=== PATIENT | female | born 1980 | race Caucasian/White ===

== ENCOUNTER → 2020-06-16 14:01 | Outpatient (BNVA) | payer MEDICARE, MEDICAID, SELFPAY | PROVIDERS: Visit Provider Obstetrics & Gynecology | DX: N92.0 Excessive and frequent menstruation with regular cycle (principal); R11.0 Nausea; Z12.31 Encounter for screening mammogram for malignant neoplasm of breast; Z12.4 Encounter for screening for malignant neoplasm of cervix | CPT/HCPCS: 84443; 85025; 88175 ==

== ENCOUNTER → 2020-06-23 15:32 | Outpatient (BNVA) | payer MEDICARE, MEDICAID, SELFPAY | PROVIDERS: Visit Provider Obstetrics & Gynecology | DX: D25.9 Leiomyoma of uterus, unspecified (principal) | CPT/HCPCS: 76830 ==

== ENCOUNTER 2020-07-29 13:14 | Outpatient (CLI) | payer MEDICARE, MEDICAID, SELFPAY ==
--- NOTE | 2020-07-29 13:30 | MM_ITS ---
WS: [id number] SCREENING DIGITAL MAMMOGRAM WITH CAD HISTORY: screening COMPARISON: None available. Bilateral CC and MLO views submitted. Computer aided detection analyzed. Breast composition: There are scattered areas of fibroglandular density. High-density asymmetry in th e central LEFT breast on the CC projection measures 8 mm. May be in the superior breast on the latera l projection. Benign lymph node upper-outer quadrant of the RIGHT breast. MM/[place] [id number] IMPRESSION: BI-RADS: 0-Incomplete: Need additional imaging evaluation FOLLOW UP: Need Additional Imaging LEFT breast: Spot compression views (CC and MLO). True ML. Ultrasound to follow if abnormality persists.
== END 2020-07-29 13:15 | disposition home or self-care (01) ==
LOC: RADSHAW 13:20
PROVIDERS: PCP Family Medicine Adult Medicine; Visit Provider Obstetrics & Gynecology
DX: Z12.31 Encounter for screening mammogram for malignant neoplasm of breast (principal); N64.89 Other specified disorders of breast
CPT/HCPCS: 77067

== ENCOUNTER 2020-08-17 08:10 | Outpatient (CLI) | payer MEDICARE, MEDICAID, SELFPAY ==
--- NOTE | 2020-08-17 08:30 | MM_ITS ---
WS: [id number] ADDITIONAL VIEWS LEFT MAMMOGRAM LEFT BREAST ULTRASOUND HISTORY: Incomplete mammogram COMPARISON: 07/29/2020 LEFT MAMMOGRAM: Spot compression views and true ML. Asymmetry persists in the anterior LEFT breast measuring 6 mm seen only on the CC projection. Nodule is just lateral to the nipple line and probably above the nipple. Does not completely resolve with ad ditional imaging. LEFT BREAST ULTRASOUND 2-D and color Doppler imaging submitted. Ultrasound is directed to the anterior breast near 12-1 o'clock. There are no suspicious masses ident ified. There is thick fibroglandular tissue. No shadowing. MM/[place] [id number] IMPRESSION: BI-RADS: 3-Probably Benign FOLLOW UP: 6 Month Follow-up Recommend 6 month diagnostic imaging of the LEFT breast to reevaluate the asymm etry seen only on the LEFT CC mammogram. No abnormality was noted by ultrasound .
--- NOTE | 2020-08-17 09:00 | US_ITS ---
WS: [id number] ADDITIONAL VIEWS LEFT MAMMOGRAM LEFT BREAST ULTRASOUND HISTORY: Incomplete mammogram COMPARISON: 07/29/2020 LEFT MAMMOGRAM: Spot compression views and true ML. Asymmetry persists in the anterior LEFT breast measuring 6 mm seen only on the CC projection. Nodule is just lateral to the nipple line and probably above the nipple. Does not completely resolve with ad ditional imaging. LEFT BREAST ULTRASOUND 2-D and color Doppler imaging submitted. Ultrasound is directed to the anterior breast near 12-1 o'clock. There are no suspicious masses ident ified. There is thick fibroglandular tissue. No shadowing. US/US breast LT limited* [id number] IMPRESSION: BI-RADS: 3-Probably Benign FOLLOW UP: 6 Month Follow-up Recommend 6 month diagnostic imaging of the LEFT breast to reevaluate the asymm etry seen only on the LEFT CC mammogram. No abnormality was noted by ultrasound .
== END 2020-08-17 08:11 | disposition home or self-care (01) ==
LOC: RADSHAW 08:14
PROVIDERS: PCP Family Medicine Adult Medicine; Visit Provider Obstetrics & Gynecology
DX: R92.2 Inconclusive mammogram (principal); N64.89 Other specified disorders of breast
CPT/HCPCS: 76642; 77065

== ENCOUNTER 2020-10-25 16:35 | Emergency (ER) | payer MEDICARE, MEDICAID, SELFPAY ==
[2020-10-25 17:00] VITALS: BP 127/91; PULSE 82; RESP 14; TEMP 36.8; O2SAT 96; BMI 30.1
--- NOTE | 2020-10-25 19:08 | PC.NURSE ---
PT STATES THAT HER BLEEDING IS EVERYTIME SHE HAS A BOWEL MOVEMENT NOW. RECHECK VITALS 135/86, 87HR, 97%
--- NOTE | 2020-10-25 19:43 | ED_ITS ---
HPI - General Adult General: Chief complaint: General Medical Stated complaint: passing blood, spider bite on bum Time Seen by Provider: 10/25/20 19:41 History of Present Illness: HPI narrative: Patient is a 40-year-old female comes to the ED with abdominal pain, red blood in stool and spider bite on left buttock. Past medical history of COPD, anxiety and Crohn's disease. Patient says spider bite occurred approximately 4 days ago. Patient has been using charcoal and mupirocin ointment on it. She says it has been improving over the past 4 days. She says that her abdominal pain and red blood in the stool is a Crohn's flare up. Abdominal pain is rated a 5 out of 10. She states that whenever she gets stressed she has these flares. Patient is having some relationship issues with her best friend that is causing her a lot of stress. She started having this abdominal pain and blood in the stool approximately 2 days ago. Denies any fever, chills, emesis, chest pain, shortness of breath, dysuria or hematuria. She does endorse having a cough that has progressed a little due to her increased tobacco smoking due to stress. Patient has an appointment with behavioral health in November to evaluate her anxiety. Associated symptoms: Reports nausea; Deny chest pain, dyspnea, headache(s), rash, palpitations or vomiting Review of Systems Const: Denies: fever(s), chills or fatigue Eyes: Denies: change in vision or eye discomfort ENMT: Denies: throat pain, odynophagia, nasal discharge or nasal congestion Card: Denies: chest pain, palpitations, edema, swelling of feet/ankles, dyspnea on exertion or orthopnea Resp: Reports: non-productive cough; Denies: dyspnea or productive cough GI: Reports: abdominal pain, nausea, heartburn, diarrhea and hematochezia (Red blood when she wipes.); Denies: vomiting or constipation : Denies: flank pain, dysuria or hematuria Musc: Denies: neck pain, back pain or extremity swelling Skin/Breast: Denies: rash or new lesions Neuro: Denies: headache(s), numbness in extremities or weakness in extremities Psych: Reports: anxiety [facility] ED PFSH: Medical History 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 IBS (irritable colon syndrome) No pertinent past medical history Denies diabetes, hypertension, asthma, seizures, DVT/PE PCP: Dr. Medel Seizures Surgical History S/P laparoscopic cholecystectomy 2006 Status post delivery X 2 ---> 2005, 2006 Status post tubal ligation 2006--laparoscopic tubal 2 months after her Family History Father Hyperlipidemia Hypertension Mother Hypertension Stroke Breast cancer diagnosed at age 70 Cancer breast Family/Other Ovarian cancer paternal aunt Denies family history of Colon cancer Diabetes Heart disease Anesthesia complication Bleeding disorder Uterine cancer Thyroid condition Social History Smoking and tobacco status: former smoker Alcohol intake: never Household members: significant other Marital status: Single Current occupational status: disabled History of recent travel: No Physical Exam Const: COMMON NORMALS: no acute distress, patient oriented x3 and alert GENERAL APPEARANCE: cooperative, comfortable and anxious HENMT: COMMON NORMALS: normocephalic HEAD & SCALP: normocephalic MOUTH: Normal oral and palatal mucosa present THROAT: posterior oropharynx normal and uvula midline Eye: COMMON NORMALS: Equal, round and reactive pupils present PUPIL: Yes Equal, round and reactive pupils present Neck/C-Spine: COMMON NORMALS: supple GENERAL: Yes normal visual inspection Resp: COMMON NORMALS: normal respiratory effort, No retractions, No use of accessory muscles and clear to auscultation bilaterally EFFORT & INSPECTION: Yes able to speak in complete sentences, No tachypneic, No respiratory distress and No labored AUSCULTATION: clear to auscultation bilaterally Cardio: COMMON NORMALS: regular rate, regular rhythm, S1 normal heart sound present, S2 normal heart sound present, No gallops present (Cardio), No clicks present (Cardio), No murmurs present (Cardio) and Peripheral pulses 2+ throughout RATE: regular rate RHYTHM: regular rhythm HEART SOUNDS: S1 normal heart sound present and S2 normal heart sound present PERIPHERAL PULSES: Peripheral pulses 2+ throughout GI: COMMON NORMALS: Normal to inspection, nondistended, normoactive bowel sounds present, Soft to palpation and no masses PALPATION: Yes Soft to palpation and Yes Tenderness to palpation present (GI) (Mild generalized tenderness throughout the abdomen.) : COMMON NORMALS: Yes no CVA tenderness BLADDER/KIDNEY EXAM: Yes no CVA tenderness Back/Pelvis: COMMON NORMALS: no CVA tenderness Extremity: COMMON NORMALS: normal to inspection Neuro: COMMON NORMALS: patient oriented x3 and moves all extremities SENSORIUM/ORIENTATION: Yes alert Skin: NARRATIVE SKIN EXAM: Patient has a small half a centimeter in diameter ulcer on left buttock. It has some surrounding erythema and warmth. Tenderness upon palpation. Appears to be brown recluse spider bite with some signs of cellulitis present. No pus or purulent drainage seen. GENERAL SKIN EXAM: dry skin Course Reevaluation(s): Reevaluation #1: After patient received IV fluids, Zofran, morphine and Solu-Medrol her symptoms greatly improved. Patient was ready to be discharged to go home. Time: 21:41 Vital Signs: Vital signs: Vital Signs Temperature 98.2 F 10/25/20 17:00 Pulse Rate 81 10/25/20 22:20 Respiratory Rate 17 10/25/20 22:20 Blood Pressure 135/101 10/25/20 22:20 Pulse Oximetry 95 10/25/20 22:20 MDM - General Adult MDM Narrative: Medical decision making narrative: Patient is a 40-year-old female comes to the ED with multiple complaints. Patient has some abdominal pain and bloody diarrhea and also has a brown recluse spider bite on left buttock. Patient has past medical history of Crohn's disease and COPD. She says that her symptoms of abdominal pain and blood in stool are like her previous Crohn's flares. She admits to having a lot of stress and anxiety currently in her life and that is the reason for current Crohn's flare. Patient has some generalized abdominal tenderness and left buttock is small ulcer that appears to be from a brown recluse bite that has some surrounding erythema warmth and tenderness. WBC 18.3. Rest of CBC and CMP was unremarkable. Chest x-ray shows no acute findings. CT of abdomen showed enteritis. Patient was given IV fluids, Zofran, morphine and Solu-Medrol and her symptoms greatly improved. Patient was diagnosed with spider bite with some cellulitis developing and enteritis. She was discharged on antibiotics and a steroid. She was told to follow-up with her PCP in 7 to 10 days for reevaluation. Return to ED precautions given. Patient understood and agreed with plan. Lab Data: Attestation: I reviewed the patient's lab results. Labs: Lab Results 10/25/20 10/25/20 10/25/20 Range/Units 20:29 20:29 20:29 WBC 18.3 H (4.0-10.0) 10^3/ uL RBC 5.17 (4.1-5.3) 10^6/u L Hgb 14.6 (11.5-15.3) g/dL Hct 43.6 (37.0-47.0) % MCV 84.3 (81-99) fL MCH 28.2 (28.0-34.0) pg MCHC 33.5 (30.0-36.0) g/dL RDW 11.9 L (12.1-15.1) % Plt Count 394 (130-400) 10^3/c mm MPV 10.3 (7.4-10.4) fL Neut % (Auto) 70.6 % Lymph % (Auto) 19.3 % Anderson % (Auto) 7.1 % Eos % (Auto) 2.0 % Baso % (Auto) 0.7 % Neut # (Auto) 12.90 H (1.8-7.7) 10^3/u L Lymph # (Auto) 3.5 (0.8-4.8) 10^3/u L Anderson # (Auto) 1.3 H (0.2-0.9) 10^3/u L Eos # (Auto) 0.4 (0.0-0.8) 10^3/u L Baso # (Auto) 0.1 (0.0-0.1) 10^3/u L Nucleated RBC % (a uto) 0 % Nucleated RBCs # 0.0 /100WBC PT 12.90 (12.1-14.9) SECO NDS INR 0.94 (0.8-1.2) Sodium 141 (136-145) mmol/L Potassium 3.8 (3.5-5.1) mmol/L Chloride 107 (98-107) mmol/L Carbon Dioxide 19 L (22-29) mmol/L Anion Gap 18.8 (5-19) BUN 13 (6-20) mg/dL Creatinine 0.8 (0.5-0.9) mg/dL GFR Calculation 79.4 L (90-130) mL/min Glucose 119 H (65-115) mg/dL Calculated Osmolal ity 293 (285-295) mOsm/k g Calcium 9.6 (8.5-10.5) mg/dL Total Bilirubin 0.5 (0.15-1.2) mg/dL AST 15 (0-32) U/L ALT 18 (0-33) U/L Alkaline Phosphata se 80 (35-105) IU/L C-Reactive Protein 2.8 (0.0-4.9) mg/L Total Protein 8.1 (6.6-8.7) g/dL Albumin 4.7 (3.5-5.2) g/dL Globulin 3.4 (1.3-4.6) g/dL Lipase (13-60) U/L HCG, Qual (Negative) 10/25/20 10/25/20 Range/Units 20:29 20:40 WBC (4.0-10.0) 10^3/ uL RBC (4.1-5.3) 10^6/u L Hgb (11.5-15.3) g/dL Hct (37.0-47.0) % MCV (81-99) fL MCH (28.0-34.0) pg MCHC (30.0-36.0) g/dL RDW (12.1-15.1) % Plt Count (130-400) 10^3/c mm MPV (7.4-10.4) fL Neut % (Auto) % Lymph % (Auto) % Anderson % (Auto) % Eos % (Auto) % Baso % (Auto) % Neut # (Auto) (1.8-7.7) 10^3/u L Lymph # (Auto) (0.8-4.8) 10^3/u L Anderson # (Auto) (0.2-0.9) 10^3/u L Eos # (Auto) (0.0-0.8) 10^3/u L Baso # (Auto) (0.0-0.1) 10^3/u L Nucleated RBC % (a uto) % Nucleated RBCs # /100WBC PT (12.1-14.9) SECO NDS INR (0.8-1.2) Sodium (136-145) mmol/L Potassium (3.5-5.1) mmol/L Chloride (98-107) mmol/L Carbon Dioxide (22-29) mmol/L Anion Gap (5-19) BUN (6-20) mg/dL Creatinine (0.5-0.9) mg/dL GFR Calculation (90-130) mL/min Glucose (65-115) mg/dL Calculated Osmolal ity (285-295) mOsm/k g Calcium (8.5-10.5) mg/dL Total Bilirubin (0.15-1.2) mg/dL AST (0-32) U/L ALT (0-33) U/L Alkaline Phosphata se (35-105) IU/L C-Reactive Protein (0.0-4.9) mg/L Total Protein (6.6-8.7) g/dL Albumin (3.5-5.2) g/dL Globulin (1.3-4.6) g/dL Lipase 24 (13-60) U/L HCG, Qual Negative (Negative) Imaging Data^: CT Abd/Pel: Attestation: I personally reviewed and interpreted this imaging study as follows: Radiologist's impression: [address] [address] [address] Scan Report Signed Patient: Rekha Gu Unit #: [id number] : 1980 Age/Sex: 40 / F ADM Date: 10/25/20 Loc: ER Room/Bed: Attending Dr: Ordering Provider/Ordering MD: Nikos Drew Date of Service: 10/25/20 Procedure(s): CT abdomen pelvis w con* [id number] Accession Number(s): [id number] Report Number: [id number] PROCEDURE INFORMATION: Exam: CT Abdomen And Pelvis With Contrast Exam date and time: 10/25/2020 8:39 PM Age: 40 years old Clinical indication: Other: Rectal bleeding; Prior surgery; Surgery type: Tubal, , gb; Additional info: Abdominal pain TECHNIQUE: Imaging protocol: Computed tomography of the abdomen and pelvis with intravenous contrast. Radiation optimization: All CT scans at this facility use at least one of these dose optimization techniques: automated exposure control; mA and/or kV adjustment per patient size (includes targeted exams where dose is matched to clinical indication); or iterative reconstruction. Contrast material: OMNI 300; Contrast volume: 95 ml; Contrast route: INTRAVENOUS (IV); COMPARISON: US transvaginal [id number] 06/23/2020 3:36 PM RADIATION DOSE METRICS: Total DLP (mGy-cm): 656.51 FINDINGS: Liver: Normal. No mass. Gallbladder and bile ducts: Cholecystectomy. Pancreas: Normal. No ductal dilation. Spleen: Normal. No splenomegaly. Adrenal glands: Normal. No mass. Kidneys and ureters: Normal. No hydronephrosis. Stomach and bowel: Prominent fluid in the small bowel without dilation may reflect an enteritis or ileus. Appendix: No evidence of appendicitis. Intraperitoneal space: Unremarkable. No free air. No significant fluid collection. Vasculature: Unremarkable. No abdominal aortic aneurysm. Lymph nodes: Unremarkable. No enlarged lymph nodes. Urinary bladder: Unremarkable as visualized. Reproductive: Unremarkable as visualized. Bones/joints: Unremarkable. No acute fracture. Soft tissues: Unremarkable. CT/CT abdomen pelvis w con* [id number] IMPRESSION: 1. Prominent fluid in the small bowel without dilation may reflect an enteritis or ileus. 2. Cholecystectomy. Radiation Dose CTDIVOL = (mGy): DLP = 656.51 (mGy-cm) Dictated By: Errol Lamb MD Signed By: Errol Lamb MD Signed Date/Time: 10/25/202110 DD/ 09 CXR: Attestation: I personally reviewed and interpreted this imaging study as follows: My impression: Chest x-ray shows hyperinflated lungs but no signs of pneumonia or any other acute findings. Pending final radiology report. Discharge Plan Discharge Patient Disposition: Home Clinical Impression: Enteritis Brown recluse spider bite Qualifiers: Encounter type: initial encounter Injury intent: accidental or unintentional Qualified Code(s): T63.331A - Toxic effect of venom of brown recluse spider, accidental (unintentional), initial encounter Condition: Stable Prescriptions: New mupirocin 2 % ointment 1 applic topical BID Qty: 15 RF: 0 clindamycin HCl 150 mg capsule 300 mg PO QID 7 Days Qty: 56 RF: 0 Flagyl 500 mg tablet 500 mg PO Q8H 5 Days Qty: 15 RF: 0 Medrol (Luciano) 4 mg tablets,dose pack See Rx Instructions .ROUTE .COMPLEX Qty: 21 RF: 0 No Action ipratropium-albuterol 0.5 mg-3 mg(2.5 mg base)/3 mL solution for nebulization 3 ml INHALATION QID PRN (Reason: wheezing) Qty: 180 RF: 0 turmeric 400 mg capsule 400 mg PO BID@0700,1900 RF: 0 Garcinia Cambogia 200-500 mcg-mg tablet 1 tab PO TID RF: 0 aloe juice See Rx Instructions .ROUTE .COMPLEX RF: 0 vitamin B complex [B Complex-Vitamin B12] Tablet 1 tab PO DAILY@0700 RF: 0 medroxyprogesterone [Depo-Provera] 150 mg/mL suspension 150 mg IM ONCE Qty: 1 RF: 2 albuterol sulfate [Ventolin HFA] 90 mcg/actuation HFA aerosol inhaler 2 puff INHALATION Q6H PRN (Reason: shortness of breath or wheezing) Qty: 18 RF: 1 bentonite Powder See Rx Instructions .ROUTE .COMPLEX RF: 0 ondansetron 8 mg tablet,disintegrating 8 mg PO Q8H Qty: 30 RF: 3 cannabis See Rx Instructions .ROUTE .COMPLEX RF: 0 Viibryd 10 mg (7)- 20 mg (23) tablets,dose pack See Rx Instructions PO PER PKG DIR Qty: 30 RF: 0 hydroxyzine pamoate 100 mg capsule 100 mg PO Q6H Qty: 120 RF: 5 mupirocin 2 % ointment 1 applic topical TID 7 Days Qty: 22 RF: 0 multivitamin Tablet 1 tab PO DAILY@0700 RF: 0 ashwagandha root extract 300 mg Capsule 300 mg PO DAILY@0700 RF: 0 Gabapalm 1 tab PO DAILY@0700 RF: 0 He Shou Nickerson 1 tab PO DAILY@0700 RF: 0 Vitamin D3 1 tab PO DAILY@0700 RF: 0 melatonin 1 tab PO DAILY@1900 RF: 0 Discharge Orders: Discharge ED (Routine); Ordered 10/25/20 Ordered By: Nikos Meigs Referrals: Alexi Medel MD [Primary Care Provider] - Discharge Diet: Advance as tolerated Discharge Activity: Increase activity as tolerated Patient Instructions: Crohn Disease (ED), Brown Recluse Spider Bite (ED) Activity Restrictions/Additional Instructions: Follow-up with medical provider as directed in 7 to 10 days for reevaluation. Take medications as prescribed. Return to the ER or your medical provider if condition worsens. Please read and understand discharge instructions. If any questions, please ask. Coding Level of Care Code ED Anchor Tack Puller for Chg Fwd Exam Comprehensive
--- NOTE | 2020-10-25 20:01 | XR_ITS ---
WS: [id number] Exam: XR chest 1V portable [id number] Date/Time of Exam: 10/25/2020 8:34 PM Reason For Exam: cough No priors. Findings: The lungs are clear and fully expanded. Costophrenic angles are sharp. No infiltrates. Bronchovascula r relief appears normal. Cardiac silhouette is unremarkable. Bony elements are intact. XR/XR chest 1V portable [id number] IMPRESSION: Unremarkable chest radiograph.
--- NOTE | 2020-10-25 20:01 | CTR_ITS ---
PROCEDURE INFORMATION: Exam: CT Abdomen And Pelvis With Contrast Exam date and time: 10/25/2020 8:39 PM Age: 40 years old Clinical indication: Other: Rectal bleeding; Prior surgery; Surgery type: Tubal, , gb; Additional info: Abdominal pain TECHNIQUE: Imaging protocol: Computed tomography of the abdomen and pelvis with intravenous contrast. Radiation optimization: All CT scans at this facility use at least one of these dose optimization techniques: automated exposure control; mA and/or kV adjustment per patient size (includes targeted exams where dose is matched to clinical indication); or iterative reconstruction. Contrast material: OMNI 300; Contrast volume: 95 ml; Contrast route: INTRAVENOUS (IV); COMPARISON: US transvaginal [id number] 06/23/2020 3:36 PM RADIATION DOSE METRICS: Total DLP (mGy-cm): 656.51 FINDINGS: Liver: Normal. No mass. Gallbladder and bile ducts: Cholecystectomy. Pancreas: Normal. No ductal dilation. Spleen: Normal. No splenomegaly. Adrenal glands: Normal. No mass. Kidneys and ureters: Normal. No hydronephrosis. Stomach and bowel: Prominent fluid in the small bowel without dilation may reflect an enteritis or ileus. Appendix: No evidence of appendicitis. Intraperitoneal space: Unremarkable. No free air. No significant fluid collection. Vasculature: Unremarkable. No abdominal aortic aneurysm. Lymph nodes: Unremarkable. No enlarged lymph nodes. Urinary bladder: Unremarkable as visualized. Reproductive: Unremarkable as visualized. Bones/joints: Unremarkable. No acute fracture. Soft tissues: Unremarkable. CT/CT abdomen pelvis w con* [id number] IMPRESSION: 1. Prominent fluid in the small bowel without dilation may reflect an enteritis or ileus. 2. Cholecystectomy. Radiation Dose CTDIVOL = (mGy): DLP = 656.51 (mGy-cm)
[2020-10-25] MEDS: lidocaine 2% viscous 15 ML, aluminum-mag hydrox-simethicon 30 ML, sucralfate oral liq 1 GM PO (20:29)
[2020-10-25 20:30] VITALS: RESP 16
[2020-10-25] MEDS: ondansetron 2 mg/ML SDV 2 mL 4 MG IVP (20:30)
[2020-10-25] MEDS: morphine 4 mg/mL SDV 1 mL IVP (20:30)
[2020-10-25 20:32] LABS: Basophils # 0.1 10^3/uL (0.0-0.1); Basophils % 0.7 %; Eosinophils # 0.4 10^3/uL (0.0-0.8); Hematocrit 43.6 % (37.0-47.0); Hemoglobin 14.6 g/dL (11.5-15.3); Lymphocytes # 3.5 10^3/uL (0.8-4.8); Lymphocytes % 19.3 %; Mean Corpuscular HGB Conc 33.5 g/dL (30.0-36.0); Mean Corpuscular Hemoglobin 28.2 pg (28.0-34.0); Mean Corpuscular Volume 84.3 fL (81-99); Mean Platelet Volume 10.3 fL (7.4-10.4); Monocytes # 1.3 10^3/uL (0.2-0.9); Monocytes % 7.1 %; Neutrophils % 70.6 %; Nucleated Red Blood Cells % 0 %; Platelet Count 394 10^3/cmm (130-400); Red Blood Count 5.17 10^6/uL (4.1-5.3); Red Cell Distribution Width 11.9 % (12.1-15.1); White Blood Count 18.3 10^3/uL (4.0-10.0)
[2020-10-25] MEDS: sodium chloride 0.9% 1,000 ML 999 ML IV (20:34)
[2020-10-25 20:49] LABS: INR 0.94 (0.8-1.2)
[2020-10-25] MEDS: iohexol 300 mg/mL 100 mL Btl IV (20:50)
--- NOTE | 2020-10-25 20:51 | PC.NURSE ---
patient to CT
[2020-10-25 20:58] LABS: Alanine Aminotransferase 18 U/L (0-33); Albumin Level 4.7 g/dL (3.5-5.2); Alkaline Phosphatase 80 IU/L (35-105); Anion Gap 18.8 (5-19); Aspartate Amino Transferase 15 U/L (0-32); Blood Urea Nitrogen 13 mg/dL (6-20); C Reactive Protein 2.8 mg/L (0.0-4.9); Calcium 9.6 mg/dL (8.5-10.5); Carbon Dioxide 19 mmol/L (22-29); Chloride 107 mmol/L (98-107); Creatinine Clr Calc Pharmacy 91.9127; Globulin 3.4 g/dL (1.3-4.6); Glomerular Filtration Rate 79.4 mL/min (90-130); Glucose 119 mg/dL (65-115); Osmolality Calculated 293 mOsm/kg (285-295); Potassium 3.8 mmol/L (3.5-5.1); Sodium 141 mmol/L (136-145); Total Bilirubin 0.5 mg/dL (0.15-1.2); Total Protein 8.1 g/dL (6.6-8.7)
[2020-10-25 21:00] LABS: Lipase 24 U/L (13-60)
[2020-10-25 21:02] LABS: HCG, Serum Qual Negative (Negative)
[2020-10-25 21:55] VITALS: BP 125/88; PULSE 75; RESP 16; O2SAT 100
[2020-10-25] MEDS: clindamycin 150 mg Capsule 300 MG PO (21:58)
[2020-10-25 22:00] VITALS: PULSE 74; RESP 16
[2020-10-25 22:20] VITALS: BP 135/101; PULSE 81; RESP 17; O2SAT 95
== END 2020-10-25 22:16 | disposition home or self-care (01) ==
PROVIDERS: Emergency Medicine; Emergency Provider Physician Assistant; PCP Family Medicine Adult Medicine
DX: K52.9 Noninfective gastroenteritis and colitis, unspecified (principal); T63.331A Toxic effect of venom of brown recluse spider, accidental (unintentional), initial encounter; J44.9 Chronic obstructive pulmonary disease, unspecified; Z87.891 Personal history of nicotine dependence
CPT/HCPCS: 12345; 71045; 74177; 80053; 83690; 84703; 85025; 85610; 86140; 96361; 96374; 96375; 99283; J2270; J2405; J2930; J7030; Q9967

== ENCOUNTER → 2020-11-23 14:14 | Outpatient (BNVA) | payer MEDICARE, MEDICAID, SELFPAY | PROVIDERS: PCP Family Medicine Adult Medicine; Visit Provider Psychiatry & Neurology Psychiatry | DX: F41.1 Generalized anxiety disorder (principal); F12.20 Cannabis dependence, uncomplicated; F60.9 Personality disorder, unspecified; F43.12 Post-traumatic stress disorder, chronic | CPT/HCPCS: 82784; 83516; 99204 ==

== ENCOUNTER → 2020-12-15 15:42 | Outpatient (BNVA) | payer MEDICARE, MEDICAID, SELFPAY | PROVIDERS: PCP Family Medicine; Visit Provider Family Medicine | DX: K50.911 Crohn's disease, unspecified, with rectal bleeding (principal); Z20.822 Contact with and (suspected) exposure to COVID-19; K92.1 Melena; G47.00 Insomnia, unspecified; Z68.33 Body mass index [BMI] 33.0-33.9, adult; F17.211 Nicotine dependence, cigarettes, in remission | CPT/HCPCS: 87635 ==

== ENCOUNTER 2020-12-20 08:25 | Day surgery (SDC) | payer MEDICARE, MEDICAID, SELFPAY ==
[2020-12-09 12:28] VITALS: BMI 32.1
--- NOTE | 2020-12-20 08:39 | ANES.PREANE2 ---
Pre-Anesthetic Assessment Pre-Anesthetic Assessment: Height/Weight: Height 1.6 m Weight 82.1 kg Preop Diagnosis: IBS Proposed Procedure: Operation Date: 12/20/20 09:50 Proposed Procedures p EGD 08811 K92.1(Not Applicable) - Colt Ortiz MD s Colonoscopy 52175 K92.1(Not Applicable) - Colt Ortiz MD Familial anesthetic complications: None Last intake: NPO > 8 hrs Social: Social History: No alcohol and No tobacco Comment: former smoker Exam: Pre-Anes Outpt Exam: alert, oriented x 3, clear to auscultation bilaterally and regular rate & rhythm Airway: Cervical ROM: WNL MP: 1 Dentition: Full Pulmonary: Pulmonary: COPD (stopped prednisone last week (was perscribed for rash on eye - not COPD)) : Comments: renal infarction in 2005 GI: GI: GERD Neuropsych: Neuropsych: Seizure (? 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 IBS (irritable colon syndrome) No pertinent past medical history Denies diabetes, hypertension, asthma, seizures, DVT/PE PCP: Dr. Medel Seizures Surgical History S/P laparoscopic cholecystectomy 2006 Status post delivery X 2 ---> 2005, 2006 Status post tubal ligation 2006--laparoscopic tubal 2 months after her Family History Father Hyperlipidemia Hypertension Mother Hypertension Stroke Breast cancer diagnosed at age 70 Cancer breast Family/Other Ovarian cancer paternal aunt Denies family history of Colon cancer Diabetes Heart disease Anesthesia complication Bleeding disorder Uterine cancer Thyroid condition Social History Smoking and tobacco status: former smoker Quit status (tobacco): has quit using tobacco Year quit tobacco: 2008 Second hand smoke exposure: No Alcohol intake: never Household members: significant other Marital status: Single Current occupational status: disabled History of recent travel: No Data Anesthesia Cardiac Studies: No Data to Display
[2020-12-20 08:55] VITALS: BP 152/111; PULSE 114; RESP 20; O2SAT 94
--- NOTE | 2020-12-20 09:08 | P.HPUD_ITS ---
Surgery/Procedure H&P Update DATE OF PROCEDURE: December 20, 2020 DATE H&P PERFORMED: 11/23/20 PREOP DIAGNOSIS: IBS PLANNED PROCEDURE: Operation Date: 12/20/20 09:50 Proposed Procedures p EGD 87985 K92.1(Not Applicable) - Colt Ortiz MD s Colonoscopy 14085 K92.1(Not Applicable) - Colt Ortiz MD
--- NOTE | 2020-12-20 09:08 | W.PM.OPSUD ---
Surgery/Procedure H&P Update DATE OF PROCEDURE: December 20, 2020 DATE H&P PERFORMED: 11/23/20 PREOP DIAGNOSIS: IBS PLANNED PROCEDURE: Operation Date: 12/20/20 09:50 Proposed Procedures p EGD 91463 K92.1(Not Applicable) - Colt Ortiz MD s Colonoscopy 36077 K92.1(Not Applicable) - Colt Ortiz MD
[2020-12-20 09:28] LABS: Glucose Point of Care 123 mg/dL (70-110)
[2020-12-20] MEDS: midazolam 1 mg/mL INJ 2 mL 2 MG IVP (09:29)
[2020-12-20] MEDS: sodium chloride 0.9% 1,000 ML 30 ML IV (09:30)
[2020-12-20 10:01] VITALS: TEMP 36.2
[2020-12-20 10:02] VITALS: BP 110/85; PULSE 93; RESP 18; O2SAT 99
[2020-12-20 10:18] VITALS: BP 147/94; PULSE 96; RESP 18; O2SAT 99
--- NOTE | 2020-12-20 18:57 | ANE.PACU2 ---
Inpatient post-anesthesia follow up: Airway intact: Yes Vital signs: Temperature 97.2 F Pulse Rate 96 Respiratory Rate 18 Blood Pressure 147/94 Pulse Oximetry 99 Oxygen Delivery Me thod Room Air Oxygen Flow Rate Fraction of Inspir ed Oxygen Hydration adequate: Yes Nausea and vomiting: No Pain level: 1 Mental status: Baseline
[2020-12-21 06:21] LABS: H. Pylori / CLO Test Negative
== END 2020-12-20 10:41 | disposition home or self-care (01) ==
PROVIDERS: PCP Family Medicine; Visit Provider Internal Medicine
PROC: 0DJ08ZZ Inspection of Upper Intestinal Tract, Via Natural or Artificial Opening Endoscopic (ICD-10-PCS; CPT 43235; principal; 2020-12-20 09:50)
PROC: 0DJD8ZZ Inspection of Lower Intestinal Tract, Via Natural or Artificial Opening Endoscopic (ICD-10-PCS; CPT 45378; 2020-12-20 09:50)
DX: K92.1 Melena (principal); K44.9 Diaphragmatic hernia without obstruction or gangrene; K29.70 Gastritis, unspecified, without bleeding; J44.9 Chronic obstructive pulmonary disease, unspecified; Z87.891 Personal history of nicotine dependence
CPT/HCPCS: 36416; 43239; 45378; 82962; 87077; 88305; 96360; J2250; J2704; J7030

== ENCOUNTER → 2020-12-21 08:10 | Outpatient (BNVA) | payer MEDICARE, MEDICAID, SELFPAY | PROVIDERS: PCP Family Medicine; Visit Provider Psychiatry & Neurology Psychiatry | DX: F41.1 Generalized anxiety disorder (principal); F12.20 Cannabis dependence, uncomplicated; F60.9 Personality disorder, unspecified | CPT/HCPCS: 99214 ==

== ENCOUNTER 2020-12-22 18:43 | Emergency (ER) | payer MEDICARE, MEDICAID, SELFPAY ==
[2020-12-22 18:58] VITALS: BP 115/82; PULSE 99; RESP 18; TEMP 36.7; O2SAT 97; BMI 30.9
--- NOTE | 2020-12-22 21:50 | W.ED.ABDPA2 ---
Documented by User: Celina Mann MD 12/23/20 18:27 HPI - Abdominal Pain General: Chief Complaint: Abdominal Pain Stated Complaint: HERNIA COMPLICATIONS Time Seen by Provider: 12/22/20 19:21 Source: patient Mode of arrival: ambulatory Limitations: no limitations History of Present Illness: HPI narrative: 80-year-old female states she had abdominal pain for over a month especially in the epigastric region. States she had an EGD on Sunday and has had worsening pain since then. States pain is diffuse in nature and rates it a 9 out of 10. She has had nausea with no vomiting. She denies any worsening improving factors. She denies any diarrhea. 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 IBS (irritable colon syndrome) No pertinent past medical history Denies diabetes, hypertension, asthma, seizures, DVT/PE PCP: Dr. Medel Seizures Surgical History S/P laparoscopic cholecystectomy 2006 Status post delivery X 2 ---> 2005, 2006 Status post tubal ligation 2006--laparoscopic tubal 2 months after her Family History Father Hyperlipidemia Hypertension Mother Hypertension Stroke Breast cancer diagnosed at age 70 Cancer breast Family/Other Ovarian cancer paternal aunt Denies family history of Colon cancer Diabetes Heart disease Anesthesia complication Bleeding disorder Uterine cancer Thyroid condition Social History Smoking and tobacco status: former smoker Quit status (tobacco): has quit using tobacco Year quit tobacco: 2008 Second hand smoke exposure: No Alcohol intake: never Household members: significant other Marital status: Single Current occupational status: disabled History of recent travel: No Physical Exam Const: COMMON NORMALS: no acute distress, patient oriented x3 and healthy appearing HENMT: COMMON NORMALS: normocephalic and atraumatic HEAD & SCALP: normocephalic and atraumatic Eye: COMMON NORMALS: Equal, round and reactive pupils present and EOMs intact bilaterally PUPIL: Yes Equal, round and reactive pupils present Neck/C-Spine: COMMON NORMALS: full ROM and supple Chest: COMMONS NORMALS: normal inspection of the chest and normal palpation of entire chest wall Resp: COMMON NORMALS: normal respiratory effort, No retractions, No use of accessory muscles and clear to auscultation bilaterally AUSCULTATION: clear to auscultation bilaterally Cardio: COMMON NORMALS: regular rate, regular rhythm and No murmurs present (Cardio) RATE: regular rate RHYTHM: regular rhythm GI: COMMON NORMALS: Normal to inspection, nondistended, normoactive bowel sounds present, Soft to palpation, non-tender and no masses PALPATION: Yes Soft to palpation Extremity: COMMON NORMALS: normal to inspection and full ROM Neuro: COMMON NORMALS: patient oriented x3, moves all extremities and no focal motor deficits Psych: COMMON NORMALS: mental status grossly normal, Normal thought process present and cooperative THOUGHT PROCESS: Normal thought process present Skin: COMMON NORMALS: no rashes or lesions noted and no wounds GENERAL SKIN EXAM: no rashes or lesions noted Course Vital Signs: Vital signs: Vital Signs Temperature 98.1 F 12/22/20 18:58 Pulse Rate 84 12/23/20 00:39 Respiratory Rate 20 H 12/23/20 00:39 Blood Pressure 138/86 12/23/20 00:39 Pulse Oximetry 97 12/23/20 00:39 MDM - Abdominal Pain MDM Narrative: Medical decision making narrative: Patient presents with abdominal pain. Her CT here shows colitis with no other findings. Blood work is normal as well. She is stable for discharge is to follow-up with her PCP and return if worsening. Lab Data: Labs: Lab Results 12/22/20 12/22/2021 Range/Units 22:06 22:06 22:06 WBC 13.1 H (4.0-10.0) 10^3/ uL RBC 5.52 H (4.1-5.3) 10^6/u L Hgb 15.0 (11.5-15.3) g/dL Hct 44.9 (37.0-47.0) % MCV 81.3 (81-99) fL MCH 27.2 L (28.0-34.0) pg MCHC 33.4 (30.0-36.0) g/dL RDW 12.1 (12.1-15.1) % Plt Count 338 (130-400) 10^3/c mm MPV 10.1 (7.4-10.4) fL Neut % (Auto) 62.4 % Lymph % (Auto) 26.8 % [place] % (Auto) 7.8 % Eos % (Auto) 1.8 % Baso % (Auto) 0.8 % Neut # (Auto) 8.19 H (1.8-7.7) 10^3/u L Lymph # (Auto) 3.5 (0.8-4.8) 10^3/u L [place] # (Auto) 1.0 H (0.2-0.9) 10^3/u L Eos # (Auto) 0.2 (0.0-0.8) 10^3/u L Baso # (Auto) 0.1 (0.0-0.1) 10^3/u L Nucleated RBC % (a uto) 0 % Nucleated RBCs # 0.0 /100WBC Sodium 137 (136-145) mmol/L Potassium 4.2 (3.5-5.1) mmol/L Chloride 104 (98-107) mmol/L Carbon Dioxide 23 (22-29) mmol/L Anion Gap 14.2 (5-19) BUN 12 (6-20) mg/dL Creatinine 0.8 (0.5-0.9) mg/dL GFR Calculation 79.4 L (90-130) mL/min Glucose 110 (65-115) mg/dL Calculated Osmolal ity 284 L (285-295) mOsm/k g Calcium 9.1 (8.5-10.5) mg/dL Total Bilirubin 0.3 (0.15-1.2) mg/dL AST 17 (0-32) U/L ALT 24 (0-33) U/L Alkaline Phosphata se 74 (35-105) IU/L Total Protein 7.9 (6.6-8.7) g/dL Albumin 4.5 (3.5-5.2) g/dL Globulin 3.4 (1.3-4.6) g/dL Lipase 23 (13-60) U/L HCG, Qual Negative (Negative) Discharge Plan Discharge Patient Disposition: Home Clinical Impression: Abdominal pain Qualifiers: Abdominal location: generalized Qualified Code(s): R10.84 - Generalized abdominal pain Condition: Stable Prescriptions: New hydrocodone-acetaminophen 5-325 mg tablet 1 tab PO Q6H PRN (Reason: pain) Qty: 14 RF: 0 promethazine 25 mg tablet 25 mg PO TID PRN (Reason: nausea and vomiting) Qty: 14 RF: 0 No Action ipratropium-albuterol 0.5 mg-3 mg(2.5 mg base)/3 mL solution for nebulization 3 ml INHALATION QID PRN (Reason: wheezing) Qty: 180 RF: 0 turmeric 400 mg capsule 400 mg PO BID@0700,1900 RF: 0 aloe juice See Rx Instructions .ROUTE .COMPLEX RF: 0 vitamin B complex [B Complex-Vitamin B12] Tablet 1 tab PO DAILY@0700 RF: 0 albuterol sulfate [Ventolin HFA] 90 mcg/actuation HFA aerosol inhaler 2 puff INHALATION Q6H PRN (Reason: shortness of breath or wheezing) Qty: 18 RF: 1 bentonite Powder See Rx Instructions .ROUTE .COMPLEX RF: 0 cannabis See Rx Instructions .ROUTE .COMPLEX RF: 0 trazodone 100 mg tablet 300 mg PO .HS Qty: 90 RF: 1 paroxetine HCl 40 mg tablet 40 mg PO DAILY Qty: 30 RF: 1 ondansetron 8 mg tablet,disintegrating 8 mg PO Q8H PRN (Reason: chronic nausea and vomiting) RF: 0 selenium 1 tab PO DAILY RF: 0 medroxyprogesterone 150 mg/mL syringe 150 mg IM .every 90 days Qty: 1 RF: 2 multivitamin Tablet 1 tab PO DAILY@0700 RF: 0 ashwagandha root extract 300 mg Capsule 300 mg PO DAILY@0700 RF: 0 Laron Nickerson 1 tab PO DAILY@0700 RF: 0 Vitamin D3 1 tab PO DAILY@0700 RF: 0 hydroxyzine pamoate 100 mg capsule 100 mg PO Q6H PRN (Reason: Nausea) RF: 0 pantoprazole 40 mg tablet,delayed release (DR/EC) 40 mg PO DAILY Qty: 90 RF: 8 Discharge Orders: Discharge ED (Routine); Ordered 12/22/20 Ordered By: Celina Mann Referrals: Rosario Chaudhry MD [Primary Care Provider] - 1-3 days Discharge Activity: Resume usual activity Patient Instructions: Abdominal Pain (ED), Opioid Safety Coding Level of Care Code ED Rug Hooker Hand for Chg Fwd Exam Comprehensive Documented by User: LOGAN Suggs 12/24/20 01:29 HPI - Abdominal Pain General: Chief Complaint: Abdominal Pain Stated Complaint: HERNIA COMPLICATIONS Time Seen by Provider: 12/22/20 19:21 PFSH ED PFSH: Medical History 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 IBS (irritable colon syndrome) No pertinent past medical history Denies diabetes, hypertension, asthma, seizures, DVT/PE PCP: Dr. Medel Seizures Surgical History S/P laparoscopic cholecystectomy 2006 Status post delivery X 2 ---> 2005, 2006 Status post tubal ligation 2006--laparoscopic tubal 2 months after her Family History Father Hyperlipidemia Hypertension Mother Hypertension Stroke Breast cancer diagnosed at age 70 Cancer breast Family/Other Ovarian cancer paternal aunt Denies family history of Colon cancer Diabetes Heart disease Anesthesia complication Bleeding disorder Uterine cancer Thyroid condition Social History Smoking and tobacco status: former smoker Quit status (tobacco): has quit using tobacco Year quit tobacco: 2008 Second hand smoke exposure: No Alcohol intake: never Household members: significant other Marital status: Single Current occupational status: disabled History of recent travel: No Course Vital Signs: Vital signs: Vital Signs Temperature 98.1 F 12/22/20 18:58 Pulse Rate 84 12/23/20 00:39 Respiratory Rate 20 H 12/23/20 00:39 Blood Pressure 138/86 12/23/20 00:39 Pulse Oximetry 97 12/23/20 00:39 MDM - Abdominal Pain Differential Diagnosis: Differential diagnosis abdominal pain: Likely abdominal pain, acute appendicitis and constipation Lab Data: Labs: Lab Results 12/22/20 12/22/20 12/22/20 Range/Units 22:06 22:06 22:06 WBC 13.1 H (4.0-10.0) 10^3/ uL RBC 5.52 H (4.1-5.3) 10^6/u L Hgb 15.0 (11.5-15.3) g/dL Hct 44.9 (37.0-47.0) % MCV 81.3 (81-99) fL MCH 27.2 L (28.0-34.0) pg MCHC 33.4 (30.0-36.0) g/dL RDW 12.1 (12.1-15.1) % Plt Count 338 (130-400) 10^3/c mm MPV 10.1 (7.4-10.4) fL Neut % (Auto) 62.4 % Lymph % (Auto) 26.8 % [place] % (Auto) 7.8 % Eos % (Auto) 1.8 % Baso % (Auto) 0.8 % Neut # (Auto) 8.19 H (1.8-7.7) 10^3/u L Lymph # (Auto) 3.5 (0.8-4.8) 10^3/u L [place] # (Auto) 1.0 H (0.2-0.9) 10^3/u L Eos # (Auto) 0.2 (0.0-0.8) 10^3/u L Baso # (Auto) 0.1 (0.0-0.1) 10^3/u L Nucleated RBC % (a uto) 0 % Nucleated RBCs # 0.0 /100WBC Sodium 137 (136-145) mmol/L Potassium 4.2 (3.5-5.1) mmol/L Chloride 104 (98-107) mmol/L Carbon Dioxide 23 (22-29) mmol/L Anion Gap 14.2 (5-19) BUN 12 (6-20) mg/dL Creatinine 0.8 (0.5-0.9) mg/dL GFR Calculation 79.4 L (90-130) mL/min Glucose 110 (65-115) mg/dL Calculated Osmolal ity 284 L (285-295) mOsm/k g Calcium 9.1 (8.5-10.5) mg/dL Total Bilirubin 0.3 (0.15-1.2) mg/dL AST 17 (0-32) U/L ALT 24 (0-33) U/L Alkaline Phosphata se 74 (35-105) IU/L Total Protein 7.9 (6.6-8.7) g/dL Albumin 4.5 (3.5-5.2) g/dL Globulin 3.4 (1.3-4.6) g/dL Lipase 23 (13-60) U/L HCG, Qual Negative (Negative) Imaging Data ^: CT Abd/Pel: Radiologist's impression: CT Scan Report Signed Patient: Rekha Gu AUnrafael #: [id number] : 1980Acct#:[id number] Age/Sex: 40 / FADM Date: 12/22/20 Loc: ERRoom/Bed: Attending Dr: Ordering Provider/Ordering MD: Celina Mann MD Date of Service: 12/22/20 Procedure(s): CT abdomen pelvis w con* [id number] Accession Number(s): [id number] Report Number: [id number] PROCEDURE INFORMATION: Exam: CT Abdomen And Pelvis With Contrast Exam date and time: 12/22/2020 10:55 PM Age: 40 years old Clinical indication: Abdominal pain; Generalized; Prior surgery; Surgery type: Gb. Csection. Tubal. ; Patient HX: Diffuse abd pain TECHNIQUE: Imaging protocol: Computed tomography of the abdomen and pelvis with contrast. Radiation optimization: All CT scans at this facility use at least one of these dose optimization techniques: automated exposure control; mA and/or kV adjustment per patient size (includes targeted exams where dose is matched to clinical indication); or iterative reconstruction. Contrast material: OMNI 300; Contrast volume: 95 ml; Contrast route: INTRAVENOUS (IV); COMPARISON: CT abdomen pelvis w con* [id number] 10/25/2020 8:39 PM RADIATION DOSE METRICS: Total DLP (mGy-cm): 1528.03 FINDINGS: Lungs: The lung bases are clear. No effusion Liver: Normal. No mass. Gallbladder and bile ducts: There has been a cholecystectomy. Pancreas: Normal. No ductal dilation. Spleen: Normal. No splenomegaly. Adrenal glands: Normal. No mass. Kidneys and ureters: Normal. No hydronephrosis. Stomach and bowel: There is mild ascending colon wall thickening and pericolonic fat stranding. Appendix: No evidence of appendicitis. Intraperitoneal space: Unremarkable. No free air. No significant fluid collection. Vasculature: Unremarkable. No abdominal aortic aneurysm. Lymph nodes: Unremarkable. No enlarged lymph nodes. Urinary bladder: Unremarkable as visualized. Reproductive: Unremarkable as visualized. Bones/joints: Unremarkable. No acute fracture. Soft tissues: Unremarkable. CT/CT abdomen pelvis w con* [id number] IMPRESSION: Mild colitis of the ascending colon. Radiation Dose CTDIVOL = (mGy): DLP = 1528.03 (mGy-cm) Dictated By:Arjun Ambriz Signed By:Juwan Ambriz Date/Time:12/22/202352 DD/ 51 Discharge Plan Discharge Patient Disposition: Home Clinical Impression: Abdominal pain Qualifiers: Abdominal location: generalized Qualified Code(s): R10.84 - Generalized abdominal pain Condition: Stable Prescriptions: New hydrocodone-acetaminophen 5-325 mg tablet 1 tab PO Q6H PRN (Reason: pain) Qty: 14 RF: 0 promethazine 25 mg tablet 25 mg PO TID PRN (Reason: nausea and vomiting) Qty: 14 RF: 0 No Action ipratropium-albuterol 0.5 mg-3 mg(2.5 mg base)/3 mL solution for nebulization 3 ml INHALATION QID PRN (Reason: wheezing) Qty: 180 RF: 0 turmeric 400 mg capsule 400 mg PO BID@0700,1900 RF: 0 aloe juice See Rx Instructions .ROUTE .COMPLEX RF: 0 vitamin B complex [B Complex-Vitamin B12] Tablet 1 tab PO DAILY@0700 RF: 0 albuterol sulfate [Ventolin HFA] 90 mcg/actuation HFA aerosol inhaler 2 puff INHALATION Q6H PRN (Reason: shortness of breath or wheezing) Qty: 18 RF: 1 bentonite Powder See Rx Instructions .ROUTE .COMPLEX RF: 0 cannabis See Rx Instructions .ROUTE .COMPLEX RF: 0 trazodone 100 mg tablet 300 mg PO .HS Qty: 90 RF: 1 paroxetine HCl 40 mg tablet 40 mg PO DAILY Qty: 30 RF: 1 ondansetron 8 mg tablet,disintegrating 8 mg PO Q8H PRN (Reason: chronic nausea and vomiting) RF: 0 selenium 1 tab PO DAILY RF: 0 medroxyprogesterone 150 mg/mL syringe 150 mg IM .every 90 days Qty: 1 RF: 2 multivitamin Tablet 1 tab PO DAILY@0700 RF: 0 ashwagandha root extract 300 mg Capsule 300 mg PO DAILY@0700 RF: 0 He Shou Nickerson 1 tab PO DAILY@0700 RF: 0 Vitamin D3 1 tab PO DAILY@0700 RF: 0 hydroxyzine pamoate 100 mg capsule 100 mg PO Q6H PRN (Reason: Nausea) RF: 0 pantoprazole 40 mg tablet,delayed release (DR/EC) 40 mg PO DAILY Qty: 90 RF: 8 Discharge Orders: Discharge ED (Routine); Ordered 12/22/20 Ordered By: Celina Mann Referrals: Rosario Chaudhry MD [Primary Care Provider] - 1-3 days Discharge Activity: Resume usual activity Patient Instructions: Abdominal Pain (ED), Opioid Safety Coding Level of Care Code ED Rug Hooker Hand for Chg Fwd Exam Comprehensive
[2020-12-22 22:21] LABS: Basophils # 0.1 10^3/uL (0.0-0.1); Basophils % 0.8 %; Eosinophils # 0.2 10^3/uL (0.0-0.8); Eosinophils % 1.8 %; Hematocrit 44.9 % (37.0-47.0); Lymphocytes # 3.5 10^3/uL (0.8-4.8); Lymphocytes % 26.8 %; Mean Corpuscular HGB Conc 33.4 g/dL (30.0-36.0); Mean Corpuscular Hemoglobin 27.2 pg (28.0-34.0); Mean Corpuscular Volume 81.3 fL (81-99); Mean Platelet Volume 10.1 fL (7.4-10.4); Monocytes % 7.8 %; Neutrophils # 8.19 10^3/uL (1.8-7.7); Neutrophils % 62.4 %; Nucleated Red Blood Cells % 0 %; Platelet Count 338 10^3/cmm (130-400); Red Blood Count 5.52 10^6/uL (4.1-5.3); Red Cell Distribution Width 12.1 % (12.1-15.1); White Blood Count 13.1 10^3/uL (4.0-10.0)
[2020-12-22 22:40] VITALS: RESP 16
[2020-12-22] MEDS: HYDROmorphone 1 mg/mL INJ 1 mL IVP ×2 (22:40→23:06)
[2020-12-22] MEDS: ondansetron 2 mg/ML SDV 2 mL 4 MG IVP (22:41)
[2020-12-22] MEDS: sodium chloride 0.9% 1,000 ML 999 ML IV (22:41)
[2020-12-22 22:44] LABS: Alanine Aminotransferase 24 U/L (0-33); Albumin Level 4.5 g/dL (3.5-5.2); Alkaline Phosphatase 74 IU/L (35-105); Anion Gap 14.2 (5-19); Aspartate Amino Transferase 17 U/L (0-32); Blood Urea Nitrogen 12 mg/dL (6-20); Calcium 9.1 mg/dL (8.5-10.5); Carbon Dioxide 23 mmol/L (22-29); Chloride 104 mmol/L (98-107); Globulin 3.4 g/dL (1.3-4.6); Glomerular Filtration Rate 79.4 mL/min (90-130); Glucose 110 mg/dL (65-115); Lipase 23 U/L (13-60); Osmolality Calculated 284 mOsm/kg (285-295); Potassium 4.2 mmol/L (3.5-5.1); Sodium 137 mmol/L (136-145); Total Bilirubin 0.3 mg/dL (0.15-1.2); Total Protein 7.9 g/dL (6.6-8.7)
--- NOTE | 2020-12-22 22:52 | CTR_ITS ---
PROCEDURE INFORMATION: Exam: CT Abdomen And Pelvis With Contrast Exam date and time: 12/22/2020 10:55 PM Age: 40 years old Clinical indication: Abdominal pain; Generalized; Prior surgery; Surgery type: Gb. Csection. Tubal. ; Patient HX: Diffuse abd pain TECHNIQUE: Imaging protocol: Computed tomography of the abdomen and pelvis with contrast. Radiation optimization: All CT scans at this facility use at least one of these dose optimization techniques: automated exposure control; mA and/or kV adjustment per patient size (includes targeted exams where dose is matched to clinical indication); or iterative reconstruction. Contrast material: OMNI 300; Contrast volume: 95 ml; Contrast route: INTRAVENOUS (IV); COMPARISON: CT abdomen pelvis w con* [id number] 10/25/2020 8:39 PM RADIATION DOSE METRICS: Total DLP (mGy-cm): 1528.03 FINDINGS: Lungs: The lung bases are clear. No effusion Liver: Normal. No mass. Gallbladder and bile ducts: There has been a cholecystectomy. Pancreas: Normal. No ductal dilation. Spleen: Normal. No splenomegaly. Adrenal glands: Normal. No mass. Kidneys and ureters: Normal. No hydronephrosis. Stomach and bowel: There is mild ascending colon wall thickening and pericolonic fat stranding. Appendix: No evidence of appendicitis. Intraperitoneal space: Unremarkable. No free air. No significant fluid collection. Vasculature: Unremarkable. No abdominal aortic aneurysm. Lymph nodes: Unremarkable. No enlarged lymph nodes. Urinary bladder: Unremarkable as visualized. Reproductive: Unremarkable as visualized. Bones/joints: Unremarkable. No acute fracture. Soft tissues: Unremarkable. CT/CT abdomen pelvis w con* [id number] IMPRESSION: Mild colitis of the ascending colon. Radiation Dose CTDIVOL = (mGy): DLP = 1528.03 (mGy-cm)
[2020-12-22 22:58] LABS: HCG, Serum Qual Negative (Negative)
[2020-12-22 23:06] VITALS: RESP 18; O2SAT 98
[2020-12-22] MEDS: iohexol 300 mg/mL 100 mL Btl IV (23:20)
[2020-12-22] MEDS: diphenhydrAMINE 50 mg/mL SDV 1mL 25 MG IVP (23:36)
[2020-12-23] MEDS: lidocaine 2% viscous 15 ML, aluminum-mag hydrox-simethicon 30 ML, sucralfate oral liq 1 GM PO (00:30)
[2020-12-23 00:39] VITALS: BP 138/86; PULSE 84; RESP 20; O2SAT 97
== END 2020-12-23 00:40 | disposition home or self-care (01) ==
PROVIDERS: Emergency Provider Emergency Medicine; PCP Family Medicine
DX: R10.84 Generalized abdominal pain (principal)
CPT/HCPCS: 36415; 74177; 80053; 83690; 84703; 85025; 96374; 96375; 96376; 99284; J1170; J1200; J2405; J7030; Q9967

== ENCOUNTER 2020-12-26 15:08 | Emergency (ER) | payer MEDICARE, MEDICAID, SELFPAY ==
[2020-12-26 15:40] VITALS: BP 119/70; PULSE 96; RESP 18; TEMP 37.1; O2SAT 99; BMI 31.8
--- NOTE | 2020-12-26 15:49 | ED_ITS ---
HPI - Female Genitourinary General: Chief complaint: Urogenital-Female Stated complaint: urinating blood Time Seen by Provider: 12/26/20 15:48 Source: patient Mode of arrival: ambulatory Limitations: no limitations History of Present Illness: HPI Narrative: Patient is a 40-year-old female who presents to ED today with a complaint of hematuria. Patient has been she went to the bathroom today she noticed blood when she wiped. She also states there were small specks of blood in the toilet mixed in with her urine. She tells me she is on the Depo shot and has never had breakthrough bleeding therefore does not believe this could be vaginal. She is not complaining of dysuria, frequency, urgency, hesitancy. She is not having any vaginal discharge or vaginal odor. She also complains of rectal bleeding. Patient underwent endoscopy and colonoscopy by Dr. Ortiz on 12/20. Colonoscopy was reportedly normal. Endoscopy showed gastritis and a hiatal hernia. Small bowel biopsy showed chronic active duodenitis/no dysplasia. Patient has a follow-up with Dr. Ortiz in two days. Patient was seen at our facility 3 days following the endoscopy/colonoscopy. She had a CT scan performed which showed mild colitis. She was discharged home from that visit. Patient complains of intermittent left-sided abdominal pains that been present over the last 6 months. She states they did improve after getting placed on the Depo shot. MD elicited complaint: other (hematuria) Onset (ago): hour(s) Vaginal discharge: none Vaginal bleeding: none Exacerbating factors: none Relieving factors: none Associated symptoms: Reports abdominal pain and nausea; Deny headache(s) Review of Systems Const: Denies: fever(s), chills, body aches, fatigue or malaise Card: Denies: chest pain Resp: Denies: dyspnea GI: Reports: abdominal pain, nausea, vomiting (yesterday; subsided now) and hematochezia; Denies: hematemesis, pain on defecation, rectal swelling or melena : Reports: hematuria; Denies: flank pain, difficulty voiding, dysuria, urinary frequency, urinary urgency or urinary hesitancy Musc: Denies: neck pain or back pain Skin/Breast: Denies: rash Neuro: Denies: headache(s), numbness in extremities, weakness in extremities or sensory changes PFSH ED PFSH: Medical History 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 IBS (irritable colon syndrome) No pertinent past medical history Denies diabetes, hypertension, asthma, seizures, DVT/PE PCP: Dr. Medel Seizures Surgical History S/P laparoscopic cholecystectomy 2006 Status post delivery X 2 ---> 2005, 2006 Status post tubal ligation 2006--laparoscopic tubal 2 months after her Family History Father Hyperlipidemia Hypertension Mother Hypertension Stroke Breast cancer diagnosed at age 70 Cancer breast Family/Other Ovarian cancer paternal aunt Denies family history of Colon cancer Diabetes Heart disease Anesthesia complication Bleeding disorder Uterine cancer Thyroid condition Social History Smoking and tobacco status: former smoker Quit status (tobacco): has quit using tobacco Year quit tobacco: 2008 Second hand smoke exposure: No Alcohol intake: never Household members: significant other Marital status: Single Current occupational status: disabled History of recent travel: No Physical Exam Const: COMMON NORMALS: no acute distress, patient oriented x3, no limitations and alert GENERAL APPEARANCE: cooperative HENMT: COMMON NORMALS: normocephalic and atraumatic HEAD & SCALP: normocephalic and atraumatic Resp: COMMON NORMALS: normal respiratory effort and clear to auscultation bilaterally AUSCULTATION: clear to auscultation bilaterally Cardio: COMMON NORMALS: regular rate and regular rhythm RATE: regular rate RHYTHM: regular rhythm GI: COMMON NORMALS: Normal to inspection, nondistended, normoactive bowel sounds present, Soft to palpation, No hepatosplenomegaly present and no masses PALPATION: Yes Soft to palpation, Yes Tenderness to palpation present (GI) (diffuse but worse on L side; non-surgical abdomen ) and Yes No hepatosplenomegaly present : COMMON NORMALS: Yes no CVA tenderness BLADDER/KIDNEY EXAM: Yes no CVA tenderness Back/Pelvis: COMMON NORMALS: no CVA tenderness, thoracic and lumbar spine normal to inspection, no thoracic nor lumbar tenderness and thoraco-lumbar ROM normal Extremity: GENERAL: Yes normal exam except as noted Neuro: COMMON NORMALS: patient oriented x3 SENSORIUM/ORIENTATION: Yes alert Skin: COMMON NORMALS: no rashes or lesions noted GENERAL SKIN EXAM: no rashes or lesions noted Course Vital Signs: Vital signs: Vital Signs Temperature 98.8 F 12/26/20 15:40 Pulse Rate 89 12/26/20 16:35 Respiratory Rate 16 12/26/20 16:35 Blood Pressure 134/98 12/26/20 16:35 Pulse Oximetry 99 12/26/20 16:35 MDM - Female MDM Narrative: Medical decision making narrative: Patient has had this left- sided abdominal pain intermittently for at least 6 months. She does have hematuria on her UA. She is complaining of rectal bleeding. Of course this could also be vaginal bleeding however pt thinks this is unlikely. 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 She does have a few WBCs as well as bacteria and mucus. Her pain is not suspicious for a kidney or ureter stone. In regards to the rectal bleeding-again she just had a colonoscopy one week ago because of rectal bleeding that was normal. Her H&H is stable. Vitals are stable. She has follow up with Angel in two days. Lab Data: Labs: Lab Results 12/26/20 12/26/20 Range/Units 15:37 16:10 WBC 10.9 H (4.0-10.0) 10^3/ uL RBC 4.78 (4.1-5.3) 10^6/u L Hgb 12.9 (11.5-15.3) g/dL Hct 39.3 (37.0-47.0) % MCV 82.2 (81-99) fL MCH 27.0 L (28.0-34.0) pg MCHC 32.8 (30.0-36.0) g/dL RDW 12.1 (12.1-15.1) % Plt Count 259 (130-400) 10^3/c mm MPV 10.1 (7.4-10.4) fL Neut % (Auto) 62.1 % Lymph % (Auto) 25.0 % Wil[place]ger % (Auto) 9.5 % Eos % (Auto) 2.5 % Baso % (Auto) 0.6 % Neut # (Auto) 6.76 (1.8-7.7) 10^3/u L Lymph # (Auto) 2.7 (0.8-4.8) 10^3/u L [place]ger # (Auto) 1.0 H (0.2-0.9) 10^3/u L Eos # (Auto) 0.3 (0.0-0.8) 10^3/u L Baso # (Auto) 0.1 (0.0-0.1) 10^3/u L Nucleated RBC % (a uto) 0 % Nucleated RBCs # 0.0 /100WBC Urine Color Yellow (Yellow) Urine Appearance Sl hazy (CLEAR) Urine pH 6.5 (5-7) Ur Specific Gravit y 1.015 (1.005-1.030) Urine Protein Neg (Negative) Urine Glucose (UA) Norm (Normal) Urine Ketones Negative (Negative) Urine Blood 3+ H (Negative) Urine Nitrate Negative (Negative) Urine Bilirubin Neg (Negative) Urine Urobilinogen 1 H (Negative) mg/dL Ur Leukocyte Yessica ase Negative (Negative) Urine RBC 40-50 H (0-2) /hpf Urine WBC 0-4 H (0-5) /hpf Ur Squamous Epith Cells Rare (0-5) /hpf Amorphous Sediment Not Reportable Urine Bacteria 1+ H (NONE) /hpf Urine Mucus 2+ /hpf Discharge Plan Discharge Condition: Stable Prescriptions: No Action ipratropium-albuterol 0.5 mg-3 mg(2.5 mg base)/3 mL solution for nebulization 3 ml INHALATION QID PRN (Reason: wheezing) Qty: 180 RF: 0 turmeric 400 mg capsule 400 mg PO BID@0700,1900 RF: 0 aloe juice See Rx Instructions .ROUTE .COMPLEX RF: 0 vitamin B complex [B Complex-Vitamin B12] Tablet 1 tab PO DAILY@0700 RF: 0 albuterol sulfate [Ventolin HFA] 90 mcg/actuation HFA aerosol inhaler 2 puff INHALATION Q6H PRN (Reason: shortness of breath or wheezing) Qty: 18 RF: 1 bentonite Powder See Rx Instructions .ROUTE .COMPLEX RF: 0 cannabis See Rx Instructions .ROUTE .COMPLEX RF: 0 trazodone 100 mg tablet 300 mg PO .HS Qty: 90 RF: 1 paroxetine HCl 40 mg tablet 40 mg PO DAILY Qty: 30 RF: 1 ondansetron 8 mg tablet,disintegrating 8 mg PO Q8H PRN (Reason: chronic nausea and vomiting) RF: 0 selenium 1 tab PO DAILY RF: 0 medroxyprogesterone 150 mg/mL syringe 150 mg IM .every 90 days Qty: 1 RF: 2 multivitamin Tablet 1 tab PO DAILY@0700 RF: 0 ashwagandha root extract 300 mg Capsule 300 mg PO DAILY@0700 RF: 0 He Shou Nickerson 1 tab PO DAILY@0700 RF: 0 Vitamin D3 1 tab PO DAILY@0700 RF: 0 hydroxyzine pamoate 100 mg capsule 100 mg PO Q6H PRN (Reason: Nausea) RF: 0 pantoprazole 40 mg tablet,delayed release (DR/EC) 40 mg PO DAILY Qty: 90 RF: 8 hydrocodone-acetaminophen 5-325 mg tablet 1 tab PO Q6H PRN (Reason: pain) Qty: 14 RF: 0 promethazine 25 mg tablet 25 mg PO TID PRN (Reason: nausea and vomiting) Qty: 14 RF: 0 Referrals: Rosario Chaudhry MD [Primary Care Provider] - Coding Level of Care Code ED [employer] for Chg Fwd Exam Comprehensive
[2020-12-26 16:21] LABS: Bilirubin Urine Neg (Negative); Blood Urine 3+ (Negative); Glucose Urine UA Norm (Normal); Ketones Urine Negative (Negative); Nitrate Urine Negative (Negative); Protein Urine Neg (Negative); Specific Gravity, Urine 1.015 (1.005-1.030); Urine Appearance SL Hazy (CLEAR); Urine Color Yellow (Yellow); Urobilinogen Urine 1 mg/dL (Negative); pH Urine 6.5 (5-7)
[2020-12-26 16:22] LABS: Add Urine Microscopic? YES; Leukocyte Esterase Urine Negative (Negative)
[2020-12-26 16:24] LABS: RBC Urine 40-50 /hpf (0-2); WBC Urine 0-4 /hpf (0-5)
[2020-12-26 16:25] LABS: Squamous Epithelial Cell Urine RARE /hpf (0-5)
[2020-12-26 16:26] LABS: Bacteria Urine 1+ /hpf; Mucus Urine 2+ /hpf
[2020-12-26 16:27] LABS: Add Urine Culture? Yes
[2020-12-26 16:34] LABS: Basophils # 0.1 10^3/uL (0.0-0.1); Basophils % 0.6 %; Eosinophils # 0.3 10^3/uL (0.0-0.8); Eosinophils % 2.5 %; Hematocrit 39.3 % (37.0-47.0); Hemoglobin 12.9 g/dL (11.5-15.3); Lymphocytes # 2.7 10^3/uL (0.8-4.8); Mean Corpuscular HGB Conc 32.8 g/dL (30.0-36.0); Mean Corpuscular Volume 82.2 fL (81-99); Mean Platelet Volume 10.1 fL (7.4-10.4); Monocytes % 9.5 %; Neutrophils # 6.76 10^3/uL (1.8-7.7); Neutrophils % 62.1 %; Nucleated Red Blood Cells % 0 %; Platelet Count 259 10^3/cmm (130-400); Red Blood Count 4.78 10^6/uL (4.1-5.3); Red Cell Distribution Width 12.1 % (12.1-15.1); White Blood Count 10.9 10^3/uL (4.0-10.0)
[2020-12-26 16:35] VITALS: BP 134/98; PULSE 89; RESP 16; O2SAT 99
[2020-12-26 16:49] LABS: HCG, Serum Qual Negative (Negative)
[2020-12-26 16:54] LABS: Alanine Aminotransferase 26 U/L (0-33); Albumin Level 4.4 g/dL (3.5-5.2); Alkaline Phosphatase 61 IU/L (35-105); Anion Gap 14.6 (5-19); Aspartate Amino Transferase 17 U/L (0-32); Blood Urea Nitrogen 12 mg/dL (6-20); Calcium 9.2 mg/dL (8.5-10.5); Carbon Dioxide 23 mmol/L (22-29); Chloride 104 mmol/L (98-107); Globulin 2.9 g/dL (1.3-4.6); Glomerular Filtration Rate 92.7 mL/min (90-130); Glucose 93 mg/dL (65-115); Lipase 33 U/L (13-60); Osmolality Calculated 285 mOsm/kg (285-295); Potassium 3.6 mmol/L (3.5-5.1); Sodium 138 mmol/L (136-145); Total Bilirubin 0.4 mg/dL (0.15-1.2); Total Protein 7.3 g/dL (6.6-8.7)
--- NOTE | 2020-12-26 17:12 | PC.NURSE ---
Read and agree with assessment
[2020-12-26] MEDS: ondansetron 2 mg/ML SDV 2 mL 4 MG IVP (17:17)
[2020-12-26 17:19] VITALS: RESP 15
[2020-12-26] MEDS: morphine 4 mg/mL SDV 1 mL IVP (17:19)
== END 2020-12-26 17:30 | disposition home or self-care (01) ==
PROVIDERS: Emergency Medicine; Emergency Provider Physician Assistant; PCP Family Medicine
DX: R31.9 Hematuria, unspecified (principal); J44.9 Chronic obstructive pulmonary disease, unspecified; Z87.891 Personal history of nicotine dependence
CPT/HCPCS: 80053; 81001; 83690; 84703; 85025; 87086; 96374; 96375; 99283; J2270; J2405

== ENCOUNTER → 2020-12-27 13:44 | Outpatient (BNVA) | payer MEDICARE, MEDICAID, SELFPAY | PROVIDERS: PCP Family Medicine; Visit Provider Family Medicine | DX: N30.00 Acute cystitis without hematuria (principal); R31.0 Gross hematuria; K46.9 Unspecified abdominal hernia without obstruction or gangrene | CPT/HCPCS: 81000 ==

== ENCOUNTER 2020-12-31 12:24 | Emergency (ER) | payer MEDICARE, MEDICAID, SELFPAY ==
[2020-12-31 12:40] VITALS: BP 141/95; PULSE 91; RESP 19; TEMP 36; O2SAT 99; BMI 31.8
--- NOTE | 2020-12-31 12:58 | ED_ITS ---
HPI - Abdominal Pain General: Chief Complaint: Abdominal Pain Stated Complaint: pooping blood, has been seen here previously Time Seen by Provider: 12/31/20 12:40 Source: patient Mode of arrival: ambulatory Limitations: no limitations History of Present Illness: HPI narrative: 40-year-old female patient presents to the emergency department with 1 day onset of blood in her bowel movements. She reports previous history of episodes since July 2020. She states recent endoscopy, EGD and colonoscopy did not reveal acute abnormalities. She states was told she had a hiatal hernia. Was initiated on Protonix and has helped with heartburn symptoms. She reports yesterday, onset of abdominal pain which she has previously experienced, states had a bowel movement with blood in her bowel movement and on the toilet paper when she wiped. She has a picture of this on her phone with moderate amount of blood on the toilet paper. She reports nausea when pain occurs. Her mother and her grandmother have Crohn's disease. She states her grandmother did of Crohn's disease. He denies fever chills, denies vomiting constipation or diarrhea. MD elicited complaint: abdominal pain Pertinent past history: gastritis and gastrointestinal bleeding Onset (ago): day(s) (1) Pain Consistency: intermittent Location: LUQ and LLQ Severity: moderate Quality: cramping and aching Migration to: no migration Exacerbating factors: nothing Relieving factors: nothing Associated Symptoms: Reports change in stool character, GI cramping, heartburn, hematochezia and nausea; Denies chills, constipation, diarrhea, dysuria and fever(s) Review of Systems General: Reports: 10 or more systems reviewed and unremarkable except in HPI and below Const: Denies: fever(s), chills, fatigue, malaise or diaphoresis Eyes: Denies: blurry vision, eye discomfort, eye redness or yellow eyes ENMT: Denies: throat pain, uvular edema, dental pain, disequilibrium, nasal discharge, nasal congestion or epistaxis Card: Denies: chest pain, palpitations or irregular heart rhythm Resp: Denies: dyspnea, productive cough, non-productive cough, wheezing or chest congestion GI: Reports: nausea, heartburn, GI cramping, change in stool character and hematochezia; Denies: diarrhea, constipation or pain on defecation : Denies: difficulty voiding or dysuria Musc: Denies: neck pain, back pain, joint pain or joint warmth Skin/Breast: Denies: rash or pruritus Neuro: Denies: headache(s), weakness in extremities or behavioral changes Psych: Reports: anxiety; Denies: depression or change in appetite Enrique/Lymph: Denies: easy bruising PFSH ED PFSH: Medical History 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 IBS (irritable colon syndrome) No pertinent past medical history Denies diabetes, hypertension, asthma, seizures, DVT/PE PCP: Dr. Medel Seizures Surgical History S/P laparoscopic cholecystectomy 2006 Status post delivery X 2 ---> 2005, 2006 Status post tubal ligation 2006--laparoscopic tubal 2 months after her Family History Father Hyperlipidemia Hypertension Mother Hypertension Stroke Breast cancer diagnosed at age 70 Cancer breast Family/Other Ovarian cancer paternal aunt Denies family history of Colon cancer Diabetes Heart disease Anesthesia complication Bleeding disorder Uterine cancer Thyroid condition Social History Smoking and tobacco status: former smoker Quit status (tobacco): has quit using tobacco Year quit tobacco: 2008 Second hand smoke exposure: No Alcohol intake: never Household members: significant other Marital status: Single Current occupational status: disabled History of recent travel: No Physical Exam Const: COMMON NORMALS: no acute distress, patient oriented x3, healthy appearing, alert and well nourished GENERAL APPEARANCE: cooperative, comfortable, well kempt, well developed, anxious and well hydrated NUTRITIONAL APPEARANCE: overweight ORIENTATION/CONSCIOUSNESS: Yes awake, Yes oriented to person, Yes oriented to place and Yes oriented to time HENMT: COMMON NORMALS: normocephalic, atraumatic, EAC's normal, Normal external nose present and moist oral mucous membranes HEAD & SCALP: normal to inspection, normocephalic and atraumatic FACE & SINUS: normal facial exam and face symmetric NOSE: Normal external nose present EXTERNAL AUDITORY CANAL: EAC's normal MOUTH: Normal oral and palatal mucosa present, lip normal and tongue normal THROAT: no uvular edema Eye: COMMON NORMALS: Equal, round and reactive pupils present and EOMs intact bilaterally GENERAL EYE: appearance normal, both eyes and all related structures PUPIL: Yes Equal, round and reactive pupils present Neck/C-Spine: COMMON NORMALS: full ROM, no lymphadenopathy and supple GENERAL: Yes normal visual inspection and Yes trachea midline CERVICAL SPINE: Yes cervical ROM normal Lymph: LYMPHATIC: no lymphadenopathy noted Chest: COMMONS NORMALS: normal inspection of the chest and normal palpation of entire chest wall Resp: COMMON NORMALS: normal respiratory effort, No retractions, No use of accessory muscles and clear to auscultation bilaterally EFFORT & INSPECTION: Yes able to speak in complete sentences AUSCULTATION: clear to auscultation bilaterally and lung sounds not diminished Cardio: COMMON NORMALS: regular rate, regular rhythm, S1 normal heart sound present, S2 normal heart sound present and Peripheral pulses 2+ throughout RATE: regular rate RHYTHM: regular rhythm HEART SOUNDS: S1 normal heart sound present and S2 normal heart sound present PERIPHERAL PULSES: Peripheral pulses 2+ throughout GI: COMMON NORMALS: Soft to palpation INSPECTION: Yes normal to inspection, No abdominal wall ecchymosis, No abdominal distension and Yes central obesity AUSCULTATION: Yes Hypoactive bowel sounds present PALPATION: Yes Soft to palpation and Yes Tenderness to palpation present (GI) Details: LLQ and LUQ RECTAL EXAM: visual inspection normal, normal sphincter tone, heme positive stool, No External hemorrhoid(s) present, No Internal hemorrhoid(s) present and other (burning pain with rectal exam described by patient) : COMMON NORMALS: Yes no CVA tenderness BLADDER/KIDNEY EXAM: Yes no CVA tenderness Back/Pelvis: COMMON NORMALS: no CVA tenderness, thoracic and lumbar spine normal to inspection, no thoracic nor lumbar tenderness and thoraco-lumbar ROM normal Extremity: COMMON NORMALS: normal to inspection, full ROM, capillary refill normal and no pedal edema GENERAL: Yes normal exam except as noted Neuro: COMMON NORMALS: patient oriented x3 and no focal motor deficits SENSORIUM/ORIENTATION: Yes alert, Yes oriented to person, Yes oriented to place and Yes oriented to time GAIT: Yes Normal gait present MOTOR EXAM: 5/5 motor strength present throughout Psych: COMMON NORMALS: mental status grossly normal, Normal thought process present, cooperative, normal affect, speech normal and activity/motor behavior normal APPEARANCE: Yes well kempt ACTIVITY/MOTOR BEHAVIOR: Yes appropriate eye contact SPEECH: Yes normal speech THOUGHT PROCESS: Normal thought process present Skin: COMMON NORMALS: no rashes or lesions noted, no wounds, turgor normal, no petechiae and no mottling GENERAL SKIN EXAM: no rashes or lesions noted, elasticity normal and turgor normal Course Vital Signs: Vital signs: Vital Signs Temperature 97.6 F 12/31/20 15:25 Pulse Rate 83 12/31/20 15:25 Respiratory Rate 18 12/31/20 15:25 Blood Pressure 129/81 12/31/20 15:25 Pulse Oximetry 98 12/31/20 15:25 MDM - Abdominal Pain MDM Narrative: Medical decision making narrative: 40-year-old female patient presents to the emergency department with bright red rectal bleeding. She reports was present in stool and upon wiping, incident occurred last night and this morning. She had pictures on her phone which showed mild to moderate amount of blood on the toilet paper, bright red. Her guaiac was positive here in the ED, she was not anemic, hemoglobin was stable. She reports episodes of abdominal pain, cramping with GI bleeding continue to occur since July 2020 and no one can seem to find out what is wrong. She reports her frustration and upset, colonoscopy did reveal mild colitis, completed by Dr. Ortiz last month. Her ESR and CRP findings were normal today, chemistry unremarkable, lipase 27, she received Phenergan with morphine for pain which helps, she requested prescription of hydrocodone but was given 1 here in the ED upon discharge. She did explain heartburn symptoms with improvement with use of Protonix, Carafate was added to her medication regimen along with Zofran to help with nausea. I advised she may need follow-up with gastroenterology as her mother and grandmother were diagnosed with ulcerative colitis. She is requested [facility] for gastroenterology, I have sent referral to social welfare research worker who will assist with scheduling an appointment for her. She agrees to return to the emergency department in the event she experiences increased rectal bleeding or weakness,/worsening abdominal pain, advised continued follow-up with her primary care provider. She advised to withhold herbal supplements as some interactions can occur with these that could cause increased bleeding risk along with abdominal pain, I also advised bland diet in the meantime until follow-up with gastroenterology. Differential Diagnosis: Differential diagnosis abdominal pain: Likely abdominal pain, constipation, diverticulitis and gastroenteritis Lab Data: Labs: Lab Results 12/31/20 12/31/20 12/31/20 Range/Units 13:20 13:20 13:20 WBC 10.0 (4.0-10.0) 10^3/ uL RBC 4.68 (4.1-5.3) 10^6/u L Hgb 12.8 (11.5-15.3) g/dL Hct 39.0 (37.0-47.0) % MCV 83.3 (81-99) fL MCH 27.4 L (28.0-34.0) pg MCHC 32.8 (30.0-36.0) g/dL RDW 12.5 (12.1-15.1) % Plt Count 307 (130-400) 10^3/c mm MPV 10.2 (7.4-10.4) fL Neut % (Auto) 51.9 % Lymph % (Auto) 30.6 % Beauregard % (Auto) 10.8 % Eos % (Auto) 4.9 % Baso % (Auto) 1.0 % Neut # (Auto) 5.21 (1.8-7.7) 10^3/u L Lymph # (Auto) 3.1 (0.8-4.8) 10^3/u L Beauregard # (Auto) 1.1 H (0.2-0.9) 10^3/u L Eos # (Auto) 0.5 (0.0-0.8) 10^3/u L Baso # (Auto) 0.1 (0.0-0.1) 10^3/u L Nucleated RBC % (a uto) 0 % Nucleated RBCs # 0.0 /100WBC ESR 13 (0-15) mm/hr Sodium 138 (136-145) mmol/L Potassium 4.0 (3.5-5.1) mmol/L Chloride 102 (98-107) mmol/L Carbon Dioxide 25 (22-29) mmol/L Anion Gap 15.0 (5-19) BUN 10 (6-20) mg/dL Creatinine 0.7 (0.5-0.9) mg/dL GFR Calculation 92.7 (90-130) mL/min Glucose 109 (65-115) mg/dL Calculated Osmolal ity 286 (285-295) mOsm/k g Calcium 8.8 (8.5-10.5) mg/dL Total Bilirubin 0.2 (0.15-1.2) mg/dL AST 11 (0-32) U/L ALT 17 (0-33) U/L Alkaline Phosphata se 65 (35-105) IU/L C-Reactive Protein 1.8 (0.0-4.9) mg/L Total Protein 7.1 (6.6-8.7) g/dL Albumin 4.1 (3.5-5.2) g/dL Globulin 3.0 (1.3-4.6) g/dL Lipase 27 (13-60) U/L Urine Color (Yellow) Urine Appearance (CLEAR) Urine pH (5-7) Ur Specific Gravit y (1.005-1.030) Urine Protein (Negative) Urine Glucose (UA) (Normal) Urine Ketones (Negative) Urine Blood (Negative) Urine Nitrate (Negative) Urine Bilirubin (Negative) Urine Urobilinogen (Negative) mg/dL Ur Leukocyte Yessica ase (Negative) Blood Type Rho(D) Type Antibody Screen 12/31/20 12/31/20 Range/Units 13:20 14:20 WBC (4.0-10.0) 10^3/ uL RBC (4.1-5.3) 10^6/u L Hgb (11.5-15.3) g/dL Hct (37.0-47.0) % MCV (81-99) fL MCH (28.0-34.0) pg MCHC (30.0-36.0) g/dL RDW (12.1-15.1) % Plt Count (130-400) 10^3/c mm MPV (7.4-10.4) fL Neut % (Auto) % Lymph % (Auto) % Beauregard % (Auto) % Eos % (Auto) % Baso % (Auto) % Neut # (Auto) (1.8-7.7) 10^3/u L Lymph # (Auto) (0.8-4.8) 10^3/u L Beauregard # (Auto) (0.2-0.9) 10^3/u L Eos # (Auto) (0.0-0.8) 10^3/u L Baso # (Auto) (0.0-0.1) 10^3/u L Nucleated RBC % (a uto) % Nucleated RBCs # /100WBC ESR (0-15) mm/hr Sodium (136-145) mmol/L Potassium (3.5-5.1) mmol/L Chloride (98-107) mmol/L Carbon Dioxide (22-29) mmol/L Anion Gap (5-19) BUN (6-20) mg/dL Creatinine (0.5-0.9) mg/dL GFR Calculation (90-130) mL/min Glucose (65-115) mg/dL Calculated Osmolal ity (285-295) mOsm/k g Calcium (8.5-10.5) mg/dL Total Bilirubin (0.15-1.2) mg/dL AST (0-32) U/L ALT (0-33) U/L Alkaline Phosphata se (35-105) IU/L C-Reactive Protein (0.0-4.9) mg/L Total Protein (6.6-8.7) g/dL Albumin (3.5-5.2) g/dL Globulin (1.3-4.6) g/dL Lipase (13-60) U/L Urine Color Straw (Yellow) Urine Appearance Clear (CLEAR) Urine pH 7 (5-7) Ur Specific Gravit y 1.005 (1.005-1.030) Urine Protein Neg (Negative) Urine Glucose (UA) Norm (Normal) Urine Ketones Negative (Negative) Urine Blood Neg (Negative) Urine Nitrate Negative (Negative) Urine Bilirubin Neg (Negative) Urine Urobilinogen Norm (Negative) mg/dL Ur Leukocyte Yessica ase Negative (Negative) Blood Type O Positive Rho(D) Type Positive / 4+ Antibody Screen Negative Imaging Data ^: CT Abd/Pel: Radiologist's impression: [facility] [address] [place] [address] CT Scan Report Signed Patient: Rekha Gu Unit #: [id number] : 1980 Age/Sex: 40 / F ADM Date: 12/31/20 Loc: ER Room/Bed: Attending Dr: Ordering Provider/Ordering MD: Pearl Perry Date of Service: 12/31/20 Procedure(s): CT abdomen pelvis w con* [id number] Accession Number(s): [id number] Report Number: [id number] PROCEDURE INFORMATION: Exam: CT Abdomen And Pelvis With Contrast Exam date and time: 12/31/2020 1:19 PM Age: 40 years old Clinical indication: Abdominal pain; Localized; Left lower quadrant (llq); Prior surgery; Surgery type: Gb, c section; Additional info: Gib, llq pain, ? crohn's disease TECHNIQUE: Imaging protocol: Computed tomography of the abdomen and pelvis with contrast. Radiation optimization: All CT scans at this facility use at least one of these dose optimization techniques: automated exposure control; mA and/or kV adjustment per patient size (includes targeted exams where dose is matched to clinical indication); or iterative reconstruction. Contrast material: OMNI 300; Contrast volume: 95 ml; Contrast route: INTRAVENOUS (IV); COMPARISON: CT abdomen pelvis w con* [id number] 12/22/2020 11:32 PM RADIATION DOSE METRICS: Total DLP (mGy-cm): 1562.89 FINDINGS: Pleural spaces: Mild interstitial prominence without acute airspace or pleural disease. Liver: No focal hepatic mass. Gallbladder and bile ducts: Status post cholecystectomy. Pancreas: No pancreatic mass or ductal dilatation. Spleen: No splenomegaly. Adrenal glands: Unremarkable adrenals. Kidneys and ureters: Stable renal morphology. No hydronephrosis. Stomach and bowel: Mild wall thickening in the nondistended stomach , jejunum, and hepatic flexure. Appendix: No acute appendicitis. Intraperitoneal space: No significant free fluid. Vasculature: Normal caliber of the abdominal aorta. Lymph nodes: Subcentimeter lymph nodes. Urinary bladder: Normal bladder morphology. Reproductive: Unremarkable as visualized. Bones/joints: Transitional vertebra at the lumbosacral junction and degenerative change. Soft tissues: Fat containing umbilical hernia. CT/CT abdomen pelvis w con* [id number] IMPRESSION: Mild wall thickening in the nondistended stomach , jejunum, and hepatic flexure. Radiation Dose CTDIVOL = (mGy): DLP = 1562.89 (mGy-cm) Dictated By: Jt Ash MD Signed By: Jt Ash MD Signed Date/Time: 12/31/20 1439 DD/ 1438 Discharge Plan Discharge Patient Disposition: Home Clinical Impression: Bright red rectal bleeding Abdominal pain Qualifiers: Abdominal location: generalized Qualified Code(s): R10.84 - Generalized abdominal pain Condition: Stable Prescriptions: New Carafate 100 mg/mL suspension 10 ml PO Q6H 28 Days Qty: 1120 RF: 0 Zofran 4 mg tablet 4 mg PO Q4H 5 Days Qty: 14 RF: 0 No Action ipratropium-albuterol 0.5 mg-3 mg(2.5 mg base)/3 mL solution for nebulization 3 ml INHALATION QID PRN (Reason: wheezing) Qty: 180 RF: 0 turmeric 400 mg capsule 400 mg PO BID@0700,1900 RF: 0 aloe juice See Rx Instructions .ROUTE .COMPLEX RF: 0 vitamin B complex [B Complex-Vitamin B12] Tablet 1 tab PO DAILY@0700 RF: 0 albuterol sulfate [Ventolin HFA] 90 mcg/actuation HFA aerosol inhaler 2 puff INHALATION Q6H PRN (Reason: shortness of breath or wheezing) Qty: 18 RF: 1 bentonite Powder See Rx Instructions .ROUTE .COMPLEX RF: 0 cannabis See Rx Instructions .ROUTE .COMPLEX RF: 0 selenium 1 tab PO DAILY@0700 RF: 0 medroxyprogesterone 150 mg/mL syringe 150 mg IM .every 90 days Qty: 1 RF: 2 multivitamin Tablet 1 tab PO DAILY@0700 RF: 0 ashwagandha root extract 300 mg Capsule 300 mg PO DAILY@0700 RF: 0 He Shou Nickerson 1 tab PO DAILY@0700 RF: 0 Vitamin D3 1 tab PO DAILY@0700 RF: 0 hydroxyzine pamoate 100 mg capsule 100 mg PO Q6H PRN (Reason: Nausea) RF: 0 promethazine 25 mg tablet 25 mg PO TID PRN (Reason: nausea and vomiting) Qty: 14 RF: 0 trazodone 100 mg tablet 100 - 300 mg PO BEDTIME RF: 0 pantoprazole 40 mg tablet,delayed release (DR/EC) 40 mg PO BID@0700,1900 RF: 0 paroxetine HCl 40 mg tablet 40 mg PO DAILY@0700 RF: 0 Macrobid 100 mg capsule 100 mg PO BID@0700,1900 RF: 0 Discharge Orders: Discharge ED (Routine); Ordered 12/31/20 Ordered By: Pearl Perry Referrals: Rosario Chaudhry MD [Primary Care Provider] - Discharge Diet: Advance as tolerated and Clear Liquid Discharge Activity: Limit activity as instructed Patient Instructions: Gastritis (ED), Diet for Ulcers and Gastritis (ED), Ulcerative Colitis (ED), Abdominal Pain (ED), Opioid Safety Activity Restrictions/Additional Instructions: Avoid spicy fried greasy foods, clear liquid diet and advance as tolerated, suggest bland diet Referral to gastroenterology with [facility] in [place] has been placed with [facility], records will be faxed to them, you will be contacted with an appointment Turn to the emergency department if you develop weakness, worsening abdominal pain, increase of rectal bleeding or other concerning symptoms Follow-up with your primary care provider next week without fail for ER follow- up Continue Protonix 40 mg twice daily Refrain from herbal remedies until follow-up with gastroenterology Coding Level of Care Code ED Canal Superintendent for Chg Fwd Exam Comprehensive
--- NOTE | 2020-12-31 13:09 | CTR_ITS ---
PROCEDURE INFORMATION: Exam: CT Abdomen And Pelvis With Contrast Exam date and time: 12/31/2020 1:19 PM Age: 40 years old Clinical indication: Abdominal pain; Localized; Left lower quadrant (llq); Prior surgery; Surgery type: Gb, c section; Additional info: Gib, llq pain, ? crohn's disease TECHNIQUE: Imaging protocol: Computed tomography of the abdomen and pelvis with contrast. Radiation optimization: All CT scans at this facility use at least one of these dose optimization techniques: automated exposure control; mA and/or kV adjustment per patient size (includes targeted exams where dose is matched to clinical indication); or iterative reconstruction. Contrast material: OMNI 300; Contrast volume: 95 ml; Contrast route: INTRAVENOUS (IV); COMPARISON: CT abdomen pelvis w con* [id number] 12/22/2020 11:32 PM RADIATION DOSE METRICS: Total DLP (mGy-cm): 1562.89 FINDINGS: Pleural spaces: Mild interstitial prominence without acute airspace or pleural disease. Liver: No focal hepatic mass. Gallbladder and bile ducts: Status post cholecystectomy. Pancreas: No pancreatic mass or ductal dilatation. Spleen: No splenomegaly. Adrenal glands: Unremarkable adrenals. Kidneys and ureters: Stable renal morphology. No hydronephrosis. Stomach and bowel: Mild wall thickening in the nondistended stomach , jejunum, and hepatic flexure. Appendix: No acute appendicitis. Intraperitoneal space: No significant free fluid. Vasculature: Normal caliber of the abdominal aorta. Lymph nodes: Subcentimeter lymph nodes. Urinary bladder: Normal bladder morphology. Reproductive: Unremarkable as visualized. Bones/joints: Transitional vertebra at the lumbosacral junction and degenerative change. Soft tissues: Fat containing umbilical hernia. CT/CT abdomen pelvis w con* [id number] IMPRESSION: Mild wall thickening in the nondistended stomach , jejunum, and hepatic flexure. Radiation Dose CTDIVOL = (mGy): DLP = 1562.89 (mGy-cm)
[2020-12-31 13:27] VITALS: O2SAT 100
[2020-12-31 13:36] LABS: Basophils # 0.1 10^3/uL (0.0-0.1); Eosinophils # 0.5 10^3/uL (0.0-0.8); Eosinophils % 4.9 %; Hemoglobin 12.8 g/dL (11.5-15.3); Lymphocytes # 3.1 10^3/uL (0.8-4.8); Lymphocytes % 30.6 %; Mean Corpuscular HGB Conc 32.8 g/dL (30.0-36.0); Mean Corpuscular Hemoglobin 27.4 pg (28.0-34.0); Mean Corpuscular Volume 83.3 fL (81-99); Mean Platelet Volume 10.2 fL (7.4-10.4); Monocytes # 1.1 10^3/uL (0.2-0.9); Monocytes % 10.8 %; Neutrophils # 5.21 10^3/uL (1.8-7.7); Neutrophils % 51.9 %; Nucleated Red Blood Cells % 0 %; Platelet Count 307 10^3/cmm (130-400); Red Blood Count 4.68 10^6/uL (4.1-5.3); Red Cell Distribution Width 12.5 % (12.1-15.1)
[2020-12-31] MEDS: iohexol 300 mg/mL 100 mL Btl IV (13:36)
--- NOTE | 2020-12-31 13:37 | PC.NURSE ---
pt to CT at 1332
[2020-12-31] MEDS: lactated ringers 500 ML 999 ML IV (13:45)
[2020-12-31] MEDS: promethazine 25 mg Tablet PO (13:45)
[2020-12-31] MEDS: morphine 4 mg/mL SDV 1 mL 2 MG IVP (13:45)
[2020-12-31 13:49] VITALS: BP 123/76; PULSE 88; O2SAT 98
[2020-12-31 13:56] LABS: Alanine Aminotransferase 17 U/L (0-33); Albumin Level 4.1 g/dL (3.5-5.2); Alkaline Phosphatase 65 IU/L (35-105); Aspartate Amino Transferase 11 U/L (0-32); Blood Urea Nitrogen 10 mg/dL (6-20); C Reactive Protein 1.8 mg/L (0.0-4.9); Calcium 8.8 mg/dL (8.5-10.5); Carbon Dioxide 25 mmol/L (22-29); Chloride 102 mmol/L (98-107); Glomerular Filtration Rate 92.7 mL/min (90-130); Glucose 109 mg/dL (65-115); Lipase 27 U/L (13-60); Osmolality Calculated 286 mOsm/kg (285-295); Sodium 138 mmol/L (136-145); Total Bilirubin 0.2 mg/dL (0.15-1.2); Total Protein 7.1 g/dL (6.6-8.7)
[2020-12-31 14:25] LABS: Erythrocyte Sedimentation Rate 13 mm/hr (0-15)
[2020-12-31 14:27] VITALS: BP 127/87; PULSE 83; RESP 18; O2SAT 99
[2020-12-31 14:32] LABS: Add Urine Microscopic? NO
[2020-12-31 14:38] LABS: Urine Appearance Clear (CLEAR); Urine Color Straw (Yellow); pH Urine 7 (5-7)
[2020-12-31 14:39] LABS: Bilirubin Urine Neg (Negative); Blood Urine Neg (Negative); Glucose Urine UA Norm (Normal); Ketones Urine Negative (Negative); Leukocyte Esterase Urine Negative (Negative); Nitrate Urine Negative (Negative); Protein Urine Neg (Negative); Specific Gravity, Urine 1.005 (1.005-1.030); Urobilinogen Urine Norm (Negative)
[2020-12-31] MEDS: dicyclomine 20 mg Tablet PO (15:21)
[2020-12-31] MEDS: HYDROcodone-acetaminophen 5-325 mg Tablet 1 TAB PO (15:22)
[2020-12-31 15:25] VITALS: BP 129/81; PULSE 83; RESP 18; TEMP 36.4; O2SAT 98
--- NOTE | 2021-01-03 13:26 | DCPLANNER ---
manager summer had message to refer patient for [facility], in [place]. manager summer called the [facility] clinic, and faxed patients information to the clinic.
== END 2020-12-31 15:30 | disposition home or self-care (01) ==
PROVIDERS: Emergency Provider Nurse Practitioner Family; PCP Family Medicine
DX: R10.84 Generalized abdominal pain (principal); K62.5 Hemorrhage of anus and rectum; J44.9 Chronic obstructive pulmonary disease, unspecified; Z87.891 Personal history of nicotine dependence
CPT/HCPCS: 74177; 80053; 81003; 83690; 85025; 85651; 86140; 86850; 86900; 96374; 99284; J2270; Q0169; Q9967

== ENCOUNTER → 2021-01-19 13:03 | Outpatient (BNVA) | payer MEDICARE, MEDICAID, SELFPAY | PROVIDERS: PCP Family Medicine Adult Medicine; Visit Provider Psychiatry & Neurology Psychiatry | DX: F41.1 Generalized anxiety disorder (principal); F45.1 Undifferentiated somatoform disorder; F12.20 Cannabis dependence, uncomplicated | CPT/HCPCS: 99214 ==

== ENCOUNTER 2021-01-23 13:13 | Emergency (ER) | payer MEDICARE, MEDICAID, SELFPAY ==
[2021-01-23 13:31] VITALS: BP 138/94; PULSE 91; RESP 18; TEMP 36.9; O2SAT 100; BMI 33.6
[2021-01-23 14:39] VITALS: BP 161/102; PULSE 88; RESP 18; O2SAT 98
[2021-01-23] MEDS: sodium chloride 0.9% 1,000 ML 999 ML IV (14:40)
[2021-01-23 14:42] LABS: Add Urine Microscopic? NO; Charge for UA Resulting for Rev
[2021-01-23 14:50] VITALS: RESP 15
[2021-01-23 15:09] LABS: Amphetamines Screen Urine Negative (Negative); Barbiturates Screen Urine Negative (Negative); Benzodiazepines Screen Urine Negative (Negative); Cocaine Screen Urine Negative (Negative); Opiate Screen Urine Negative (Negative); PCP Screen Urine Negative (Negative); THC Screen Urine Positive (Negative)
[2021-01-23 15:16] LABS: Urine Color Yellow (Yellow)
[2021-01-23 15:17] LABS: Bilirubin Urine Neg (Negative); Blood Urine Neg (Negative); Glucose Urine UA Norm (Normal); Ketones Urine Negative (Negative); Leukocyte Esterase Urine Negative (Negative); Nitrate Urine Negative (Negative); Protein Urine Neg (Negative); Specific Gravity, Urine 1.015 (1.005-1.030); Urine Appearance Clear (CLEAR); Urobilinogen Urine Norm (Negative); pH Urine 5 (5-7)
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
[2021-01-23 15:42] LABS: Basophils # 0.1 10^3/uL (0.0-0.1); Eosinophils # 0.1 10^3/uL (0.0-0.8); Eosinophils % 1.2 %; Hematocrit 41.4 % (37.0-47.0); Hemoglobin 13.5 g/dL (11.5-15.3); Lymphocytes # 2.9 10^3/uL (0.8-4.8); Lymphocytes % 25.8 %; Mean Corpuscular HGB Conc 32.6 g/dL (30.0-36.0); Mean Corpuscular Hemoglobin 26.8 pg (28.0-34.0); Mean Corpuscular Volume 82.1 fL (81-99); Mean Platelet Volume 10.8 fL (7.4-10.4); Monocytes % 8.7 %; Neutrophils # 6.99 10^3/uL (1.8-7.7); Neutrophils % 62.9 %; Nucleated Red Blood Cells % 0 %; Platelet Count 306 10^3/cmm (130-400); Red Blood Count 5.04 10^6/uL (4.1-5.3); White Blood Count 11.1 10^3/uL (4.0-10.0)
[2021-01-23 15:51] LABS: Lactate (Lactic Acid level) 0.9 mmol/L (0.5-2.2)
[2021-01-23 15:52] LABS: Alanine Aminotransferase 14 U/L (0-33); Albumin Level 4.7 g/dL (3.5-5.2); Alkaline Phosphatase 75 IU/L (35-105); Aspartate Amino Transferase 14 U/L (0-32); Blood Urea Nitrogen 14 mg/dL (6-20); Calcium 8.9 mg/dL (8.5-10.5); Carbon Dioxide 18 mmol/L (22-29); Chloride 104 mmol/L (98-107); Glomerular Filtration Rate 92.7 mL/min (90-130); Glucose 95 mg/dL (65-115); Lipase 26 U/L (13-60); Magnesium 1.9 mg/dL (1.7-2.3); Osmolality Calculated 282 mOsm/kg (285-295); Sodium 136 mmol/L (136-145); Total Bilirubin 0.4 mg/dL (0.15-1.2); Total Protein 7.7 g/dL (6.6-8.7)
[2021-01-23 16:00] VITALS: RESP 15
[2021-01-23 16:28] VITALS: RESP 15
--- NOTE | 2021-01-25 14:21 | DCPLANNER ---
customer pricing manager called Magali SANDY, to confirm if a follow up appointment had been scheduled for patient. customer pricing manager was told that a follow up appointment had been scheduled for April 20 at 2:30. Clinic will call patient with appointment information.
== END 2021-01-23 16:28 | disposition home or self-care (01) ==
PROVIDERS: Emergency Provider Emergency Medicine; PCP Family Medicine Adult Medicine
DX: K50.919 Crohn's disease, unspecified, with unspecified complications (principal); K62.5 Hemorrhage of anus and rectum; D68.62 Lupus anticoagulant syndrome; J44.9 Chronic obstructive pulmonary disease, unspecified; Z87.891 Personal history of nicotine dependence; Z79.899 Other long term (current) drug therapy
CPT/HCPCS: 80053; 80306; 81003; 83605; 83690; 83735; 85025; 96361; 96374; 96375; 99283; J2405; J2930; J7030

== ENCOUNTER 2021-02-13 16:41 | Emergency (ER) | payer MEDICARE, MEDICAID, SELFPAY ==
[2021-02-13 16:54] VITALS: BP 146/95; PULSE 103; RESP 16; O2SAT 96; BMI 33.1
--- NOTE | 2021-02-13 17:15 | W.ED.SKABFB ---
HPI - Skin/Abscess/Foreign Bdy General: Chief complaint: Skin/Abscess/Foreign Body Stated complaint: POSS BROWN RECLUSE BITE ON FACE Time Seen by Provider: 02/13/21 17:03 History of Present Illness: HPI narrative: This pleasant lady has some redness to the right side of her face with some yellowish drainage for the last couple 3 days. Patient is applied a variety of hmzo-wec-dvtgamy and herbal treatments to this. And it has not improved any. Patient is not sure what happened whether is a brown recluse or what might of caused this. She does complain about tenderness to the area. MD complaint: other (Red area right side of face near the front over the mandible) Onset (ago): day(s) Tetanus up to date: yes Location: face Severity: moderate Severity scale (1-10): 4 Quality: aching Pain Consistency: constant Relieving factors: none Exacerbating factors: none Context: other (Has been using a variety of iupu-ezq-xiypula topical supplements) Associated symptoms: Reports itching; Deny chills, fever(s), nausea or vomiting Treatments prior to arrival: other (OTC supplements) Review of Systems Const: Denies: fever(s), chills or body aches Eyes: Denies: change in vision or blurry vision ENMT: Denies: throat pain or nasal congestion Card: Denies: chest pain or dyspnea on exertion Resp: Denies: dyspnea, productive cough or non-productive cough GI: Denies: abdominal pain, nausea or vomiting Musc: Denies: extremity pain Skin/Breast: Reports: pruritus (Drainage honey colored), erythema (Drainage) and skin tenderness; Denies: rash Neuro: Denies: headache(s) Psych: Denies: anxiety or depression Enrique/Lymph: Denies: easy bruising PFSH ED PFSH: Medical History 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 IBS (irritable colon syndrome) Left-sided chest wall pain No pertinent past medical history Denies diabetes, hypertension, asthma, seizures, DVT/PE PCP: Dr. Medel Seizures Unspecified personality disorder Surgical History S/P laparoscopic cholecystectomy 2006 Status post delivery X 2 ---> 2005, 2006 Status post tubal ligation 2006--laparoscopic tubal 2 months after her Family History Father Hyperlipidemia Hypertension Mother Hypertension Stroke Breast cancer diagnosed at age 70 Cancer breast Family/Other Ovarian cancer paternal aunt Denies family history of Colon cancer Diabetes Heart disease Anesthesia complication Bleeding disorder Uterine cancer Thyroid condition Social History Smoking and tobacco status: former smoker Quit status (tobacco): has quit using tobacco Year quit tobacco: 2008 Second hand smoke exposure: No Alcohol intake: never Household members: significant other Marital status: Single Current occupational status: disabled History of recent travel: No Physical Exam Const: COMMON NORMALS: no acute distress Psych: COMMON NORMALS: mental status grossly normal Skin: OTHER: Patient has an area redness to her right lower cheek front of her face area is approximately the bit larger in the half dollar. Has 1 little black speck in the center of it does have some clear yellowish honey colored drainage coming from it no lymphadenopathy noted infection appears to be consistent with impetigo. Course Vital Signs: Vital signs: Vital Signs Pulse Rate 103 H 02/13/21 16:54 Respiratory Rate 16 02/13/21 16:54 Blood Pressure 146/95 02/13/21 16:54 Pulse Oximetry 96 02/13/21 16:54 Discharge Plan Discharge Patient Disposition: Home Clinical Impression: Impetigo Condition: Stable Prescriptions: New clindamycin HCl 300 mg capsule 300 mg PO Q8H 7 Days Qty: 21 RF: 0 tramadol 50 mg tablet 50 mg PO TID PRN (Reason: pain) Qty: 7 RF: 0 mupirocin 2 % ointment 1 applic topical TID 10 Days Qty: 22 RF: 0 No Action ipratropium-albuterol 0.5 mg-3 mg(2.5 mg base)/3 mL solution for nebulization 3 ml INHALATION QID PRN (Reason: wheezing) Qty: 180 RF: 0 turmeric 400 mg capsule 400 mg PO BID@0700,1900 RF: 0 vitamin B complex [B Complex-Vitamin B12] Tablet 1 tab PO DAILY@0700 RF: 0 albuterol sulfate [Ventolin HFA] 90 mcg/actuation HFA aerosol inhaler 2 puff INHALATION Q6H PRN (Reason: shortness of breath or wheezing) Qty: 18 RF: 1 bentonite Powder See Rx Instructions .ROUTE .COMPLEX RF: 0 cannabis See Rx Instructions .ROUTE .COMPLEX RF: 0 promethazine 25 mg tablet 25 mg PO Q6H PRNRF: 0 selenium 1 tab PO DAILY@0700 RF: 0 sucralfate 1 gram tablet 1 g PO BID Qty: 60 RF: 3 medroxyprogesterone 150 mg/mL syringe 150 mg IM .every 90 days Qty: 1 RF: 2 promethazine 25 mg tablet See Rx Instructions .ROUTE .COMPLEX Qty: 120 RF: 1 multivitamin Tablet 1 tab PO DAILY@0700 RF: 0 ashwagandha root extract 300 mg Capsule 300 mg PO DAILY@0700 RF: 0 He Shou Nickerson 1 tab PO DAILY@0700 RF: 0 Vitamin D3 1 tab PO DAILY@0700 RF: 0 hydroxyzine pamoate 100 mg capsule 100 mg PO Q6H PRN (Reason: Nausea) RF: 0 trazodone 100 mg tablet 100 - 300 mg PO BEDTIME RF: 0 paroxetine HCl 40 mg tablet 20 mg PO DAILY@0700 RF: 0 Discharge Orders: Discharge ED (Routine); Ordered 02/13/21 Ordered By: Pito Nayak Referrals: Alexi Medel MD [Primary Care Provider] - Discharge Diet: Usual diet Discharge Activity: Resume usual activity Patient Instructions: Impetigo (ED), Opioid Safety Activity Restrictions/Additional Instructions: Follow-up with medical provider as directed. Take medications as prescribed. Return to the ER or your medical provider if condition worsens. Please read and understand discharge instructions. If any questions ask please. Do not place anything on the wound or sore area besides medication that was prescribed for you. Coding Level of Care Code ED Performance Test Consultant for Ranjeet Lamb
[2021-02-13 17:19] VITALS: BP 145/90; PULSE 98; O2SAT 97
[2021-02-13] MEDS: TRAMadol 50 mg Tablet PO (17:20)
[2021-02-13] MEDS: clindamycin 150 mg Capsule 300 MG PO (17:20)
[2021-02-13 17:30] VITALS: BP 145/90; PULSE 100; O2SAT 96
== END 2021-02-13 17:31 | disposition home or self-care (01) ==
LOC: ER 17:17
PROVIDERS: Emergency Provider Nurse Practitioner Family; PCP Family Medicine Adult Medicine
DX: L01.00 Impetigo, unspecified (principal); J44.9 Chronic obstructive pulmonary disease, unspecified; Z87.891 Personal history of nicotine dependence
CPT/HCPCS: 99283

== ENCOUNTER → 2021-04-07 09:40 | Outpatient (BNVA) | payer MEDICARE, MEDICAID, SELFPAY | PROVIDERS: PCP Family Medicine Adult Medicine; Visit Provider Internal Medicine Rheumatology | DX: N28.0 Ischemia and infarction of kidney (principal); R76.0 Raised antibody titer; Z79.899 Other long term (current) drug therapy; M25.50 Pain in unspecified joint; K62.5 Hemorrhage of anus and rectum; H92.02 Otalgia, left ear; R07.81 Pleurodynia; R42 Dizziness and giddiness; F17.290 Nicotine dependence, other tobacco product, uncomplicated | CPT/HCPCS: 99205 ==

== ENCOUNTER 2021-04-12 12:59 | Outpatient (CLI) | payer MEDICARE, MEDICAID, SELFPAY ==
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
[2021-04-12 14:12] LABS: 25 Hydroxy Vitamin D 25 ng/mL (30-100)
[2021-04-13 13:03] LABS: CENTROMERE B ANTIBODY <1.0 NEG AI (<1.0 NEG); COMPLEMENT, TOTAL (CH50) >60 U/mL (31-60); JO-1 ANTIBODY <1.0 NEG AI (<1.0 NEG); RNP ANTIBODY <1.0 NEG AI (<1.0 NEG); SCL-70 ANTIBODY <1.0 NEG AI (<1.0 NEG); SJOGREN'S ANTIBODY (SS-A) <1.0 NEG AI (<1.0 NEG); SM ANTIBODY <1.0 NEG AI (<1.0 NEG); SS-B <1.0 NEG AI (<1.0 NEG)
[2021-04-13 13:33] LABS: Cyclic Citrullinated Peptide <16 UNITS
[2021-04-13 15:53] LABS: ANA SCREEN, IFA NEGATIVE (NEGATIVE)
[2021-04-14 17:02] LABS: THYROID PEROXIDASE ANTIBODIES 1 IU/mL (<9)
[2021-04-15 03:38] LABS: LA-Interp Not Indicated; PTT-LA 32 sec (<=40); Prothrombin Time 44 sec (<=45)
[2021-04-15 14:17] LABS: COMPLEMENT COMPONENT C3C 179 mg/dL (83-193); COMPLEMENT COMPONENT C4C 38 mg/dL (15-57)
[2021-04-15 20:32] LABS: Beta 2 Glycoprotein IGA <2.0 U/mL (<20.0); Beta 2 Glycoprotein IGG <2.0 U/mL (<20.0); Beta 2 Glycoprotein IGM 4.3 U/mL (<20.0)
[2021-04-16 16:37] LABS: CARDIOLIPIN AB (IGA) <2.0 APL-U/mL; CARDIOLIPIN AB (IGG) <2.0 GPL-U/mL; CARDIOLIPIN AB (IGM) 4.1 MPL-U/mL
[2021-04-19 16:27] LABS: DNA AB (DS) CRITHIDIA,IFA NEGATIVE (NEGATIVE)
== END 2021-04-12 13:00 | disposition home or self-care (01) ==
PROVIDERS: PCP Family Medicine Adult Medicine; Visit Provider Internal Medicine Rheumatology
DX: R76.0 Raised antibody titer (principal); Z79.899 Other long term (current) drug therapy; R76.8 Other specified abnormal immunological findings in serum; R07.81 Pleurodynia
CPT/HCPCS: 36415; 71110; 82306; 85613; 85730; 86146; 86147; 86160; 86162; 86235; 86255; 86376; 86431

== ENCOUNTER 2021-04-15 11:31 | Emergency (ER) | payer MEDICARE, MEDICAID, SELFPAY ==
--- NOTE | 2021-04-15 11:41 | XR_ITS ---
WS: [id number] Acute abdomen series, 04/15/2021 Clinical Data: Abd Pain Comparison: None. Findings: In the chest there are no nodules, masses or effusions. The heart is normal. The pulmonary vascularity is not increased. No pneumonia or pneumothorax is seen. No free air is seen beneath the diaphragms. No abnormal intra-abdominal masses or calcifications are seen. There is only a minimal amount of bowel gas present. There are clips in the right upper quadran t from a cholecystectomy. XR/XR acute abdomen series [id number] Impression: Negative acute abdomen series.
[2021-04-15 12:42] VITALS: BP 118/81; PULSE 102; RESP 16; TEMP 37; O2SAT 96; BMI 33.6
[2021-04-15 14:09] LABS: Basophils # 0.1 10^3/uL (0.0-0.1); Basophils % 0.4 %; Eosinophils # 0.1 10^3/uL (0.0-0.8); Eosinophils % 0.4 %; Hematocrit 43.6 % (37.0-47.0); Hemoglobin 14.2 g/dL (11.5-15.3); Lymphocytes # 1.1 10^3/uL (0.8-4.8); Lymphocytes % 5.8 %; Mean Corpuscular HGB Conc 32.6 g/dL (30.0-36.0); Mean Corpuscular Hemoglobin 27.9 pg (28.0-34.0); Mean Corpuscular Volume 85.7 fL (81-99); Mean Platelet Volume 10.6 fL (7.4-10.4); Monocytes # 0.8 10^3/uL (0.2-0.9); Monocytes % 4.3 %; Neutrophils # 17.17 10^3/uL (1.8-7.7); Neutrophils % 88.5 %; Nucleated Red Blood Cells % 0 %; Platelet Count 307 10^3/cmm (130-400); Red Blood Count 5.09 10^6/uL (4.1-5.3); Red Cell Distribution Width 15.2 % (12.1-15.1); White Blood Count 19.4 10^3/uL (4.0-10.0)
[2021-04-15 14:32] LABS: Alanine Aminotransferase 12 U/L (0-33); Albumin Level 4.3 g/dL (3.5-5.2); Alkaline Phosphatase 71 IU/L (35-105); Anion Gap 16.5 (5-19); Aspartate Amino Transferase 12 U/L (0-32); Blood Urea Nitrogen 8 mg/dL (6-20); Calcium 8.3 mg/dL (8.5-10.5); Carbon Dioxide 18 mmol/L (22-29); Chloride 110 mmol/L (98-107); Globulin 2.8 g/dL (1.3-4.6); Glomerular Filtration Rate 92.7 mL/min (90-130); Glucose 142 mg/dL (65-115); Lipase 30 U/L (13-60); Osmolality Calculated 291 mOsm/kg (285-295); Potassium 4.5 mmol/L (3.5-5.1); Sodium 140 mmol/L (136-145); Total Bilirubin 0.4 mg/dL (0.15-1.2); Total Protein 7.1 g/dL (6.6-8.7)
[2021-04-15 15:34] VITALS: BP 158/94; PULSE 95; RESP 18; O2SAT 95
[2021-04-15] MEDS: ondansetron 2 mg/ML SDV 2 mL 4 MG IVP (15:48)
[2021-04-15] MEDS: sodium chloride 0.9% 1,000 ML 999 ML IV (15:54)
[2021-04-15 15:55] LABS: Add Urine Microscopic? NO; Charge for UA Resulting for Rev
--- NOTE | 2021-04-15 16:06 | W.ED.NAVMDI ---
HPI - Nausea/Vomiting/Diarrhea General: Chief complaint: Nausea/Vomiting/Diarrhea Stated complaint: FOOD POISIONING/ N/V/D Time Seen by Provider: 04/15/21 15:17 History of Present Illness: HPI Narrative: Female presents with complaints of nausea vomiting and diarrhea. She relates this began after she ate used some salad dressing that had sat out overnight. She denies any hematochezia melena hematemesis coffee-ground emesis had vomiting and diarrhea that is already improved some she has a history of irritable bowel. She denies any fever sweats chills cough shortness of breath MD elicited complaint: nausea and vomiting Onset (ago): hour(s) Description of vomiting: food contents and watery Description of diarrhea: watery and semi-solid Associated nausea: Yes Associated abdominal pain: Yes Location of pain: Diffuse Severity: moderate Quality: cramping Exacerbating factors: eating Relieving factors: none Associated symtoms: Reports bloating, anorexia and nausea; Denies altered mental status, anxiety, change in vision, chest pain, cough, diaphoresis, decreased urine output, dizziness, dysuria, epistaxis, fatigue, fecal incontinence, fevers/chills, headache(s), malaise, myalgias, numbness, palpitations, rash, short of breath, syncope, tenesmus, tinnitus or weakness Review of Systems Const: Denies: fatigue, malaise or diaphoresis Eyes: Denies: change in vision ENMT: Denies: tinnitus or epistaxis Card: Denies: chest pain, palpitations or syncope Resp: Denies: dyspnea, productive cough or non-productive cough GI: Reports: nausea and bloating; Denies: fecal incontinence : Denies: dysuria Skin/Breast: Denies: rash or pruritus Neuro: Denies: headache(s) or dizziness Psych: Denies: anxiety PFSH ED PFSH: Medical History Anxiety and depression 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 Hematochezia IBS (irritable colon syndrome) Infarction of kidney Per history, resolved, need to get records Lupus anticoagulant positive per history, need to review records Nausea and vomiting No pertinent past medical history Denies diabetes, hypertension, asthma, seizures, DVT/PE PCP: Dr. Medel Seizures Somatic symptom disorder, severe, with predominant pain Unspecified personality disorder UTI (urinary tract infection) Surgical History S/P laparoscopic cholecystectomy 2006 Status post delivery X 2 ---> 2005, 2006 Status post tubal ligation 2006--laparoscopic tubal 2 months after her Family History Father Hyperlipidemia Hypertension Mother Hypertension Stroke Breast cancer diagnosed at age 70 Cancer breast Family/Other Ovarian cancer paternal aunt Denies family history of Colon cancer Diabetes Heart disease Anesthesia complication Bleeding disorder Uterine cancer Thyroid condition Social History Smoking and tobacco status: current every day smoker e-cigarettes E-cig/vape details: cannibas Quit status (tobacco): has quit using tobacco Year quit tobacco: 2008 Second hand smoke exposure: No Alcohol intake: never Household members: significant other Marital status: Single Current occupational status: disabled History of recent travel: No Female Reproductive History: Date of last menstrual period: 02/03/21 Physical Exam Const: COMMON NORMALS: no acute distress EXAM LIMITATIONS: no altered mental status GENERAL APPEARANCE: cooperative and comfortable ORIENTATION/CONSCIOUSNESS: Yes awake, Yes oriented to person, Yes oriented to place and Yes oriented to time HENMT: COMMON NORMALS: normocephalic, atraumatic and hearing grossly normal bilaterally HEAD & SCALP: normocephalic and atraumatic Neck/C-Spine: COMMON NORMALS: no JVD Resp: COMMON NORMALS: normal respiratory effort, No retractions, No use of accessory muscles and clear to auscultation bilaterally AUSCULTATION: clear to auscultation bilaterally Cardio: COMMON NORMALS: no JVD, regular rate, regular rhythm and No murmurs present (Cardio) RATE: regular rate RHYTHM: regular rhythm GI: COMMON NORMALS: Soft to palpation and No hepatosplenomegaly present AUSCULTATION: Yes normoactive bowel sounds PALPATION: Yes Soft to palpation, No Tenderness to palpation present (GI), No Guarding due to palpation present (GI) and Yes No hepatosplenomegaly present Extremity: COMMON NORMALS: normal to inspection, capillary refill normal, no clubbing, cyanosis or edema, no calf tenderness and no pedal edema Neuro: SENSORIUM/ORIENTATION: Yes oriented to person, Yes oriented to place and Yes oriented to time Skin: COMMON NORMALS: no rashes or lesions noted GENERAL SKIN EXAM: no rashes or lesions noted Course Vital Signs: Vital signs: Vital Signs Temperature 98.6 F 04/15/21 12:42 Pulse Rate 90 04/15/21 19:00 Respiratory Rate 18 04/15/21 19:00 Blood Pressure 150/92 04/15/21 19:00 Pulse Oximetry 95 04/15/21 19:00 MDM - Nausea/Vomiting/Diarrhea MDM Narrative: Medical decision making narrative: Reviewed CT and labs. Patient given IV fluids she is feeling better will go ahead and discharge home clinical diet next 24 to 48 hours Zofran as needed follow-up as needed return if has further problems Lab Data: Labs: Lab Results 04/15/21 04/15/21 04/15/21 Range/Units 14:03 14:03 15:31 WBC 19.4 H (4.0-10.0) 10^3/ uL RBC 5.09 (4.1-5.3) 10^6/u L Hgb 14.2 (11.5-15.3) g/dL Hct 43.6 (37.0-47.0) % MCV 85.7 (81-99) fL MCH 27.9 L (28.0-34.0) pg MCHC 32.6 (30.0-36.0) g/dL RDW 15.2 H (12.1-15.1) % Plt Count 307 (130-400) 10^3/c mm MPV 10.6 H (7.4-10.4) fL Neut % (Auto) 88.5 % Lymph % (Auto) 5.8 % Davis % (Auto) 4.3 % Eos % (Auto) 0.4 % Baso % (Auto) 0.4 % Neut # (Auto) 17.17 H (1.8-7.7) 10^3/u L Lymph # (Auto) 1.1 (0.8-4.8) 10^3/u L Davis # (Auto) 0.8 (0.2-0.9) 10^3/u L Eos # (Auto) 0.1 (0.0-0.8) 10^3/u L Baso # (Auto) 0.1 (0.0-0.1) 10^3/u L Nucleated RBC % (a uto) 0 % Nucleated RBCs # 0.0 /100WBC Sodium 140 (136-145) mmol/L Potassium 4.5 (3.5-5.1) mmol/L Chloride 110 H (98-107) mmol/L Carbon Dioxide 18 L (22-29) mmol/L Anion Gap 16.5 (5-19) BUN 8 (6-20) mg/dL Creatinine 0.7 (0.5-0.9) mg/dL GFR Calculation 92.7 (90-130) mL/min Glucose 142 H (65-115) mg/dL Calculated Osmolal ity 291 (285-295) mOsm/k g Calcium 8.3 L (8.5-10.5) mg/dL Total Bilirubin 0.4 (0.15-1.2) mg/dL AST 12 (0-32) U/L ALT 12 (0-33) U/L Alkaline Phosphata se 71 (35-105) IU/L Total Protein 7.1 (6.6-8.7) g/dL Albumin 4.3 (3.5-5.2) g/dL Globulin 2.8 (1.3-4.6) g/dL Lipase 30 (13-60) U/L Urine Color Yellow (Yellow) Urine Appearance Clear (CLEAR) Urine pH 5 (5-7) Ur Specific Gravit y 1.015 (1.005-1.030) Urine Protein Neg (Negative) Urine Glucose (UA) Norm (Normal) Urine Ketones Negative (Negative) Urine Blood Neg (Negative) Urine Nitrate Negative (Negative) Urine Bilirubin Neg (Negative) Urine Urobilinogen Norm (Negative) mg/dL Ur Leukocyte Yessica ase Negative (Negative) Discharge Plan Discharge Patient Disposition: Home Clinical Impression: Gastroenteritis Condition: Stable Prescriptions: New Zofran 4 mg tablet 4 mg PO Q6H PRN (Reason: nausea and vomiting) Qty: 15 RF: 0 No Action vitamin B complex [B Complex-Vitamin B12] Tablet 1 tab PO DAILY@0700 RF: 0 cannabis See Rx Instructions .ROUTE .COMPLEX RF: 0 sodium chloride [Saline Mist] 0.65 % aerosol,spray 1 spray intranasal BID PRN (Reason: UNKNOWN) RF: 0 aspirin [Adult Aspirin Regimen] 81 mg tablet,delayed release (DR/EC) 81 mg PO DAILY RF: 0 trazodone 100 mg tablet 100 mg PO TID 90 Days Qty: 270 RF: 1 ipratropium-albuterol 20-100 mcg/actuation mist 1 puff inhalation Q4H PRN (Reason: COPD) Qty: 4 RF: 5 clobetasol 0.05 % ointment 1 applic topical BID 14 Days Qty: 60 RF: 0 promethazine 25 mg tablet 25 mg PO Q6H PRN (Reason: N/V) RF: 0 Discharge Orders: Discharge ED (Routine); Ordered 04/15/21 Ordered By: Jasper Fisher Referrals: Alexi Medel MD [Primary Care Provider] - Discharge Diet: Clear Liquid Discharge Activity: Resume usual activity Patient Instructions: Opioid Safety Coding Level of Care Code ED 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
[2021-04-15 16:37] LABS: Bilirubin Urine Neg (Negative); Blood Urine Neg (Negative); Glucose Urine UA Norm (Normal); Ketones Urine Negative (Negative); Leukocyte Esterase Urine Negative (Negative); Nitrate Urine Negative (Negative); Protein Urine Neg (Negative); Specific Gravity, Urine 1.015 (1.005-1.030); Urine Appearance Clear (CLEAR); Urine Color Yellow (Yellow); Urobilinogen Urine Norm (Negative); pH Urine 5 (5-7)
[2021-04-15 17:00] VITALS: BP 148/88; PULSE 85; RESP 18; O2SAT 96
[2021-04-15 19:00] VITALS: BP 150/92; PULSE 90; RESP 18; O2SAT 95
== END 2021-04-15 19:16 | disposition home or self-care (01) ==
PROVIDERS: Emergency Provider Emergency Medicine; PCP Family Medicine Adult Medicine
DX: K52.9 Noninfective gastroenteritis and colitis, unspecified (principal); Z79.82 Long term (current) use of aspirin; J44.9 Chronic obstructive pulmonary disease, unspecified; F17.290 Nicotine dependence, other tobacco product, uncomplicated
CPT/HCPCS: 36415; 74022; 80053; 81003; 83690; 85025; 96361; 96374; 99284; J2405; J7030

== ENCOUNTER 2021-04-26 12:57 | Emergency (ER) | payer MEDICARE, MEDICAID, SELFPAY ==
--- NOTE | 2021-04-26 13:04 | XR_ITS ---
WS: [id number] XR knee RT 3V* [id number] REASON FOR EXAM: pain FINDINGS: No focal bony abnormality. The medial knee joint space, lateral knee joint space, and the patellofemoral knee joint space are we ll maintained with no significant narrowing and no subchondral bony change. No soft tissue abnormality is identified. XR/XR knee RT 3V* [id number] IMPRESSION: No significant bony or joint abnormality.
[2021-04-26 13:36] VITALS: BP 130/80; PULSE 92; RESP 19; TEMP 37.4; O2SAT 98; BMI 31.8
--- NOTE | 2021-04-26 15:40 | ED_ITS ---
HPI - Extremity Injury (Lower) General: Chief Complaint: Extremity Problem,Nontraumatic Stated Complaint: R knee pain Time Seen by Provider: 04/26/21 15:40 Source: patient Mode of arrival: ambulatory Limitations: no limitations History of Present Illness: HPI Narrative: Patient is a nice 41-year-old female who presents to ED today for evaluation of right knee pain. Patient tel ls me she was squatted down and when she went to stand up she feels like her knee dislocated laterally. She tells me since that time she has had pain located to the lateral aspect of her knee and is having trouble bearing full weight. She states knee has done this previously. She has not noticed any redness or swelling. No previous surgeries to the extremity. 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 Hematochezia IBS (irritable colon syndrome) Infarction of kidney Per history, resolved, need to get records Lupus anticoagulant positive per history, need to review records Nausea and vomiting No pertinent past medical history Denies diabetes, hypertension, asthma, seizures, DVT/PE PCP: Dr. Medel Seizures Somatic symptom disorder, severe, with predominant pain Unspecified personality disorder UTI (urinary tract infection) Surgical History S/P laparoscopic cholecystectomy 2006 Status post delivery X 2 ---> 2005, 2006 Status post tubal ligation 2006--laparoscopic tubal 2 months after her Family History Father Hyperlipidemia Hypertension Mother Hypertension Stroke Breast cancer diagnosed at age 70 Cancer breast Family/Other Ovarian cancer paternal aunt Denies family history of Colon cancer Diabetes Heart disease Anesthesia complication Bleeding disorder Uterine cancer Thyroid condition Social History Smoking and tobacco status: current every day smoker e-cigarettes E-cig/vape details: cannibas Quit status (tobacco): has quit using tobacco Year quit tobacco: 2008 Second hand smoke exposure: No Alcohol intake: never Household members: significant other Marital status: Single Current occupational status: disabled History of recent travel: No Female Reproductive History: Date of last menstrual period: 02/03/21 Physical Exam Const: COMMON NORMALS: no acute distress, average body habitus, patient oriented x3, healthy appearing, alert and well nourished Extremity: GENERAL: Yes normal exam except as noted RIGHT LOWER EXTREMITY: Yes knee joint Right knee: Yes palpation (TTP lateral joint line), Yes ROM (normal), Yes neurovascular exam (normal) and Yes special tests (TTP with varus stress) Neuro: COMMON NORMALS: patient oriented x3, moves all extremities, no focal motor deficits and no sensory deficits noted SENSORIUM/ORIENTATION: Yes alert GAIT: Yes Other gait observations present (limping gait to avoid full weight on R knee) Skin: COMMON NORMALS: no rashes or lesions noted GENERAL SKIN EXAM: no rashes or lesions noted TRAUMA: no lacerations or abrasions Course Vital Signs: Vital signs: Vital Signs Temperature 99.4 F 04/26/21 13:36 Pulse Rate 92 04/26/21 13:36 Respiratory Rate 19 H 04/26/21 13:36 Blood Pressure 130/80 04/26/21 13:36 Pulse Oximetry 98 04/26/21 13:36 MDM - Extremity Injury (Lower) MDM Narrative: Medical decision making narrative: Will GIANFRANCO wrap/crutches and recommend follow up with PCP for further evaluation that could include conservative therapy, PT, or MRI. Imaging Data^: XR R knee: Radiologist's impression: [address] [address] XRay Report Signed Patient: Rekha Gu Unit #: [id number] : 1980 Age/Sex: 41 / F ADM Date: 04/26/21 Loc: ER Room/Bed: Attending Dr: Ordering Provider/Ordering MD: Florinda Monsivais Date of Service: 04/26/21 Procedure(s): XR knee RT 3V* [id number] Accession Number(s): [id number] Report Number: [id number] WS: [id number] XR knee RT 3V* [id number] REASON FOR EXAM: pain FINDINGS: No focal bony abnormality. The medial knee joint space, lateral knee joint space, and the patellofemoral knee joint space are well maintained with no significant narrowing and no subchondral bony change. No soft tissue abnormality is identified. XR/XR knee RT 3V* [id number] IMPRESSION: No significant bony or joint abnormality. Dictated By: Mukund Salas Jr, MD Signed By: Mukund Salas Jr, MD Signed Date/Time: 04/26/21 1330 DD/ 1326 Discharge Plan Discharge Patient Disposition: Home Clinical Impression: Injury of right knee Qualifiers: Encounter type: initial encounter Qualified Code(s): S89.91XA - Unspecified injury of right lower leg, initial encounter Condition: Stable Prescriptions: No Action vitamin B complex [B Complex-Vitamin B12] Tablet 1 tab PO DAILY@0700 RF: 0 cannabis See Rx Instructions .ROUTE .COMPLEX RF: 0 sodium chloride [Saline Mist] 0.65 % aerosol,spray 1 spray intranasal BID PRN (Reason: UNKNOWN) RF: 0 aspirin [Adult Aspirin Regimen] 81 mg tablet,delayed release (DR/EC) 81 mg PO DAILY RF: 0 trazodone 100 mg tablet 100 mg PO TID 90 Days Qty: 270 RF: 1 ipratropium-albuterol 20-100 mcg/actuation mist 1 puff inhalation Q4H PRN (Reason: COPD) Qty: 4 RF: 5 clobetasol 0.05 % ointment 1 applic topical BID 14 Days Qty: 60 RF: 0 promethazine 25 mg tablet 25 mg PO Q6H PRN (Reason: N/V) RF: 0 Zofran 4 mg tablet 4 mg PO Q6H PRN (Reason: nausea and vomiting) Qty: 15 RF: 0 Discharge Orders: Discharge ED (Routine); Ordered 04/26/21 Ordered By: Florinda Monsivais Referrals: Alexi Medel MD [Primary Care Provider] - Patient Instructions: Knee Sprain (ED), RICE Therapy (ED) Coding Level of Care Code ED 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
--- NOTE | 2021-04-26 15:40 | ED_ITS ---
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 Hematochezia IBS (irritable colon syndrome) Infarction of kidney Per history, resolved, need to get records Lupus anticoagulant positive per history, need to review records Nausea and vomiting No pertinent past medical history Denies diabetes, hypertension, asthma, seizures, DVT/PE PCP: Dr. Medel Seizures Somatic symptom disorder, severe, with predominant pain Unspecified personality disorder UTI (urinary tract infection) Surgical History S/P laparoscopic cholecystectomy 2006 Status post delivery X 2 ---> 2005, 2006 Status post tubal ligation 2006--laparoscopic tubal 2 months after her Family History Father Hyperlipidemia Hypertension Mother Hypertension Stroke Breast cancer diagnosed at age 70 Cancer breast Family/Other Ovarian cancer paternal aunt Denies family history of Colon cancer Diabetes Heart disease Anesthesia complication Bleeding disorder Uterine cancer Thyroid condition Social History Smoking and tobacco status: current every day smoker e-cigarettes E-cig/vape details: perla Quit status (tobacco): has quit using tobacco Year quit tobacco: 2008 Second hand smoke exposure: No Alcohol intake: never Household members: significant other Marital status: Single Current occupational status: disabled History of recent travel: No Female Reproductive History: Date of last menstrual period: 02/03/21 Course Vital Signs: Vital signs: Vital Signs Temperature 99.4 F 04/26/21 13:36 Pulse Rate 92 04/26/21 13:36 Respiratory Rate 19 H 04/26/21 13:36 Blood Pressure 130/80 04/26/21 13:36 Pulse Oximetry 98 04/26/21 13:36 Discharge Plan Discharge Prescriptions: No Action vitamin B complex [B Complex-Vitamin B12] Tablet 1 tab PO DAILY@0700 RF: 0 cannabis See Rx Instructions .ROUTE .COMPLEX RF: 0 sodium chloride [Saline Mist] 0.65 % aerosol,spray 1 spray intranasal BID PRN (Reason: UNKNOWN) RF: 0 aspirin [Adult Aspirin Regimen] 81 mg tablet,delayed release (DR/EC) 81 mg PO DAILY RF: 0 trazodone 100 mg tablet 100 mg PO TID 90 Days Qty: 270 RF: 1 ipratropium-albuterol 20-100 mcg/actuation mist 1 puff inhalation Q4H PRN (Reason: COPD) Qty: 4 RF: 5 clobetasol 0.05 % ointment 1 applic topical BID 14 Days Qty: 60 RF: 0 promethazine 25 mg tablet 25 mg PO Q6H PRN (Reason: N/V) RF: 0 Zofran 4 mg tablet 4 mg PO Q6H PRN (Reason: nausea and vomiting) Qty: 15 RF: 0 Coding Level of Care Code ED Cod Clerk for Ranjeet Lamb
[2021-04-26 15:50] VITALS: BP 129/88; PULSE 93; RESP 18; O2SAT 97
== END 2021-04-26 16:02 | disposition home or self-care (01) ==
PROVIDERS: Emergency Provider Physician Assistant; PCP Family Medicine Adult Medicine
DX: S89.91XA Unspecified injury of right lower leg, initial encounter (principal); J44.9 Chronic obstructive pulmonary disease, unspecified; F17.210 Nicotine dependence, cigarettes, uncomplicated; X50.0XXA Overexertion from strenuous movement or load, initial encounter
CPT/HCPCS: 73562; 99283; E0114

== ENCOUNTER → 2021-05-02 11:47 | Outpatient (BNVA) | payer MEDICARE, MEDICAID, SELFPAY | PROVIDERS: PCP Family Medicine Adult Medicine; Visit Provider Social Worker | DX: F06.8 Other specified mental disorders due to known physiological condition (principal); F41.9 Anxiety disorder, unspecified; F32.9 Major depressive disorder, single episode, unspecified | CPT/HCPCS: 90834 ==

== ENCOUNTER 2021-05-27 13:42 | Outpatient (CLI) | payer MEDICARE, MEDICAID, SELFPAY ==
--- NOTE | 2021-05-27 14:00 | MM_ITS ---
WS: [id number] DIAGNOSTIC LEFT DIGITAL MAMMOGRAM WITH CAD HISTORY: Follow-up asymmetry LEFT breast. COMPARISON: 08/17/2020 and 07/29/2020 Technique: CC, MLO and ML views. Spot compression LEFT CC. Breast composition: There are scattered areas of fibroglandular density. The asymmetry in the centra l LEFT breast has resolved. This asymmetry is no longer present. MM/[place] [id number] IMPRESSION: BI-RADS: 2-Benign FOLLOW UP: 6 Month Follow-up Return to annual screening mammography. Screening examination should be in [facility] 2021.
== END 2021-05-27 13:43 | disposition home or self-care (01) ==
LOC: RADSHAW 13:49
PROVIDERS: PCP Family Medicine Adult Medicine; Visit Provider Family Medicine Adult Medicine
DX: N64.89 Other specified disorders of breast (principal)
CPT/HCPCS: 77065

== ENCOUNTER 2021-08-03 17:02 | Emergency (ER) | payer MEDICARE, MEDICAID, SELFPAY ==
[2021-08-03 17:14] VITALS: BP 141/91; PULSE 97; RESP 20; TEMP 37; O2SAT 95; BMI 33.6
[2021-08-03 18:25] LABS: Add Urine Microscopic? NO; Charge for UA Resulting for Rev
[2021-08-03 18:43] LABS: Bilirubin Urine Neg (Negative); Blood Urine Neg (Negative); Glucose Urine UA Norm (Normal); Ketones Urine 2+ (Negative); Leukocyte Esterase Urine Negative (Negative); Nitrate Urine Negative (Negative); Protein Urine Neg (Negative); Specific Gravity, Urine 1.025 (1.005-1.030); Urine Appearance Clear (CLEAR); Urine Color Yellow (Yellow); Urobilinogen Urine Norm (Negative); pH Urine 5 (5-7)
--- NOTE | 2021-08-03 20:37 | ED_ITS ---
HPI - Abdominal Pain General: Chief Complaint: Abdominal Pain Stated Complaint: ABDOMINAL PAIN Time Seen by Provider: 08/03/21 20:34 History of Present Illness: HPI narrative: 41-year-old female comes in today with left upper quadrant abdominal pain. Patient reports pain with nausea vomiting diarrhea for about 2 weeks. Patient does report that she has a history of IBS. Patient is worried that she may have some kidney stones or something complicating her IBS. Patient has been on the Bentyl for her IBS with no relief of her pain. Patient appears well. Patient appears in mild to no pain. Associated Symptoms: Reports diarrhea, nausea and vomiting Related Data: Date of Last Menstrual Period: 02/03/21 Review of Systems General: Reports: 10 or more systems reviewed and unremarkable except in HPI and below GI: Reports: abdominal pain, nausea, vomiting and diarrhea PFS ED PFSH: Medical History (Updated 08/03/21 @ 22:41 by SSUANA Andrews) Anxiety and depression Reports anxiety and depression in the past and is currently just on trazodone to help her sleep. COPD (chronic obstructive pulmonary disease) Crohn's disease Follows with elevator serviceman Dr. Espinoza in [place] and states she was given this diagnosis based on her symptoms of nausea vomiting and diarrhea. She is not on any medication or immunosuppressants GERD (gastroesophageal reflux disease) Lateral collateral ligament sprain of knee No pertinent past medical history Denies diabetes, hypertension, asthma, seizures, DVT/PE PCP: Dr. Medel Seizures Reports having had seizures in the past the last was in 2018. She is not currently on any medication. Surgical History S/P laparoscopic cholecystectomy 2006 Status post delivery X 2 ---> 2005, 2006 Status post tubal ligation 2006--laparoscopic tubal 2 months after her Family History Father Hyperlipidemia Hypertension Mother Hypertension Stroke Breast cancer diagnosed at age 70 Family/Other Ovarian cancer paternal aunt Denies family history of Colon cancer Diabetes Heart disease Anesthesia complication Bleeding disorder Uterine cancer Thyroid condition Female Reproductive History: Date of last menstrual period: 02/03/21 Physical Exam Const: COMMON NORMALS: no acute distress and patient oriented x3 GENERAL APPEARANCE: cooperative HENMT: COMMON NORMALS: normocephalic and Normal external nose present HEAD & SCALP: normal to inspection and normocephalic NOSE: Normal external nose present MOUTH: Normal oral and palatal mucosa present THROAT: posterior oropharynx normal Eye: GENERAL EYE: appearance normal, both eyes and all related structures Neck/C-Spine: COMMON NORMALS: full ROM Chest: COMMONS NORMALS: normal inspection of the chest Resp: COMMON NORMALS: normal respiratory effort EFFORT & INSPECTION: Yes able to speak in complete sentences Cardio: COMMON NORMALS: regular rate and regular rhythm RATE: regular rate RHYTHM: regular rhythm GI: COMMON NORMALS: Soft to palpation and non-tender PALPATION: Yes Soft to palpation and Yes Tenderness to palpation present (GI) (mild) Details: LUQ : COMMON NORMALS: Yes no CVA tenderness BLADDER/KIDNEY EXAM: Yes no CVA tenderness Back/Pelvis: COMMON NORMALS: no CVA tenderness and thoracic and lumbar spine normal to inspection Extremity: COMMON NORMALS: normal to inspection Neuro: COMMON NORMALS: patient oriented x3 and moves all extremities Psych: COMMON NORMALS: mental status grossly normal and cooperative Skin: COMMON NORMALS: no rashes or lesions noted GENERAL SKIN EXAM: no rashes or lesions noted Course Vital Signs: Vital signs: Vital Signs Temperature 97.6 F 08/03/21 23:27 Pulse Rate 89 08/03/21 23:27 Respiratory Rate 18 08/03/21 23:27 Blood Pressure 132/84 08/03/21 23:27 Pulse Oximetry 94 08/03/21 23:27 MDM - Abdominal Pain MDM Narrative: Medical decision making narrative: 41-year-old female comes in today with left abdominal discomfort. On exam patient abdomen soft with some left upper abdominal discomfort. Bowel sounds are present. Skin is warm and dry. Vital signs are normal. Differential diagnosis includes but not limited to diverticulitis, colitis, pancreatitis, malingering. CBC noted some mild elevation in white blood cell count of 13,000, CMP was unremarkable, urinalysis had some ketones, CT of the abdomen and pelvis noted some mild colitis. Patient was treated with IV fluids, Zofran, and started on some Cipro and Flagyl for her mild colitis. Patient will be continued on Cipro and Flagyl for her colitis. Patient was given a dose of morphine IV for her pain which helped resolve it. Due to patient significance of pain I will write for 7 tablets of hydrocodone to be used as needed for recurrent pain that is not controlled with present treatment plan. Review of the record indicated no recent prescription of narcotic. Patient was agreeable to plan and has an appointment to follow-up with elevator serviceman for further evaluation and treatment at [facility]. Lab Data: Labs: Lab Results 08/03/21 08/03/21 08/03/21 18:10 20:30 20:30 WBC 13.4 10^3/uL H 10 ^3/uL (4.0-10.0) RBC 4.95 10^6/uL 10^6 /uL (4.1-5.3) Hgb 14.6 g/dL g/dL (11.5-15.3) Hct 44.4 % % (37.0-47.0) MCV 89.7 fl fl (81-99) MCH 29.5 pg pg (28.0-34.0) MCHC 32.9 g/dL g/dL (30.0-36.0) RDW 12.2 % % (12.1-15.1) Plt Count 341 10^3/cmm 10^3 /cmm (130-400) MPV 10.9 fL H fL (7.4-10.4) Neut % (Auto) 66.0 % % Lymph % (Auto) 23.0 % % Gregory % (Auto) 8.1 % % Eos % (Auto) 1.8 % % Baso % (Auto) 0.7 % % Neut # (Auto) 8.85 10^3/uL H 10 ^3/uL (1.8-7.7) Lymph # (Auto) 3.1 10^3/uL 10^3/ uL (0.8-4.8) Gregory # (Auto) 1.1 10^3/uL H 10^ 3/uL (0.2-0.9) Eos # (Auto) 0.2 10^3/uL 10^3/ uL (0.0-0.8) Baso # (Auto) 0.1 10^3/uL 10^3/ uL (0.0-0.1) Nucleated RBC % (a uto) 0 % % Nucleated RBCs # 0.0 /100WBC /100W BC Sodium Cancelled Potassium Cancelled Chloride Cancelled Carbon Dioxide Cancelled Anion Gap Cancelled BUN Cancelled Creatinine Cancelled GFR Calculation Cancelled Glucose Cancelled Calculated Osmolal ity Cancelled Lactate Calcium Cancelled Total Bilirubin Cancelled AST Cancelled ALT Cancelled Alkaline Phosphata se Cancelled Total Protein Cancelled Albumin Cancelled Globulin Cancelled Lipase Cancelled Urine Color Yellow (Yellow) Urine Appearance Clear (CLEAR) Urine pH 5 (5-7) Ur Specific Gravit y 1.025 (1.005-1.030) Urine Protein Neg (Negative) Urine Glucose (UA) Norm (Normal) Urine Ketones 2+ H (Negative) Urine Blood Neg (Negative) Urine Nitrate Negative (Negative) Urine Bilirubin Neg (Negative) Urine Urobilinogen Norm mg/dL mg/dL (Negative) Ur Leukocyte Yessica ase Negative (Negative) 08/03/21 08/03/21 20:30 22:06 WBC RBC Hgb Hct MCV MCH MCHC RDW Plt Count MPV Neut % (Auto) Lymph % (Auto) Gregory % (Auto) Eos % (Auto) Baso % (Auto) Neut # (Auto) Lymph # (Auto) Gregory # (Auto) Eos # (Auto) Baso # (Auto) Nucleated RBC % (a uto) Nucleated RBCs # Sodium 137 mmol/L mmol/L (136-145) Potassium 3.9 mmol/L mmol/L (3.5-5.1) Chloride 104 mmol/L mmol/L (98-107) Carbon Dioxide 22 mmol/L mmol/L (22-29) Anion Gap 14.9 (5-19) BUN 11 mg/dL mg/dL (6-20) Creatinine 0.6 mg/dL mg/dL (0.5-0.9) GFR Calculation 110.2 mL/min mL/m in (90-130) Glucose 104 mg/dL mg/dL (65-115) Calculated Osmolal ity 284 mOsm/kg L mOs m/kg (285-295) Lactate 0.9 mmol/L mmol/L (0.5-2.2) Calcium 9.1 mg/dL mg/dL (8.5-10.5) Total Bilirubin 0.3 mg/dL mg/dL (0.15-1.2) AST 12 U/L U/L (0-32) ALT 13 U/L U/L (0-33) Alkaline Phosphata se 74 IU/L IU/L (35-105) Total Protein 7.6 g/dL g/dL (6.6-8.7) Albumin 4.2 g/dL g/dL (3.5-5.2) Globulin 3.4 g/dL g/dL (1.3-4.6) Lipase 27 U/L U/L (13-60) Urine Color Urine Appearance Urine pH Ur Specific Gravit y Urine Protein Urine Glucose (UA) Urine Ketones Urine Blood Urine Nitrate Urine Bilirubin Urine Urobilinogen Ur Leukocyte Yessica ase Discharge Plan Discharge Patient Disposition: Home Clinical Impression: Colitis Condition: Stable Prescriptions: New ciprofloxacin HCl 500 mg tablet 500 mg PO BID Qty: 10 RF: 0 metronidazole 500 mg tablet 500 mg PO BID 7 Days Qty: 14 RF: 0 hydrocodone-acetaminophen 5-325 mg tablet 1 tab PO Q8H PRN (Reason: pain (scale score 7-10)) Qty: 7 RF: 0 No Action vitamin B complex [B Complex-Vitamin B12] Tablet 1 tab PO DAILY@0700 RF: 0 cannabis See Rx Instructions .ROUTE .COMPLEX RF: 0 medroxyprogesterone [Depo-Provera] 150 mg/mL suspension 150 mg IM .COMPLEX Qty: 1 RF: 3 sodium chloride [Saline Mist] 0.65 % aerosol,spray 1 spray intranasal BID PRN (Reason: UNKNOWN) RF: 0 aspirin [Adult Aspirin Regimen] 81 mg tablet,delayed release (DR/EC) 81 mg PO DAILY RF: 0 ipratropium-albuterol 20-100 mcg/actuation mist 1 puff inhalation Q4H PRN (Reason: COPD) Qty: 4 RF: 5 clobetasol 0.05 % ointment 1 applic topical BID PRNRF: 0 loperamide 2 mg capsule 2 mg PO Q4H PRN (Reason: chronic loose stools) Qty: 90 RF: 0 pantoprazole 40 mg tablet,delayed release (DR/EC) 40 mg PO DAILY Qty: 90 RF: 1 hydrocortisone 1 % ointment 1 applic topical TID PRN (Reason: skin irritation) Qty: 28.35 RF: 0 promethazine 25 mg tablet See Rx Instructions .ROUTE .COMPLEX PRN (Reason: nausea and vomiting) Qty: 120 RF: 0 Zofran 4 mg tablet 4 mg PO Q6H PRN (Reason: nausea and vomiting) Qty: 15 RF: 0 Discharge Orders: Discharge ED (Routine); Ordered 08/03/21 Ordered By: Kodi Dial Referrals: Alexi Medel MD [Primary Care Provider] - Discharge Diet: Usual diet Discharge Activity: Increase activity as tolerated Patient Instructions: Colitis (ED), Opioid Safety Activity Restrictions/Additional Instructions: Drink plenty of water. Use acetaminophen as needed for pain. Take antibiotics as directed for the next 5 days. Follow-up with primary care for further instructions. Return to the ER for worsening pain, high fever greater than 100.4, or new concerns. 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
[2021-08-03 20:40] LABS: Basophils # 0.1 10^3/uL (0.0-0.1); Basophils % 0.7 %; Eosinophils # 0.2 10^3/uL (0.0-0.8); Eosinophils % 1.8 %; Hematocrit 44.4 % (37.0-47.0); Hemoglobin 14.6 g/dL (11.5-15.3); Lymphocytes # 3.1 10^3/uL (0.8-4.8); Mean Corpuscular HGB Conc 32.9 g/dL (30.0-36.0); Mean Corpuscular Hemoglobin 29.5 pg (28.0-34.0); Mean Corpuscular Volume 89.7 fl (81-99); Mean Platelet Volume 10.9 fL (7.4-10.4); Monocytes # 1.1 10^3/uL (0.2-0.9); Monocytes % 8.1 %; Neutrophils # 8.85 10^3/uL (1.8-7.7); Nucleated Red Blood Cells % 0 %; Platelet Count 341 10^3/cmm (130-400); Red Blood Count 4.95 10^6/uL (4.1-5.3); Red Cell Distribution Width 12.2 % (12.1-15.1); White Blood Count 13.4 10^3/uL (4.0-10.0)
--- NOTE | 2021-08-03 20:43 | CTR_ITS ---
PROCEDURE INFORMATION: Exam: CT Abdomen And Pelvis With Contrast Exam date and time: 08/03/2021 8:43 PM Age: 41 years old Clinical indication: Abdominal pain; Localized; Prior surgery; Surgery type: Gb. Csection; Patient HX: Left sided abd pain with n/v. ; Additional info: Luq abd pain, blood in stool, n/v/d TECHNIQUE: Imaging protocol: Computed tomography of the abdomen and pelvis with contrast. Radiation optimization: All CT scans at this facility use at least one of these dose optimization techniques: automated exposure control; mA and/or kV adjustment per patient size (includes targeted exams where dose is matched to clinical indication); or iterative reconstruction. Contrast material: OMNI 300; Contrast volume: 95 ml; Contrast route: INTRAVENOUS (IV); COMPARISON: CT abdomen pelvis w con* [id number] 12/31/2020 1:49 PM RADIATION DOSE METRICS: Total DLP (mGy-cm): 1535.64 FINDINGS: Lungs: The lung bases are clear. No effusion Liver: Normal. No mass. Gallbladder and bile ducts: There has been a cholecystectomy. Pancreas: Normal. No ductal dilation. Spleen: Normal. No splenomegaly. Adrenal glands: Normal. No mass. Kidneys and ureters: Normal. No hydronephrosis. Stomach and bowel: There is mild colonic wall thickening with pericolonic hyperemia. Appendix: No evidence of appendicitis. Intraperitoneal space: Unremarkable. No free air. No significant fluid collection. Vasculature: Unremarkable. No abdominal aortic aneurysm. Lymph nodes: Unremarkable. No enlarged lymph nodes. Urinary bladder: Unremarkable as visualized. Reproductive: Unremarkable as visualized. Bones/joints: Unremarkable. No acute fracture. Soft tissues: Unremarkable. CT/CT abdomen pelvis w con* [id number] IMPRESSION: Findings concerning for mild colitis. Radiation Dose CTDIVOL = (mGy): DLP = 1535.64 (mGy-cm)
[2021-08-03 21:30] LABS: Lactate (Lactic Acid level) 0.9 mmol/L (0.5-2.2)
[2021-08-03] MEDS: iohexol 300 mg/mL 100 mL Btl IV (21:31)
[2021-08-03] MEDS: sodium chloride 0.9% 1,000 ML 999 ML IV (21:57)
[2021-08-03 22:31] LABS: Alanine Aminotransferase 13 U/L (0-33); Albumin Level 4.2 g/dL (3.5-5.2); Alkaline Phosphatase 74 IU/L (35-105); Anion Gap 14.9 (5-19); Aspartate Amino Transferase 12 U/L (0-32); Blood Urea Nitrogen 11 mg/dL (6-20); Calcium 9.1 mg/dL (8.5-10.5); Carbon Dioxide 22 mmol/L (22-29); Chloride 104 mmol/L (98-107); Globulin 3.4 g/dL (1.3-4.6); Glomerular Filtration Rate 110.2 mL/min (90-130); Glucose 104 mg/dL (65-115); Lipase 27 U/L (13-60); Osmolality Calculated 284 mOsm/kg (285-295); Potassium 3.9 mmol/L (3.5-5.1); Sodium 137 mmol/L (136-145); Total Bilirubin 0.3 mg/dL (0.15-1.2); Total Protein 7.6 g/dL (6.6-8.7)
[2021-08-03 22:39] VITALS: RESP 18; O2SAT 99
[2021-08-03] MEDS: morphine 4 mg/mL SDV 1 mL IVP (22:39)
[2021-08-03] MEDS: metroNIDAZOLE 500 MG Tablet PO (23:05)
[2021-08-03] MEDS: ciprofloxacin 500 mg Tablet PO (23:05)
[2021-08-03] MEDS: lidocaine 2% viscous 15 ML, aluminum-mag hydrox-simethicon 30 ML, sucralfate oral liq 1 GM PO (23:05)
[2021-08-03 23:08] VITALS: BP 132/84; PULSE 96; RESP 18
[2021-08-03 23:27] VITALS: BP 132/84; PULSE 89; RESP 18; TEMP 36.4; O2SAT 94
== END 2021-08-03 23:29 | disposition home or self-care (01) ==
PROVIDERS: Emergency Medicine; Emergency Provider Nurse Practitioner Family; PCP Family Medicine Adult Medicine
DX: K52.9 Noninfective gastroenteritis and colitis, unspecified (principal); K50.90 Crohn's disease, unspecified, without complications; K21.9 Gastro-esophageal reflux disease without esophagitis; Z79.82 Long term (current) use of aspirin
CPT/HCPCS: 74177; 80053; 81003; 83605; 83690; 85025; 96361; 96374; 99284; J2270; J7030; Q9967

== ENCOUNTER 2021-08-14 20:07 | Emergency (ER) | payer MEDICARE, MEDICAID, SELFPAY ==
--- NOTE | 2021-08-14 20:15 | CTR_ITS ---
PROCEDURE INFORMATION: Exam: CT Abdomen And Pelvis With Contrast Exam date and time: 08/14/2021 8:15 PM Age: 41 years old Clinical indication: Nausea and vomiting; Prior surgery; Surgery date: 6+ months; Surgery type: Gb, c-sect, tubal; Patient HX: HX of crohns/ibs C/O n/v/d; Additional info: Abdominal pain TECHNIQUE: Imaging protocol: Computed tomography of the abdomen and pelvis with contrast. Total images: 238 Radiation optimization: All CT scans at this facility use at least one of these dose optimization techniques: automated exposure control; mA and/or kV adjustment per patient size (includes targeted exams where dose is matched to clinical indication); or iterative reconstruction. Contrast material: OMNI 300; Contrast volume: 95 ml; Contrast route: INTRAVENOUS (IV); COMPARISON: CT abdomen pelvis w con* [id number] 08/03/2021 9:28 PM RADIATION DOSE METRICS: Total DLP (mGy-cm): 1669.03 FINDINGS: Lungs: Limited assessment of the lung bases fails to reveal evidence for active cardiopulmonary process. Liver: No visible hepatic mass or cystic structure. Hepatomegaly. Gallbladder and bile ducts: Status post cholecystectomy. Pancreas: Pancreas is unremarkable. No visible pancreatic ductal ectasia. Spleen: Spleen unremarkable. Adrenal glands: Adrenal glands unremarkable. Kidneys and ureters: No hydronephrosis or perinephric fluid. No visible nephrolithiasis or visible ureterolithiasis. No visible renal mass. Stomach and bowel: Diffuse mucosal thickening of the ascending colon from the cecum to the distal transverse colon consistent with either inflammatory or infectious colitis. Associated terminal ileitis. Findings also would be consistent with reactivation of ulcerative colitis/Crohn's disease. Nonobstructive bowel pattern. No visible associated significant adynamic or reactive ileus. Appendix: The appendix is visualized and appears noninflamed. Intraperitoneal space: No visible pneumoperitoneum or intraperitoneal ascites. Vasculature: Portal vein patent. The abdominal aorta is nonaneurysmal. Lymph nodes: No current visible evidence of active mesenteric or retroperitoneal lymphadenopathy. Urinary bladder: Urinary bladder unremarkable. Reproductive: Unremarkable as visualized. Bones/joints: No visible active or acute osseous pathology. Facet arthrosis L4/L5 and L5/S1. Soft tissues: Unremarkable. Other findings: Obesity. CT/CT abdomen pelvis w con* [id number] IMPRESSION: Diffuse mucosal thickening of the ascending colon from the cecum to the distal transverse colon consistent with either inflammatory or infectious colitis. Associated terminal ileitis. Findings also would be consistent with reactivation of ulcerative colitis/Crohn's disease. Radiation Dose CTDIVOL = (mGy): DLP = 1669.03 (mGy-cm)
[2021-08-14 20:16] VITALS: BP 138/95; PULSE 96; RESP 18; TEMP 36.2; O2SAT 96; BMI 32.8
[2021-08-14] MEDS: sodium chloride 0.9% 1,000 ML 999 ML IV (20:44)
[2021-08-14 20:51] LABS: Basophils # 0.1 10^3/uL (0.0-0.1); Basophils % 0.6 %; Eosinophils # 0.4 10^3/uL (0.0-0.8); Hematocrit 44.8 % (37.0-47.0); Hemoglobin 14.8 g/dL (11.5-15.3); Mean Corpuscular Hemoglobin 29.4 pg (28.0-34.0); Mean Corpuscular Volume 89.1 fl (81-99); Mean Platelet Volume 10.9 fL (7.4-10.4); Monocytes # 1.4 10^3/uL (0.2-0.9); Monocytes % 6.9 %; Neutrophils # 14.12 10^3/uL (1.8-7.7); Neutrophils % 70.1 %; Nucleated Red Blood Cells % 0 %; Platelet Count 348 10^3/cmm (130-400); Red Blood Count 5.03 10^6/uL (4.1-5.3); Red Cell Distribution Width 11.9 % (12.1-15.1); White Blood Count 20.2 10^3/uL (4.0-10.0)
[2021-08-14 21:09] LABS: HCG, Serum Qual Negative (Negative)
[2021-08-14] MEDS: lidocaine 2% viscous 15 ML, aluminum-mag hydrox-simethicon 30 ML, sucralfate oral liq 1 GM PO (21:13)
[2021-08-14] MEDS: ondansetron 2 mg/ML SDV 2 mL 4 MG IVP (21:13)
[2021-08-14] MEDS: morphine 4 mg/mL SDV 1 mL IVP (21:13)
[2021-08-14 21:15] LABS: Alanine Aminotransferase 27 U/L (0-33); Albumin Level 4.4 g/dL (3.5-5.2); Alkaline Phosphatase 75 IU/L (35-105); Anion Gap 18.1 (5-19); Aspartate Amino Transferase 16 U/L (0-32); Blood Urea Nitrogen 11 mg/dL (6-20); C Reactive Protein 8.3 mg/L (0.0-4.9); Calcium 8.8 mg/dL (8.5-10.5); Carbon Dioxide 22 mmol/L (22-29); Chloride 102 mmol/L (98-107); Globulin 3.6 g/dL (1.3-4.6); Glomerular Filtration Rate 92.2 mL/min (90-130); Glucose 134 mg/dL (65-115); Lipase 26 U/L (13-60); Osmolality Calculated 287 mOsm/kg (285-295); Potassium 4.1 mmol/L (3.5-5.1); Sodium 138 mmol/L (136-145); Total Bilirubin 0.3 mg/dL (0.15-1.2)
[2021-08-14] MEDS: iohexol 300 mg/mL 100 mL Btl IV (21:17)
[2021-08-14 21:51] VITALS: BP 128/70; PULSE 89; RESP 18; O2SAT 97
--- NOTE | 2021-08-14 22:23 | W.ED.ABDPA2 ---
HPI - Abdominal Pain General: Chief Complaint: Nausea/Vomiting/Diarrhea Stated Complaint: ABD PAIN Time Seen by Provider: 08/14/21 20:13 History of Present Illness: HPI narrative: 41-year-old female who had been seen and treated for colitis a couple of weeks ago. She was treated with antibiotics. She did well until today, when diarrhea came back. She had some pain. She has had ongoing pain in the left lower quadrant, with some epigastric pain as well. No blood in the stool since she was treated initially. She has vomited a couple of times. MD elicited complaint: abdominal pain Pertinent past history: other Onset (ago): hour(s) Pain Consistency: constant Location: Epigastric and LLQ Severity: moderate Quality: cramping, stabbing and aching Radiation: none Migration to: no migration Exacerbating factors: eating Relieving factors: nothing Associated Symptoms: Reports change in bowel habits, change in stool character, diarrhea, loose stools and vomiting; Denies fever(s), hematuria, hematemesis, fecal incontinence and melena Related Data: Date of Last Menstrual Period: 02/03/21 Review of Systems Const: Denies: fever(s) Card: Denies: chest pain Resp: Denies: dyspnea, productive cough or non-productive cough GI: Reports: vomiting, diarrhea, change in bowel habits and change in stool character; Denies: hematemesis, fecal incontinence or melena : Denies: hematuria PFSH ED PFSH: Medical History Anxiety and depression Reports anxiety and depression in the past and is currently just on trazodone to help her sleep. 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 Espinoza in [place] and states she was given this diagnosis based on her symptoms of nausea vomiting and diarrhea. She is not on any medication or immunosuppressants GERD (gastroesophageal reflux disease) Lateral collateral ligament sprain of knee No pertinent past medical history Denies diabetes, hypertension, asthma, seizures, DVT/PE PCP: Dr. Medel Seizures Reports having had seizures in the past the last was in 2018. She is not currently on any medication. Surgical History S/P laparoscopic cholecystectomy 2006 Status post delivery X 2 ---> 2005, 2006 Status post tubal ligation 2006--laparoscopic tubal 2 months after her Family History Father Hyperlipidemia Hypertension Mother Hypertension Stroke Breast cancer diagnosed at age 70 Family/Other Ovarian cancer paternal aunt Denies family history of Colon cancer Diabetes Heart disease Anesthesia complication Bleeding disorder Uterine cancer Thyroid condition Social History (Updated 08/09/21 @ 13:52 by Katie Carrillo LPN) Smoking and tobacco status: never smoked Alcohol intake: former Adopted: No Caregiver/support person: Yes Lives independently: Yes Household members: significant other and family Housing: House Marital status: Life Partner Current occupational status: unemployed Female Reproductive History: Date of last menstrual period: 02/03/21 Physical Exam Const: COMMON NORMALS: patient oriented x3 and alert GENERAL APPEARANCE: anxious HENMT: COMMON NORMALS: normocephalic HEAD & SCALP: normocephalic Chest: COMMONS NORMALS: normal inspection of the chest Resp: COMMON NORMALS: normal respiratory effort, No use of accessory muscles and clear to auscultation bilaterally AUSCULTATION: clear to auscultation bilaterally Cardio: COMMON NORMALS: regular rate and regular rhythm RATE: regular rate RHYTHM: regular rhythm GI: COMMON NORMALS: Soft to palpation PALPATION: Yes Soft to palpation, Yes Tenderness to palpation present (GI) (epigastric) Details: LLQ and Yes Guarding due to palpation present (GI) Neuro: COMMON NORMALS: patient oriented x3 SENSORIUM/ORIENTATION: Yes alert Course Vital Signs: Vital signs: Vital Signs Temperature 97.1 F L 08/14/21 20:16 Pulse Rate 96 08/14/21 20:16 Respiratory Rate 18 08/14/21 20:16 Blood Pressure 138/95 08/14/21 20:16 Pulse Oximetry 96 08/14/21 20:16 MDM - Abdominal Pain MDM Narrative: Medical decision making narrative: White blood cell count of 20 with no left shift. BMP is normal. CRP is only minimally elevated. Patient has findings of colitis from ascending colon to transverse colon on CT. No abscess. Can be infectious versus inflammatory. Given her recurrence, it is likely inflammatory. She has GI follow-up scheduled for August. She improved with antibiotics after the first bout. She will be allowed home with pain medication, antibiotics and steroids for probable ulcerative colitis Lab Data: Labs: Lab Results 08/14/21 08/14/21 08/14/21 20:40 20:40 20:40 WBC 20.2 10^3/uL H 10 ^3/uL (4.0-10.0) RBC 5.03 10^6/uL 10^6 /uL (4.1-5.3) Hgb 14.8 g/dL g/dL (11.5-15.3) Hct 44.8 % % (37.0-47.0) MCV 89.1 fl fl (81-99) MCH 29.4 pg pg (28.0-34.0) MCHC 33.0 g/dL g/dL (30.0-36.0) RDW 11.9 % L % (12.1-15.1) Plt Count 348 10^3/cmm 10^3 /cmm (130-400) MPV 10.9 fL H fL (7.4-10.4) Neut % (Auto) 70.1 % % Lymph % (Auto) 20.0 % % [facility] % (Auto) 6.9 % % Eos % (Auto) 2.0 % % Baso % (Auto) 0.6 % % Neut # (Auto) 14.12 10^3/uL H 1 0^3/uL (1.8-7.7) Lymph # (Auto) 4.0 10^3/uL 10^3/ uL (0.8-4.8) [facility] # (Auto) 1.4 10^3/uL H 10^ 3/uL (0.2-0.9) Eos # (Auto) 0.4 10^3/uL 10^3/ uL (0.0-0.8) Baso # (Auto) 0.1 10^3/uL 10^3/ uL (0.0-0.1) Nucleated RBC % (a uto) 0 % % Nucleated RBCs # 0.0 /100WBC /100W BC Sodium 138 mmol/L mmol/L (136-145) Potassium 4.1 mmol/L mmol/L (3.5-5.1) Chloride 102 mmol/L mmol/L (98-107) Carbon Dioxide 22 mmol/L mmol/L (22-29) Anion Gap 18.1 (5-19) BUN 11 mg/dL mg/dL (6-20) Creatinine 0.7 mg/dL mg/dL (0.5-0.9) GFR Calculation 92.2 mL/min mL/mi n (90-130) Glucose 134 mg/dL H mg/dL (65-115) Calculated Osmolal ity 287 mOsm/kg mOsm/ kg (285-295) Lactate 1.0 mmol/L mmol/L (0.5-2.2) Calcium 8.8 mg/dL mg/dL (8.5-10.5) Total Bilirubin 0.3 mg/dL mg/dL (0.15-1.2) AST 16 U/L U/L (0-32) ALT 27 U/L U/L (0-33) Alkaline Phosphata se 75 IU/L IU/L (35-105) C-Reactive Protein 8.3 mg/L H mg/L (0.0-4.9) Total Protein 8.0 g/dL g/dL (6.6-8.7) Albumin 4.4 g/dL g/dL (3.5-5.2) Globulin 3.6 g/dL g/dL (1.3-4.6) Lipase 26 U/L U/L (13-60) HCG, Qual Urine Color Urine Appearance Urine pH Ur Specific Gravit y Urine Protein Urine Glucose (UA) Urine Ketones Urine Blood Urine Nitrate Urine Bilirubin Urine Urobilinogen Ur Leukocyte Yessica ase Urine RBC Urine WBC Ur Squamous Epith Cells Amorphous Sediment Urine Bacteria 08/14/21 08/14/21 20:40 22:30 WBC RBC Hgb Hct MCV MCH MCHC RDW Plt Count MPV Neut % (Auto) Lymph % (Auto) [facility] % (Auto) Eos % (Auto) Baso % (Auto) Neut # (Auto) Lymph # (Auto) [facility] # (Auto) Eos # (Auto) Baso # (Auto) Nucleated RBC % (a uto) Nucleated RBCs # Sodium Potassium Chloride Carbon Dioxide Anion Gap BUN Creatinine GFR Calculation Glucose Calculated Osmolal ity Lactate Calcium Total Bilirubin AST ALT Alkaline Phosphata se C-Reactive Protein Total Protein Albumin Globulin Lipase HCG, Qual Negative (Negative) Urine Color Yellow (Yellow) Urine Appearance Clear (CLEAR) Urine pH 7 (5-7) Ur Specific Gravit y 1.000 L (1.005-1.030) Urine Protein Trace (Negative) Urine Glucose (UA) Norm (Normal) Urine Ketones Negative (Negative) Urine Blood Neg (Negative) Urine Nitrate Negative (Negative) Urine Bilirubin 1+ H (Negative) Urine Urobilinogen Norm mg/dL mg/dL (Negative) Ur Leukocyte Yessica ase Negative (Negative) Urine RBC 0-4 /hpf H /hpf (0-2) Urine WBC 0-4 /hpf H /hpf (0-5) Ur Squamous Epith Cells 0-4 /hpf H /hpf (0-5) Amorphous Sediment Not Reportable Urine Bacteria Trace /hpf /hpf (NONE) Discharge Plan Discharge Patient Disposition: Home Clinical Impression: Colitis Condition: Stable Prescriptions: New Flagyl 500 mg tablet 500 mg PO Q8H 10 Days Qty: 30 RF: 0 ciprofloxacin HCl 500 mg tablet 500 mg PO BID Qty: 20 RF: 0 Medrol (Luciano) 4 mg tablets,dose pack See Rx Instructions .ROUTE .COMPLEX Qty: 21 RF: 0 Continued hydrocodone-acetaminophen 5-325 mg tablet 1 tab PO Q8H PRN (Reason: pain (scale score 7-10)) Qty: 7 RF: 0 No Action vitamin B complex [B Complex-Vitamin B12] Tablet 1 tab PO DAILY@0700 RF: 0 cannabis See Rx Instructions .ROUTE .COMPLEX RF: 0 medroxyprogesterone [Depo-Provera] 150 mg/mL suspension 150 mg IM .COMPLEX Qty: 1 RF: 3 sodium chloride [Saline Mist] 0.65 % aerosol,spray 1 spray intranasal BID PRN (Reason: UNKNOWN) RF: 0 aspirin [Adult Aspirin Regimen] 81 mg tablet,delayed release (DR/EC) 81 mg PO DAILY RF: 0 ipratropium-albuterol 20-100 mcg/actuation mist 1 puff inhalation Q4H PRN (Reason: COPD) Qty: 4 RF: 5 clobetasol 0.05 % ointment 1 applic topical BID PRNRF: 0 loperamide 2 mg capsule 2 mg PO Q4H PRN (Reason: chronic loose stools) Qty: 90 RF: 0 pantoprazole 40 mg tablet,delayed release (DR/EC) 40 mg PO DAILY Qty: 90 RF: 1 hydrocortisone 1 % ointment 1 applic topical TID PRN (Reason: skin irritation) Qty: 28.35 RF: 0 promethazine 25 mg tablet See Rx Instructions .ROUTE .COMPLEX PRN (Reason: nausea and vomiting) Qty: 120 RF: 0 Zofran 4 mg tablet 4 mg PO Q6H PRN (Reason: nausea and vomiting) Qty: 15 RF: 0 Discharge Orders: Discharge ED (Routine); Ordered 08/14/21 Ordered By: Matthew Marrero Referrals: Alexi Medel MD [Primary Care Provider] - 1-3 days Discharge Diet: Advance as tolerated and Clear Liquid Discharge Activity: Increase activity as tolerated Patient Instructions: Colitis (ED) Activity Restrictions/Additional Instructions: Return for fever greater than 100 despite 2-3 doses of antibiotics, worsening pain despite treatment, vomiting liquids or medications, other concerning symptoms. Follow-up with your doctor. Also follow-up with gastroenterology as scheduled Coding Level of Care Code ED Vocational Rehab Consultant for Chg Fwd Exam Detailed
[2021-08-14 22:55] LABS: Add Urine Microscopic? YES; Bilirubin Urine 1+ (Negative); Blood Urine Neg (Negative); Glucose Urine UA Norm (Normal); Ketones Urine Negative (Negative); Leukocyte Esterase Urine Negative (Negative); Nitrate Urine Negative (Negative); Protein Urine Trace (Negative); Urine Appearance Clear (CLEAR); Urine Color Yellow (Yellow); Urobilinogen Urine Norm (Negative); pH Urine 7 (5-7)
[2021-08-14 22:58] LABS: Add Urine Culture? No; Bacteria Urine TRACE /hpf; RBC Urine 0-4 /hpf (0-2); Squamous Epithelial Cell Urine 0-4 /hpf (0-5); WBC Urine 0-4 /hpf (0-5)
[2021-08-15] MEDS: lidocaine 2% viscous 15 ML, aluminum-mag hydrox-simethicon 30 ML, sucralfate oral liq 1 GM PO (00:27)
[2021-08-15] MEDS: metroNIDAZOLE 500 MG Tablet PO (00:27)
== END 2021-08-15 00:46 | disposition home or self-care (01) ==
PROVIDERS: Emergency Provider Emergency Medicine; PCP Family Medicine Adult Medicine
DX: K52.9 Noninfective gastroenteritis and colitis, unspecified (principal); Z79.82 Long term (current) use of aspirin; J44.9 Chronic obstructive pulmonary disease, unspecified
CPT/HCPCS: 74177; 80053; 81001; 83605; 83690; 84703; 85025; 86140; 96361; 96374; 96375; 99284; J2270; J2405; J2930; J7030; Q9967

== ENCOUNTER → 2021-08-23 14:07 | Outpatient (BNVA) | payer MEDICARE, MEDICAID, SELFPAY | PROVIDERS: PCP Family Medicine Adult Medicine; Visit Provider Internal Medicine Rheumatology | DX: K52.9 Noninfective gastroenteritis and colitis, unspecified (principal); R10.32 Left lower quadrant pain; R76.0 Raised antibody titer; H92.02 Otalgia, left ear | CPT/HCPCS: 99214 ==

== ENCOUNTER 2021-08-28 15:22 | Emergency (ER) | payer MEDICARE, MEDICAID, SELFPAY ==
[2021-08-28 16:27] VITALS: BP 120/89; PULSE 90; RESP 16; TEMP 36.9; O2SAT 97; BMI 32.5
[2021-08-28 19:54] LABS: Basophils # 0.1 10^3/uL (0.0-0.1); Basophils % 0.5 %; Eosinophils # 0.3 10^3/uL (0.0-0.8); Eosinophils % 1.3 %; Hematocrit 48.5 % (37.0-47.0); Hemoglobin 16.2 g/dL (11.5-15.3); Lymphocytes # 4.7 10^3/uL (0.8-4.8); Lymphocytes % 22.7 %; Mean Corpuscular HGB Conc 33.4 g/dL (30.0-36.0); Mean Corpuscular Hemoglobin 29.5 pg (28.0-34.0); Mean Corpuscular Volume 88.3 fl (81-99); Mean Platelet Volume 10.4 fL (7.4-10.4); Monocytes # 1.3 10^3/uL (0.2-0.9); Monocytes % 6.1 %; Neutrophils % 68.8 %; Nucleated Red Blood Cells % 0 %; Platelet Count 359 10^3/cmm (130-400); Red Blood Count 5.49 10^6/uL (4.1-5.3); Red Cell Distribution Width 11.9 % (12.1-15.1); White Blood Count 20.8 10^3/uL (4.0-10.0)
[2021-08-28] MEDS: ciprofloxacin 500 mg Tablet PO (20:03)
[2021-08-28] MEDS: metroNIDAZOLE 500 MG Tablet PO (20:03)
[2021-08-28 20:05] VITALS: RESP 16
[2021-08-28] MEDS: HYDROmorphone 1 mg/mL INJ 1 mL IVP (20:05)
[2021-08-28] MEDS: sodium chloride 0.9% 1,000 ML 999 ML IV (20:09)
[2021-08-28 20:15] LABS: Add Urine Microscopic? NO; Charge for UA Resulting for Rev
[2021-08-28] MEDS: lidocaine 2% viscous 15 ML, aluminum-mag hydrox-simethicon 30 ML, sucralfate oral liq 1 GM PO (20:16)
[2021-08-28 20:18] LABS: Bilirubin Urine Neg (Negative); Blood Urine Neg (Negative); Glucose Urine UA Norm (Normal); Ketones Urine Negative (Negative); Leukocyte Esterase Urine Negative (Negative); Nitrate Urine Negative (Negative); Protein Urine Neg (Negative); Urine Appearance Clear (CLEAR); Urine Color Yellow (Yellow); Urobilinogen Urine Norm (Negative); pH Urine 5 (5-7)
[2021-08-28 20:20] LABS: Alanine Aminotransferase 24 U/L (0-33); Albumin Level 4.5 g/dL (3.5-5.2); Alkaline Phosphatase 67 IU/L (35-105); Aspartate Amino Transferase 13 U/L (0-32); Blood Urea Nitrogen 15 mg/dL (6-20); C Reactive Protein 3.5 mg/L (0.0-4.9); Calcium 8.7 mg/dL (8.5-10.5); Carbon Dioxide 18 mmol/L (22-29); Chloride 102 mmol/L (98-107); Globulin 3.2 g/dL (1.3-4.6); Glomerular Filtration Rate 110.2 mL/min (90-130); Glucose 97 mg/dL (65-115); Lipase 43 U/L (13-60); Osmolality Calculated 283 mOsm/kg (285-295); Sodium 136 mmol/L (136-145); Total Bilirubin 0.2 mg/dL (0.15-1.2); Total Protein 7.7 g/dL (6.6-8.7)
[2021-08-28 20:27] LABS: Procalcitonin 0.04 ng/mL (0-0.5)
--- NOTE | 2021-08-28 20:55 | ED_ITS ---
HPI - Abdominal Pain General: Chief Complaint: Abdominal Pain Stated Complaint: ABD PAIN Time Seen by Provider: 08/28/21 19:36 History of Present Illness: HPI narrative: 41-year-old female who has been seen a couple of times for colitis type symptoms. She notes that she has had diarrhea with some blood today. She has been on steroids twice for this recently, once prescribed by me. She notes that is the dose of the steroid taper falls, her symptoms come back. She saw her entry level assistant manager and the steroid pack was refilled, but she ran out yesterday. She denies any fever. She has lost weight. She has an appointment with GI for follow-up in 3 weeks. MD elicited complaint: abdominal pain Pertinent past history: other Onset (ago): day(s) Pain Consistency: constant Location: LUQ, RUQ and LLQ Severity: moderate Associated Symptoms: Reports diarrhea, hematochezia, nausea and vomiting; Denies chills and fever(s) Related Data: Date of Last Menstrual Period: 02/03/21 Review of Systems Const: Denies: fever(s) or chills Card: Denies: chest pain or palpitations Resp: Denies: dyspnea, productive cough or non-productive cough GI: Reports: abdominal pain, nausea, vomiting, diarrhea and hematochezia Neuro: Reports: headache(s) PFSH ED PFSH: Medical History (Updated 08/28/21 @ 21:30 by Matthew Marrero DO) Anxiety and depression Reports anxiety and depression in the past and is currently just on trazodone to help her sleep. COPD (chronic obstructive pulmonary disease) Crohn's disease Follows with planting supervisor Dr. Espinoza in [place] and states she was given this diagnosis based on her symptoms of nausea vomiting and diarrhea. She is not on any medication or immunosuppressants GERD (gastroesophageal reflux disease) Inflammatory bowel disease Lateral collateral ligament sprain of knee Left lower quadrant abdominal pain No pertinent past medical history Denies diabetes, hypertension, asthma, seizures, DVT/PE PCP: Dr. Medel Seizures Reports having had seizures in the past the last was in 2018. She is not currently on any medication. Surgical History S/P laparoscopic cholecystectomy 2006 Status post delivery X 2 ---> 2005, 2005 Status post tubal ligation 2006--laparoscopic tubal 2 months after her Family History Father Hyperlipidemia Hypertension Mother Hypertension Stroke Breast cancer diagnosed at age 70 Family/Other Ovarian cancer paternal aunt Denies family history of Colon cancer Diabetes Heart disease Anesthesia complication Bleeding disorder Uterine cancer Thyroid condition Social History Smoking and tobacco status: never smoked Alcohol intake: former Adopted: No Caregiver/support person: Yes Lives independently: Yes Household members: significant other and family Housing: House Marital status: Life Partner Current occupational status: unemployed Female Reproductive History: Date of last menstrual period: 02/03/21 Physical Exam Const: COMMON NORMALS: patient oriented x3 and alert GENERAL APPEARANCE: cooperative; not comfortable HENMT: COMMON NORMALS: normocephalic HEAD & SCALP: normocephalic Eye: COMMON NORMALS: Equal, round and reactive pupils present and EOMs intact bilaterally PUPIL: Yes Equal, round and reactive pupils present Chest: COMMONS NORMALS: normal inspection of the chest Resp: COMMON NORMALS: normal respiratory effort, No use of accessory muscles and clear to auscultation bilaterally AUSCULTATION: clear to auscultation bilaterally Cardio: COMMON NORMALS: regular rate and regular rhythm RATE: regular rate RHYTHM: regular rhythm GI: COMMON NORMALS: Normal to inspection, nondistended, normoactive bowel sounds present and Soft to palpation PALPATION: Yes Soft to palpation and Yes Tenderness to palpation present (GI) (diffuse) Neuro: COMMON NORMALS: patient oriented x3 SENSORIUM/ORIENTATION: Yes alert Course Vital Signs: Vital signs: Vital Signs Temperature 98.4 F 08/28/21 16:27 Pulse Rate 90 08/28/21 16:27 Respiratory Rate 16 08/28/21 20:05 Blood Pressure 120/89 08/28/21 16:27 Pulse Oximetry 97 08/28/21 16:27 MDM - Abdominal Pain MDM Narrative: Medical decision making narrative: 41-year-old female with a history of colitis. Laboratory shows a white count of 21. No left shift. No significant change from her previous white count. Her inflammatory markers are not elevated including CRP and pro Calc. Hemoglobin is 16.2. Bicarbonate is 18. She is received a liter of fluid. Her abdomen is tender but benign otherwise. No peritoneal signs. She has done well on steroids in the past. We will place her on a low-dose steroid regimen for the next couple of weeks until she can see GI. She will also be covered with antibiotics again. Lab Data: Labs: Lab Results 08/28/21 08/28/21 08/28/21 19:22 19:40 19:40 WBC 20.8 10^3/uL H 10 ^3/uL (4.0-10.0) RBC 5.49 10^6/uL H 10 ^6/uL (4.1-5.3) Hgb 16.2 g/dL H g/dL (11.5-15.3) Hct 48.5 % H % (37.0-47.0) MCV 88.3 fl fl (81-99) MCH 29.5 pg pg (28.0-34.0) MCHC 33.4 g/dL g/dL (30.0-36.0) RDW 11.9 % L % (12.1-15.1) Plt Count 359 10^3/cmm 10^3 /cmm (130-400) MPV 10.4 fL fL (7.4-10.4) Neut % (Auto) 68.8 % % Lymph % (Auto) 22.7 % % [place] % (Auto) 6.1 % % Eos % (Auto) 1.3 % % Baso % (Auto) 0.5 % % Neut # (Auto) 14.30 10^3/uL H 1 0^3/uL (1.8-7.7) Lymph # (Auto) 4.7 10^3/uL 10^3/ uL (0.8-4.8) [place] # (Auto) 1.3 10^3/uL H 10^ 3/uL (0.2-0.9) Eos # (Auto) 0.3 10^3/uL 10^3/ uL (0.0-0.8) Baso # (Auto) 0.1 10^3/uL 10^3/ uL (0.0-0.1) Nucleated RBC % (a uto) 0 % % Nucleated RBCs # 0.0 /100WBC /100W BC Sodium 136 mmol/L mmol/L (136-145) Potassium 4.0 mmol/L mmol/L (3.5-5.1) Chloride 102 mmol/L mmol/L (98-107) Carbon Dioxide 18 mmol/L L mmol/ L (22-29) Anion Gap 20.0 H (5-19) BUN 15 mg/dL mg/dL (6-20) Creatinine 0.6 mg/dL mg/dL (0.5-0.9) GFR Calculation 110.2 mL/min mL/m in (90-130) Glucose 97 mg/dL mg/dL (65-115) Calculated Osmolal ity 283 mOsm/kg L mOs m/kg (285-295) Calcium 8.7 mg/dL mg/dL (8.5-10.5) Total Bilirubin 0.2 mg/dL mg/dL (0.15-1.2) AST 13 U/L U/L (0-32) ALT 24 U/L U/L (0-33) Alkaline Phosphata se 67 IU/L IU/L (35-105) C-Reactive Protein 3.5 mg/L mg/L (0.0-4.9) Total Protein 7.7 g/dL g/dL (6.6-8.7) Albumin 4.5 g/dL g/dL (3.5-5.2) Globulin 3.2 g/dL g/dL (1.3-4.6) Lipase 43 U/L U/L (13-60) Procalcitonin 0.04 ng/mL ng/mL (0-0.5) Urine Color Yellow (Yellow) Urine Appearance Clear (CLEAR) Urine pH 5 (5-7) Ur Specific Gravit y 1.020 (1.005-1.030) Urine Protein Neg (Negative) Urine Glucose (UA) Norm (Normal) Urine Ketones Negative (Negative) Urine Blood Neg (Negative) Urine Nitrate Negative (Negative) Urine Bilirubin Neg (Negative) Urine Urobilinogen Norm mg/dL mg/dL (Negative) Ur Leukocyte Yessica ase Negative (Negative) Discharge Plan Discharge Patient Disposition: Home Clinical Impression: Colitis Condition: Stable Prescriptions: New prednisone 10 mg tablet See Rx Instructions .ROUTE .COMPLEX Qty: 39 RF: 0 Continued hydrocodone-acetaminophen 5-325 mg tablet 1 tab PO Q8H PRN (Reason: pain (scale score 7-10)) Qty: 7 RF: 0 ciprofloxacin HCl 500 mg tablet 500 mg PO BID Qty: 20 RF: 0 Discontinued methylprednisolone 4 mg tablets,dose pack See Rx Instructions PO PER PKG DIR Qty: 21 RF: 0 methylprednisolone [Medrol (Luciano)] 4 mg tablets,dose pack See Rx Instructions .ROUTE .COMPLEX Qty: 21 RF: 0 No Action vitamin B complex [B Complex-Vitamin B12] Tablet 1 tab PO DAILY@0700 RF: 0 cannabis See Rx Instructions .ROUTE .COMPLEX RF: 0 medroxyprogesterone [Depo-Provera] 150 mg/mL suspension 150 mg IM .COMPLEX Qty: 1 RF: 3 sodium chloride [Saline Mist] 0.65 % aerosol,spray 1 spray intranasal BID PRN (Reason: UNKNOWN) RF: 0 aspirin [Adult Aspirin Regimen] 81 mg tablet,delayed release (DR/EC) 81 mg PO DAILY RF: 0 ipratropium-albuterol 0.5 mg-3 mg(2.5 mg base)/3 mL solution for nebulization 3 ml inhalation QID PRN (Reason: wheezing) Qty: 15 RF: 1 clobetasol 0.05 % ointment 1 applic topical BID PRNRF: 0 loperamide 2 mg capsule 2 mg PO Q4H PRN (Reason: chronic loose stools) Qty: 90 RF: 0 pantoprazole 40 mg tablet,delayed release (DR/EC) 40 mg PO DAILY Qty: 90 RF: 1 hydrocortisone 1 % ointment 1 applic topical TID PRN (Reason: skin irritation) Qty: 28.35 RF: 0 promethazine 25 mg tablet See Rx Instructions .ROUTE .COMPLEX PRN (Reason: nausea and vomiting) Qty: 120 RF: 0 Combivent Respimat 20-100 mcg/actuation mist See Rx Instructions .ROUTE .COMPLEX Qty: 4 RF: 5 Zofran 4 mg tablet 4 mg PO Q6H PRN (Reason: nausea and vomiting) Qty: 15 RF: 0 Discharge Orders: Discharge ED (Routine); Ordered 08/28/21 Ordered By: Matthew Marrero Referrals: Alexi Medel MD [Primary Care Provider] - 4-7 days Discharge Diet: Advance as tolerated Patient Instructions: Colitis (ED), Opioid Safety Activity Restrictions/Additional Instructions: Return for fever greater than 100, vomiting liquids or medications, worsening pain despite treatment, worsening bleeding with bowel movements or passage of large clots in the stool, any other concerning symptoms. Coding Level of Care Code ED Flight Engineer Inspector for Chg Fwd Exam Detailed
[2021-08-28] MEDS: promethazine 25 mg/mL SDV 1 mL 50 MG IM (21:30)
[2021-08-28] MEDS: ondansetron 2 mg/ML SDV 2 mL 4 MG IVP (21:55)
[2021-08-28 22:31] VITALS: PULSE 84; RESP 20; O2SAT 94
== END 2021-08-28 22:09 | disposition home or self-care (01) ==
PROVIDERS: Emergency Medicine; Emergency Provider Emergency Medicine; PCP Family Medicine Adult Medicine
DX: K52.9 Noninfective gastroenteritis and colitis, unspecified (principal); Z79.82 Long term (current) use of aspirin; J44.9 Chronic obstructive pulmonary disease, unspecified
CPT/HCPCS: 80053; 81003; 83690; 84145; 85025; 86140; 96361; 96372; 96374; 96375; 99284; J1170; J2405; J2550; J2930; J7030

== ENCOUNTER 2021-09-16 05:45 | Emergency (ER) | payer MEDICARE, MEDICAID, SELFPAY ==
[2021-09-16 06:02] VITALS: BP 153/89; PULSE 98; RESP 18; O2SAT 98; BMI 32.8
[2021-09-16 06:09] LABS: Basophils # 0.1 10^3/uL (0.0-0.1); Basophils % 0.3 %; Eosinophils % 0.2 %; Hematocrit 44.7 % (37.0-47.0); Lymphocytes # 0.9 10^3/uL (0.8-4.8); Lymphocytes % 5.6 %; Mean Corpuscular HGB Conc 33.6 g/dL (30.0-36.0); Mean Corpuscular Hemoglobin 29.9 pg (28.0-34.0); Mean Platelet Volume 10.2 fL (7.4-10.4); Monocytes # 0.4 10^3/uL (0.2-0.9); Monocytes % 2.2 %; Neutrophils # 14.66 10^3/uL (1.8-7.7); Neutrophils % 91.3 %; Nucleated Red Blood Cells % 0 %; Platelet Count 282 10^3/cmm (130-400); Red Blood Count 5.02 10^6/uL (4.1-5.3); Red Cell Distribution Width 12.5 % (12.1-15.1); White Blood Count 16.1 10^3/uL (4.0-10.0)
[2021-09-16 06:27] VITALS: PULSE 94; RESP 19; TEMP 36.7; O2SAT 99
[2021-09-16 06:31] LABS: Alanine Aminotransferase 28 U/L (0-33); Albumin Level 4.5 g/dL (3.5-5.2); Alkaline Phosphatase 60 IU/L (35-105); Aspartate Amino Transferase 19 U/L (0-32); Blood Urea Nitrogen 10 mg/dL (6-20); Calcium 9.3 mg/dL (8.5-10.5); Carbon Dioxide 17 mmol/L (22-29); Chloride 107 mmol/L (98-107); Globulin 3.2 g/dL (1.3-4.6); Glomerular Filtration Rate 110.2 mL/min (90-130); Glucose 129 mg/dL (65-115); Lipase 24 U/L (13-60); Osmolality Calculated 289 mOsm/kg (285-295); Sodium 139 mmol/L (136-145); Total Bilirubin 0.4 mg/dL (0.15-1.2); Total Protein 7.7 g/dL (6.6-8.7)
--- NOTE | 2021-09-16 06:33 | ED_ITS ---
HPI - Abdominal Pain General: Chief Complaint: Abdominal Pain Stated Complaint: abd pain Time Seen by Provider: 09/16/21 05:47 History of Present Illness: HPI narrative: 41-year-old female presents emergency room complaining of abdominal pain nausea and vomiting with diarrhea. Is been a long ongoing issue there is multiple visits is reviewed in old records. Today she states she has been told she has ulcerative colitis. Previously was documented as being Crohn's on her chart however there is no confirmatory biopsy from colonoscopy in the past. Patient states she had a previous colonoscopy in the [facility] and was told that she had Crohn's. Now she is stating she has ulcerative colitis. In November of this year there was a completely normal colonoscopy which reviewed on the chart today. Recently she has been through several courses of steroids and the steroids were off she starts having symptoms again. She seen rheumatology and all of her inflammatory markers were negative. She tells me that she is scheduled to see GI to have another colonoscopy potentially to confirm the diagnosis which reading to the records I think is more suspected by her than ever been confirmed. She also is wanting to see gynecology again his note from earlier this year looks like erythemic on fairly well she is anticipating having a laparoscopic procedure she had seen on Dr. Mason that this pain could be caused by endometriosis. MD elicited complaint: abdominal pain Onset (ago): month(s) Pain Consistency: intermittent and colicky Location: LLQ Severity: moderate Quality: cramping Radiation: none Exacerbating factors: eating and bowel movement Relieving factors: medication (Steroids) Associated Symptoms: Reports anorexia, bloating, change in bowel habits, GI cramping, diarrhea, nausea and poor appetite; Denies belching, change in stool character, chills, coffee ground emesis, constipation, dyspepsia, dysuria, excessive flatus, fever(s), heartburn, hematochezia, hematuria, hematemesis, fecal incontinence, loose stools, melena, syncope and vomiting Related Data: Date of Last Menstrual Period: 02/03/21 Review of Systems Const: Denies: fever(s) or chills ENMT: Denies: throat pain, ear or mastoid pain, nasal discharge or nasal congestion Card: Denies: syncope Resp: Denies: dyspnea, productive cough or non-productive cough GI: Reports: nausea, diarrhea, bloating, GI cramping and change in bowel habits; Denies: vomiting, hematemesis, coffee ground emesis, heartburn, constipation, belching, excessive flatus, fecal incontinence, change in stool character, hematochezia or melena : Denies: dysuria or hematuria Skin/Breast: Denies: rash or pruritus PFSH ED PFSH: Medical History Anxiety and depression Reports anxiety and depression in the past and is currently just on trazodone to help her sleep. COPD (chronic obstructive pulmonary disease) Crohn's disease Follows with marketing account executive Dr. Espinoza in [place] and states she was given this diagnosis based on her symptoms of nausea vomiting and diarrhea. She is not on any medication or immunosuppressants GERD (gastroesophageal reflux disease) Inflammatory bowel disease Lateral collateral ligament sprain of knee Left lower quadrant abdominal pain No pertinent past medical history Denies diabetes, hypertension, asthma, seizures, DVT/PE PCP: Dr. Medel Seizures Reports having had seizures in the past the last was in 2018. She is not currently on any medication. Surgical History S/P laparoscopic cholecystectomy 2006 Status post delivery X 2 ---> 2005, 2006 Status post tubal ligation 2006--laparoscopic tubal 2 months after her Family History Father Hyperlipidemia Hypertension Mother Hypertension Stroke Breast cancer diagnosed at age 70 Family/Other Ovarian cancer paternal aunt Denies family history of Colon cancer Diabetes Heart disease Anesthesia complication Bleeding disorder Uterine cancer Thyroid condition Social History Smoking and tobacco status: never smoked Alcohol intake: former Adopted: No Caregiver/support person: Yes Lives independently: Yes Household members: significant other and family Housing: House Marital status: Life Partner Current occupational status: unemployed Female Reproductive History: Date of last menstrual period: 02/03/21 Physical Exam Const: COMMON NORMALS: no acute distress GENERAL APPEARANCE: cooperative and comfortable ORIENTATION/CONSCIOUSNESS: Yes awake, Yes oriented to person, Yes oriented to place and Yes oriented to time HENMT: COMMON NORMALS: normocephalic, atraumatic and hearing grossly normal bilaterally HEAD & SCALP: normocephalic and atraumatic Neck/C-Spine: COMMON NORMALS: no JVD Resp: COMMON NORMALS: normal respiratory effort, No retractions, No use of accessory muscles and clear to auscultation bilaterally AUSCULTATION: clear to auscultation bilaterally Cardio: COMMON NORMALS: no JVD, regular rate, regular rhythm and No murmurs present (Cardio) RATE: regular rate RHYTHM: regular rhythm GI: COMMON NORMALS: Soft to palpation and No hepatosplenomegaly present AUSCULTATION: Yes normoactive bowel sounds PALPATION: Yes Soft to palpation, No Tenderness to palpation present (GI), No Guarding due to palpation present (GI) and Yes No hepatosplenomegaly present Extremity: COMMON NORMALS: normal to inspection, capillary refill normal, no clubbing, cyanosis or edema, no calf tenderness and no pedal edema Neuro: SENSORIUM/ORIENTATION: Yes oriented to person, Yes oriented to place and Yes oriented to time Skin: COMMON NORMALS: no rashes or lesions noted GENERAL SKIN EXAM: no rashes or lesions noted Course Vital Signs: Vital signs: Vital Signs Temperature 98.0 F 09/16/21 06:27 Pulse Rate 94 09/16/21 07:08 Respiratory Rate 17 09/16/21 07:08 Blood Pressure 137/81 09/16/21 07:08 Pulse Oximetry 96 09/16/21 07:08 MDM - Abdominal Pain MDM Narrative: Medical decision making narrative: Patient indicating she wants to have a laparoscopic procedure today. Pointed out that she had not eaten. She is now convinced that she has endometriosis. None of the 5 CT she has had done this year have had any suggestion of that. There is a comment on ultrasound that was done in June 2020 that showed endometrium extending through the incision of a previous with some cysts. But no areas of concern of endometriosis intra-abdominal. Patient has a benign exam with normal labs with exception of elevated white count which I believe is due to her steroid use. There is certainly no acute abdomen on exam at this time. Reviewing all of her history I do not believe that doing another CT of her abdomen pelvis would be helpful. Recommended she continue to follow-up the outpatient evaluation was previously set up. Put her on a Medrol Dosepak for now. Lab Data: Labs: Lab Results 09/16/21 09/16/21 09/16/21 06:03 06:03 06:15 WBC 16.1 10^3/uL H 10 ^3/uL (4.0-10.0) RBC 5.02 10^6/uL 10^6 /uL (4.1-5.3) Hgb 15.0 g/dL g/dL (11.5-15.3) Hct 44.7 % % (37.0-47.0) MCV 89.0 fl fl (81-99) MCH 29.9 pg pg (28.0-34.0) MCHC 33.6 g/dL g/dL (30.0-36.0) RDW 12.5 % % (12.1-15.1) Plt Count 282 10^3/cmm 10^3 /cmm (130-400) MPV 10.2 fL fL (7.4-10.4) Neut % (Auto) 91.3 % % Lymph % (Auto) 5.6 % % [place] % (Auto) 2.2 % % Eos % (Auto) 0.2 % % Baso % (Auto) 0.3 % % Neut # (Auto) 14.66 10^3/uL H 1 0^3/uL (1.8-7.7) Lymph # (Auto) 0.9 10^3/uL 10^3/ uL (0.8-4.8) [place] # (Auto) 0.4 10^3/uL 10^3/ uL (0.2-0.9) Eos # (Auto) 0.0 10^3/uL 10^3/ uL (0.0-0.8) Baso # (Auto) 0.1 10^3/uL 10^3/ uL (0.0-0.1) Nucleated RBC % (a uto) 0 % % Nucleated RBCs # 0.0 /100WBC /100W BC Sodium 139 mmol/L mmol/L (136-145) Potassium 4.0 mmol/L mmol/L (3.5-5.1) Chloride 107 mmol/L mmol/L (98-107) Carbon Dioxide 17 mmol/L L mmol/ L (22-29) Anion Gap 19.0 (5-19) BUN 10 mg/dL mg/dL (6-20) Creatinine 0.6 mg/dL mg/dL (0.5-0.9) GFR Calculation 110.2 mL/min mL/m in (90-130) Glucose 129 mg/dL H mg/dL (65-115) Calculated Osmolal ity 289 mOsm/kg mOsm/ kg (285-295) Calcium 9.3 mg/dL mg/dL (8.5-10.5) Total Bilirubin 0.4 mg/dL mg/dL (0.15-1.2) AST 19 U/L U/L (0-32) ALT 28 U/L U/L (0-33) Alkaline Phosphata se 60 IU/L IU/L (35-105) Total Protein 7.7 g/dL g/dL (6.6-8.7) Albumin 4.5 g/dL g/dL (3.5-5.2) Globulin 3.2 g/dL g/dL (1.3-4.6) Lipase 24 U/L U/L (13-60) HCG, Qual Negative (Negative) Urine Color Urine Appearance Urine pH Ur Specific Gravit y Urine Protein Urine Glucose (UA) Urine Ketones Urine Blood Urine Nitrate Urine Bilirubin Urine Urobilinogen Ur Leukocyte Yessica ase 09/16/21 06:15 WBC RBC Hgb Hct MCV MCH MCHC RDW Plt Count MPV Neut % (Auto) Lymph % (Auto) [place] % (Auto) Eos % (Auto) Baso % (Auto) Neut # (Auto) Lymph # (Auto) [place] # (Auto) Eos # (Auto) Baso # (Auto) Nucleated RBC % (a uto) Nucleated RBCs # Sodium Potassium Chloride Carbon Dioxide Anion Gap BUN Creatinine GFR Calculation Glucose Calculated Osmolal ity Calcium Total Bilirubin AST ALT Alkaline Phosphata se Total Protein Albumin Globulin Lipase HCG, Qual Urine Color Yellow (Yellow) Urine Appearance Clear (CLEAR) Urine pH 5 (5-7) Ur Specific Gravit y 1.030 (1.005-1.030) Urine Protein Neg (Negative) Urine Glucose (UA) Norm (Normal) Urine Ketones Negative (Negative) Urine Blood Neg (Negative) Urine Nitrate Negative (Negative) Urine Bilirubin Neg (Negative) Urine Urobilinogen Norm mg/dL mg/dL (Negative) Ur Leukocyte Yessica ase Negative (Negative) Discharge Plan Discharge Patient Disposition: Home Clinical Impression: IBS (irritable colon syndrome) Condition: Stable Prescriptions: New Medrol (Luciano) 4 mg tablets,dose pack See Rx Instructions .ROUTE .COMPLEX Qty: 21 RF: 0 No Action vitamin B complex [B Complex-Vitamin B12] Tablet 1 tab PO DAILY@0700 RF: 0 cannabis See Rx Instructions .ROUTE .COMPLEX RF: 0 medroxyprogesterone [Depo-Provera] 150 mg/mL suspension 150 mg IM .COMPLEX Qty: 1 RF: 3 sodium chloride [Saline Mist] 0.65 % aerosol,spray 1 spray intranasal BID PRN (Reason: UNKNOWN) RF: 0 aspirin [Adult Aspirin Regimen] 81 mg tablet,delayed release (DR/EC) 81 mg PO DAILY RF: 0 ipratropium-albuterol 0.5 mg-3 mg(2.5 mg base)/3 mL solution for nebulization 3 ml inhalation QID PRN (Reason: wheezing) Qty: 15 RF: 1 clobetasol 0.05 % ointment 1 applic topical BID PRN (Reason: Rash) RF: 0 loperamide 2 mg capsule 2 mg PO Q4H PRN (Reason: chronic loose stools) Qty: 90 RF: 0 pantoprazole 40 mg tablet,delayed release (DR/EC) 40 mg PO DAILY Qty: 90 RF: 1 hydrocortisone 1 % ointment 1 applic topical TID PRN (Reason: skin irritation) Qty: 28.35 RF: 0 Combivent Respimat 20-100 mcg/actuation mist See Rx Instructions .ROUTE .COMPLEX Qty: 4 RF: 5 hydrocodone-acetaminophen 5-325 mg tablet 1 tab PO Q8H PRN (Reason: pain (scale score 7-10)) 15 Days Qty: 45 RF: 0 dicyclomine 20 mg tablet 20 mg PO .q6 PRN (Reason: abdominal cramping pain) Qty: 90 RF: 1 paroxetine HCl 20 mg tablet 20 mg PO .qhs Qty: 30 RF: 2 promethazine 25 mg tablet See Rx Instructions .ROUTE .COMPLEX Qty: 120 RF: 0 ondansetron HCl [Zofran] 4 mg tablet 4 mg PO Q6H PRN (Reason: nausea and vomiting) Qty: 15 RF: 0 prednisone 10 mg tablet See Rx Instructions .ROUTE .COMPLEX Qty: 39 RF: 0 Discharge Orders: Discharge ED (Routine); Ordered 09/16/21 Ordered By: Jasper Fisher Referrals: Alexi Medel MD [Primary Care Provider] - Discharge Diet: Clear Liquid Discharge Activity: Increase activity as tolerated Patient Instructions: Opioid Safety Activity Restrictions/Additional Instructions: Follow-up with your primary care doctor within the next 3 to 5 days. Recommend stopping the use of marijuana. Coding Level of Care Code ED Cnc Manufacturing Engineer for Lexig Fwd Exam Comprehensive
[2021-09-16 06:35] LABS: Add Urine Microscopic? NO; Charge for UA Resulting for Rev
[2021-09-16 06:49] LABS: Bilirubin Urine Neg (Negative); Blood Urine Neg (Negative); Glucose Urine UA Norm (Normal); HCG Qualitative Urine. Negative (Negative); Ketones Urine Negative (Negative); Leukocyte Esterase Urine Negative (Negative); Nitrate Urine Negative (Negative); Protein Urine Neg (Negative); Urine Appearance Clear (CLEAR); Urine Color Yellow (Yellow); Urobilinogen Urine Norm (Negative); pH Urine 5 (5-7)
[2021-09-16 07:04] VITALS: RESP 18
[2021-09-16] MEDS: morphine 4 mg/mL SDV 1 mL IVP (07:04)
[2021-09-16] MEDS: ondansetron 2 mg/ML SDV 2 mL 4 MG IVP (07:04)
[2021-09-16] MEDS: sodium chloride 0.9% 1,000 ML 999 ML IV (07:05)
[2021-09-16 07:08] VITALS: BP 137/81; PULSE 94; RESP 17; O2SAT 96
--- NOTE | 2021-09-16 07:09 | PC.NURSE ---
Report received from ZOE Quigley.
[2021-09-16 08:45] VITALS: BP 138/81; PULSE 88; RESP 14; O2SAT 97
== END 2021-09-16 08:44 | disposition home or self-care (01) ==
PROVIDERS: Emergency Medicine; Emergency Provider Family Medicine; PCP Family Medicine Adult Medicine
DX: K58.8 Other irritable bowel syndrome (principal); F12.90 Cannabis use, unspecified, uncomplicated; Z79.82 Long term (current) use of aspirin; Z79.891 Long term (current) use of opiate analgesic
CPT/HCPCS: 80053; 81003; 81025; 83690; 85025; 96361; 96374; 96375; 99284; J2270; J2405; J7030

== ENCOUNTER 2021-09-27 13:31 | Emergency (ER) | payer MEDICARE, MEDICAID, SELFPAY ==
[2021-09-27 13:39] VITALS: BP 120/78; PULSE 89; RESP 18; TEMP 36.9; O2SAT 97; BMI 30.8
--- NOTE | 2021-09-27 14:23 | ED_ITS ---
HPI - Abdominal Pain General: Chief Complaint: Abdominal Pain Stated Complaint: N/V/D/ CROHN'S/ COLITIS Time Seen by Provider: 09/27/21 13:37 Source: patient Mode of arrival: EMS Limitations: no limitations History of Present Illness: HPI narrative: 41-year-old with history of Crohn's disease has had 3-day history of diarrhea, abdominal cramps, nausea and vomiting. She started taking prednisone 20 mg, but it has not helped. Diarrhea is sometimes bloody with mucus. Feels like stress is causing this exacerbation She denies fever. She has urinary frequency, but says is because of steroids. Requesting a GI cocktail, says that it helps the most. She is scheduled for endoscopy on October 05 MD elicited complaint: abdominal pain Associated Symptoms: Reports GI cramping, diarrhea, nausea and vomiting; Denies chills, fever(s) and hematemesis Related Data: Date of Last Menstrual Period: 02/03/21 Review of Systems General: Reports: 10 or more systems reviewed and unremarkable except in HPI and below Const: Reports: change in appetite, fatigue and malaise; Denies: fever(s) or chills ENMT: Denies: throat pain or odynophagia Card: Denies: chest pain or palpitations Resp: Denies: dyspnea, productive cough, non-productive cough or wheezing GI: Reports: abdominal pain, nausea, vomiting, diarrhea, GI cramping and mucus in stool; Denies: hematemesis : Reports: urinary frequency Musc: Denies: extremity pain or extremity swelling Skin/Breast: Denies: rash, pruritus or erythema Neuro: Denies: headache(s) or numbness in extremities Psych: Reports: anxiety PFSH ED PFSH: Medical History Anxiety and depression Reports anxiety and depression in the past and is currently just on trazodone to help her sleep. COPD (chronic obstructive pulmonary disease) Crohn's disease Follows with [facility] Dr. Espinoza in [place] and states she was given this diagnosis based on her symptoms of nausea vomiting and diarrhea. She is not on any medication or immunosuppressants GERD (gastroesophageal reflux disease) Inflammatory bowel disease Lateral collateral ligament sprain of knee Left lower quadrant abdominal pain No pertinent past medical history Denies diabetes, hypertension, asthma, seizures, DVT/PE PCP: Dr. Medel Seizures Reports having had seizures in the past the last was in 2018. She is not currently on any medication. Surgical History S/P laparoscopic cholecystectomy 2006 Status post delivery X 2 ---> 2005, 2006 Status post tubal ligation 2006--laparoscopic tubal 2 months after her Family History Father Hyperlipidemia Hypertension Mother Hypertension Stroke Breast cancer diagnosed at age 70 Family/Other Ovarian cancer paternal aunt Denies family history of Colon cancer Diabetes Heart disease Anesthesia complication Bleeding disorder Uterine cancer Thyroid condition Social History Smoking and tobacco status: never smoked Alcohol intake: former Adopted: No Caregiver/support person: Yes Lives independently: Yes Household members: significant other and family Housing: House Marital status: Life Partner Current occupational status: unemployed Female Reproductive History: Date of last menstrual period: 02/03/21 Physical Exam Const: COMMON NORMALS: no acute distress and patient oriented x3 HENMT: COMMON NORMALS: normocephalic and atraumatic HEAD & SCALP: normocephalic and atraumatic FACE & SINUS: normal facial exam and face symmetric Eye: COMMON NORMALS: Equal, round and reactive pupils present, EOMs intact bilaterally and conjunctivae normal CONJUNCTIVA: Yes conjunctivae normal PUPIL: Yes Equal, round and reactive pupils present Neck/C-Spine: COMMON NORMALS: full ROM, no lymphadenopathy and supple Resp: COMMON NORMALS: normal respiratory effort and No use of accessory muscles EFFORT & INSPECTION: Yes able to speak in complete sentences GI: COMMON NORMALS: Normal to inspection, nondistended, normoactive bowel sounds present and Soft to palpation PALPATION: Yes Soft to palpation, Yes Tenderness to palpation present (GI) (Diffuse) Details: LLQ and No Ascites present Extremity: COMMON NORMALS: normal to inspection, full ROM and capillary refill normal Neuro: COMMON NORMALS: patient oriented x3 and CN's II-XII intact bilaterally Skin: COMMON NORMALS: no rashes or lesions noted, no wounds, turgor normal and no jaundice GENERAL SKIN EXAM: no rashes or lesions noted and turgor normal Course Vital Signs: Vital signs: Vital Signs Temperature 97.9 F 09/27/21 17:34 Pulse Rate 81 09/27/21 17:34 Respiratory Rate 16 09/27/21 17:34 Blood Pressure 126/89 09/27/21 17:34 Pulse Oximetry 96 09/27/21 17:34 MDM - Abdominal Pain MDM Narrative: Medical decision making narrative: 41-year-old female with a history of inflammatory bowel disease, complaining of increased bloody diarrhea, abdominal cramping and, nausea and vomiting over the past 3 days. She is well-appearing, afebrile, normal blood pressure and heart rate, no peritoneal signs on abdominal exam. Lipase is mildly elevated in the 200s Tolerating p.o. Treated with an IV fluid bolus, start Flagyl She already scheduled to see GI next week Clear liquid diet, Levalexander, Louis Differential Diagnosis: Differential diagnosis abdominal pain: Likely abdominal pain, acute appendicitis, calculus of kidney, diverticulitis, endometriosis and gastroenteritis Lab Data: Labs: Lab Results 09/27/21 09/27/21 09/27/21 14:30 14:48 14:48 WBC 14.1 10^3/uL H 10 ^3/uL (4.0-10.0) RBC 4.90 10^6/uL 10^6 /uL (4.1-5.3) Hgb 14.5 g/dL g/dL (11.5-15.3) Hct 43.1 % % (37.0-47.0) MCV 88.0 fl fl (81-99) MCH 29.6 pg pg (28.0-34.0) MCHC 33.6 g/dL g/dL (30.0-36.0) RDW 11.9 % L % (12.1-15.1) Plt Count 306 10^3/cmm 10^3 /cmm (130-400) MPV 10.6 fL H fL (7.4-10.4) Neut % (Auto) 87.2 % % Lymph % (Auto) 9.0 % % [place] % (Auto) 2.3 % % Eos % (Auto) 0.1 % % Baso % (Auto) 0.4 % % Neut # (Auto) 12.28 10^3/uL H 1 0^3/uL (1.8-7.7) Lymph # (Auto) 1.3 10^3/uL 10^3/ uL (0.8-4.8) [place] # (Auto) 0.3 10^3/uL 10^3/ uL (0.2-0.9) Eos # (Auto) 0.0 10^3/uL 10^3/ uL (0.0-0.8) Baso # (Auto) 0.1 10^3/uL 10^3/ uL (0.0-0.1) Nucleated RBC % (a uto) 0 % % Nucleated RBCs # 0.0 /100WBC /100W BC Sodium 137 mmol/L mmol/L (136-145) Potassium 4.4 mmol/L mmol/L (3.5-5.1) Chloride 104 mmol/L mmol/L (98-107) Carbon Dioxide 21 mmol/L L mmol/ L (22-29) Anion Gap 16.4 (5-19) BUN 13 mg/dL mg/dL (6-20) Creatinine 0.7 mg/dL mg/dL (0.5-0.9) GFR Calculation 92.2 mL/min mL/mi n (90-130) Glucose 121 mg/dL H mg/dL (65-115) Calculated Osmolal ity 285 mOsm/kg mOsm/ kg (285-295) Calcium 8.8 mg/dL mg/dL (8.5-10.5) Magnesium 2.2 mg/dL mg/dL (1.7-2.3) Total Bilirubin 0.3 mg/dL mg/dL (0.15-1.2) AST 26 U/L U/L (0-32) ALT 46 U/L H U/L (0-33) Alkaline Phosphata se 59 IU/L IU/L (35-105) C-Reactive Protein 2.5 mg/L mg/L (0.0-4.9) Total Protein 7.7 g/dL g/dL (6.6-8.7) Albumin 4.3 g/dL g/dL (3.5-5.2) Globulin 3.4 g/dL g/dL (1.3-4.6) Lipase 287 U/L H U/L (13-60) Urine Color Yellow (Yellow) Urine Appearance Clear (CLEAR) Urine pH 5 (5-7) Ur Specific Gravit y 1.030 (1.005-1.030) Urine Protein Neg (Negative) Urine Glucose (UA) Norm (Normal) Urine Ketones Negative (Negative) Urine Blood Neg (Negative) Urine Nitrate Negative (Negative) Urine Bilirubin Neg (Negative) Urine Urobilinogen Norm mg/dL mg/dL (Negative) Ur Leukocyte Yessica ase Negative (Negative) Discharge Plan Discharge Patient Disposition: Home Clinical Impression: Left lower quadrant abdominal pain Abdominal pain Qualifiers: Abdominal location: left lower quadrant Qualified Code(s): R10.32 - Left lower quadrant pain Pancreatitis Qualifiers: Chronicity: acute Pancreatitis type: idiopathic Acute pancreatitis complication: unspecified Qualified Code(s): K85.00 - Idiopathic acute pancreatitis without necrosis or infection Condition: Stable Prescriptions: New metronidazole 500 mg tablet 500 mg PO BID 10 Days Qty: 20 RF: 0 Levsin/SL 0.125 mg tablet, sublingual 0.125 mg sublingual TID PRN (Reason: abdominal pain) Qty: 30 RF: 0 hydrocodone-acetaminophen 7.5-325 mg tablet 1 tab PO Q8H PRN (Reason: pain) Qty: 15 RF: 0 No Action vitamin B complex [B Complex-Vitamin B12] Tablet 1 tab PO DAILY@0700 RF: 0 cannabis See Rx Instructions .ROUTE .COMPLEX RF: 0 medroxyprogesterone [Depo-Provera] 150 mg/mL suspension 150 mg IM .COMPLEX Qty: 1 RF: 3 sodium chloride [Saline Mist] 0.65 % aerosol,spray 1 spray intranasal BID PRN (Reason: UNKNOWN) RF: 0 aspirin [Adult Aspirin Regimen] 81 mg tablet,delayed release (DR/EC) 81 mg PO DAILY RF: 0 ipratropium-albuterol 0.5 mg-3 mg(2.5 mg base)/3 mL solution for nebulization 3 ml inhalation QID PRN (Reason: wheezing) Qty: 15 RF: 1 clobetasol 0.05 % ointment 1 applic topical BID PRN (Reason: Rash) RF: 0 loperamide 2 mg capsule 2 mg PO Q4H PRN (Reason: chronic loose stools) Qty: 90 RF: 0 pantoprazole 40 mg tablet,delayed release (DR/EC) 40 mg PO DAILY Qty: 90 RF: 1 hydrocortisone 1 % ointment 1 applic topical TID PRN (Reason: skin irritation) Qty: 28.35 RF: 0 paroxetine HCl 40 mg tablet 40 mg PO DAILY Qty: 30 RF: 5 Combivent Respimat 20-100 mcg/actuation mist See Rx Instructions .ROUTE .COMPLEX Qty: 4 RF: 5 hydrocodone-acetaminophen 5-325 mg tablet 1 tab PO Q8H PRN (Reason: pain (scale score 7-10)) 15 Days Qty: 45 RF: 0 dicyclomine 20 mg tablet 20 mg PO .q6 PRN (Reason: abdominal cramping pain) Qty: 90 RF: 1 promethazine 25 mg tablet See Rx Instructions .ROUTE .COMPLEX Qty: 120 RF: 0 prednisone 20 mg tablet 20 mg PO DAILY Qty: 30 RF: 0 ondansetron HCl [Zofran] 4 mg tablet 4 mg PO Q6H PRN (Reason: nausea and vomiting) Qty: 15 RF: 0 Discharge Orders: Discharge ED (Routine); Ordered 09/27/21 Ordered By: Mariana Walker Referrals: Alexi Medel MD [Primary Care Provider] - Discharge Diet: Clear Liquid Discharge Activity: Increase activity as tolerated Patient Instructions: Enteritis (ED), Opioid Safety, Pancreatitis Activity Restrictions/Additional Instructions: Follow-up as scheduled with GI Clear liquids only until pain improved Return immediately to the ER if you develop a fever, worsening pain, or if you cannot keep liquids down. Coding Level of Care Code ED Canned Food Reconditioning Inspector for Lexig Fwd Exam Comprehensive
[2021-09-27] MEDS: sodium chloride 0.9% 1,000 ML 999 ML IV (14:40)
[2021-09-27 15:02] LABS: Add Urine Microscopic? NO; Charge for UA Resulting for Rev
[2021-09-27 15:06] LABS: Basophils # 0.1 10^3/uL (0.0-0.1); Basophils % 0.4 %; Eosinophils % 0.1 %; Hematocrit 43.1 % (37.0-47.0); Hemoglobin 14.5 g/dL (11.5-15.3); Lymphocytes # 1.3 10^3/uL (0.8-4.8); Mean Corpuscular HGB Conc 33.6 g/dL (30.0-36.0); Mean Corpuscular Hemoglobin 29.6 pg (28.0-34.0); Mean Platelet Volume 10.6 fL (7.4-10.4); Monocytes # 0.3 10^3/uL (0.2-0.9); Monocytes % 2.3 %; Neutrophils # 12.28 10^3/uL (1.8-7.7); Neutrophils % 87.2 %; Nucleated Red Blood Cells % 0 %; Platelet Count 306 10^3/cmm (130-400); Red Cell Distribution Width 11.9 % (12.1-15.1); White Blood Count 14.1 10^3/uL (4.0-10.0)
[2021-09-27 15:25] LABS: Alanine Aminotransferase 46 U/L (0-33); Albumin Level 4.3 g/dL (3.5-5.2); Alkaline Phosphatase 59 IU/L (35-105); Anion Gap 16.4 (5-19); Aspartate Amino Transferase 26 U/L (0-32); Blood Urea Nitrogen 13 mg/dL (6-20); C Reactive Protein 2.5 mg/L (0.0-4.9); Calcium 8.8 mg/dL (8.5-10.5); Carbon Dioxide 21 mmol/L (22-29); Chloride 104 mmol/L (98-107); Globulin 3.4 g/dL (1.3-4.6); Glomerular Filtration Rate 92.2 mL/min (90-130); Glucose 121 mg/dL (65-115); Lipase 287 U/L (13-60); Magnesium 2.2 mg/dL (1.7-2.3); Osmolality Calculated 285 mOsm/kg (285-295); Potassium 4.4 mmol/L (3.5-5.1); Sodium 137 mmol/L (136-145); Total Bilirubin 0.3 mg/dL (0.15-1.2); Total Protein 7.7 g/dL (6.6-8.7)
[2021-09-27 15:26] LABS: Bilirubin Urine Neg (Negative); Blood Urine Neg (Negative); Glucose Urine UA Norm (Normal); Ketones Urine Negative (Negative); Leukocyte Esterase Urine Negative (Negative); Nitrate Urine Negative (Negative); Protein Urine Neg (Negative); Urine Appearance Clear (CLEAR); Urine Color Yellow (Yellow); Urobilinogen Urine Norm (Negative); pH Urine 5 (5-7)
[2021-09-27] MEDS: HYDROcodone-acetaminophen 7.5-325 mg Tablet 1 TAB PO (16:31)
[2021-09-27] MEDS: ondansetron 2 mg/ML SDV 2 mL 4 MG IVP (16:31)
[2021-09-27] MEDS: metroNIDAZOLE 500 MG Tablet PO (17:26)
[2021-09-27] MEDS: hyoscyamine ODT 0.125 mg Tablet 0.25 MG PO (17:26)
--- NOTE | 2021-09-27 17:32 | PC.NURSE ---
reviewed discharge instructions with patient, pt verbalizes understanding of all instructions, prescriptions, and follow up appts. removed IV, pt aruna well. pt ambulated from ED without issue
[2021-09-27 17:34] VITALS: BP 126/89; PULSE 81; RESP 16; TEMP 36.6; O2SAT 96
== END 2021-09-27 17:42 | disposition home or self-care (01) ==
PROVIDERS: Emergency Provider Family Medicine; PCP Family Medicine Adult Medicine
DX: K85.00 Idiopathic acute pancreatitis without necrosis or infection (principal); Z79.82 Long term (current) use of aspirin; J44.9 Chronic obstructive pulmonary disease, unspecified
CPT/HCPCS: 80053; 81003; 83690; 83735; 85025; 86140; 96361; 96374; 99283; J2405; J7030

== ENCOUNTER 2021-10-23 12:47 | Emergency (ER) | payer MEDICARE, MEDICAID, SELFPAY ==
[2021-10-23 12:51] VITALS: BP 129/81; PULSE 103; RESP 18; TEMP 37; O2SAT 100; BMI 32.8
[2021-10-23 15:24] LABS: Basophils % 0.3 %; Eosinophils % 0.1 %; Hematocrit 43.5 % (37.0-47.0); Hemoglobin 14.7 g/dL (11.5-15.3); Lymphocytes # 1.5 10^3/uL (0.8-4.8); Lymphocytes % 10.1 %; Mean Corpuscular HGB Conc 33.8 g/dL (30.0-36.0); Mean Corpuscular Hemoglobin 30.3 pg (28.0-34.0); Mean Corpuscular Volume 89.7 fl (81-99); Monocytes # 0.7 10^3/uL (0.2-0.9); Monocytes % 4.7 %; Neutrophils # 12.75 10^3/uL (1.8-7.7); Neutrophils % 84.3 %; Nucleated Red Blood Cells % 0 %; Platelet Count 319 10^3/cmm (130-400); Red Blood Count 4.85 10^6/uL (4.1-5.3); Red Cell Distribution Width 12.8 % (12.1-15.1); White Blood Count 15.1 10^3/uL (4.0-10.0)
[2021-10-23 15:28] LABS: HCG Qualitative Urine. Negative (Negative)
[2021-10-23 15:44] LABS: Alanine Aminotransferase 21 U/L (0-33); Albumin Level 4.5 g/dL (3.5-5.2); Alkaline Phosphatase 61 IU/L (35-105); Aspartate Amino Transferase 15 U/L (0-32); Blood Urea Nitrogen 14 mg/dL (6-20); Calcium 9.7 mg/dL (8.5-10.5); Carbon Dioxide 17 mmol/L (22-29); Chloride 106 mmol/L (98-107); Globulin 3.1 g/dL (1.3-4.6); Glomerular Filtration Rate 110.2 mL/min (90-130); Glucose 114 mg/dL (65-115); Lipase 33 U/L (13-60); Osmolality Calculated 289 mOsm/kg (285-295); Sodium 139 mmol/L (136-145); Total Bilirubin 0.4 mg/dL (0.15-1.2); Total Protein 7.6 g/dL (6.6-8.7)
[2021-10-23 17:54] LABS: Add Urine Microscopic? NO; Charge for UA Resulting for Rev
--- NOTE | 2021-10-23 17:55 | ED_ITS ---
HPI - Abdominal Pain General: Chief Complaint: Abdominal Pain Stated Complaint: LLQ ABD PAIN Time Seen by Provider: 10/23/21 17:26 History of Present Illness: HPI narrative: Patient is a 41-year-old female who comes to the ED with abdominal pain. Symptoms started approximately 2 months ago. She sees a GI specialist. The pain is located in left lower quadrant and she describes it as a constant aching pain. She rates her current pain a 5 out of 10. She is also had a lot of nausea along with the pain and some episodes of emesis. She has promethazine at home that she takes for nausea. Associated Symptoms: Reports nausea and vomiting; Denies chills, constipation, diarrhea, dysuria, fever(s), hematochezia and hematuria Related Data: Date of Last Menstrual Period: 09/27/22 Review of Systems Const: Denies: fever(s), chills or fatigue Eyes: Denies: change in vision or eye discomfort ENMT: Denies: throat pain, odynophagia, nasal discharge or nasal congestion Card: Denies: chest pain, palpitations, edema, swelling of feet/ankles, dyspnea on exertion or orthopnea Resp: Denies: dyspnea, productive cough or non-productive cough GI: Reports: abdominal pain, nausea and vomiting; Denies: diarrhea, constipation or hematochezia : Denies: flank pain, dysuria or hematuria Musc: Denies: neck pain, back pain or extremity swelling Skin/Breast: Denies: rash or new lesions Neuro: Denies: headache(s), numbness in extremities or weakness in extremities PFS ED PFSH: Medical History Anxiety and depression Reports anxiety and depression in the past and is currently just on trazodone to help her sleep. COPD (chronic obstructive pulmonary disease) Crohn's disease Follows with manager visual Dr. Espinoza in [place] and states she was given this diagnosis based on her symptoms of nausea vomiting and diarrhea. She is not on any medication or immunosuppressants GERD (gastroesophageal reflux disease) Inflammatory bowel disease Lateral collateral ligament sprain of knee Left lower quadrant abdominal pain No pertinent past medical history Denies diabetes, hypertension, asthma, seizures, DVT/PE PCP: Dr. Medel Seizures Reports having had seizures in the past the last was in 2018. She is not currently on any medication. Surgical History S/P laparoscopic cholecystectomy 2006 Status post delivery X 2 ---> 2005, 2006 Status post tubal ligation 2006--laparoscopic tubal 2 months after her Family History Father Hyperlipidemia Hypertension Mother Hypertension Stroke Breast cancer diagnosed at age 70 Family/Other Ovarian cancer paternal aunt Denies family history of Colon cancer Diabetes Heart disease Anesthesia complication Bleeding disorder Uterine cancer Thyroid condition Social History Smoking and tobacco status: never smoked Alcohol intake: former Adopted: No Caregiver/support person: Yes Lives independently: Yes Household members: significant other and family Housing: House Marital status: Life Partner Current occupational status: unemployed Female Reproductive History: Date of last menstrual period: 09/27/22 Physical Exam Const: COMMON NORMALS: patient oriented x3 and alert GENERAL APPEARANCE: cooperative HENMT: COMMON NORMALS: normocephalic HEAD & SCALP: normocephalic MOUTH: Normal oral and palatal mucosa present THROAT: posterior oropharynx normal and uvula midline Neck/C-Spine: COMMON NORMALS: supple GENERAL: Yes normal visual inspection Resp: COMMON NORMALS: normal respiratory effort, No retractions, No use of accessory muscles and clear to auscultation bilaterally AUSCULTATION: clear to auscultation bilaterally Cardio: COMMON NORMALS: regular rate, regular rhythm, S1 normal heart sound present, S2 normal heart sound present, No gallops present (Cardio), No clicks present (Cardio), No murmurs present (Cardio) and Peripheral pulses 2+ throughout RATE: regular rate RHYTHM: regular rhythm HEART SOUNDS: S1 normal heart sound present and S2 normal heart sound present PERIPHERAL PULSES: Peripheral pulses 2+ throughout GI: COMMON NORMALS: Normal to inspection, nondistended, normoactive bowel sounds present, Soft to palpation and no masses PALPATION: Yes Soft to palpation and Yes Tenderness to palpation present (GI) Details: LLQ : COMMON NORMALS: Yes no CVA tenderness BLADDER/KIDNEY EXAM: Yes no CVA tenderness Back/Pelvis: COMMON NORMALS: no CVA tenderness Extremity: COMMON NORMALS: normal to inspection Neuro: COMMON NORMALS: patient oriented x3 SENSORIUM/ORIENTATION: Yes alert GAIT: Yes Normal gait present Skin: GENERAL SKIN EXAM: dry skin Course Vital Signs: Vital signs: Vital Signs Temperature 98.4 F 10/23/21 20:06 Pulse Rate 93 10/23/21 20:06 Respiratory Rate 18 10/23/21 20:06 Blood Pressure 122/75 10/23/21 20:06 Pulse Oximetry 100 10/23/21 20:06 MDM - Abdominal Pain MDM Narrative: Medical decision making narrative: Patient is a 41-year-old female comes to the ED with abdominal pain. Patient says she has been having th is pain for approximately 2 months. She also has some nausea and occasional emesis. She takes promethazine at home to help with emesis. Pain located in left lower quadrant of the abdomen. Vitals stable. Patient appears in no acute distress or pain is sitting comfortably on exam chair when entered the room. She has some palpable left lower quadrant tenderness. White blood cell count of 15.1 and the rest of labs were unremarkable. CT of abdomen pelvis showed no acute findings. Patient diagnosed with abdominal pain of the left lower quadrant and discharged home. She was told to follow-up with her GI specialist in the next 7 to 10 days for reevaluation. Return to ED precautions given. Take your previously prescribed promethazine to help with any nausea. Patient understood and agreed with plan. Lab Data: Attestation: I reviewed the patient's lab results. Labs: Lab Results 10/23/21 10/23/21 10/23/21 15:10 15:10 15:10 WBC 15.1 10^3/uL H 10 ^3/uL (4.0-10.0) RBC 4.85 10^6/uL 10^6 /uL (4.1-5.3) Hgb 14.7 g/dL g/dL (11.5-15.3) Hct 43.5 % % (37.0-47.0) MCV 89.7 fl fl (81-99) MCH 30.3 pg pg (28.0-34.0) MCHC 33.8 g/dL g/dL (30.0-36.0) RDW 12.8 % % (12.1-15.1) Plt Count 319 10^3/cmm 10^3 /cmm (130-400) MPV 10.0 fL fL (7.4-10.4) Neut % (Auto) 84.3 % % Lymph % (Auto) 10.1 % % [place] % (Auto) 4.7 % % Eos % (Auto) 0.1 % % Baso % (Auto) 0.3 % % Neut # (Auto) 12.75 10^3/uL H 1 0^3/uL (1.8-7.7) Lymph # (Auto) 1.5 10^3/uL 10^3/ uL (0.8-4.8) [place] # (Auto) 0.7 10^3/uL 10^3/ uL (0.2-0.9) Eos # (Auto) 0.0 10^3/uL 10^3/ uL (0.0-0.8) Baso # (Auto) 0.0 10^3/uL 10^3/ uL (0.0-0.1) Nucleated RBC % (a uto) 0 % % Nucleated RBCs # 0.0 /100WBC /100W BC Sodium 139 mmol/L mmol/L (136-145) Potassium 4.0 mmol/L mmol/L (3.5-5.1) Chloride 106 mmol/L mmol/L (98-107) Carbon Dioxide 17 mmol/L L mmol/ L (22-29) Anion Gap 20.0 H (5-19) BUN 14 mg/dL mg/dL (6-20) Creatinine 0.6 mg/dL mg/dL (0.5-0.9) GFR Calculation 110.2 mL/min mL/m in (90-130) Glucose 114 mg/dL mg/dL (65-115) Calculated Osmolal ity 289 mOsm/kg mOsm/ kg (285-295) Calcium 9.7 mg/dL mg/dL (8.5-10.5) Total Bilirubin 0.4 mg/dL mg/dL (0.15-1.2) AST 15 U/L U/L (0-32) ALT 21 U/L U/L (0-33) Alkaline Phosphata se 61 IU/L IU/L (35-105) Total Protein 7.6 g/dL g/dL (6.6-8.7) Albumin 4.5 g/dL g/dL (3.5-5.2) Globulin 3.1 g/dL g/dL (1.3-4.6) Lipase 33 U/L U/L (13-60) HCG, Qual Negative (Negative) Urine Color Urine Appearance Urine pH Ur Specific Gravit y Urine Protein Urine Glucose (UA) Urine Ketones Urine Blood Urine Nitrate Urine Bilirubin Urine Urobilinogen Ur Leukocyte Yessica ase 10/23/21 15:11 WBC RBC Hgb Hct MCV MCH MCHC RDW Plt Count MPV Neut % (Auto) Lymph % (Auto) [place] % (Auto) Eos % (Auto) Baso % (Auto) Neut # (Auto) Lymph # (Auto) [place] # (Auto) Eos # (Auto) Baso # (Auto) Nucleated RBC % (a uto) Nucleated RBCs # Sodium Potassium Chloride Carbon Dioxide Anion Gap BUN Creatinine GFR Calculation Glucose Calculated Osmolal ity Calcium Total Bilirubin AST ALT Alkaline Phosphata se Total Protein Albumin Globulin Lipase HCG, Qual Urine Color Yellow (Yellow) Urine Appearance Clear (CLEAR) Urine pH 5 (5-7) Ur Specific Gravit y 1.030 (1.005-1.030) Urine Protein Neg (Negative) Urine Glucose (UA) Norm (Normal) Urine Ketones Negative (Negative) Urine Blood Neg (Negative) Urine Nitrate Negative (Negative) Urine Bilirubin Neg (Negative) Urine Urobilinogen Norm mg/dL mg/dL (Negative) Ur Leukocyte Yessica ase Negative (Negative) Imaging Data ^: CT Abd/Pel: Attestation: I personally reviewed and interpreted this imaging study as follows: Radiologist's impression: [address] [address] [address] Scan Report Signed Patient: Rekha Gu Unit #: [id number] : 1980 Age/Sex: 41 / F ADM Date: 10/23/21 Loc: ER Room/Bed: Attending Dr: Ordering Provider/Ordering MD: Nikos Drew Date of Service: 10/23/21 Procedure(s): CT abdomen pelvis w con* [id number] Accession Number(s): [id number] Report Number: [id number] PROCEDURE INFORMATION: Exam: CT Abdomen And Pelvis With Contrast Exam date and time: 10/23/2021 6:44 PM Age: 41 years old Clinical indication: Abdominal pain; Localized; Left lower quadrant (llq); Prior surgery; Surgery date: 6+ months; Surgery type: Gb, c-sect; Patient HX: C/O llq abd pain w nausea and vomitting; Additional info: Llq abdominal pain, n/v TECHNIQUE: Imaging protocol: Computed tomography of the abdomen and pelvis with contrast. Radiation optimization: All CT scans at this facility use at least one of these dose optimization techniques: automated exposure control; mA and/or kV adjustment per patient size (includes targeted exams where dose is matched to clinical indication); or iterative reconstruction. Contrast material: OMNI 300; Contrast volume: 95 ml; Contrast route: INTRAVENOUS (IV); COMPARISON: CT abdomen pelvis w con* [id number] 08/14/2021 9:15 PM RADIATION DOSE METRICS: Total DLP (mGy-cm): 1547.8 FINDINGS: Liver: There is a diffuse decrease in hepatic parenchymal density, consistent with mild fatty infiltration. There is no focal abnormality within the liver. There is mild enlargement of the liver. Liver measures 21 cm in height. Gallbladder and bile ducts: There has been a cholecystectomy. There has been a cholecystectomy. Pancreas: The pancreas is normal. Spleen: Small probable splenic cyst too small to definitively characterize by the CT scanning not significantly changed. Adrenal glands: The adrenal glands are normal. Kidneys and ureters: The kidneys are normal. There is no evidence of hydronephrosis. There is no evidence of renal or ureteral calcifications. Stomach and bowel: There is no evidence of colitis/diverticulitis. There is no evidence of intestinal obstruction. Appendix: A normal appendix is identified. Intraperitoneal space: There is no evidence of free intraperitoneal fluid. Vasculature: There is no evidence of an abdominal aortic aneurysm. Lymph nodes: There is no evidence of lymphadenopathy. Urinary bladder: Unremarkable as visualized. Reproductive: Unremarkable as visualized. Bones/joints: Unremarkable. No acute fracture. Soft tissues: Unremarkable. CT/CT abdomen pelvis w con* [id number] IMPRESSION: No acute findings. Dictated By: Mehdi Crawley Signed By: Mehdi Crawley Signed Date/Time: 10/23/211946 DD/ 43 Discharge Plan Discharge Patient Disposition: Home Clinical Impression: Abdominal pain Qualifiers: Abdominal location: left lower quadrant Qualified Code(s): R10.32 - Left lower quadrant pain Condition: Stable Prescriptions: No Action vitamin B complex [B Complex-Vitamin B12] Tablet 1 tab PO DAILY@0700 RF: 0 cannabis See Rx Instructions .ROUTE .COMPLEX RF: 0 medroxyprogesterone [Depo-Provera] 150 mg/mL suspension 150 mg IM .COMPLEX Qty: 1 RF: 3 sodium chloride [Saline Mist] 0.65 % aerosol,spray 1 spray intranasal BID PRN (Reason: UNKNOWN) RF: 0 aspirin [Adult Aspirin Regimen] 81 mg tablet,delayed release (DR/EC) 81 mg PO DAILY RF: 0 ipratropium-albuterol 0.5 mg-3 mg(2.5 mg base)/3 mL solution for nebulization 3 ml inhalation QID PRN (Reason: wheezing) Qty: 15 RF: 1 clobetasol 0.05 % ointment 1 applic topical BID PRN (Reason: Rash) RF: 0 loperamide 2 mg capsule 2 mg PO Q4H PRN (Reason: chronic loose stools) Qty: 90 RF: 0 pantoprazole 40 mg tablet,delayed release (DR/EC) 40 mg PO DAILY Qty: 90 RF: 1 hydrocortisone 1 % ointment 1 applic topical TID PRN (Reason: skin irritation) Qty: 28.35 RF: 0 paroxetine HCl 40 mg tablet 40 mg PO DAILY Qty: 30 RF: 5 Combivent Respimat 20-100 mcg/actuation mist See Rx Instructions .ROUTE .COMPLEX Qty: 4 RF: 5 hydrocodone-acetaminophen 5-325 mg tablet 1 tab PO Q8H PRN (Reason: pain (scale score 7-10)) 15 Days Qty: 45 RF: 0 dicyclomine 20 mg tablet 20 mg PO .q6 PRN (Reason: abdominal cramping pain) Qty: 90 RF: 1 promethazine 25 mg tablet See Rx Instructions .ROUTE .COMPLEX Qty: 120 RF: 0 prednisone 20 mg tablet 20 mg PO DAILY Qty: 30 RF: 0 ondansetron HCl [Zofran] 4 mg tablet 4 mg PO Q6H PRN (Reason: nausea and vomiting) Qty: 15 RF: 0 Levsin/SL 0.125 mg tablet, sublingual 0.125 mg sublingual TID PRN (Reason: abdominal pain) Qty: 30 RF: 0 hydrocodone-acetaminophen 7.5-325 mg tablet 1 tab PO Q8H PRN (Reason: pain) Qty: 15 RF: 0 Discharge Orders: Discharge ED (Routine); Ordered 10/23/21 Ordered By: Nikos Drew Referrals: Alexi Medel MD [Primary Care Provider] - Discharge Diet: Advance as tolerated Discharge Activity: Increase activity as tolerated Patient Instructions: Abdominal Pain (ED) Activity Restrictions/Additional Instructions: Follow-up with your GI specialist in the next 1 to 2 weeks for reevaluation. Continue taking all your home medications as previously prescribed. Return to the ER or your medical provider if condition worsens. Please read and understand discharge instructions. Thank you for choosing [facility] for your healthcare needs today. Please realize this is an emergency room and that we are providing you with a medical screening exam and this may not be complete and all inclusive of all the testing and or work up that you may need to determine your ailment or severity of your illness. It is very important that you follow up as instructed or that you return to the Emergency Department should you have concerns or if your condition changes or worsens in any way. Coding Level of Care Code ED Travel Sales Consultant for Chg Fwd Exam Comprehensive
[2021-10-23 17:59] LABS: Bilirubin Urine Neg (Negative); Blood Urine Neg (Negative); Glucose Urine UA Norm (Normal); Ketones Urine Negative (Negative); Leukocyte Esterase Urine Negative (Negative); Nitrate Urine Negative (Negative); Protein Urine Neg (Negative); Urine Appearance Clear (CLEAR); Urine Color Yellow (Yellow); Urobilinogen Urine Norm (Negative); pH Urine 5 (5-7)
--- NOTE | 2021-10-23 18:44 | CTR_ITS ---
PROCEDURE INFORMATION: Exam: CT Abdomen And Pelvis With Contrast Exam date and time: 10/23/2021 6:44 PM Age: 41 years old Clinical indication: Abdominal pain; Localized; Left lower quadrant (llq); Prior surgery; Surgery date: 6+ months; Surgery type: Gb, c-sect; Patient HX: C/O llq abd pain w nausea and vomitting; Additional info: Llq abdominal pain, n/v TECHNIQUE: Imaging protocol: Computed tomography of the abdomen and pelvis with contrast. Radiation optimization: All CT scans at this facility use at least one of these dose optimization techniques: automated exposure control; mA and/or kV adjustment per patient size (includes targeted exams where dose is matched to clinical indication); or iterative reconstruction. Contrast material: OMNI 300; Contrast volume: 95 ml; Contrast route: INTRAVENOUS (IV); COMPARISON: CT abdomen pelvis w con* [id number] 08/14/2021 9:15 PM RADIATION DOSE METRICS: Total DLP (mGy-cm): 1547.8 FINDINGS: Liver: There is a diffuse decrease in hepatic parenchymal density, consistent with mild fatty infiltration. There is no focal abnormality within the liver. There is mild enlargement of the liver. Liver measures 21 cm in height. Gallbladder and bile ducts: There has been a cholecystectomy. There has been a cholecystectomy. Pancreas: The pancreas is normal. Spleen: Small probable splenic cyst too small to definitively characterize by the CT scanning not significantly changed. Adrenal glands: The adrenal glands are normal. Kidneys and ureters: The kidneys are normal. There is no evidence of hydronephrosis. There is no evidence of renal or ureteral calcifications. Stomach and bowel: There is no evidence of colitis/diverticulitis. There is no evidence of intestinal obstruction. Appendix: A normal appendix is identified. Intraperitoneal space: There is no evidence of free intraperitoneal fluid. Vasculature: There is no evidence of an abdominal aortic aneurysm. Lymph nodes: There is no evidence of lymphadenopathy. Urinary bladder: Unremarkable as visualized. Reproductive: Unremarkable as visualized. Bones/joints: Unremarkable. No acute fracture. Soft tissues: Unremarkable. CT/CT abdomen pelvis w con* [id number] IMPRESSION: No acute findings.
[2021-10-23 18:54] VITALS: RESP 20
[2021-10-23] MEDS: morphine 4 mg/mL SDV 1 mL IVP (18:54)
[2021-10-23] MEDS: iohexol 300 mg/mL 100 mL Btl IV (18:55)
[2021-10-23 20:05] VITALS: BP 122/75; PULSE 93; RESP 18; TEMP 36.9; O2SAT 100
[2021-10-23 20:06] VITALS: BP 122/75; PULSE 93; RESP 18; TEMP 36.9; O2SAT 100
== END 2021-10-23 20:07 | disposition home or self-care (01) ==
PROVIDERS: Emergency Medicine; Emergency Provider Physician Assistant; PCP Family Medicine Adult Medicine
DX: R10.32 Left lower quadrant pain (principal); Z79.82 Long term (current) use of aspirin; J44.9 Chronic obstructive pulmonary disease, unspecified
CPT/HCPCS: 74177; 80053; 81003; 81025; 83690; 85025; 96374; 99283; J2270; Q9967

== ENCOUNTER 2021-12-08 11:24 | Emergency (ER) | payer MEDICARE, MEDICAID, SELFPAY ==
[2021-12-08 11:40] VITALS: BP 127/86; PULSE 99; RESP 18; TEMP 36.8; O2SAT 96; BMI 32.5
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
== END 2021-12-08 12:22 | disposition home or self-care (01) ==
PROVIDERS: Emergency Provider Nurse Practitioner Family; PCP Family Medicine Adult Medicine
DX: S30.860A Insect bite (nonvenomous) of lower back and pelvis, initial encounter (principal); W57.XXXA Bitten or stung by nonvenomous insect and other nonvenomous arthropods, initial encounter; F41.9 Anxiety disorder, unspecified; Z79.82 Long term (current) use of aspirin; J44.9 Chronic obstructive pulmonary disease, unspecified
CPT/HCPCS: 99281

== ENCOUNTER 2021-12-15 20:58 | Emergency (ER) | payer MEDICARE, MEDICAID, SELFPAY ==
[2021-12-15 21:12] VITALS: BP 102/71; PULSE 89; RESP 16; TEMP 37.1; O2SAT 98; BMI 32.5
--- NOTE | 2021-12-15 23:48 | W.ED.SKABFB ---
HPI - Skin/Abscess/Foreign Bdy General: Chief complaint: Wound/Laceration Stated complaint: SPIDER BITE Time Seen by Provider: 12/15/21 23:28 Source: patient Mode of arrival: ambulatory Limitations: no limitations History of Present Illness: Patient is a 41-year-old female who presents to ED today with complaints of a possible spider bite to her left buttock/posterior thigh. Symptoms initially began approximately a week ago. She was seen here in our ED and symptoms at the time appeared minimal. She was prescribed Voltaren gel placed on the area. She states she was seen by PCP yesterday and called in a prescription for Doxycycline but she has not filled this medication yet. She states pain continues to increase and has now noticed drainage. She is not running fevers. MD complaint: insect bite/sting and abscess/boil Onset (ago): day(s) Tetanus up to date: yes Location: buttocks Severity: severe Quality: burning Pain Consistency: constant Relieving factors: none Exacerbating factors: none Associated symptoms: Reports no associated symptoms; Deny chills, fever(s), nausea or vomiting Review of Systems Const: Denies: fever(s), chills, body aches, fatigue or malaise Card: Denies: chest pain Resp: Denies: dyspnea GI: Denies: abdominal pain, nausea, vomiting or diarrhea Musc: Denies: neck pain, back pain, extremity pain or joint pain Skin/Breast: Reports: other (reports spider bite to L buttock) Neuro: Denies: headache(s), numbness in extremities, weakness in extremities or sensory changes ON LICENSE OF [facility] ED PFSH: Medical History Anxiety and depression Reports anxiety and depression in the past and is currently just on trazodone to help her sleep. Inflammatory bowel disease Initially thought it was Crohn's--follows with fabric inspector Dr. Espinoza in [place]. She states that she was told in 2020 she no longer has Crohn's disease and it is just severe IBS No pertinent past medical history Denies diabetes, hypertension, asthma, seizures, DVT/PE PCP: Dr. Medel Seizures Reports having had seizures in the past the last was in 2018. She is not currently on any medication. Surgical History S/P laparoscopic cholecystectomy 2006 Status post delivery X 2 ---> 2005, 2006 Status post tubal ligation 2006--laparoscopic tubal 2 months after her Family History Father Hyperlipidemia Hypertension Mother Hypertension Stroke Breast cancer diagnosed at age 70 Family/Other Ovarian cancer paternal aunt, age at diagnosis unknown Denies family history of Colon cancer Diabetes Heart disease Anesthesia complication Bleeding disorder Uterine cancer Thyroid condition Social History Marital status: Life Partner Current occupational status: unemployed Female Reproductive History: Date of last menstrual period: 09/27/22 Physical Exam Const: COMMON NORMALS: patient oriented x3, no limitations and alert GENERAL APPEARANCE: cooperative and anxious NUTRITIONAL APPEARANCE: overweight Resp: COMMON NORMALS: normal respiratory effort and clear to auscultation bilaterally AUSCULTATION: clear to auscultation bilaterally Cardio: COMMON NORMALS: regular rate and regular rhythm RATE: regular rate RHYTHM: regular rhythm Back/Pelvis: BACK IMAGE (FEMALE): 1. 1 in indurated area with small central area that is actively draining purulent material; she has no significant surrounding erythema or warmth Extremity: GENERAL: Yes normal exam except as noted Neuro: COMMON NORMALS: patient oriented x3, moves all extremities, no focal motor deficits, no sensory deficits noted and gait normal SENSORIUM/ORIENTATION: Yes alert Skin: NARRATIVE SKIN EXAM: see above diagram for pertinent skin findings Course Vital Signs: Vital signs: Vital Signs Temperature 98.7 F 12/15/21 21:12 Pulse Rate 89 12/15/21 21:12 Respiratory Rate 16 12/15/21 21:12 Blood Pressure 102/71 12/15/21 21:12 Pulse Oximetry 98 12/15/21 21:12 MDM - Skin/Abscess/Foreign Bdy Medicial Decision Making Patient with a clinical abscess to her left buttock most likely secondary to a brown recluse spider bite. Lesion was draining purulent material. Culture obtained. Recommended I&D however patient did not tolerate local anesthetic and refused. Patient states her PCP called in a prescription for doxycycline. We will go ahead and give her a hard prescription today in case there are any issues getting the other prescription filled. Strict return to ED precautions given. Recommend warm compresses to help facilitate drainage. Discharge Plan Discharge Patient Disposition: Home Clinical Impression: Left buttock abscess Brown recluse spider bite Qualifiers: Encounter type: initial encounter Injury intent: accidental or unintentional Qualified Code(s): T63.331A - Toxic effect of venom of brown recluse spider, accidental (unintentional), initial encounter Condition: Stable Prescriptions: New doxycycline monohydrate 100 mg capsule 100 mg PO Q12H 10 Days Qty: 20 0RF No Action vitamin B complex [B Complex-Vitamin B12] Tablet 1 tab PO DAILY@0700 0RF cannabis See Rx Instructions .ROUTE .COMPLEX 0RF Rx Instructions: orally as directed medroxyprogesterone [Depo-Provera] 150 mg/mL suspension 150 mg IM .COMPLEX Qty: 1 3RF Rx Instructions: 150 mg IM every 90 days; sodium chloride [Saline Mist] 0.65 % aerosol,spray 1 spray intranasal BID PRN (Reason: UNKNOWN) 0RF aspirin [Adult Aspirin Regimen] 81 mg tablet,delayed release (DR/EC) 81 mg PO DAILY 0RF ipratropium-albuterol 0.5 mg-3 mg(2.5 mg base)/3 mL solution for nebulization 3 ml inhalation QID PRN (Reason: wheezing) Qty: 15 1RF multivitamin Tablet 1 tab PO DAILY 0RF montelukast [Singulair] 10 mg tablet 10 mg PO DAILY 0RF ttxwmsf-aous-raulo-oreg-capryl 100 mg-150 mg- 50 mg-150 mg capsule PO 0RF budesonide-formoterol 80-4.5 mcg/actuation HFA aerosol inhaler 2 puff inhalation BID Qty: 10.2 3RF clobetasol 0.05 % ointment 1 applic topical BID PRN (Reason: Rash) Qty: 45 1RF doxycycline hyclate 100 mg capsule 100 mg PO BID Qty: 14 0RF paroxetine HCl [Paxil] 20 mg tablet 20 mg PO .qhs Qty: 30 3RF Combivent Respimat 20-100 mcg/actuation mist See Rx Instructions .ROUTE .COMPLEX Qty: 4 5RF Dose Instruction: INHALE 1 PUFF INTO LUNGS EVERY 4 HOURS NEEDED FOR COPD. SPACE EVENLY DURING WAKING HOURS Rx Instructions: INHALE 1 PUFF INTO LUNGS EVERY 4 HOURS NEEDED FOR COPD. SPACE EVENLY DURING WAKING HOURS promethazine 25 mg tablet See Rx Instructions .ROUTE .COMPLEX Qty: 120 0RF Dose Instruction: TAKE ONE TABLET BY MOUTH EVERY 6 HOURS NEEDED FOR PAIN, NAUSEA, AND VOMITING Rx Instructions: TAKE ONE TABLET BY MOUTH EVERY 6 HOURS NEEDED FOR PAIN, NAUSEA, AND VOMITING Voltaren Arthritis Pain 1 % gel 4 g topical QID Qty: 100 0RF ondansetron HCl [Zofran] 4 mg tablet 4 mg PO Q6H PRN (Reason: nausea and vomiting) Qty: 15 0RF Discharge Orders: Discharge ED (Routine); Ordered 12/16/21 Ordered By: Florinda Monsivais Referrals: Alexi Medel MD [Primary Care Provider] - Coding Level of Care Code ED Collections Attorney for Chg Fwd Exam Detailed
== END 2021-12-16 00:31 | disposition home or self-care (01) ==
PROVIDERS: Emergency Provider Physician Assistant; PCP Family Medicine Adult Medicine
DX: T63.331A Toxic effect of venom of brown recluse spider, accidental (unintentional), initial encounter (principal); L02.31 Cutaneous abscess of buttock; Z79.82 Long term (current) use of aspirin
CPT/HCPCS: 87070; 87075; 87077; 87186; 87205; 99282

== ENCOUNTER 2022-01-03 13:47 | Emergency (ER) | payer MEDICARE, MEDICAID, SELFPAY ==
[2022-01-03 13:57] VITALS: BP 135/80; PULSE 87; RESP 24; TEMP 36.3; O2SAT 97; BMI 33.6
--- NOTE | 2022-01-03 14:54 | W.ED.GENADLT ---
HPI - General Adult General: Chief complaint: Shortness of Breath/Dyspnea Stated complaint: SOB X 5 DAYS Time Seen by Provider: 01/03/22 14:13 History of Present Illness: Patient is a 41-year-old female comes to the ED with some shortness of breath. Patient says she has a history of COPD. She has multiple inhalers at home. Shortness of breath started approximately 5 days ago after she was smoking some marijuana. She thinks that some of the contaminants on the marijuana caused her shortness of breath. She has been using her inhalers as prescribed. She is currently needing a refill on her Combivent inhaler. Patient says she would just like a prescription for her inhaler and would like to go home. Associated symptoms: Reports dyspnea; Deny chest pain, headache(s), nausea, rash, palpitations or vomiting Review of Systems Const: Denies: fever(s), chills or fatigue Eyes: Denies: change in vision or eye discomfort ENMT: Denies: throat pain, odynophagia, nasal discharge or nasal congestion Card: Denies: chest pain, palpitations, edema, swelling of feet/ankles, dyspnea on exertion or orthopnea Resp: Reports: dyspnea; Denies: productive cough or non-productive cough GI: Denies: abdominal pain, nausea, vomiting, diarrhea, constipation or hematochezia : Denies: flank pain, dysuria or hematuria Musc: Denies: neck pain, back pain or extremity swelling Skin/Breast: Denies: rash or new lesions Neuro: Denies: headache(s), numbness in extremities or weakness in extremities PFS ED PFSH: Medical History Anxiety and depression Reports anxiety and depression in the past and is currently just on trazodone to help her sleep. 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 Espinoza in [place]. She states that she was told in 2020 she no longer has Crohn's disease and it is just severe IBS No pertinent past medical history Denies diabetes, hypertension, asthma, seizures, DVT/PE PCP: Dr. Medel Psychiatric care Seizures Reports having had seizures in the past the last was in 2018. She is not currently on any medication. Surgical History S/P laparoscopic cholecystectomy 2006 Status post delivery X 2 ---> 2005, 2006 Status post tubal ligation 2006--laparoscopic tubal 2 months after her Family History Father Hyperlipidemia Hypertension Mother Hypertension Stroke Breast cancer diagnosed at age 70 Family/Other Ovarian cancer paternal aunt, age at diagnosis unknown Denies family history of Colon cancer Diabetes Heart disease Anesthesia complication Bleeding disorder Uterine cancer Thyroid condition Social History Marital status: Life Partner Current occupational status: unemployed Female Reproductive History: Date of last menstrual period: 09/27/22 Physical Exam Const: COMMON NORMALS: no acute distress, patient oriented x3 and alert GENERAL APPEARANCE: cooperative and comfortable HENMT: COMMON NORMALS: normocephalic HEAD & SCALP: normocephalic MOUTH: Normal oral and palatal mucosa present THROAT: posterior oropharynx normal and uvula midline Neck/C-Spine: COMMON NORMALS: supple GENERAL: Yes normal visual inspection Resp: COMMON NORMALS: normal respiratory effort, No retractions, No use of accessory muscles and clear to auscultation bilaterally AUSCULTATION: clear to auscultation bilaterally Cardio: COMMON NORMALS: regular rate, regular rhythm, S1 normal heart sound present, S2 normal heart sound present, No gallops present (Cardio), No clicks present (Cardio), No murmurs present (Cardio) and Peripheral pulses 2+ throughout RATE: regular rate RHYTHM: regular rhythm HEART SOUNDS: S1 normal heart sound present and S2 normal heart sound present PERIPHERAL PULSES: Peripheral pulses 2+ throughout GI: COMMON NORMALS: Normal to inspection, nondistended, normoactive bowel sounds present, Soft to palpation, non-tender and no masses PALPATION: Yes Soft to palpation : COMMON NORMALS: Yes no CVA tenderness BLADDER/KIDNEY EXAM: Yes no CVA tenderness Back/Pelvis: COMMON NORMALS: no CVA tenderness Extremity: COMMON NORMALS: normal to inspection Neuro: COMMON NORMALS: patient oriented x3 and moves all extremities SENSORIUM/ORIENTATION: Yes alert Skin: GENERAL SKIN EXAM: dry skin Course Vital Signs: Vital signs: Vital Signs Temperature 97.4 F L 01/03/22 13:57 Pulse Rate 89 01/03/22 15:26 Respiratory Rate 18 01/03/22 15:26 Blood Pressure 135/80 01/03/22 13:57 Pulse Oximetry 96 01/03/22 15:26 MDM - General Adult Medical Decision Making Patient is a 41-year-old female comes to the ED with some shortness of breath after she smoked some marijuana. Patient has a history of COPD and is on multiple inhalers. She says she is out of her Combivent inhaler and came here to get a prescription refill. Vitals are stable. Patient appears in no acute distress or pain. Lungs are clear to auscultation bilaterally no wheezing heard. Patient diagnosed with shortness of breath and was discharged home with a refill prescription for her Combivent and budesonide inhaler. Also sent her with a prescription for prednisone to help with her breathing as well. She was told to follow-up with her PCP in the next 5 days for reevaluation. Return to ED precautions given. Patient understood and agreed with plan. Discharge Plan Discharge Patient Disposition: Home Clinical Impression: Shortness of breath Condition: Stable Prescriptions: New prednisone 20 mg tablet 20 mg PO BID 5 Days Qty: 10 0RF budesonide-formoterol 80-4.5 mcg/actuation HFA aerosol inhaler 2 inh inhalation BID Qty: 10.2 0RF ipratropium-albuterol 20-100 mcg/actuation mist 1 puff inhalation Q6H PRN (Reason: shortness of breath or wheezing) Qty: 4 0RF No Action vitamin B complex [B Complex-Vitamin B12] Tablet 1 tab PO DAILY@0700 0RF cannabis See Rx Instructions .ROUTE .COMPLEX 0RF Rx Instructions: orally as directed medroxyprogesterone [Depo-Provera] 150 mg/mL suspension 150 mg IM .COMPLEX Qty: 1 3RF Rx Instructions: 150 mg IM every 90 days; sodium chloride [Saline Mist] 0.65 % aerosol,spray 1 spray intranasal BID PRN (Reason: UNKNOWN) 0RF aspirin [Adult Aspirin Regimen] 81 mg tablet,delayed release (DR/EC) 81 mg PO DAILY 0RF ipratropium-albuterol 0.5 mg-3 mg(2.5 mg base)/3 mL solution for nebulization 3 ml inhalation QID PRN (Reason: wheezing) Qty: 15 1RF multivitamin Tablet 1 tab PO DAILY 0RF montelukast [Singulair] 10 mg tablet 10 mg PO DAILY 0RF mxmcokw-qpmy-pclmp-oreg-capryl 100 mg-150 mg- 50 mg-150 mg capsule PO 0RF budesonide-formoterol 80-4.5 mcg/actuation HFA aerosol inhaler 2 puff inhalation BID Qty: 10.2 3RF clobetasol 0.05 % ointment 1 applic topical BID PRN (Reason: Rash) Qty: 45 1RF doxycycline hyclate 100 mg capsule 100 mg PO BID Qty: 14 0RF paroxetine HCl [Paxil] 20 mg tablet 20 mg PO .qhs Qty: 30 3RF Combivent Respimat 20-100 mcg/actuation mist See Rx Instructions .ROUTE .COMPLEX Qty: 4 5RF Dose Instruction: INHALE 1 PUFF INTO LUNGS EVERY 4 HOURS NEEDED FOR COPD. SPACE EVENLY DURING WAKING HOURS Rx Instructions: INHALE 1 PUFF INTO LUNGS EVERY 4 HOURS NEEDED FOR COPD. SPACE EVENLY DURING WAKING HOURS promethazine 25 mg tablet See Rx Instructions .ROUTE .COMPLEX Qty: 120 2RF Dose Instruction: TAKE ONE TABLET BY MOUTH EVERY 6 HOURS NEEDED FOR PAIN, NAUSEA, AND VOMITING Rx Instructions: TAKE ONE TABLET BY MOUTH EVERY 6 HOURS NEEDED FOR PAIN, NAUSEA, AND VOMITING Voltaren Arthritis Pain 1 % gel 4 g topical QID Qty: 100 0RF ondansetron HCl [Zofran] 4 mg tablet 4 mg PO Q6H PRN (Reason: nausea and vomiting) Qty: 15 0RF Discharge Orders: Discharge ED (Routine); Ordered 01/03/22 Ordered By: Nikos Drew Referrals: Alexi Medel MD [Primary Care Provider] - Discharge Diet: Regular Discharge Activity: Increase activity as tolerated Activity Restrictions/Additional Instructions: Follow-up with medical provider as directed. Take medications as prescribed. Return to the ER or your medical provider if condition worsens. Please read and understand discharge instructions. Thank you for choosing [facility] for your healthcare needs today. Please realize this is an emergency room and that we are providing you with a medical screening exam and this may not be complete and all inclusive of all the testing and or work up that you may need to determine your ailment or severity of your illness. It is very important that you follow up as instructed or that you return to the Emergency Department should you have concerns or if your condition changes or worsens in any way. Coding Level of Care Code ED Lease Out Worker for Ranjeet Lamb
[2022-01-03 15:26] VITALS: PULSE 89; RESP 18; O2SAT 96
== END 2022-01-03 15:27 | disposition home or self-care (01) ==
PROVIDERS: Emergency Provider Physician Assistant; PCP Family Medicine Adult Medicine
DX: R06.02 Shortness of breath (principal); J44.9 Chronic obstructive pulmonary disease, unspecified
CPT/HCPCS: 99281

== ENCOUNTER 2022-01-10 07:07 | Outpatient (CLI) | payer MEDICARE, MEDICAID, SELFPAY ==
--- NOTE | 2022-01-10 07:16 | US_ITS ---
WS: [id number] TRANSABDOMINAL PELVIC AND TRANSVAGINAL PELVIC ULTRASOUND HISTORY: R10.32 - Left lower quadrant pain COMPARISON: 06/23/2020 Uterus: 5.5 cm x 4.4 cm x 3.0 cm. Anteverted mildly globular uterus with a focal lower uterine C-sect ion scar. Within the scar there is a hyperechoic nodule measuring 1.1 x 1.2 x 1.3 cm. This hyperechoi c area extends from the endometrium through the scar. This was also identified on the prior study fro 2019. Less cystic changes along the scar site as seen on the prior exam. Endometrium: 0.6 cm. Endometrium is normal size but being displaced posteriorly by the hyperechoic ar ea in the anterior uterus. Mild loss of the junctional zone. Right ovary: 1.2 cm x 0.9 cm x 1.3 cm. Small caliber ovary. Normal vascularity. Left ovary: 2.3 cm x 2.0 cm x 1.1 cm. Normal ovary and normal vascularity. US/US pelvic with transvaginal IMPRESSION: 1. Globular heterogeneous appearance of the uterus. 2. Hyperechoic mass extends from the endometrium into the scar site. Favor thi s is probably adenomyosis. Could be a focal scar but those are typically hypoec hoic. The globular appearance of the uterus also suggest adenomyosis. 3. No free fluid.
== END 2022-01-10 07:08 | disposition home or self-care (01) ==
LOC: RAD 07:08
PROVIDERS: PCP Family Medicine Adult Medicine; Visit Provider Obstetrics & Gynecology
DX: R10.32 Left lower quadrant pain (principal)
CPT/HCPCS: 76830; 76856

== ENCOUNTER 2022-01-12 15:25 | Emergency (ER) | payer MEDICARE, MEDICAID, SELFPAY ==
[2022-01-12 15:35] VITALS: BP 118/81; PULSE 110; RESP 18; TEMP 37.1; O2SAT 97; BMI 34.3
[2022-01-12] MEDS: LORazepam 2 mg Tablet PO ×2 (16:13→17:25)
--- NOTE | 2022-01-12 16:50 | W.ED.GENADLT ---
HPI - General Adult General: Chief complaint: Anxiety Stated complaint: anxiety Time Seen by Provider: 01/12/22 15:48 History of Present Illness: Patient is a 41-year-old female with history of anxiety presenting to the emergency room with worsening anxiety-like symptoms. Patient tells me that for the last few month her anxiety and panic that has worsened. Patient appears to be tearful and tells me that she has been stalked by a friend. Patient is tearful and tells me that she lost her possessions and her animals to this friend. Denies any active suicidal ideation or homicidal ideation. Patient denies active hallucination or hearing voices. Earlier today, patient was seen and evaluated in clinic and was told to come to the emergency room for evaluation of of possible rectal bleeding. Patient tells that she has had bloody stool for the last few years. Patient tells me that she has inflammatory bowel disease and has had colonoscopy before. Patient thinks that her symptoms have not acutely worsened. Onset: chronic Duration:ongoing Location:home Severity:mild Associated symptoms: Deny chest pain, dyspnea, nausea, rash, palpitations or vomiting Review of Systems Const: Denies: fever(s) or chills Eyes: Denies: change in vision ENMT: Denies: mouth pain Card: Denies: chest pain or palpitations Resp: Denies: dyspnea or non-productive cough GI: Denies: abdominal pain, nausea, vomiting or diarrhea : Denies: dysuria Musc: Denies: extremity pain Skin/Breast: Denies: rash or new lesions Neuro: Denies: weakness in extremities Psych: Reports: anxiety, mood swings and panic attacks Enrique/Lymph: Denies: easy bruising [facility] ED PFSH: Medical History Anxiety and depression Reports anxiety and depression in the past and is currently just on trazodone to help her sleep. Anxiety disorder due to general medical condition with panic attack Inflammatory bowel disease Initially thought it was Crohn's--follows with head buyer tobacco Dr. Espinoza in [place]. She states that she was told in 2020 she no longer has Crohn's disease and it is just severe IBS No pertinent past medical history Denies diabetes, hypertension, asthma, seizures, DVT/PE PCP: Dr. Medel Psychiatric care Seizures Reports having had seizures in the past the last was in 2018. She is not currently on any medication. Suicidal ideation Surgical History S/P laparoscopic cholecystectomy 2006 Status post delivery X 2 ---> 2005, 2006 Status post tubal ligation 2006--laparoscopic tubal 2 months after her Family History Father Hyperlipidemia Hypertension Mother Hypertension Stroke Breast cancer diagnosed at age 70 Family/Other Ovarian cancer paternal aunt, age at diagnosis unknown Denies family history of Colon cancer Diabetes Heart disease Anesthesia complication Bleeding disorder Uterine cancer Thyroid condition Social History Marital status: Life Partner Current occupational status: unemployed Physical Exam Const: COMMON NORMALS: alert HENMT: COMMON NORMALS: atraumatic HEAD & SCALP: atraumatic MOUTH: moist mucous membranes not abnormal Eye: COMMON NORMALS: EOMs intact bilaterally and conjunctivae normal CONJUNCTIVA: Yes conjunctivae normal Neck/C-Spine: COMMON NORMALS: full ROM and supple Resp: COMMON NORMALS: normal respiratory effort and clear to auscultation bilaterally AUSCULTATION: clear to auscultation bilaterally Cardio: COMMON NORMALS: regular rate RATE: regular rate GI: COMMON NORMALS: Soft to palpation and non-tender PALPATION: Yes Soft to palpation Extremity: COMMON NORMALS: full ROM Neuro: SENSORIUM/ORIENTATION: Yes alert MOTOR EXAM: No Abnormal motor strength present and Other motor observations present (no focal motor deficits) Psych: COMMON NORMALS: speech normal SPEECH: Yes normal speech MOOD & AFFECT: Yes anxious Course Vital Signs: Vital signs: Vital Signs Temperature 98.8 F 01/12/22 17:28 Pulse Rate 113 H 01/12/22 17:28 Respiratory Rate 16 01/12/22 17:28 Blood Pressure 144/84 01/12/22 17:28 Pulse Oximetry 96 01/12/22 17:28 MDM - General Adult Medical Decision Making 41 [id number] female presenting to the emergency room for concerns of worsening anxiety symptoms and possible bloody stool. On exam, patient is hemodynamically stable, H&H appears to be stable. Leukocytosis similar to baseline. I offer a rectal exam to determine the extent of patient's bloody stools, however patient declined. Patient tells me that she has had the symptoms for a while and will follow up with primary care provider for further evaluation. Patient received 2 mg of Ativan in the emergency room for significant improvement in anxiety symptoms. Patient tells me that he does not have any suicidal ideation or homicidal ideation. Patient denies any active hallucination. Patient request for Ativan to go home with. I gave patient 1 tablet of Ativan to go home with. Because no rectal exam was perforemd today, I offered patient strict return precaution for any signs of melena/hematochezia, heavy rectal bleeding or any new or concerning complaints. Disposition: Discharge. Patient counseled regarding diagnostic impression, treatment plan. Patient given ED strict return precautions to return for continuation, worsening, or development of new symptoms. Instructed to f/u w/ PCP regarding symptoms today. Patient verbalized understanding. Lab Data : 01/12/22 17:00 01/12/22 17:00 Laboratory Results WBC 16.2 10^3/uL (4.0-10.0) H 01/12/22 17:00 RBC 4.80 10^6/uL (4.1-5.3) 01/12/22 17:00 Hgb 14.5 g/dL (11.5-15.3) 01/12/22 17:00 Hct 44.3 % (37.0-47.0) 01/12/22 17:00 MCV 92.3 fl (81-99) 01/12/22 17:00 MCH 30.2 pg (28.0-34.0) 01/12/22 17:00 MCHC 32.7 g/dL (30.0-36.0) 01/12/22 17:00 RDW 12.3 % (12.1-15.1) 01/12/22 17:00 Plt Count 335 10^3/cmm (130-400) 01/12/22 17:00 MPV 9.7 fL (7.4-10.4) 01/12/22 17:00 Neut % (Auto) 68.9 % 01/12/22 17:00 Lymph % (Auto) 21.4 % 01/12/22 17:00 [place] % (Auto) 5.7 % 01/12/22 17:00 Eos % (Auto) 2.2 % 01/12/22 17:00 Baso % (Auto) 0.6 % 01/12/22 17:00 Neut # (Auto) 11.17 10^3/uL (1.8-7.7) H 01/12/22 17:00 Lymph # (Auto) 3.5 10^3/uL (0.8-4.8) 01/12/22 17:00 [place] # (Auto) 0.9 10^3/uL (0.2-0.9) 01/12/22 17:00 Eos # (Auto) 0.4 10^3/uL (0.0-0.8) 01/12/22 17:00 Baso # (Auto) 0.1 10^3/uL (0.0-0.1) 01/12/22 17:00 Nucleated RBC % (auto) 0 % 01/12/22 17:00 Nucleated RBCs # 0.0 /100WBC 01/12/22 17:00 Sodium 134 mmol/L (136-145) L 01/12/22 17:00 Potassium 4.4 mmol/L (3.5-5.1) 01/12/22 17:00 Chloride 101 mmol/L (98-107) 01/12/22 17:00 Carbon Dioxide 21 mmol/L (22-29) L 01/12/22 17:00 Anion Gap 16.4 (5-19) 01/12/22 17:00 BUN 10 mg/dL (6-20) 01/12/22 17:00 Creatinine 0.7 mg/dL (0.5-0.9) 01/12/22 17:00 GFR Calculation 92.2 mL/min (90-130) 01/12/22 17:00 Glucose 179 mg/dL (65-115) H 01/12/22 17:00 Calculated Osmolality 282 mOsm/kg (285-295) L 01/12/22 17:00 Calcium 9.0 mg/dL (8.5-10.5) 01/12/22 17:00 Discharge Plan Discharge Patient Disposition: Home Clinical Impression: Anxiety Condition: Stable Prescriptions: No Action vitamin B complex [B Complex-Vitamin B12] Tablet 1 tab PO DAILY@0700 0RF medroxyprogesterone [Depo-Provera] 150 mg/mL suspension 150 mg IM .COMPLEX Qty: 1 3RF Rx Instructions: 150 mg IM every 90 days; sodium chloride [Saline Mist] 0.65 % aerosol,spray 1 spray intranasal BID PRN (Reason: Nasal Congestion) 0RF aspirin [Adult Aspirin Regimen] 81 mg tablet,delayed release (DR/EC) 81 mg PO DAILY 0RF ipratropium-albuterol 0.5 mg-3 mg(2.5 mg base)/3 mL solution for nebulization 3 ml inhalation QID PRN (Reason: wheezing) Qty: 15 1RF multivitamin Tablet 1 tab PO DAILY 0RF montelukast [Singulair] 10 mg tablet 10 mg PO DAILY 0RF Candicidal 100 mg-150 mg- 50 mg-150 mg capsule 1 cap PO DAILY 0RF clobetasol 0.05 % ointment 1 applic topical BID PRN (Reason: Rash) Qty: 45 1RF Combivent Respimat 20-100 mcg/actuation mist See Rx Instructions .ROUTE .COMPLEX Qty: 4 5RF Dose Instruction: INHALE 1 PUFF INTO LUNGS EVERY 4 HOURS NEEDED FOR COPD. SPACE EVENLY DURING WAKING HOURS Rx Instructions: INHALE 1 PUFF INTO LUNGS EVERY 4 HOURS NEEDED FOR COPD. SPACE EVENLY DURING WAKING HOURS promethazine 25 mg tablet See Rx Instructions .ROUTE .COMPLEX Qty: 120 2RF Dose Instruction: TAKE ONE TABLET BY MOUTH EVERY 6 HOURS NEEDED FOR PAIN, NAUSEA, AND VOMITING Rx Instructions: TAKE ONE TABLET BY MOUTH EVERY 6 HOURS NEEDED FOR PAIN, NAUSEA, AND VOMITING diclofenac sodium [Voltaren Arthritis Pain] 1 % gel 4 g topical QID Qty: 100 0RF Thc Gummies 1 tab PO DAILY 0RF Symbicort 80-4.5 mcg/actuation HFA aerosol inhaler 2 inh inhalation BID 0RF Discharge Orders: Discharge ED (Routine); Ordered 01/12/22 Ordered By: Domenico Nicole Referrals: Alexi Medel MD [Primary Care Provider] - Discharge Diet: Advance as tolerated Discharge Activity: Increase activity as tolerated Patient Instructions: Anxiety (ED) Activity Restrictions/Additional Instructions: Please come back to the emergency room if you need help, have any hallucinations, or you have any depression or have thoughts about hurting yourself or other people. 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
[2022-01-12 17:11] LABS: Basophils # 0.1 10^3/uL (0.0-0.1); Basophils % 0.6 %; Eosinophils # 0.4 10^3/uL (0.0-0.8); Eosinophils % 2.2 %; Hematocrit 44.3 % (37.0-47.0); Hemoglobin 14.5 g/dL (11.5-15.3); Lymphocytes # 3.5 10^3/uL (0.8-4.8); Lymphocytes % 21.4 %; Mean Corpuscular HGB Conc 32.7 g/dL (30.0-36.0); Mean Corpuscular Hemoglobin 30.2 pg (28.0-34.0); Mean Corpuscular Volume 92.3 fl (81-99); Mean Platelet Volume 9.7 fL (7.4-10.4); Monocytes # 0.9 10^3/uL (0.2-0.9); Monocytes % 5.7 %; Neutrophils # 11.17 10^3/uL (1.8-7.7); Neutrophils % 68.9 %; Nucleated Red Blood Cells % 0 %; Platelet Count 335 10^3/cmm (130-400); Red Cell Distribution Width 12.3 % (12.1-15.1); White Blood Count 16.2 10^3/uL (4.0-10.0)
[2022-01-12 17:20] VITALS: BP 144/84; PULSE 113; RESP 16; O2SAT 96
[2022-01-12 17:28] VITALS: BP 144/84; PULSE 113; RESP 16; TEMP 37.1; O2SAT 96
[2022-01-12 17:34] LABS: Blood Urea Nitrogen 10 mg/dL (6-20); Carbon Dioxide 21 mmol/L (22-29); Chloride 101 mmol/L (98-107); Glomerular Filtration Rate 92.2 mL/min (90-130); Glucose 179 mg/dL (65-115); Osmolality Calculated 282 mOsm/kg (285-295); Sodium 134 mmol/L (136-145)
[2022-01-12 17:36] LABS: Anion Gap 16.4 (5-19); Potassium 4.4 mmol/L (3.5-5.1)
== END 2022-01-12 17:30 | disposition home or self-care (01) ==
PROVIDERS: Emergency Provider Emergency Medicine; PCP Family Medicine Adult Medicine
DX: F41.9 Anxiety disorder, unspecified (principal); Z79.82 Long term (current) use of aspirin; K92.1 Melena
CPT/HCPCS: 80048; 85025; 99283

== ENCOUNTER → 2022-01-16 12:28 | Outpatient (BNVA) | payer MEDICARE, MEDICAID, SELFPAY | PROVIDERS: PCP Family Medicine Adult Medicine; Visit Provider Nurse Practitioner Psychiatric/Mental Health | DX: F41.1 Generalized anxiety disorder (principal); F33.9 Major depressive disorder, recurrent, unspecified; F43.10 Post-traumatic stress disorder, unspecified | CPT/HCPCS: 90792 ==

== ENCOUNTER 2022-01-21 07:45 | Emergency (ER) | payer MEDICARE, MEDICAID, SELFPAY ==
[2022-01-21 07:59] VITALS: BP 155/106; PULSE 97; RESP 20; TEMP 37.1; O2SAT 98; BMI 35.4
--- NOTE | 2022-01-21 08:16 | W.ED.ANXIETY ---
HPI - Anxiety General: Chief Complaint: General Medical Stated Complaint: stomach pain Time Seen by Provider: 01/21/22 07:46 Source: patient Mode of arrival: ambulatory Limitations: no limitations History of Present Illness: Patient is a 41-year-old female with a known history of anxiety here for complaints of worsening anxiety as well as nausea and vomiting following the cessation of marijuana use. Patient states she has been using marijuana for 30 years for treatment of anxiety. She states she has been following up with a physician at [facility] who has recommended discontinuing marijuana. According to patient they are wanting to start her on Depakote and Ativan but states that they recommended her discontinuing all marijuana use prior to them starting these medications. Patient states she quit using cold turkey and feels like she is having withdrawal symptoms because of this. She states she feels nauseous and is very anxious. Patient has a history of IBS and often will have intermittent bloody stools. She has had a few of these. Patient had a colonoscopy in October of this year by a Dr. Walters and stated everything was normal. Patient tells me she is not suicidal or homicidal. MD complaint: anxiety Place: home History of similar episodes: Yes Provoking factors: other (cessation of marijuana) Associated symptoms: Reports nausea and vomiting; Deny chest pain, chills, fever(s), headache(s), malaise, palpitations or syncope Review of Systems Const: Denies: fever(s), chills, body aches, fatigue or malaise Eyes: Denies: change in vision or blurry vision Card: Denies: chest pain, palpitations, irregular heart rhythm, lightheadedness, syncope or dyspnea on exertion Resp: Denies: dyspnea, productive cough or pain on inspiration GI: Reports: abdominal pain, nausea, vomiting and hematochezia (chronic/intermittent per patient related to her IBS); Denies: hematemesis, heartburn, diarrhea, constipation or pain on defecation : Denies: flank pain, dysuria or hematuria Musc: Denies: neck pain, back pain or joint pain Skin/Breast: Denies: rash Neuro: Denies: headache(s), numbness in extremities, weakness in extremities, sensory changes or dizziness Psych: Reports: anxiety; Denies: depression, suicidal ideation or homicidal ideation PFS ED PFSH: Medical History Anxiety and depression Reports anxiety and depression in the past and is currently just on trazodone to help her sleep. Anxiety disorder due to general medical condition with panic attack Inflammatory bowel disease Initially thought it was Crohn's--follows with material attendant Dr. Espinoza in [place]. She states that she was told in 2020 she no longer has Crohn's disease and it is just severe IBS Major depressive disorder, recurrent Following information retrieved and edited from Behavior Assessment Report on 12/26/21: She presented with loose associations, tangential thinking, perseveration, and had difficulty participating in the assessment interview. She was agitated, spoke loudly, was tearful then angry, and moved in her seat continuously for most of the assessment interview, though she became calmer as embryology professor provided supportive, empathic listening. Rekha was dressed in clean, casual clothing appropriate for today's situation and weather. No pertinent past medical history Denies diabetes, hypertension, asthma, seizures, DVT/PE PCP: Dr. Medel Post traumatic stress disorder (PTSD) Psychiatric care Seizures Reports having had seizures in the past the last was in 2018. She is not currently on any medication. Suicidal ideation Surgical History S/P laparoscopic cholecystectomy 2006 Status post delivery X 2 ---> 2005, 2006 Status post tubal ligation 2006--laparoscopic tubal 2 months after her Family History Father Hyperlipidemia Hypertension Mother Hypertension Stroke Breast cancer diagnosed at age 70 Family/Other Ovarian cancer paternal aunt, age at diagnosis unknown Denies family history of Colon cancer Diabetes Heart disease Anesthesia complication Bleeding disorder Uterine cancer Thyroid condition Social History Marital status: Life Partner Current occupational status: unemployed Physical Exam Const: COMMON NORMALS: no acute distress, patient oriented x3, no limitations and alert GENERAL APPEARANCE: cooperative and anxious NUTRITIONAL APPEARANCE: overweight ORIENTATION/CONSCIOUSNESS: Yes awake, Yes oriented to person, Yes oriented to place and Yes oriented to time HENMT: COMMON NORMALS: normocephalic and atraumatic HEAD & SCALP: normocephalic and atraumatic Resp: COMMON NORMALS: normal respiratory effort and clear to auscultation bilaterally AUSCULTATION: clear to auscultation bilaterally Cardio: COMMON NORMALS: regular rate and regular rhythm RATE: regular rate RHYTHM: regular rhythm GI: COMMON NORMALS: Normal to inspection, nondistended, normoactive bowel sounds present, Soft to palpation, No hepatosplenomegaly present and no masses INSPECTION: Yes normal to inspection AUSCULTATION: Yes normoactive bowel sounds PALPATION: Yes Soft to palpation, Yes Tenderness to palpation present (GI) (very mild diffusely-non surgical exam), No Guarding due to palpation present (GI), No Rigid due to palpation and Yes No hepatosplenomegaly present : COMMON NORMALS: Yes no CVA tenderness BLADDER/KIDNEY EXAM: Yes no CVA tenderness Back/Pelvis: COMMON NORMALS: no CVA tenderness Extremity: COMMON NORMALS: normal to inspection GENERAL: Yes normal exam except as noted Neuro: GERBER COMA SCALE: document GCS findings Gerber coma scale eye opening: Spontaneous Gerber coma scale verbal response: Orientated [place] coma scale motor response: Obey commands Gerber coma scale total score: 15 COMMON NORMALS: patient oriented x3 SENSORIUM/ORIENTATION: Yes alert, Yes oriented to person, Yes oriented to place and Yes oriented to time Psych: COMMON NORMALS: mental status grossly normal, Normal thought process present, cooperative, normal affect, speech normal, activity/motor behavior normal, denies hallucinations, denies homicidal ideation and denies suicidal ideation APPEARANCE: Yes grossly normal ATTITUDE: Yes calm ACTIVITY/MOTOR BEHAVIOR: Yes appropriate eye contact SPEECH: Yes normal speech MOOD & AFFECT: Yes euthymic mood THOUGHT PROCESS: Normal thought process present THOUGHT CONTENT: Yes Normal thought content present ATTENTION/CONCENTRATION: Yes attention grossly intact and Yes concentration grossly intact MEMORY/COGNITION: Yes memory grossly intact and Yes cognition grossly intact INSIGHT: Good insight present (Psych) JUDGEMENT: Good judgement present (Psych) Skin: COMMON NORMALS: no rashes or lesions noted GENERAL SKIN EXAM: no rashes or lesions noted Course Vital Signs: Vital signs: Vital Signs Temperature 98.7 F 01/21/22 08:32 Pulse Rate 92 01/21/22 11:09 Respiratory Rate 22 H 01/21/22 11:09 Blood Pressure 152/108 01/21/22 11:09 Pulse Oximetry 97 01/21/22 11:09 [facility] - Anxiety Medical Decision Making Patient is a 41-year-old female here for anxiety and some GI symptoms she believes is secondary to marijuana withdrawal. Patient has used marijuana over the past 30 years to help with anxiety but quit this medication recently cold turkey at the recommendation of her psychiatrist. Patient does have a history of IBS. She has an up-to-date normal colonoscopy. Her abdomen is soft and nonsurgical on exam. Patient is not suicidal or homicidal. She has had significant relief of her anxiety with lorazepam previously. I am okay prescribing a small amount of this medication she can use sparingly for severe anxiety until she can follow-up with her [facility] appointment. Return to ED precautions verbally discussed with patient. Lab Data : 01/21/22 08:44 01/21/22 08:44 Laboratory Results WBC 10.5 10^3/uL (4.0-10.0) H 01/21/22 08:44 RBC 4.91 10^6/uL (4.1-5.3) 01/21/22 08:44 Hgb 14.3 g/dL (11.5-15.3) 01/21/22 08:44 Hct 42.8 % (37.0-47.0) 01/21/22 08:44 MCV 87.2 fl (81-99) 01/21/22 08:44 MCH 29.1 pg (28.0-34.0) 01/21/22 08:44 MCHC 33.4 g/dL (30.0-36.0) 01/21/22 08:44 RDW 11.9 % (12.1-15.1) L 01/21/22 08:44 Plt Count 310 10^3/cmm (130-400) 01/21/22 08:44 MPV 10.4 fL (7.4-10.4) 01/21/22 08:44 Neut % (Auto) 69.7 % 01/21/22 08:44 Lymph % (Auto) 20.4 % 01/21/22 08:44 [place] % (Auto) 7.6 % 01/21/22 08:44 Eos % (Auto) 1.1 % 01/21/22 08:44 Baso % (Auto) 0.9 % 01/21/22 08:44 Neut # (Auto) 7.29 10^3/uL (1.8-7.7) 01/21/22 08:44 Lymph # (Auto) 2.1 10^3/uL (0.8-4.8) 01/21/22 08:44 [place] # (Auto) 0.8 10^3/uL (0.2-0.9) 01/21/22 08:44 Eos # (Auto) 0.1 10^3/uL (0.0-0.8) 01/21/22 08:44 Baso # (Auto) 0.1 10^3/uL (0.0-0.1) 01/21/22 08:44 Nucleated RBC % (auto) 0 % 01/21/22 08:44 Nucleated RBCs # 0.0 /100WBC 01/21/22 08:44 Sodium 140 mmol/L (136-145) 01/21/22 08:44 Potassium 3.6 mmol/L (3.5-5.1) 01/21/22 08:44 Chloride 107 mmol/L (98-107) 01/21/22 08:44 Carbon Dioxide 20 mmol/L (22-29) L 01/21/22 08:44 Anion Gap 16.6 (5-19) 01/21/22 08:44 BUN 7 mg/dL (6-20) 01/21/22 08:44 Creatinine 0.7 mg/dL (0.5-0.9) 01/21/22 08:44 GFR Calculation 92.2 mL/min (90-130) 01/21/22 08:44 Glucose 110 mg/dL (65-115) 01/21/22 08:44 Calculated Osmolality 289 mOsm/kg (285-295) 01/21/22 08:44 Calcium 8.7 mg/dL (8.5-10.5) 01/21/22 08:44 Total Bilirubin 0.5 mg/dL (0.15-1.2) 01/21/22 08:44 AST 17 U/L (0-32) 01/21/22 08:44 ALT 19 U/L (0-33) 01/21/22 08:44 Alkaline Phosphatase 87 IU/L (35-105) 01/21/22 08:44 Total Protein 7.7 g/dL (6.6-8.7) 01/21/22 08:44 Albumin 4.6 g/dL (3.5-5.2) 01/21/22 08:44 Globulin 3.1 g/dL (1.3-4.6) 01/21/22 08:44 Lipase 24 U/L (13-60) 01/21/22 08:44 HCG, Qual Negative (Negative) 01/21/22 08:55 Urine Color Dark yellow (Yellow) 01/21/22 10:00 Urine Appearance Clear (CLEAR) 01/21/22 10:00 Urine pH 5 (5-7) 01/21/22 10:00 Ur Specific [place] 1.020 (1.005-1.030) 01/21/22 10:00 Urine Protein Trace (Negative) 01/21/22 10:00 Urine Glucose (UA) Norm (Normal) 01/21/22 10:00 Urine Ketones 1+ (Negative) H 01/21/22 10:00 Urine Blood Neg (Negative) 01/21/22 10:00 Urine Nitrate Negative (Negative) 01/21/22 10:00 Urine Bilirubin Neg (Negative) 01/21/22 10:00 Urine Urobilinogen Norm mg/dL (Negative) 01/21/22 10:00 Ur Leukocyte Esterase Negative (Negative) 01/21/22 10:00 Urine RBC None /hpf (0-2) 01/21/22 10:00 Urine WBC Rare /hpf (0-5) 01/21/22 10:00 Ur Squamous Epith Cells 0-4 /hpf (0-5) H 01/21/22 10:00 Amorphous Sediment Not Reportable 01/21/22 10:00 Urine Bacteria Trace /hpf (NONE) 01/21/22 10:00 Urine Mucus 2+ /hpf 01/21/22 10:00 Discharge Plan Discharge Patient Disposition: Home Clinical Impression: Anxiety Condition: Stable Prescriptions: New lorazepam 2 mg tablet 1 mg PO Q8H PRN (Reason: anxiety) Qty: 14 0RF No Action vitamin B complex [B Complex-Vitamin B12] Tablet 1 tab PO DAILY@0700 0RF medroxyprogesterone [Depo-Provera] 150 mg/mL suspension 150 mg IM .COMPLEX Qty: 1 3RF Rx Instructions: 150 mg IM every 90 days; sodium chloride [Saline Mist] 0.65 % aerosol,spray 1 spray intranasal BID PRN (Reason: Nasal Congestion) 0RF aspirin [Adult Aspirin Regimen] 81 mg tablet,delayed release (DR/EC) 81 mg PO DAILY 0RF ipratropium-albuterol 0.5 mg-3 mg(2.5 mg base)/3 mL solution for nebulization 3 ml inhalation QID PRN (Reason: wheezing) Qty: 15 1RF multivitamin Tablet 1 tab PO DAILY 0RF montelukast [Singulair] 10 mg tablet 10 mg PO DAILY 0RF Candicidal 100 mg-150 mg- 50 mg-150 mg capsule 1 cap PO DAILY 0RF clobetasol 0.05 % ointment 1 applic topical BID PRN (Reason: Rash) Qty: 45 1RF divalproex [Depakote] 250 mg tablet,delayed release (DR/EC) 500 mg PO .q hs Qty: 30 0RF Rx Instructions: For 3 nights, take one at bedtime, then 2 at bedtime hydroxyzine pamoate 50 mg capsule 50 mg PO BID PRN (Reason: anxiety) Qty: 30 1RF Rx Instructions: Take one capsule up to twice a day, if needed for anxiety; not within 4 hours of promethazine Combivent Respimat 20-100 mcg/actuation mist See Rx Instructions .ROUTE .COMPLEX Qty: 4 5RF Dose Instruction: INHALE 1 PUFF INTO LUNGS EVERY 4 HOURS NEEDED FOR COPD. SPACE EVENLY DURING WAKING HOURS Rx Instructions: INHALE 1 PUFF INTO LUNGS EVERY 4 HOURS NEEDED FOR COPD. SPACE EVENLY DURING WAKING HOURS promethazine 25 mg tablet See Rx Instructions .ROUTE .COMPLEX Qty: 120 2RF Dose Instruction: TAKE ONE TABLET BY MOUTH EVERY 6 HOURS NEEDED FOR PAIN, NAUSEA, AND VOMITING Rx Instructions: TAKE ONE TABLET BY MOUTH EVERY 6 HOURS NEEDED FOR PAIN, NAUSEA, AND VOMITING diclofenac sodium [Voltaren Arthritis Pain] 1 % gel 4 g topical QID Qty: 100 0RF Thc Gummies 1 tab PO DAILY 0RF Symbicort 80-4.5 mcg/actuation HFA aerosol inhaler 2 inh inhalation BID 0RF Discharge Orders: Discharge ED (Routine); Ordered 01/21/22 Ordered By: Florinda Monsivais Referrals: Alexi Medel MD [Primary Care Provider] - Coding 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
[2022-01-21 08:32] VITALS: BP 155/106; PULSE 97; RESP 18; TEMP 37.1; O2SAT 95
[2022-01-21] MEDS: ondansetron 4 MG Tablet PO (08:32)
[2022-01-21 09:21] LABS: Basophils # 0.1 10^3/uL (0.0-0.1); Basophils % 0.9 %; Eosinophils # 0.1 10^3/uL (0.0-0.8); Eosinophils % 1.1 %; Hematocrit 42.8 % (37.0-47.0); Hemoglobin 14.3 g/dL (11.5-15.3); Lymphocytes # 2.1 10^3/uL (0.8-4.8); Lymphocytes % 20.4 %; Mean Corpuscular HGB Conc 33.4 g/dL (30.0-36.0); Mean Corpuscular Hemoglobin 29.1 pg (28.0-34.0); Mean Corpuscular Volume 87.2 fl (81-99); Mean Platelet Volume 10.4 fL (7.4-10.4); Monocytes # 0.8 10^3/uL (0.2-0.9); Monocytes % 7.6 %; Neutrophils # 7.29 10^3/uL (1.8-7.7); Neutrophils % 69.7 %; Nucleated Red Blood Cells % 0 %; Platelet Count 310 10^3/cmm (130-400); Red Blood Count 4.91 10^6/uL (4.1-5.3); Red Cell Distribution Width 11.9 % (12.1-15.1); White Blood Count 10.5 10^3/uL (4.0-10.0)
[2022-01-21 09:30] LABS: HCG, Serum Qual Negative (Negative)
[2022-01-21 09:37] LABS: Alanine Aminotransferase 19 U/L (0-33); Albumin Level 4.6 g/dL (3.5-5.2); Alkaline Phosphatase 87 IU/L (35-105); Anion Gap 16.6 (5-19); Aspartate Amino Transferase 17 U/L (0-32); Blood Urea Nitrogen 7 mg/dL (6-20); Calcium 8.7 mg/dL (8.5-10.5); Carbon Dioxide 20 mmol/L (22-29); Chloride 107 mmol/L (98-107); Globulin 3.1 g/dL (1.3-4.6); Glomerular Filtration Rate 92.2 mL/min (90-130); Glucose 110 mg/dL (65-115); Lipase 24 U/L (13-60); Osmolality Calculated 289 mOsm/kg (285-295); Potassium 3.6 mmol/L (3.5-5.1); Sodium 140 mmol/L (136-145); Total Bilirubin 0.5 mg/dL (0.15-1.2); Total Protein 7.7 g/dL (6.6-8.7)
[2022-01-21 10:30] LABS: Bilirubin Urine Neg (Negative); Blood Urine Neg (Negative); Glucose Urine UA Norm (Normal); Ketones Urine 1+ (Negative); Leukocyte Esterase Urine Negative (Negative); Nitrate Urine Negative (Negative); Protein Urine Trace (Negative); Urine Appearance Clear (CLEAR); Urine Color Dark Yellow (Yellow); Urobilinogen Urine Norm (Negative); pH Urine 5 (5-7)
[2022-01-21 10:31] LABS: Add Urine Culture? No; Add Urine Microscopic? YES; Bacteria Urine TRACE /hpf; Mucus Urine 2+ /hpf; Squamous Epithelial Cell Urine 0-4 /hpf (0-5); WBC Urine RARE /hpf (0-5)
[2022-01-21 11:09] VITALS: BP 152/108; PULSE 92; RESP 22; O2SAT 97
== END 2022-01-21 11:00 | disposition home or self-care (01) ==
PROVIDERS: Emergency Provider Physician Assistant; PCP Family Medicine Adult Medicine
DX: F41.9 Anxiety disorder, unspecified (principal); K58.9 Irritable bowel syndrome, unspecified
CPT/HCPCS: 36415; 80053; 81001; 83690; 84703; 85025; 99283; Q0162

== ENCOUNTER 2022-01-30 13:31 | Emergency (ER) | payer MEDICARE, MEDICAID, SELFPAY ==
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
[2022-01-30 13:40] VITALS: BMI 31.1
[2022-01-30 13:49] VITALS: BP 136/86; PULSE 101; RESP 22; TEMP 36.4; O2SAT 99
[2022-01-30 14:03] VITALS: BP 130/97; PULSE 98; RESP 18; TEMP 36.5; O2SAT 98
--- NOTE | 2022-01-30 14:06 | PC.NURSE ---
tearful, anxious, crying, denies SI or HI.
[2022-01-30] MEDS: LORazepam 0.5 mg Tablet PO (14:50)
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
--- NOTE | 2022-01-30 15:06 | PC.NURSE ---
Appears more relaxed since ativan admin, though she states she is still extremely anxious. Currently up the BR, taking fluids w/o N/V. Cooperative.
[2022-01-30] MEDS: lidocaine 2% viscous 15 ML, aluminum-mag hydrox-simethicon 30 ML, sucralfate oral liq 1 GM PO ×2 (15:58→17:39)
[2022-01-30] MEDS: ondansetron 2 mg/ML SDV 2 mL 4 MG IM (17:44)
[2022-01-30 18:10] VITALS: BP 136/81; PULSE 71; RESP 18; TEMP 36.6; O2SAT 96
== END 2022-01-30 18:00 | disposition home or self-care (01) ==
PROVIDERS: Emergency Provider Emergency Medicine; PCP Family Medicine Adult Medicine
DX: F41.9 Anxiety disorder, unspecified (principal)
CPT/HCPCS: 96372; 99283; J2405

== ENCOUNTER 2022-02-01 09:57 | Emergency (ER) | payer MEDICARE, MEDICAID, SELFPAY ==
[2022-02-01 10:00] VITALS: BP 133/92; PULSE 109; RESP 20; TEMP 36.7; O2SAT 98; BMI 31.1
--- NOTE | 2022-02-01 10:14 | ED_ITS ---
HPI - Nausea/Vomiting/Diarrhea General: Chief complaint: Nausea/Vomiting/Diarrhea Stated complaint: N/V/D Time Seen by Provider: 02/01/22 10:02 Source: patient Mode of arrival: ambulatory Limitations: no limitations History of Present Illness: Patient is a 41-year-old female presents to ED today with a complaint of nausea, vomiting, diarrhea that began just a few hours ago. Patient tells me she was driving when she began feeling nauseous. She states she has had approximately 3-4 episodes of nonbloody emesis. She has also had 3-4 episodes of watery diarrhea. She does complain of some left lower quadrant abdominal pain but states she has had this for many many months now. She tells me she was [facility] and was told she had endometriosis. She has also been told she has had colitis previously. Ultimately she tells me her pain currently is not any worse than her normal discomfort. She has not been running fevers. No sick contacts. No poor food exposures. Of note patient states she did notice some type of insect bite to her perineal region yesterday and thinks this could be contributing to her symptoms today. MD elicited complaint: nausea, vomiting, diarrhea and abdominal pain Onset (ago): hour(s) Description of vomiting: bilious Description of diarrhea: watery Associated nausea: Yes Associated abdominal pain: Yes Location of pain: LLQ Relieving factors: none Associated symtoms: Reports no associated symptoms and nausea; Denies chest pain, dysuria, fatigue, headache(s) or malaise Review of Systems Const: Denies: fever(s), chills, body aches, fatigue or malaise Card: Denies: chest pain Resp: Denies: dyspnea GI: Reports: abdominal pain (reports this is chronic), nausea, vomiting and diarrhea; Denies: hematemesis, hematochezia or melena : Denies: flank pain, dysuria, hematuria, vaginal bleeding or vaginal discharge Musc: Denies: neck pain, back pain, extremity pain or joint pain Skin/Breast: Denies: rash Neuro: Denies: headache(s), numbness in extremities, weakness in extremities or sensory changes PFS ED PFSH: Medical History Anxiety and depression Reports anxiety and depression in the past and is currently just on trazodone to help her sleep. Inflammatory bowel disease Initially thought it was Crohn's--follows with chassis engineer Dr. Espinoza in [place]. She states that she was told in 2020 she no longer has Cr ohn's disease and it is just severe IBS Major depressive disorder, recurrent Following information retrieved and edited from Behavior Assessment Report on 12/26/21: She presented with loose associations, tangential thinking, perseveration, and had difficulty participating in the assessment interview. She was agitated, spoke loudly, was tearful then angry, and moved in her seat continuously for most of the assessment interview, though she became calmer as compressed yeast supervisor provided supportive, empathic listening. Rekha was dressed in clean, casual clothing appropriate for today's situation and weather. No pertinent past medical history Denies diabetes, hypertension, asthma, seizures, DVT/PE PCP: Dr. Medel Post traumatic stress disorder (PTSD) Seizures Reports having had seizures in the past the last was in 2018. She is not currently on any medication. Surgical History S/P laparoscopic cholecystectomy 2006 Status post delivery X 2 ---> 2005, 2006 Status post tubal ligation 2006--laparoscopic tubal 2 months after her Family History Father Hyperlipidemia Hypertension Mother Hypertension Stroke Breast cancer diagnosed at age 70 Family/Other Ovarian cancer paternal aunt, age at diagnosis unknown Denies family history of Colon cancer Diabetes Heart disease Anesthesia complication Bleeding disorder Uterine cancer Thyroid condition Social History Marital status: Life Partner Current occupational status: unemployed Physical Exam Const: COMMON NORMALS: patient oriented x3, no limitations, alert and well nourished GENERAL APPEARANCE: cooperative and anxious NUTRITIONAL APPEARANCE: overweight ORIENTATION/CONSCIOUSNESS: Yes awake, Yes oriented to person, Yes oriented to place and Yes oriented to time HENMT: COMMON NORMALS: normocephalic and atraumatic HEAD & SCALP: normocephalic and atraumatic Resp: COMMON NORMALS: normal respiratory effort and clear to auscultation bilaterally AUSCULTATION: clear to auscultation bilaterally Cardio: COMMON NORMALS: regular rate and regular rhythm RATE: regular rate RHYTHM: regular rhythm GI: COMMON NORMALS: Normal to inspection, nondistended, normoactive bowel s ounds present, Soft to palpation, No hepatosplenomegaly present and no masses INSPECTION: Yes normal to inspection PALPATION: Yes Soft to palpation, Yes Tenderness to palpation present (GI) Details: LLQ, No Guarding due to palpation present (GI), No Rigid due to palpation and Yes No hepatosplenomegaly present : COMMON NORMALS: Yes no CVA tenderness BLADDER/KIDNEY EXAM: Yes no CVA tenderness Back/Pelvis: COMMON NORMALS: no CVA tenderness, thoracic and lumbar spine normal to inspection, no thoracic nor lumbar tenderness and thoraco-lumbar ROM normal Extremity: COMMON NORMALS: normal to inspection GENERAL: Yes normal exam e xcept as noted Neuro: GERBER COMA SCALE: document GCS findings Mcallister coma scale eye opening: Spontaneous Mcallister coma scale verbal response: Orientated Mcallister coma scale motor response: Obey commands Gerber coma scale total score: 15 COMMON NORMALS: patient oriented x3, moves all extremities, no focal motor deficits, no sensory deficits noted and gait normal SENSORIUM/ORIENTATION: Yes alert, Yes oriented to person, Yes oriented to place and Yes oriented to time SPEECH: speech normal GAIT: Yes Normal gait present Skin: COMMON NORMALS: no rashes or lesions noted GENERAL SKIN EXAM: no rashes or lesions noted Course Vital Signs: Vital signs: Vital Signs Temperature 98.0 F 02/01/22 10:00 Pulse Rate 98 02/01/22 11:08 Respiratory Rate 18 02/01/22 11:08 Blood Pressure 139/91 02/01/22 11:08 Pulse Oximetry 99 02/01/22 11:08 MDM - Nausea/Vomiting/Diarrhea Medical Decision Making Patient is non-ill, nontoxic appearing. She has not had any episodes of vomiting while here. She has had one episode of watery diarrhea. She complains of left lower quadrant pain however states this is chronic and has been present over the past 6 months. She states her pain today is not any different than her chronic pain. Abdomen is soft and nonsurgical on exam. Patient's vital signs are stable. She does have a white count of 19.5 but I think is most likely transient related to stress of vomiting all morning. Remainder of blood work is unremarkable. DDx includes viral gastroenteritis, flareup of her diarrhea prominent IBS, mild coliits, etc. Recommend close observation at home over the next 24 to 48 hours. Return to ED precautions were verbally given to patient. She already has antiemetics she may take as needed at home. Lab Data : 02/01/22 10:00 02/01/22 10:00 Laboratory Results WBC 19.5 10^3/uL (4.0-10.0) H 02/01/22 10:00 RBC 5.56 10^6/uL (4.1-5.3) H 02/01/22 10:00 Hgb 16.4 g/dL (11.5-15.3) H 02/01/22 10:00 Hct 48.9 % (37.0-47.0) H 02/01/22 10:00 MCV 87.9 fl (81-99) 02/01/22 10:00 MCH 29.5 pg (28.0-34.0) 02/01/22 10:00 MCHC 33.5 g/dL (30.0-36.0) 02/01/22 10:00 RDW 11.5 % (12.1-15.1) L 02/01/22 10:00 Plt Count 412 10^3/cmm (130-400) H 02/01/22 10:00 MPV 11.1 fL (7.4-10.4) H 02/01/22 10:00 Neut % (Auto) 77.2 % 02/01/22 10:00 Lymph % (Auto) 14.5 % 02/01/22 10:00 [place] % (Auto) 6.0 % 02/01/22 10:00 Eos % (Auto) 1.3 % 02/01/22 10:00 Baso % (Auto) 0.4 % 02/01/22 10:00 Neut # (Auto) 15.08 10^3/uL (1.8-7.7) H 02/01/22 10:00 Lymph # (Auto) 2.8 10^3/uL (0.8-4.8) 02/01/22 10:00 [place] # (Auto) 1.2 10^3/uL (0.2-0.9) H 02/01/22 10:00 Eos # (Auto) 0.3 10^3/uL (0.0-0.8) 02/01/22 10:00 Baso # (Auto) 0.1 10^3/uL (0.0-0.1) 02/01/22 10:00 Nucleated RBC % (auto) 0 % 02/01/22 10:00 Nucleated RBCs # 0.0 /100WBC 02/01/22 10:00 Sodium 139 mmol/L (136-145) 02/01/22 10:00 Potassium 4.1 mmol/L (3.5-5.1) 02/01/22 10:00 Chloride 102 mmol/L (98-107) 02/01/22 10:00 Carbon Dioxide 22 mmol/L (22-29) 02/01/22 10:00 Anion Gap 19.1 (5-19) H 02/01/22 10:00 BUN 9 mg/dL (6-20) 02/01/22 10:00 Creatinine 0.8 mg/dL (0.5-0.9) 02/01/22 10:00 GFR Calculation 79.0 mL/min (90-130) L 02/01/22 10:00 Glucose 152 mg/dL (65-115) H 02/01/22 10:00 Calculated Osmolality 290 mOsm/kg (285-295) 02/01/22 10:00 Calcium 10.4 mg/dL (8.5-10.5) 02/01/22 10:00 Total Bilirubin 0.4 mg/dL (0.15-1.2) 02/01/22 10:00 AST 19 U/L (0-32) 02/01/22 10:00 ALT 18 U/L (0-33) 02/01/22 10:00 Alkaline Phosphatase 116 IU/L (35-105) H 02/01/22 10:00 Total Protein 8.4 g/dL (6.6-8.7) 02/01/22 10:00 Albumin 5.3 g/dL (3.5-5.2) H 02/01/22 10:00 Globulin 3.1 g/dL (1.3-4.6) 02/01/22 10:00 Lipase 93 U/L (13-60) H 02/01/22 10:00 HCG, Qual Negative (Negative) 02/01/22 10:00 Urine Color Straw (Yellow) 02/01/22 12:30 Urine Appearance Clear (CLEAR) 02/01/22 12:30 Urine pH 5 (5-7) 02/01/22 12:30 Ur Specific [place] 1.010 (1.005-1.030) 02/01/22 12:30 Urine Protein Neg (Negative) 02/01/22 12:30 Urine Glucose (UA) Norm (Normal) 02/01/22 12:30 Urine Ketones 1+ (Negative) H 02/01/22 12:30 Urine Blood Neg (Negative) 02/01/22 12:30 Urine Nitrate Negative (Negative) 02/01/22 12:30 Urine Bilirubin Neg (Negative) 02/01/22 12:30 Urine Urobilinogen Norm mg/dL (Negative) 02/01/22 12:30 Ur Leukocyte Esterase Negative (Negative) 02/01/22 12:30 Discharge Plan Discharge Patient Disposition: Home Clinical Impression: Viral gastroenteritis Condition: Stable Prescriptions: No Action vitamin B complex [B Complex-Vitamin B12] Tablet 1 tab PO DAILY@0700 0RF sodium chloride [Saline Mist] 0.65 % aerosol,spray 1 spray intranasal BID PRN (Reason: Nasal Congestion) 0RF aspirin [Adult Aspirin Regimen] 81 mg tablet,delayed release (DR/EC) 81 mg PO DAILY 0RF ipratropium-albuterol 0.5 mg-3 mg(2.5 mg base)/3 mL solution for nebulization 3 ml inhalation QID PRN (Reason: wheezing) Qty: 15 1RF multivitamin Tablet 1 tab PO DAILY 0RF montelukast [Singulair] 10 mg tablet 10 mg PO DAILY 0RF Candicidal 100 mg-150 mg- 50 mg-150 mg capsule 1 cap PO DAILY 0RF clobetasol 0.05 % ointment 1 applic topical BID PRN (Reason: Rash) Qty: 45 1RF Saccharomyces boulardii [Daily Probiotic (S. boulardii)] 250 mg capsule 250 mg PO BID 0RF medroxyprogesterone [Depo-Provera] 150 mg/mL suspension 150 mg IM .COMPLEX Qty: 1 3RF Rx Instructions: 150 mg IM every 90 days; divalproex [Depakote] 250 mg tablet,delayed release (DR/EC) 500 mg PO .q hs Qty: 30 0RF Rx Instructions: For 3 nights, take one at bedtime, then 2 at bedtime hydroxyzine pamoate 50 mg capsule 50 mg PO BID PRN (Reason: anxiety) Qty: 30 1RF Rx Instructions: Take one capsule up to twice a day, if needed for anxiety; not within 4 hours of promethazine Combivent Respimat 20-100 mcg/actuation mist See Rx Instructions .ROUTE .COMPLEX Qty: 4 5RF Dose Instruction: INHALE 1 PUFF INTO LUNGS EVERY 4 HOURS NEEDED FOR COPD. SPACE EVENLY DURING WAKING HOURS Rx Instructions: INHALE 1 PUFF INTO LUNGS EVERY 4 HOURS NEEDED FOR COPD. SPACE EVENLY DURING WAKING HOURS promethazine 25 mg tablet See Rx Instructions .ROUTE .COMPLEX Qty: 120 2RF Dose Instruction: TAKE ONE TABLET BY MOUTH EVERY 6 HOURS NEEDED FOR PAIN, NAUSEA, AND VOMITING Rx Instructions: TAKE ONE TABLET BY MOUTH EVERY 6 HOURS NEEDED FOR PAIN, NAUSEA, AND VOMITING lorazepam 2 mg tablet 1 mg PO Q8H PRN (Reason: anxiety) 30 Days Qty: 45 0RF Symbicort 80-4.5 mcg/actuation HFA aerosol inhaler 2 inh inhalation BID 0RF ondansetron 4 mg tablet,disintegrating 4 mg PO Q8H PRN (Reason: nausea and vomiting) Qty: 15 0RF Discharge Orders: Discharge ED (Routine); Ordered 02/01/22 Ordered By: Florinda Monsivais Referrals: Alexi Medel MD [Primary Care Provider] - Patient Instructions: Gastroenteritis (DC) Coding Level of Care Code ED Guest Room Inspector for Chg Fwd Exam Comprehensive
[2022-02-01 10:33] LABS: Basophils # 0.1 10^3/uL (0.0-0.1); Basophils % 0.4 %; Eosinophils # 0.3 10^3/uL (0.0-0.8); Eosinophils % 1.3 %; Hematocrit 48.9 % (37.0-47.0); Hemoglobin 16.4 g/dL (11.5-15.3); Lymphocytes # 2.8 10^3/uL (0.8-4.8); Lymphocytes % 14.5 %; Mean Corpuscular HGB Conc 33.5 g/dL (30.0-36.0); Mean Corpuscular Hemoglobin 29.5 pg (28.0-34.0); Mean Corpuscular Volume 87.9 fl (81-99); Mean Platelet Volume 11.1 fL (7.4-10.4); Monocytes # 1.2 10^3/uL (0.2-0.9); Neutrophils # 15.08 10^3/uL (1.8-7.7); Neutrophils % 77.2 %; Nucleated Red Blood Cells % 0 %; Platelet Count 412 10^3/cmm (130-400); Red Blood Count 5.56 10^6/uL (4.1-5.3); Red Cell Distribution Width 11.5 % (12.1-15.1); White Blood Count 19.5 10^3/uL (4.0-10.0)
[2022-02-01] MEDS: LORazepam 2 mg/mL INJ 1 mL 1 MG IVP (10:34)
[2022-02-01] MEDS: ondansetron 2 mg/ML SDV 2 mL 4 MG IVP (10:34)
[2022-02-01] MEDS: sodium chloride 0.9% 1,000 ML 999 ML IV (10:34)
[2022-02-01 11:07] LABS: HCG, Serum Qual Negative (Negative)
[2022-02-01 11:08] VITALS: BP 139/91; PULSE 98; RESP 18; O2SAT 99
[2022-02-01 11:14] LABS: Alanine Aminotransferase 18 U/L (0-33); Albumin Level 5.3 g/dL (3.5-5.2); Alkaline Phosphatase 116 IU/L (35-105); Blood Urea Nitrogen 9 mg/dL (6-20); Calcium 10.4 mg/dL (8.5-10.5); Carbon Dioxide 22 mmol/L (22-29); Chloride 102 mmol/L (98-107); Globulin 3.1 g/dL (1.3-4.6); Glucose 152 mg/dL (65-115); Lipase 93 U/L (13-60); Osmolality Calculated 290 mOsm/kg (285-295); Sodium 139 mmol/L (136-145); Total Bilirubin 0.4 mg/dL (0.15-1.2); Total Protein 8.4 g/dL (6.6-8.7)
[2022-02-01 11:18] LABS: Anion Gap 19.1 (5-19); Aspartate Amino Transferase 19 U/L (0-32); Potassium 4.1 mmol/L (3.5-5.1)
[2022-02-01] MEDS: diphenhydrAMINE 50 mg/mL SDV 1mL IVP (11:39)
[2022-02-01 12:41] LABS: Add Urine Microscopic? NO; Charge for UA Resulting for Rev
[2022-02-01 13:03] LABS: Bilirubin Urine Neg (Negative); Blood Urine Neg (Negative); Glucose Urine UA Norm (Normal); Ketones Urine 1+ (Negative); Nitrate Urine Negative (Negative); Protein Urine Neg (Negative); Urine Appearance Clear (CLEAR); Urine Color Straw (Yellow); pH Urine 5 (5-7)
[2022-02-01 13:04] LABS: Leukocyte Esterase Urine Negative (Negative); Urobilinogen Urine Norm (Negative)
== END 2022-02-01 13:46 | disposition home or self-care (01) ==
PROVIDERS: Emergency Provider Physician Assistant; PCP Family Medicine Adult Medicine
DX: A08.4 Viral intestinal infection, unspecified (principal)
CPT/HCPCS: 80053; 81003; 83690; 84703; 85025; 96361; 96374; 96375; 99284; J1200; J2060; J2405; J7030

== ENCOUNTER 2022-02-18 18:30 | Emergency (ER) | payer MEDICARE, MEDICAID, SELFPAY ==
[2022-02-18 18:41] VITALS: BP 112/75; PULSE 84; RESP 16; TEMP 36.3; O2SAT 95
--- NOTE | 2022-02-18 19:07 | W.ED.SKABFB ---
HPI - Skin/Abscess/Foreign Bdy General: Chief complaint: Skin/Abscess/Foreign Body Stated complaint: SPIDER BITE NECK Time Seen by Provider: 02/18/22 18:35 History of Present Illness: Patient is a 41-year-old female comes to the ED with lesion on neck. Symptoms started this morning when she woke up. Patient suspects that she had a spider bite and that is what is causing symptoms. She has a red tender nodule and pruritic rash located on the back of her neck. She denies any other symptoms. Associated symptoms: Deny chills, fever(s), nausea or vomiting Review of Systems Const: Denies: fever(s), chills or fatigue Eyes: Denies: change in vision or eye discomfort ENMT: Denies: throat pain, odynophagia, nasal discharge or nasal congestion Card: Denies: chest pain, palpitations, edema, swelling of feet/ankles, dyspnea on exertion or orthopnea Resp: Denies: dyspnea, productive cough or non-productive cough GI: Denies: abdominal pain, nausea, vomiting, diarrhea, constipation or hematochezia : Denies: flank pain, dysuria or hematuria Musc: Denies: neck pain, back pain or extremity swelling Skin/Breast: Reports: rash (Pruritic red rash around tender nodule.) and new lesions (Sore tender nodule on neck) Neuro: Denies: headache(s), numbness in extremities or weakness in extremities PFSH ED PFSH: Medical History Anxiety and depression Reports anxiety and depression in the past and is currently just on trazodone to help her sleep. Inflammatory bowel disease Initially thought it was Crohn's--follows with senior laboratory technician Dr. Espinoza in [place]. She states that she was told in 2020 she no longer has Crohn's disease and it is just severe IBS Major depressive disorder, recurrent Following information retrieved and edited from Behavior Assessment Report on 12/26/21: She presented with loose associations, tangential thinking, perseveration, and had difficulty participating in the assessment interview. She was agitated, spoke loudly, was tearful then angry, and moved in her seat continuously for most of the assessment interview, though she became calmer as aoc airspace control officer provided supportive, empathic listening. Rekha was dressed in clean, casual clothing appropriate for today's situation and weather. No pertinent past medical history Denies diabetes, hypertension, asthma, seizures, DVT/PE PCP: Dr. Medel Post traumatic stress disorder (PTSD) Seizures Reports having had seizures in the past the last was in 2018. She is not currently on any medication. Surgical History S/P laparoscopic cholecystectomy 2006 Status post delivery X 2 ---> 2005, 2006 Status post tubal ligation 2006--laparoscopic tubal 2 months after her Family History Father Hyperlipidemia Hypertension Mother Hypertension Stroke Breast cancer diagnosed at age 70 Family/Other Ovarian cancer paternal aunt, age at diagnosis unknown Denies family history of Colon cancer Diabetes Heart disease Anesthesia complication Bleeding disorder Uterine cancer Thyroid condition Social History Marital status: Life Partner Current occupational status: unemployed Physical Exam Const: COMMON NORMALS: no acute distress, patient oriented x3, healthy appearing and alert GENERAL APPEARANCE: cooperative and comfortable HENMT: COMMON NORMALS: normocephalic HEAD & SCALP: normocephalic MOUTH: Normal oral and palatal mucosa present THROAT: posterior oropharynx normal and uvula midline Neck/C-Spine: COMMON NORMALS: supple GENERAL: Yes normal visual inspection Resp: COMMON NORMALS: normal respiratory effort, No retractions, No use of accessory muscles and clear to auscultation bilaterally AUSCULTATION: clear to auscultation bilaterally Cardio: COMMON NORMALS: regular rate, regular rhythm, S1 normal heart sound present, S2 normal heart sound present, No gallops present (Cardio), No clicks present (Cardio), No murmurs present (Cardio) and Peripheral pulses 2+ throughout RATE: regular rate RHYTHM: regular rhythm HEART SOUNDS: S1 normal heart sound present and S2 normal heart sound present PERIPHERAL PULSES: Peripheral pulses 2+ throughout GI: COMMON NORMALS: Normal to inspection, nondistended, normoactive bowel sounds present, Soft to palpation, non-tender and no masses PALPATION: Yes Soft to palpation : COMMON NORMALS: Yes no CVA tenderness BLADDER/KIDNEY EXAM: Yes no CVA tenderness Back/Pelvis: COMMON NORMALS: no CVA tenderness Extremity: COMMON NORMALS: normal to inspection Neuro: COMMON NORMALS: patient oriented x3 and moves all extremities SENSORIUM/ORIENTATION: Yes alert Skin: NARRATIVE SKIN EXAM: Posterior aspect of neck?red tender nodule with some surrounding raised pruritic erythemic hives-like rash. Possible start of a bug/spider bite may be some developing dermatitis as well. Course Vital Signs: Vital signs: Vital Signs Temperature 97.3 F L 02/18/22 18:41 Pulse Rate 84 02/18/22 18:41 Respiratory Rate 16 02/18/22 18:41 Blood Pressure 112/75 02/18/22 18:41 Pulse Oximetry 95 02/18/22 18:41 MDM - Skin/Abscess/Foreign Bdy Medicial Decision Making Patient is a 41-year-old female who comes to the ED with a lesion on the back of neck. Patient woke up with a red tender nodule and also has a rash around it that is erythemic and pruritic. Exam findings show possible start of a bug/spider bite with some surrounding dermatitis. Vitals are stable. Patient is stable for outpatient treatment and discharge home. She was sent home with a prescription for Bactrim and some steroid cream. She was told to follow-up with her PCP in a week for reevaluation. Return ED precautions given. Patient understood and agreed with plan. Discharge Plan Discharge Patient Disposition: Home Clinical Impression: Bug bite Qualifiers: Encounter type: initial encounter Qualified Code(s): W57.XXXA - Bitten or stung by nonvenomous insect and other nonvenomous arthropods, initial encounter Condition: Stable Prescriptions: New Bactrim DS 800-160 mg tablet 1 tab PO BID 5 Days Qty: 10 0RF triamcinolone acetonide 0.1 % cream 1 applic topical BID PRN (Reason: rash) Qty: 15 0RF No Action vitamin B complex [B Complex-Vitamin B12] Tablet 1 tab PO DAILY@0700 0RF sodium chloride [Saline Mist] 0.65 % aerosol,spray 1 spray intranasal BID PRN (Reason: Nasal Congestion) 0RF aspirin [Adult Aspirin Regimen] 81 mg tablet,delayed release (DR/EC) 81 mg PO DAILY 0RF ipratropium-albuterol 0.5 mg-3 mg(2.5 mg base)/3 mL solution for nebulization 3 ml inhalation QID PRN (Reason: wheezing) Qty: 15 1RF multivitamin Tablet 1 tab PO DAILY 0RF Candicidal 100 mg-150 mg- 50 mg-150 mg capsule 1 cap PO DAILY 0RF clobetasol 0.05 % ointment 1 applic topical BID PRN (Reason: Rash) Qty: 45 1RF Saccharomyces boulardii [Daily Probiotic (S. boulardii)] 250 mg capsule 250 mg PO BID 0RF medroxyprogesterone [Depo-Provera] 150 mg/mL suspension 150 mg IM .COMPLEX Qty: 1 3RF Rx Instructions: 150 mg IM every 90 days; hydroxyzine pamoate 50 mg capsule 50 mg PO BID PRN (Reason: anxiety) Qty: 30 1RF Rx Instructions: Take one capsule up to twice a day, if needed for anxiety; not within 4 hours of promethazine divalproex [Depakote] 250 mg tablet,delayed release (DR/EC) 500 mg PO .q hs Qty: 60 2RF Rx Instructions: For 3 nights, take one at bedtime, then 2 at bedtime montelukast [Singulair] 10 mg tablet 10 mg PO DAILY Qty: 30 5RF ondansetron 4 mg tablet,disintegrating 4 mg PO Q8H PRN (Reason: nausea and vomiting) Qty: 30 1RF lorazepam 2 mg tablet 1 mg PO Q8H PRN (Reason: anxiety) 30 Days Qty: 45 2RF Rx Instructions: refill on or after 30 day intervals Combivent Respimat 20-100 mcg/actuation mist See Rx Instructions .ROUTE .COMPLEX Qty: 4 5RF Dose Instruction: INHALE 1 PUFF INTO LUNGS EVERY 4 HOURS NEEDED FOR COPD. SPACE EVENLY DURING WAKING HOURS Rx Instructions: INHALE 1 PUFF INTO LUNGS EVERY 4 HOURS NEEDED FOR COPD. SPACE EVENLY DURING WAKING HOURS promethazine 25 mg tablet See Rx Instructions .ROUTE .COMPLEX Qty: 120 2RF Dose Instruction: TAKE ONE TABLET BY MOUTH EVERY 6 HOURS NEEDED FOR PAIN, NAUSEA, AND VOMITING Rx Instructions: TAKE ONE TABLET BY MOUTH EVERY 6 HOURS NEEDED FOR PAIN, NAUSEA, AND VOMITING Symbicort 80-4.5 mcg/actuation HFA aerosol inhaler 2 inh inhalation BID 0RF Discharge Orders: Discharge ED (Routine); Ordered 02/18/22 Ordered By: Nikos Drew Referrals: Alexi Medel MD [Primary Care Provider] - Discharge Diet: Regular Discharge Activity: Increase activity as tolerated Patient Instructions: Insect Bite or Sting (ED) Activity Restrictions/Additional Instructions: Follow-up with medical provider as directed in the next 5 to 7 days reevaluation.Take medications as prescribed. Return to the ER or your medical provider if condition worsens. Please read and understand discharge instructions. Thank you for choosing [facility] for your healthcare needs today. Please realize this is an emergency room and that we are providing you with a medical screening exam and this may not be complete and all inclusive of all the testing and or work up that you may need to determine your ailment or severity of your illness. It is very important that you follow up as instructed or that you return to the Emergency Department should you have concerns or if your condition changes or worsens in any way. Coding Level of Care Code ED Chrome Plater Helper for Ranjeet Lamb Exam Comprehensive
[2022-02-18] MEDS: sulfamethoxazole-trimeth DS 160-800 mg Tablet 1 TAB PO (19:25)
== END 2022-02-18 19:31 | disposition home or self-care (01) ==
PROVIDERS: Emergency Provider Physician Assistant; PCP Family Medicine Adult Medicine
DX: T63.301A Toxic effect of unspecified spider venom, accidental (unintentional), initial encounter (principal); L25.8 Unspecified contact dermatitis due to other agents
CPT/HCPCS: 99284

== ENCOUNTER 2022-04-28 21:42 | Emergency (ER) | payer MEDICARE, MEDICAID, SELFPAY ==
[2022-04-28 21:51] VITALS: BP 120/88; PULSE 95; RESP 18; TEMP 36.7; O2SAT 97; BMI 31.1
--- NOTE | 2022-04-28 22:12 | W.ED.ABDPA2 ---
HPI - Abdominal Pain General: Chief Complaint: Abdominal Pain Stated Complaint: left abd pain Time Seen by Provider: 04/28/22 22:01 Source: patient Mode of arrival: ambulatory Limitations: no limitations History of Present Illness: 42-year-old female who states that she had found out her was having an affair on her 5 days ago. She states she has been extremely anxious and crying and in the position she been having abdominal pain she states from crying so much. States she hurts in her lower abdomen. States she has had some feelings of worthlessness but she states she is talked to her and she is for gave him and she is not suicidal or homicidal at this time. She has had no suicidal thoughts or plans. Associated Symptoms: Denies chills, dysuria and fever(s) Review of Systems Const: Denies: fever(s), chills, body aches or change in appetite Eyes: Denies: blurry vision or eye discomfort ENMT: Denies: throat pain or dental pain Card: Denies: chest pain Resp: Denies: dyspnea GI: Reports: abdominal pain : Denies: dysuria Musc: Denies: neck pain or back pain Skin/Breast: Denies: rash Neuro: Denies: headache(s) Psych: Reports: anxiety Enrique/Lymph: Denies: easy bruising All/Imm: Denies: urticaria PFSH ED PFSH: Medical History Anxiety and depression Reports anxiety and depression in the past and is currently just on trazodone to help her sleep. 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 Espinoza in [place]. She states that she was told in 2020 she no longer has Crohn's disease and it is just severe IBS Major depressive disorder, recurrent Following information retrieved and edited from Behavior Assessment Report on 12/26/21: She presented with loose associations, tangential thinking, perseveration, and had difficulty participating in the assessment interview. She was agitated, spoke loudly, was tearful then angry, and moved in her seat continuously for most of the assessment interview, though she became calmer as damage assessor provided supportive, empathic listening. Rekha was dressed in clean, casual clothing appropriate for today's situation and weather. No pertinent past medical history Denies diabetes, hypertension, asthma, seizures, DVT/PE PCP: Dr. Medel Post traumatic stress disorder (PTSD) Seizures Reports having had seizures in the past the last was in 2018. She is not currently on any medication. Surgical History S/P laparoscopic cholecystectomy 2006 Status post delivery X 2 ---> 2005, 2006 Status post tubal ligation 2006--laparoscopic tubal 2 months after her Family History Father Hyperlipidemia Hypertension Mother Hypertension Stroke Breast cancer diagnosed at age 70 Family/Other Ovarian cancer paternal aunt, age at diagnosis unknown Denies family history of Colon cancer Diabetes Heart disease Anesthesia complication Bleeding disorder Uterine cancer Thyroid condition Social History Marital status: Life Partner Current occupational status: unemployed Physical Exam Const: COMMON NORMALS: no acute distress, patient oriented x3 and healthy appearing HENMT: COMMON NORMALS: normocephalic and atraumatic HEAD & SCALP: normocephalic and atraumatic Eye: COMMON NORMALS: Equal, round and reactive pupils present and EOMs intact bilaterally PUPIL: Yes Equal, round and reactive pupils present Neck/C-Spine: COMMON NORMALS: full ROM and supple Chest: COMMONS NORMALS: normal inspection of the chest and normal palpation of entire chest wall Resp: COMMON NORMALS: normal respiratory effort, No retractions, No use of accessory muscles and clear to auscultation bilaterally AUSCULTATION: clear to auscultation bilaterally Cardio: COMMON NORMALS: regular rate, regular rhythm and No murmurs present (Cardio) RATE: regular rate RHYTHM: regular rhythm GI: COMMON NORMALS: Normal to inspection, nondistended, normoactive bowel sounds present, Soft to palpation, non-tender and no masses PALPATION: Yes Soft to palpation Extremity: COMMON NORMALS: normal to inspection and full ROM Neuro: COMMON NORMALS: patient oriented x3, moves all extremities and no focal motor deficits Psych: COMMON NORMALS: mental status grossly normal, Normal thought process present and cooperative THOUGHT PROCESS: Normal thought process present Skin: COMMON NORMALS: no rashes or lesions noted and no wounds GENERAL SKIN EXAM: no rashes or lesions noted Course Vital Signs: Vital signs: Vital Signs Temperature 98.1 F 04/28/22 21:51 Pulse Rate 95 04/28/22 21:51 Respiratory Rate 18 04/28/22 22:35 Blood Pressure 120/88 04/28/22 21:51 Pulse Oximetry 97 04/28/22 21:51 Oxygen Delivery Me thod 04/28/22 21:51 MDM - Abdominal Pain Medical Decision Making Patient presents here with abdominal pain likely from stress her exam here is benign blood works normal she did have an anxiety attack she is not suicidal or homicidal does not require psych admission she is stable for discharge is to follow-up PCP and return if worsening. Lab Data : 04/28/22 22:21 04/28/22 22:21 Labs/Radiology: Laboratory Results WBC 10.1 10^3/uL (4.0-10.0) H 04/28/22 22:21 RBC 4.72 10^6/uL (4.1-5.3) 04/28/22 22:21 Hgb 14.2 g/dL (11.5-15.3) 04/28/22 22:21 Hct 42.7 % (37.0-47.0) 04/28/22 22:21 MCV 90.5 fl (81-99) 04/28/22 22:21 MCH 30.1 pg (28.0-34.0) 04/28/22 22:21 MCHC 33.3 g/dL (30.0-36.0) 04/28/22 22:21 RDW 12.4 % (12.1-15.1) 04/28/22 22:21 Plt Count 300 10^3/cmm (130-400) 04/28/22 22:21 MPV 10.9 fL (7.4-10.4) H 04/28/22 22:21 Neut % (Auto) 59.6 % 04/28/22 22:21 Lymph % (Auto) 30.6 % 04/28/22 22:21 [place] % (Auto) 6.9 % 04/28/22 22:21 Eos % (Auto) 1.9 % 04/28/22 22:21 Baso % (Auto) 0.7 % 04/28/22 22:21 Neut # (Auto) 6.04 10^3/uL (1.8-7.7) 04/28/22 22:21 Lymph # (Auto) 3.1 10^3/uL (0.8-4.8) 04/28/22 22:21 [place] # (Auto) 0.7 10^3/uL (0.2-0.9) 04/28/22 22:21 Eos # (Auto) 0.2 10^3/uL (0.0-0.8) 04/28/22 22:21 Baso # (Auto) 0.1 10^3/uL (0.0-0.1) 04/28/22 22:21 Nucleated RBC % (auto) 0 % 04/28/22 22:21 Nucleated RBCs # 0.0 /100WBC 04/28/22 22:21 Sodium 141 mmol/L (136-145) 04/28/22 22:21 Potassium 3.6 mmol/L (3.5-5.1) 04/28/22 22:21 Chloride 108 mmol/L (98-107) H 04/28/22 22:21 Carbon Dioxide 19 mmol/L (22-29) L 04/28/22 22:21 Anion Gap 17.6 (5-19) 04/28/22 22:21 BUN 10 mg/dL (6-20) 04/28/22 22:21 Creatinine 0.7 mg/dL (0.5-0.9) 04/28/22 22:21 GFR Calculation 91.8 mL/min (90-130) 04/28/22 22:21 Glucose 85 mg/dL (65-115) 04/28/22 22:21 Calculated Osmolality 290 mOsm/kg (285-295) 04/28/22 22:21 Calcium 9.2 mg/dL (8.5-10.5) 04/28/22 22:21 Total Bilirubin 0.5 mg/dL (0.15-1.2) 04/28/22 22:21 AST 13 U/L (0-32) 04/28/22 22:21 ALT 15 U/L (0-33) 04/28/22 22:21 Alkaline Phosphatase 75 IU/L (35-105) 04/28/22 22:21 Total Protein 7.3 g/dL (6.6-8.7) 04/28/22 22:21 Albumin 4.0 g/dL (3.5-5.2) 04/28/22 22:21 Globulin 3.3 g/dL (1.3-4.6) 04/28/22 22:21 Lipase 27 U/L (13-60) 04/28/22 22:21 Discharge Plan Discharge Patient Disposition: Home Clinical Impression: Abdominal pain Condition: Stable Prescriptions: No Action vitamin B complex [B Complex-Vitamin B12] Tablet 1 tab PO DAILY@0700 sodium chloride [Saline Mist] 0.65 % aerosol,spray 1 spray intranasal BID PRN (Reason: Nasal Congestion) aspirin [Adult Aspirin Regimen] 81 mg tablet,delayed release (DR/EC) 81 mg PO DAILY ipratropium-albuterol 0.5 mg-3 mg(2.5 mg base)/3 mL solution for nebulization 3 ml inhalation QID PRN (Reason: wheezing) Qty: 15 1RF multivitamin Tablet 1 tab PO DAILY Candicidal 100 mg-150 mg- 50 mg-150 mg capsule 1 cap PO DAILY clobetasol 0.05 % ointment 1 applic topical BID PRN (Reason: Rash) Qty: 45 1RF Saccharomyces boulardii [Daily Probiotic (S. boulardii)] 250 mg capsule 250 mg PO BID medroxyprogesterone [Depo-Provera] 150 mg/mL suspension 150 mg IM .COMPLEX Qty: 1 3RF Rx Instructions: 150 mg IM every 90 days; montelukast [Singulair] 10 mg tablet 10 mg PO DAILY Qty: 30 5RF ondansetron 4 mg tablet,disintegrating 4 mg PO Q8H PRN (Reason: nausea and vomiting) Qty: 30 1RF lorazepam 2 mg tablet 2 mg PO BID 30 Days Qty: 60 3RF Rx Instructions: refill on or after 30 day intervals Combivent Respimat 20-100 mcg/actuation mist See Rx Instructions .ROUTE .COMPLEX Qty: 4 5RF Dose Instruction: INHALE 1 PUFF INTO LUNGS EVERY 4 HOURS NEEDED FOR COPD. SPACE EVENLY DURING WAKING HOURS Rx Instructions: INHALE 1 PUFF INTO LUNGS EVERY 4 HOURS NEEDED FOR COPD. SPACE EVENLY DURING WAKING HOURS divalproex 500 mg tablet,delayed release (DR/EC) 500 mg PO BID Qty: 60 3RF promethazine 25 mg tablet See Rx Instructions .ROUTE .COMPLEX Qty: 120 2RF Dose Instruction: TAKE ONE TABLET BY MOUTH EVERY 6 HOURS NEEDED FOR PAIN, NAUSEA, AND VOMITING Rx Instructions: TAKE ONE TABLET BY MOUTH EVERY 6 HOURS NEEDED FOR PAIN, NAUSEA, AND VOMITING Symbicort 80-4.5 mcg/actuation HFA aerosol inhaler 2 inh inhalation BID triamcinolone acetonide 0.1 % cream 1 applic topical BID PRN (Reason: rash) Qty: 15 0RF Discharge Orders: Discharge ED (Routine); Ordered 04/28/22 Ordered By: Celina Mann Referrals: Alexi Medel MD [Primary Care Provider] - 1-3 days Discharge Diet: Advance as tolerated Discharge Activity: Resume usual activity Patient Instructions: Abdominal Pain (ED) Coding Level of Care Code ED Pool Installer for Lexig Fwd Exam Comprehensive
[2022-04-28 22:35] VITALS: RESP 18
[2022-04-28] MEDS: midazolam 1 mg/mL INJ 2 mL 2 MG IVP (22:35)
[2022-04-28] MEDS: morphine 4 mg/mL SDV 1 mL IVP (22:35)
[2022-04-28 22:46] LABS: Basophils # 0.1 10^3/uL (0.0-0.1); Basophils % 0.7 %; Eosinophils # 0.2 10^3/uL (0.0-0.8); Eosinophils % 1.9 %; Hematocrit 42.7 % (37.0-47.0); Hemoglobin 14.2 g/dL (11.5-15.3); Lymphocytes # 3.1 10^3/uL (0.8-4.8); Lymphocytes % 30.6 %; Mean Corpuscular HGB Conc 33.3 g/dL (30.0-36.0); Mean Corpuscular Hemoglobin 30.1 pg (28.0-34.0); Mean Corpuscular Volume 90.5 fl (81-99); Mean Platelet Volume 10.9 fL (7.4-10.4); Monocytes # 0.7 10^3/uL (0.2-0.9); Monocytes % 6.9 %; Neutrophils # 6.04 10^3/uL (1.8-7.7); Neutrophils % 59.6 %; Nucleated Red Blood Cells % 0 %; Platelet Count 300 10^3/cmm (130-400); Red Blood Count 4.72 10^6/uL (4.1-5.3); Red Cell Distribution Width 12.4 % (12.1-15.1); White Blood Count 10.1 10^3/uL (4.0-10.0)
[2022-04-28 23:13] LABS: Alanine Aminotransferase 15 U/L (0-33); Alkaline Phosphatase 75 IU/L (35-105); Anion Gap 17.6 (5-19); Aspartate Amino Transferase 13 U/L (0-32); Blood Urea Nitrogen 10 mg/dL (6-20); Calcium 9.2 mg/dL (8.5-10.5); Carbon Dioxide 19 mmol/L (22-29); Chloride 108 mmol/L (98-107); Globulin 3.3 g/dL (1.3-4.6); Glomerular Filtration Rate 91.8 mL/min (90-130); Glucose 85 mg/dL (65-115); Lipase 27 U/L (13-60); Osmolality Calculated 290 mOsm/kg (285-295); Potassium 3.6 mmol/L (3.5-5.1); Sodium 141 mmol/L (136-145); Total Bilirubin 0.5 mg/dL (0.15-1.2); Total Protein 7.3 g/dL (6.6-8.7)
[2022-04-28 23:27] VITALS: BP 130/74; PULSE 90; O2SAT 98
== END 2022-04-28 23:28 | disposition home or self-care (01) ==
PROVIDERS: Emergency Provider Emergency Medicine; PCP Family Medicine Adult Medicine
DX: R10.9 Unspecified abdominal pain (principal); Z79.82 Long term (current) use of aspirin
CPT/HCPCS: 80053; 83690; 85025; 96374; 96375; 99284; J2250; J2270

== ENCOUNTER 2022-06-06 14:39 | Outpatient (CLI) | payer MEDICARE, SELFPAY ==
--- NOTE | 2022-06-06 14:44 | MM_ITS ---
WS: [id number] BILATERAL 3D TOMOSYNTHESIS DIGITAL SCREENING MAMMOGRAPHY WITH CAD CLINICAL INFORMATION: SCREEN HISTORY: Screening mammogram. No current complaints. COMPARISON: May 27, 2021 TECHNIQUE: Bilateral CC and MLO views. FINDINGS: Scattered fibroglandular densities bilaterally. Stable RIGHT intramammary lymph node. Vascular calcif ication. A few punctate calcifications. No suspicious focal mass, asymmetry, calcifications, or archi tectural distortion. No evidence of malignancy. MM/[place] [id number] IMPRESSION: BI-RADS: 2-Benign FOLLOW UP: 1 Year Follow-up Recommend return to annual screening mammography.
== END 2022-06-06 14:40 | disposition home or self-care (01) ==
LOC: RADSHAW 14:40
PROVIDERS: PCP Family Medicine Adult Medicine; Visit Provider Family Medicine Adult Medicine
DX: Z12.31 Encounter for screening mammogram for malignant neoplasm of breast (principal)
CPT/HCPCS: 77063; 77067

== ENCOUNTER 2022-06-25 14:58 | Emergency (ER) | payer MEDICARE, MEDICAID, SELFPAY ==
[2022-06-25 14:59] VITALS: BP 121/81; PULSE 106; RESP 16; TEMP 36.8; O2SAT 97; BMI 28.8
--- NOTE | 2022-06-25 15:30 | ED_ITS ---
HPI - Abdominal Pain General: Chief Complaint: Abdominal Pain Stated Complaint: upper Abd pain, blood in bowels Time Seen by Provider: 06/25/22 15:08 Source: patient and family Mode of arrival: ambulatory Limitations: no limitations History of Present Illness: This patient presents to the emergency department because of concerns about abdominal pain and some blood in her stools. She states that she has been doing some dietary manipulation over the past months in an attempt to reduce any abdominal pain that she previously had. She states she would have intermittent pains and cramping that seem to be associated with emotional stress. She went on a diet which consisted mostly of fruits knots and other low residue food. He states she has been doing well up until last several days when she developed some left-sided abdominal pain as well as some blood in her stools. She denies any fevers or chills. She has had a prior C-sections but no other abdominal surgeries. She is states her periods are are almost diminished as she is on Depo-Provera. She denies any nausea or vomiting. She denies any recent antibiotics, exposure to infectious disease etc. She does not smoke cigarettes or drink alcohol. No known history of hemorrhoids although her does correct her and states that she apparently has some hemorrhoids during . No history of hard stools or other rectal trauma. MD elicited complaint: abdominal pain Associated Symptoms: Reports GI cramping and hematochezia; Denies chills, constipation, dysuria, fever(s), hematemesis, melena, nausea and vomiting Review of Systems Const: Denies: fever(s) or chills Eyes: Denies: change in vision ENMT: Denies: throat pain, odynophagia or nasal congestion Card: Denies: chest pain, palpitations, irregular heart rhythm or edema Resp: Denies: dyspnea, productive cough or non-productive cough GI: Reports: abdominal pain, GI cramping and hematochezia; Denies: nausea, vomiting, hematemesis, constipation or melena : Denies: flank pain, difficulty voiding, dysuria or urinary frequency Musc: Denies: neck pain, back pain, extremity pain or extremity swelling Skin/Breast: Denies: rash Neuro: Denies: headache(s), numbness in extremities or weakness in extremities Endo: Denies: polyuria or polydipsia Enrique/Lymph: Denies: easy bruising or easy bleeding PFSH ED PFSH: Medical History Anxiety and depression Reports anxiety and depression in the past and is currently just on trazodone to help her sleep. Inflammatory bowel disease Initially thought it was Crohn's--follows with human resources communications manager Dr. Espinoza in [place]. She states that she was told in 2020 she no longer has Crohn's disease and it is just severe IBS Lupus anticoagulant positive per history, repeat was negative, currently asymptomatic Major depressive disorder, recurrent Following information retrieved and edited from Behavior Assessment Report on 12/26/21: She presented with loose associations, tangential thinking, perseveration, and had difficulty participating in the assessment interview. She was agitated, spoke loudly, was tearful then angry, and moved in her seat continuously for most of the assessment interview, though she became calmer as transportation planning technician provided supportive, empathic listening. Rekha was dressed in clean, casual clothing appropriate for today's situation and weather. No pertinent past medical history Denies diabetes, hypertension, asthma, seizures, DVT/PE PCP: Dr. Medel Post traumatic stress disorder (PTSD) Primary stress urinary incontinence Seizures Reports having had seizures in the past the last was in 2018. She is not currently on any medication. Surgical History S/P laparoscopic cholecystectomy 2006 Status post delivery X 2 ---> 2005, 2006 Status post tubal ligation 2006--laparoscopic tubal 2 months after her Family History Father Hyperlipidemia Hypertension Mother Hypertension Stroke Breast cancer diagnosed at age 70 Family/Other Ovarian cancer paternal aunt, age at diagnosis unknown Denies family history of Colon cancer Diabetes Heart disease Anesthesia complication Bleeding disorder Uterine cancer Thyroid condition Social History Smoking and tobacco status: former smoker Alcohol intake: never Lives independently: Yes Household members: other Marital status: Life Partner Current occupational status: unemployed History of recent travel: No Current gender identity: Female Physical Exam Narrative: EXAM NARRATIVE: Appears to be somewhat anxious but makes good eye contact and speaks in generally goal-directed sentences. Const: COMMON NORMALS: no acute distress, average body habitus and patient oriented x3 GENERAL APPEARANCE: anxious ORIENTATION/CONSCIOUSNESS: Yes awake HENMT: COMMON NORMALS: normocephalic, Normal nasal mucous membranes and turbinates present, moist oral mucous membranes and oropharynx normal HEAD & SCALP: normocephalic FACE & SINUS: normal facial exam NOSE: Normal nasal mucous membranes and turbinates present Eye: COMMON NORMALS: Equal, round and reactive pupils present, EOMs intact bilaterally and conjunctivae normal CONJUNCTIVA: Yes conjunctivae normal PUPIL: Yes Equal, round and reactive pupils present Neck/C-Spine: COMMON NORMALS: full ROM, supple, no JVD and Thyroid normal THYROID: Thyroid normal Chest: COMMONS NORMALS: normal inspection of the chest Resp: COMMON NORMALS: normal respiratory effort, No use of accessory muscles and clear to auscultation bilaterally EFFORT & INSPECTION: Yes able to speak in complete sentences AUSCULTATION: clear to auscultation bilaterally Cardio: COMMON NORMALS: no JVD, regular rate, regular rhythm, No murmurs present (Cardio) and Peripheral pulses 2+ throughout RATE: regular rate RHYTHM: regular rhythm PERIPHERAL PULSES: Peripheral pulses 2+ throughout GI: COMMON NORMALS: Soft to palpation, no masses and no bruits PALPATION: Yes Soft to palpation and Yes Tenderness to palpation present (GI) (Left upper quadrant. No rebound. No guarding. No peritoneal signs.) RECTAL EXAM: visual inspection normal, normal sphincter tone, heme negative stool and no hemorrhoids noted : COMMON NORMALS: Yes no CVA tenderness BLADDER/KIDNEY EXAM: Yes no CVA tenderness Back/Pelvis: COMMON NORMALS: no CVA tenderness, thoracic and lumbar spine normal to inspection, no thoracic nor lumbar tenderness and thoraco-lumbar ROM normal Extremity: COMMON NORMALS: normal to inspection, full ROM, capillary refill normal, no calf tenderness and no pedal edema Neuro: COMMON NORMALS: patient oriented x3, moves all extremities and no focal motor deficits Psych: COMMON NORMALS: mental status grossly normal and cooperative ACTIVITY/MOTOR BEHAVIOR: Yes appropriate eye contact SPEECH: Yes rapid MOOD & AFFECT: Yes anxious THOUGHT CONTENT: Yes Normal thought content present Skin: COMMON NORMALS: no rashes or lesions noted, turgor normal and no jaundice GENERAL SKIN EXAM: no rashes or lesions noted and turgor normal Course Reevaluation(s): Reevaluation #1: Patient's stable and alert. Repeat examination reveals no new or focal findings no evidence of peritoneal irritation rebound guarding etc. Patient shared with me that she has had some increased emotional stress over the past several days as well. She states that this may have contributed to her current presentation. She has a longstanding history of what sounds like inflammatory/irritable bowel syndrome continue them. Again I reviewed her past work-ups to include the 5 CT scans of her abdomen pelvis she has had over the past 18 months or thereabouts. Her clinical picture today does not suggest a surgical abdomen and her laboratories and clinical examination are reassuring. I discussed an empiric trial of an antispasmodic with her with good return precautions and she acknowledges that suggestion and is in favor proceeding with that plan. Time: 16:34 Vital Signs: Vital signs: Vital Signs Temperature 98.2 F 06/25/22 14:59 Pulse Rate 106 H 06/25/22 14:59 Respiratory Rate 16 06/25/22 14:59 Blood Pressure 121/81 06/25/22 14:59 Pulse Oximetry 97 06/25/22 14:59 Oxygen Delivery De thod 06/25/22 14:59 MDM - Abdominal Pain Medical Decision Making Patient who presented to our emergency department with symptoms of recent increase in abdominal cramping and discomfort as well as a subjective description of occasional blood mixed with stool. She has a longstanding history of inflammatory irritable bowel syndrome kind of symptoms. Multiple imaging studies recently have failed to reveal any serious pathology. Clinical examination is reassuring and her current history and clinical picture suggest recurrence of her past symptoms. We will begin with an empiric trial with good repeat return precautions as she is clinically stable without any evidence to suggest a surgical abdomen. Medical Records I reviewed the patient's medical records. Patient's had approximately 5 CT scans of her abdomen and pelvis over the last year and a half. None of which showed any significant pathology. Review also reveals that she apparently had a diagnosis of possible [place] Crohn's but then it was changed to irritable bowel or inflammatory bowel disease. Lab Data I reviewed the patient's lab results. : 06/25/22 15:50 06/25/22 15:50 Labs/Radiology: Laboratory Results WBC 12.5 10^3/uL (4.0-10.0) H 06/25/22 15:50 RBC 4.87 10^6/uL (4.1-5.3) 06/25/22 15:50 Hgb 14.9 g/dL (11.5-15.3) 06/25/22 15:50 Hct 44.7 % (37.0-47.0) 06/25/22 15:50 MCV 91.8 fl (81-99) 06/25/22 15:50 MCH 30.6 pg (28.0-34.0) 06/25/22 15:50 MCHC 33.3 g/dL (30.0-36.0) 06/25/22 15:50 RDW 11.5 % (12.1-15.1) L 06/25/22 15:50 Plt Count 311 10^3/cmm (130-400) 06/25/22 15:50 MPV 10.5 fL (7.4-10.4) H 06/25/22 15:50 Neut % (Auto) 68.9 % 06/25/22 15:50 Lymph % (Auto) 19.8 % 06/25/22 15:50 Cannon % (Auto) 8.3 % 06/25/22 15:50 Eos % (Auto) 1.8 % 06/25/22 15:50 Baso % (Auto) 0.8 % 06/25/22 15:50 Neut # (Auto) 8.61 10^3/uL (1.8-7.7) H 06/25/22 15:50 Lymph # (Auto) 2.5 10^3/uL (0.8-4.8) 06/25/22 15:50 Cannon # (Auto) 1.0 10^3/uL (0.2-0.9) H 06/25/22 15:50 Eos # (Auto) 0.2 10^3/uL (0.0-0.8) 06/25/22 15:50 Baso # (Auto) 0.1 10^3/uL (0.0-0.1) 06/25/22 15:50 Nucleated RBC % (auto) 0 % 06/25/22 15:50 Nucleated RBCs # 0.0 /100WBC 06/25/22 15:50 Sodium 141 mmol/L (136-145) 06/25/22 15:50 Potassium 4.5 mmol/L (3.5-5.1) 06/25/22 15:50 Chloride 106 mmol/L (98-107) 06/25/22 15:50 Carbon Dioxide 23 mmol/L (22-29) 06/25/22 15:50 Anion Gap 16.5 (5-19) 06/25/22 15:50 BUN 8 mg/dL (6-20) 06/25/22 15:50 Creatinine 0.7 mg/dL (0.5-0.9) 06/25/22 15:50 GFR Calculation 91.8 mL/min (90-130) 06/25/22 15:50 Glucose 92 mg/dL (65-115) 06/25/22 15:50 Calculated Osmolality 290 mOsm/kg (285-295) 06/25/22 15:50 Calcium 9.8 mg/dL (8.5-10.5) 06/25/22 15:50 Total Bilirubin 0.4 mg/dL (0.15-1.2) 06/25/22 15:50 AST 14 U/L (0-32) 06/25/22 15:50 ALT 13 U/L (0-33) 06/25/22 15:50 Alkaline Phosphatase 85 U/L (35-105) 06/25/22 15:50 Total Protein 7.4 g/dL (6.6-8.7) 06/25/22 15:50 Albumin 4.9 g/dL (3.5-5.2) 06/25/22 15:50 Globulin 2.5 g/dL (1.3-4.6) 06/25/22 15:50 HCG, Qual Negative (Negative) 06/25/22 15:50 Discharge Plan Discharge Patient Disposition: Home Clinical Impression: IBS (irritable colon syndrome) Condition: Stable Prescriptions: New hyoscyamine sulfate [Levsin] 0.125 mg tablet 0.125 mg PO Q4H PRN (Reason: dyspepsia) Qty: 30 1RF No Action vitamin B complex [B Complex-Vitamin B12] Tablet 1 tab PO DAILY@0700 sodium chloride [Saline Mist] 0.65 % aerosol,spray 1 spray intranasal BID PRN (Reason: Nasal Congestion) medroxyprogesterone [Depo-Provera] 150 mg/mL suspension 150 mg IM .COMPLEX Qty: 1 3RF Rx Instructions: 150 mg IM every 90 days; montelukast [Singulair] 10 mg tablet 10 mg PO DAILY Qty: 30 5RF ondansetron 4 mg tablet,disintegrating 4 mg PO Q8H PRN (Reason: nausea and vomiting) Qty: 30 1RF lorazepam 2 mg tablet 2 mg PO BID 30 Days Qty: 60 3RF Rx Instructions: refill on or after 30 day intervals Combivent Respimat 20-100 mcg/actuation mist See Rx Instructions .ROUTE .COMPLEX Qty: 4 5RF Dose Instruction: INHALE 1 PUFF INTO LUNGS EVERY 4 HOURS NEEDED FOR COPD. SPACE EVENLY DU RING WAKING HOURS Rx Instructions: INHALE 1 PUFF INTO LUNGS EVERY 4 HOURS NEEDED FOR COPD. SPACE EVENLY DURING WAKING HOURS ipratropium-albuterol 0.5 mg-3 mg(2.5 mg base)/3 mL solution for nebulization 3 ml inhalation QID PRN (Reason: wheezing) Qty: 15 1RF clobetasol 0.05 % ointment 1 applic topical BID PRN (Reason: Rash) Qty: 45 1RF fluticasone propion-salmeterol [Advair Diskus] 250-50 mcg/dose blister with device 1 inh inhalation BID Qty: 60 5RF epinephrine [EpiPen 2-Luciano] 0.3 mg/0.3 mL auto-injector 0.3 mg IM Q4H PRN (Reason: anaphylaxis) Qty: 2 0RF oxybutynin chloride 10 mg tablet extended release 24 hr 10 mg PO DAILY Qty: 30 1RF Discharge Orders: Discharge ED (Routine); Ordered 06/25/22 Ordered By: Willy Rodriguez Referrals: Alexi Medel MD [Primary Care Provider] - 4-7 days Discharge Diet: Usual diet Patient Instructions: Irritable Bowel Syndrome (ED), Opioid Safety, Pain Management Activity Restrictions/Additional Instructions: Continue your usual prescribed medications. Avoid caffeine and other stimulants. You may take the medications prescribed to help with any abdominal cramping or discomfort. Should you develop increasing pain, continued bleeding from your rectum, fevers or other concerns return to this emergency department for reevaluation. Follow-up with your regular doctor for routine care. Coding Level of Care Code ED Chef Manager for Chg Fwd Exam Comprehensive
[2022-06-25 16:04] LABS: Basophils # 0.1 10^3/uL (0.0-0.1); Basophils % 0.8 %; Eosinophils # 0.2 10^3/uL (0.0-0.8); Eosinophils % 1.8 %; Hematocrit 44.7 % (37.0-47.0); Hemoglobin 14.9 g/dL (11.5-15.3); Lymphocytes # 2.5 10^3/uL (0.8-4.8); Lymphocytes % 19.8 %; Mean Corpuscular HGB Conc 33.3 g/dL (30.0-36.0); Mean Corpuscular Hemoglobin 30.6 pg (28.0-34.0); Mean Corpuscular Volume 91.8 fl (81-99); Mean Platelet Volume 10.5 fL (7.4-10.4); Monocytes % 8.3 %; Neutrophils # 8.61 10^3/uL (1.8-7.7); Neutrophils % 68.9 %; Nucleated Red Blood Cells % 0 %; Platelet Count 311 10^3/cmm (130-400); Red Blood Count 4.87 10^6/uL (4.1-5.3); Red Cell Distribution Width 11.5 % (12.1-15.1); White Blood Count 12.5 10^3/uL (4.0-10.0)
[2022-06-25 16:08] LABS: HCG Qualitative Urine. Negative (Negative)
[2022-06-25] MEDS: hyoscyamine ODT 0.125 mg Tablet 0.25 MG PO (16:16)
[2022-06-25 16:20] LABS: Alanine Aminotransferase 13 U/L (0-33); Albumin Level 4.9 g/dL (3.5-5.2); Alkaline Phosphatase 85 U/L (35-105); Anion Gap 16.5 (5-19); Aspartate Amino Transferase 14 U/L (0-32); Blood Urea Nitrogen 8 mg/dL (6-20); Calcium 9.8 mg/dL (8.5-10.5); Carbon Dioxide 23 mmol/L (22-29); Chloride 106 mmol/L (98-107); Globulin 2.5 g/dL (1.3-4.6); Glomerular Filtration Rate 91.8 mL/min (90-130); Glucose 92 mg/dL (65-115); Osmolality Calculated 290 mOsm/kg (285-295); Potassium 4.5 mmol/L (3.5-5.1); Sodium 141 mmol/L (136-145); Total Bilirubin 0.4 mg/dL (0.15-1.2); Total Protein 7.4 g/dL (6.6-8.7)
[2022-06-25 17:02] VITALS: PULSE 93; RESP 18; O2SAT 97
== END 2022-06-25 17:03 | disposition home or self-care (01) ==
PROVIDERS: Emergency Provider Emergency Medicine; PCP Family Medicine Adult Medicine
DX: R10.9 Unspecified abdominal pain (principal); K58.9 Irritable bowel syndrome, unspecified; Z87.891 Personal history of nicotine dependence
CPT/HCPCS: 80053; 81025; 85025; 99283

== ENCOUNTER 2022-08-01 12:15 | Emergency (ER) | payer MEDICARE, MEDICAID, SELFPAY ==
[2022-08-01 12:18] VITALS: BP 108/75; PULSE 79; RESP 16; TEMP 36.5; O2SAT 99; BMI 28.3
--- NOTE | 2022-08-01 13:03 | ED_ITS ---
HPI - Headache General: Chief Complaint: Headache Stated Complaint: headache Time Seen by Provider: 08/01/22 12:28 Source: patient Mode of arrival: ambulatory Limitations: no limitations History of Present Illness: This patient presents to the emergency department with a left-sided headache. It is somewhat unclear whether headache proceeded to her all against the door or current incident with that incident. She complains that the headache makes her scalp very tender and she has some visual changes described as flashing lights or wavy lines in her left eye predominantly. She is very anxious. She also relates that there is she has a history of some sort of head trauma in the past which also contributed to her anxiety about this current headache. She does not take any anticoagulants. She apparently turned and struck her head against either a door frame and/or wall she is not clear which approximately 3 days ago which she either contributed to or initiated her current headache. She also states that she gets some pain in her left neck when she turns her head to the left. She denies any loss of consciousness associated with her striking the door frame. She states she has not had any numbness or tingling in her extremities and has no focal motor weakness. She states that she gets nauseated a bit with the pain and throwing up makes her feel better but she denies any diarrhea abdominal pain or other associated symptoms. Associated symptoms: Deny chest pain, fever(s), nausea, pre-syncope, rash, syncope or vomiting Review of Systems Const: Denies: fever(s) or chills Eyes: Reports: photophobia and seeing flashes; Denies: change in vision, blurry vision or blind spots ENMT: Denies: throat pain, odynophagia, change in hearing, disequilibrium, nasal discharge or nasal congestion Card: Denies: chest pain, palpitations, irregular heart rhythm, syncope or pre-syncope Resp: Denies: dyspnea, productive cough or non-productive cough GI: Denies: abdominal pain, nausea, vomiting or diarrhea : Denies: flank pain, difficulty voiding, dysuria or urinary frequency Musc: Denies: back pain, extremity pain or extremity swelling Skin/Breast: Denies: rash, pruritus or erythema Neuro: Reports: headache(s); Denies: weakness in extremities, lack of coordination, difficulty walking, Slurred speech present or seizure-like activity Psych: Reports: anxiety; Denies: depression Endo: Denies: polyuria or polydipsia Enrique/Lymph: Denies: easy bruising or easy bleeding PFSH ED PFSH: Medical History Anxiety and depression Reports anxiety and depression in the past and is currently just on trazodone to help her sleep. Generalized anxiety disorder Following information retrieved and edited from Behavior Assessment Report on 12/26/21: She presented with loose associations, tangential thinking, perseveration, and had difficulty participating in the assessment interview. She was agitated, spoke loudly, was tearful then angry, and moved in her seat constance nuously for most of the assessment interview, though she became calmer as content writer provided supportive, empathic listening. Rekha was dressed in clean, casual clothing appropriate for today's situation and weather. Inflammatory bowel disease Initially thought it was Crohn's--follows with workers' compensation claims examiner Dr. Espinoza in [place]. She states that she was told in 2020 she no longer has Crohn's disease and it is just severe IBS Lupus anticoagulant positive per history, repeat was negative, currently asymptomatic Major depressive disorder, recurrent Following information retrieved and edited from Behavior Assessment Report on 12/26/21: She presented with loose associations, tangential thinking, perseveration, and had difficulty participating in the assessment interview. She was agita reynaldo, spoke loudly, was tearful then angry, and moved in her seat continuously for most of the assessment interview, though she became calmer as content writer provided supportive, empathic listening. Rekha was dressed in clean, casual clothing appropriate for today's situation and weather. No pertinent past medical history Denies diabetes, hypertension, asthma, seizures, DVT/PE PCP: Dr. Medel Post traumatic stress disorder (PTSD) Primary stress urinary incontinence Psychiatric care Seizures Reports having had seizures in the past the last was in 2018. She is not currently on any medication. Surgical History S/P laparoscopic cholecystectomy 2006 Status post delivery X 2 ---> 2005, 2006 Status post tubal ligation 2006--laparoscopic tubal 2 months after her Family History Father Hyperlipidemia Hypertension Mother Hypertension Stroke Breast cancer diagnosed at age 70 Family/Other Ovarian cancer paternal aunt, age at diagnosis unknown Denies family history of Colon cancer Diabetes Heart disease Anesthesia complication Bleeding disorder Uterine cancer Thyroid condition Social History Smoking and tobacco status: former smoker Alcohol intake: never Lives independently: Yes Household members: other Marital status: Life Partner Current occupational status: unemployed History of recent travel: No Current gender identity: Female Physical Exam Narrative: EXAM NARRATIVE: Patient is alert appears slightly anxious but speech is goal-directed and fluent. Const: COMMON NORMALS: no acute distress, average body habitus, patient oriented x3 and healthy appearing GENERAL APPEARANCE: anxious HENMT: COMMON NORMALS: normocephalic, atraumatic, EAC's normal, Normal nasal mucous membranes and turbinates present, moist oral mucous membranes and oropharynx normal HEAD & SCALP: normocephalic and atraumatic; no Temporal artery tenderness present FACE & SINUS: normal facial exam; no Facial tenderness on exam of face and sinuses and no TMJ findings NOSE: Normal nasal mucous membranes and turbinates present EXTERNAL AUDITORY CANAL: EAC's normal MOUTH: no TMJ findings Eye: COMMON NORMALS: Equal, round and reactive pupils present, EOMs intact bilaterally, conjunctivae normal, no papilledema and normal visual michelle by confrontation CONJUNCTIVA: Yes conjunctivae normal PUPIL: Yes Equal, round and reactive pupils present DIRECT OPHTHALMOSCOPY: Yes no papilledema Neck/C-Spine: COMMON NORMALS: full ROM, no lymphadenopathy and no JVD CERVICAL SPINE: Yes cervical ROM normal, No Cervical spine tenderness, No step off deformity and Yes Trapezius muscle tenderness left Chest: COMMONS NORMALS: normal inspection of the chest Resp: COMMON NORMALS: normal respiratory effort, No use of accessory muscles and clear to auscultation bilaterally AUSCULTATION: clear to auscultation bilaterally Cardio: COMMON NORMALS: no JVD, regular rate, regular rhythm, No murmurs present (Cardio) and Peripheral pulses 2+ throughout RATE: regular rate RHYTHM: regular rhythm PERIPHERAL PULSES: Peripheral pulses 2+ throughout GI: COMMON NORMALS: Normal to inspection, nondistended, normoactive bowel sounds present : COMMON NORMALS: Yes no CVA tenderness BLADDER/KIDNEY EXAM: Yes no CVA tenderness Back/Pelvis: COMMON NORMALS: no CVA tenderness, thoracic and lumbar spine normal to inspection, no thoracic nor lumbar tenderness and thoraco-lumbar ROM normal Extremity: COMMON NORMALS: normal to inspection, full ROM, no joint enlargement, no calf tenderness and no pedal edema Neuro: COMMON NORMALS: patient oriented x3, moves all extremities, no focal motor deficits, no sensory deficits noted and gait normal COORDINATION/BALANCE: [id number]-[id number] test normal and gebv-rm-tyof test normal COORDINATION: ciudyb-yt-iriz test normal and rfiw-he-gcdy test normal Psych: COMMON NORMALS: mental status grossly normal, Normal thought process present, cooperative, speech normal and denies hallucinations SPEECH: Yes normal speech THOUGHT PROCESS: Normal thought process present Skin: COMMON NORMALS: no rashes or lesions noted, no wounds and turgor normal GENERAL SKIN EXAM: no rashes or lesions noted and turgor normal Course Reevaluation(s): Reevaluation #1: Patient states she still has a headache. I offered to give her additional nonopiate analgesics for her headache. She states she wants to call her . She was concerned because there was actually a order for Reglan which she states she thought might of made her nausea and vomiting worse in the past but did not trigger a allergic alert when entered into the order system. I did share with her that her CT scan is normal and reassuring. Time: 14:51 Reevaluation #2: Patient continues to be very tearful stating she wants something for pain. Again I have offered her additional analgesic medication but I did caution her that we would not be giving her any opiates for her headache. Time: 15:07 Reevaluation #3: Patient is quite anxious about taking any medications. I offered her Ativan to help relieve those anxieties and reassured her that we would not give her anything that she was allergic to. She willingly excepted more Ativan at this time. Time: 15:30 Additional Reevaluation(s): At this time patient is symptom-free and feels much improved and is ready to be discharged from the emergency department. No evidence of any ongoing emergency medical condition at this time. Vital Signs: Vital signs: Vital Signs Temperature 97.7 F 08/01/22 12:18 Pulse Rate 70 08/01/22 16:59 Respiratory Rate 16 08/01/22 12:18 Blood Pressure 117/78 08/01/22 16:12 Pulse Oximetry 96 08/01/22 16:59 Oxygen Delivery Me thod 08/01/22 16:59 [facility] - Headache Medical Decision Making Patient with a history of chronic anxiety who comes to the emergency department with a left-sided headache that was either preceding or coincident with minor head trauma. Her clinical examination was remarkable for significant anxiety but otherwise no focal findings to suggest serious injury. Imaging was obtained which was reassuring. The patient continued to have quite a bit of anxiety and was somewhat reluctant to take treatment but eventually did acquiesce and take treatment for her headache. It responded to treatment and she is markedly improved without any evidence of intracranial bleeding or other ongoing emergency medical condition at this time. I feel that her anxiety may have been either contributing to or precipitating her left-sided headache which sounds mixed muscle contraction vascular in nature but certainly does not suggest a worrisome condition. Stable for discharge. Lab Data I reviewed the patient's lab results. Radiology Impressions Head CT 08/01/22 13:15 IMPRESSION: 1. No evidence of intracranial hemorrhage or mass effect. 2. Normal pretty-white differentiation. 3. Small amount of fluid in the RIGHT posterior ethmoid air cells. 4. No acute intracranial findings. Discharge Plan Discharge Patient Disposition: Home Clinical Impression: Headache, Chronic anxiety Condition: Stable Prescriptions: No Action vitamin B complex [B-Complex] Tablet 1 tab PO DAILY@0700 sodium chloride [Saline Mist] 0.65 % aerosol,spray 1 spray intranasal BID PRN (Reason: Nasal Congestion) ondansetron 4 mg tablet,disintegrating 4 mg PO Q8H PRN (Reason: nausea and vomiting) Qty: 30 1RF lorazepam 2 mg tablet 2 mg PO BID 30 Days Qty: 60 3RF Rx Instructions: refill on or after 30 day intervals ipratropium-albuterol 0.5 mg-3 mg(2.5 mg base)/3 mL solution for nebulization 3 ml inhalation QID PRN (Reason: wheezing) Qty: 15 1RF fluticasone propion-salmeterol [Advair Diskus] 250-50 mcg/dose blister with device 1 inh inhalation BID Qty: 60 5RF epinephrine [EpiPen 2-Luciano] 0.3 mg/0.3 mL auto-injector 0.3 mg IM Q4H PRN (Reason: anaphylaxis) Qty: 2 0RF clobetasol 0.05 % ointment 1 applic topical BID PRN (Reason: Rash) Qty: 45 2RF hyoscyamine sulfate [Levsin] 0.125 mg tablet 0.125 mg PO Q4H PRN (Reason: dyspepsia) Qty: 30 1RF Triple Antibiotic 3.5mg-400 unit- 5,000 unit/gram Ointment 1 applic TOPICAL BID PRN (Reason: unknown) Aspir-81 81 mg Tablet,Delayed Release (Dr/Ec) 81 mg PO QAM hydroxyzine HCl 50 mg tablet 50 mg PO Q8H PRN (Reason: anxiety/panic) Singulair 10 mg tablet 10 mg PO QAM Depo-Provera 150 mg/mL suspension 150 mg IM Q90D Combivent Respimat 20-100 mcg/actuation mist 1 puff inhalation Q4H PRN (Reason: copd) Rx Instructions: SPACE EVENLY DURING WAKING HOURS Discharge Orders: Discharge ED (Routine); Ordered 08/01/22 Ordered By: Willy Rodriguez Referrals: Alexi Medel MD [Primary Care Provider] - Discharge Diet: Usual diet Discharge Activity: Resume usual activity Patient Instructions: Opioid Safety, Pain Management Activity Restrictions/Additional Instructions: We recommend going home and resting this evening. Continue all your usual prescribed medications. If you develop new persistent or worsening symptoms you are welcome to return to the emergency department at any time. Coding Level of Care Code ED [place] Worker for Ranjeet Lamb Exam Comprehensive
--- NOTE | 2022-08-01 13:15 | CT_ITS ---
WS: [id number] CT HEAD TECHNIQUE: Noncontrast CT of the head obtained from the skullbase to the vertex. CLINICAL INFORMATION: left side headache after trauma COMPARISON: None. DLP: 1049.[address] scans at [facility] use at least one of these dose optimization techniques: automated e xposure control; mA and/or kV adjustment per patient size (includes targeted exams where dose is matc hed to clinical indication); or iterative reconstruction. FINDINGS: No evidence of intracranial hemorrhage or mass effect. Ventricular system and basal cisterns are chacko nt. No extra-axial fluid collections. No evidence of mass or mass effect. Normal pretty-white different iation. Small amount of fluid in the RIGHT posterior ethmoid air cells. Paranasal sinuses are well aerated. M astoid air cells well aerated. CT/CT head wo con* [id number] IMPRESSION: 1. No evidence of intracranial hemorrhage or mass effect. 2. Normal pretty-white differentiation. 3. Small amount of fluid in the RIGHT posterior ethmoid air cells. 4. No acute intracranial findings.
[2022-08-01] MEDS: diphenhydrAMINE 50 mg/mL SDV 1mL 25 MG IVP (13:55)
[2022-08-01 14:04] VITALS: BP 130/75; PULSE 85; O2SAT 99
--- NOTE | 2022-08-01 14:13 | PC.PHAR ---
pt states she takes care of her own medications-pt states she got a steroid shot 2 days ago-pt states she is no longer taking depakote dr 500mg bid filled on 05/15/22 30d/s-
[2022-08-01] MEDS: LORazepam 2 mg/mL INJ 1 mL 1 MG IVP (14:25)
[2022-08-01 15:33] VITALS: BP 123/77; PULSE 81; O2SAT 98
[2022-08-01] MEDS: LORazepam 2 mg/mL INJ 1 mL IVP (15:42)
[2022-08-01] MEDS: haloperidol inj 5 mg/mL INJ 1 mL IVP (16:09)
[2022-08-01 16:12] VITALS: BP 117/78; PULSE 76; O2SAT 100
[2022-08-01 16:59] VITALS: PULSE 70; O2SAT 96
[2022-08-01 18:24] VITALS: BP 100/71; PULSE 65; O2SAT 96
== END 2022-08-01 18:26 | disposition home or self-care (01) ==
PROVIDERS: Emergency Provider Emergency Medicine; PCP Family Medicine Adult Medicine
DX: R51.9 Headache, unspecified (principal); F41.9 Anxiety disorder, unspecified; Z79.82 Long term (current) use of aspirin; Z87.891 Personal history of nicotine dependence
CPT/HCPCS: 70450; 96374; 96375; 96376; 99285; J1200; J1630; J2060

== ENCOUNTER → 2022-09-13 15:22 | Outpatient (BNVA) | payer OTHER, MEDICAID, SELFPAY | PROVIDERS: PCP Family Medicine Adult Medicine; Visit Provider Family Medicine Adult Medicine | DX: Z01.89 Encounter for other specified special examinations (principal); Z13.6 Encounter for screening for cardiovascular disorders; K58.9 Irritable bowel syndrome, unspecified; D72.829 Elevated white blood cell count, unspecified | CPT/HCPCS: 85025 ==

== ENCOUNTER → 2022-10-17 11:26 | Outpatient (BNVA) | payer OTHER, MEDICAID, SELFPAY | PROVIDERS: PCP Family Medicine Adult Medicine; Referring Provider Family Medicine Adult Medicine; Visit Provider Family Medicine Adult Medicine | DX: F12.20 Cannabis dependence, uncomplicated (principal); K52.9 Noninfective gastroenteritis and colitis, unspecified; D72.829 Elevated white blood cell count, unspecified | CPT/HCPCS: 80053; 80061; 80307; 85025 ==

== ENCOUNTER 2022-12-20 11:15 | Outpatient (CLI) | payer MEDICARE, MEDICAID, SELFPAY ==
--- NOTE | 2022-12-20 11:54 | XRR_ITS ---
PROCEDURE INFORMATION: Exam: XR Bilateral Knees, Standing AP Exam date and time: 12/20/2022 12:04 PM Age: 42 years old Clinical indication: Pain; Knee; Bilateral; Additional info: Pain, standing ap view TECHNIQUE: Imaging protocol: Radiologic exam of the bilateral knees. Views: Standing AP. COMPARISON: CR XR knee RT 3V* [id number] 04/26/2021 1:20 PM FINDINGS: Bones/joints: Normal. Joint spaces are preserved. Soft tissues: Normal. XR/[place] [id number] IMPRESSION: No pathologic findings.
== END 2022-12-20 11:16 | disposition home or self-care (01) ==
LOC: RAD 11:19
PROVIDERS: PCP Family Medicine Adult Medicine; Visit Provider Family Medicine Adult Medicine
DX: M25.561 Pain in right knee (principal); M25.562 Pain in left knee
CPT/HCPCS: 73565

== ENCOUNTER 2023-01-23 16:53 | Emergency (ER) | payer MEDICARE, MEDICAID, SELFPAY ==
[2023-01-23 16:59] VITALS: BP 117/75; PULSE 98; RESP 18; TEMP 36.6; O2SAT 96
--- NOTE | 2023-01-23 17:11 | W.ED.SKABFB ---
HPI - Skin/Abscess/Foreign Bdy General: Chief complaint: Skin/Abscess/Foreign Body Stated complaint: states shingles Time Seen by Provider: 01/23/23 17:09 History of Present Illness: 42-year-old female comes in today with diagnosis of shingles yesterday. Patient reports crusting lesions to her back spreading to the abdomen. Patient was seen yesterday and started on gabapentin, acyclovir, and lidocaine patches. Patient reports poor control of pain. Patient appears nontoxic. Patient does report occasional fever. Patient has a history of anxiety, and depression. Associated symptoms: Reports fever(s) and nausea; Deny vomiting Review of Systems General: Reports: 10 or more systems reviewed and unremarkable except in HPI and below Const: Reports: fever(s) Card: Denies: chest pain Resp: Denies: dyspnea GI: Reports: nausea; Denies: vomiting : Reports: urinary frequency Skin/Breast: Reports: rash Neuro: Denies: headache(s) PFS ED PFSH: Medical History Abscess of external nose Asthma-COPD overlap syndrome Generalized anxiety disorder Following information retrieved and edited from Behavior Assessment Report on 12/26/21: She presented with loose associations, tangential thinking, perseveration, and had difficulty participating in the assessment interview. She was agitated, spoke loudly, was tearful then angry, and moved in her seat continuously for most of the assessment interview, though she became calmer as belt knife feeder provided supportive, empathic listening. Rekha was dressed in clean, casual clothing appropriate for today's situation and weather. Hemorrhoids Inflammatory bowel disease Initially thought Crohn's--followed GI, Dr. Espinoza in [place]. 2020 told not Crohn's disease, but severe IBS Insect bite, multiple Lupus anticoagulant positive per history, repeat was negative, currently asymptomatic Major depressive disorder, recurrent Following information retrieved and edited from Behavior Assessment Report on 12/26/21: She presented with loose associations, tangential thinking, perseveration, and had difficulty participating in the assessment interview. She was agitated, spoke loudly, was tearful then angry, and moved in her seat continuously for most of the assessment interview, though she became calmer as belt knife feeder provided supportive, empathic listening. Rekha was dressed in clean, casual clothing appropriate for today's situation and weather. Patellar tendinitis, left knee Post traumatic stress disorder (PTSD) Primary stress urinary incontinence Psychiatric care Seizures Reports having had seizures in the past the last was in 2018. She is not currently on any medication. Surgical History S/P laparoscopic cholecystectomy 2006 Status post delivery X 2 ---> 2005, 2006 Status post tubal ligation 2006--laparoscopic tubal 2 months after her Family History Father Hyperlipidemia Hypertension Mother Hypertension Stroke Breast cancer diagnosed at age 70 Family/Other Ovarian cancer paternal aunt, age at diagnosis unknown Denies family history of Colon cancer Diabetes Heart disease Anesthesia complication Bleeding disorder Uterine cancer Thyroid condition Social History Smoking and tobacco status: former smoker Alcohol intake: never Desire information about alcohol rehabilitation?: No Substance/Drug Use: current Substance/Drug use frequency: daily Other substance/drug use details: uses cbd and thc does not smoke it Lives independently: Yes Household members: other Marital status: Life Partner Current occupational status: unemployed Do you think of yourself as: Straight/Heterosexual Current gender identity: Female Physical Exam Const: COMMON NORMALS: alert HENMT: COMMON NORMALS: normocephalic HEAD & SCALP: normocephalic THROAT: posterior oropharynx normal Neck/C-Spine: COMMON NORMALS: full ROM Resp: COMMON NORMALS: normal respiratory effort and clear to auscultation bilaterally AUSCULTATION: clear to auscultation bilaterally Cardio: COMMON NORMALS: regular rate and regular rhythm RATE: regular rate RHYTHM: regular rhythm GI: COMMON NORMALS: Soft to palpation PALPATION: Yes Soft to palpation Back/Pelvis: COMMON NORMALS: thoracic and lumbar spine normal to inspection Extremity: COMMON NORMALS: full ROM Neuro: SENSORIUM/ORIENTATION: Yes alert Skin: LESIONS: other (Crusting lesions to the back and spreading to the abdomen.) Course Vital Signs: Vital signs: Vital Signs Temperature 97.9 F 01/23/23 16:59 Pulse Rate 98 01/23/23 16:59 Respiratory Rate 18 01/23/23 16:59 Blood Pressure 117/75 01/23/23 16:59 Pulse Oximetry 96 01/23/23 16:59 Oxygen Delivery Me thod Room Air 01/23/23 16:59 MDM - Skin/Abscess/Foreign Bdy Medicial Decision Making 42-year-old female comes in today for complaints of painful lesions on the back spreading to the abdomen. On exam patient has some patches of honey crusted areas to the posterior back with satellite lesions spreading to the front this is in multiple areas of dermatomes. Patient also reported some crusting lesions to her nose and also some areas elsewhere on her body when this all started. Patient was seen yesterday at a primary care clinic and was started on medication for shingles. Patient appears nontoxic. Vital signs are normal. Differential diagnosis includes but not limited to shingles, bullous impetigo, cellulitis. Reviewed exam with patient I believe patient probably has a bullous impetigo due to the crusting nature of the lesions and the dispersement of multiple patches of lesions outside a single dermatome. I recommended continue coverage for shingles as it possibly could be a diagnosis but more likely to be a secondary staphylococcal infection. Patient was started on Bactrim 1 tablet twice a day for 7 days. Patient was also given mupirocin ointment. And covered with hydrocodone for pain. Patient reported understanding of care plan and recommendations for follow-up or return to the ER. Discharge Plan Discharge Patient Disposition: Home Clinical Impression: Impetigo Condition: Stable Prescriptions: New hydrocodone-acetaminophen 5-325 mg tablet 1 tab PO Q6H PRN (Reason: pain) Qty: 12 0RF mupirocin 2 % ointment 1 applic topical BID Qty: 22 0RF sulfamethoxazole-trimethoprim 800-160 mg tablet 1 tab PO BID 7 Days Qty: 14 0RF No Action ipratropium-albuterol 0.5 mg-3 mg(2.5 mg base)/3 mL solution for nebulization 3 ml inhalation QID PRN (Reason: wheezing) Qty: 180 3RF Combivent Respimat 20-100 mcg/actuation mist 1 puff inhalation Q4H PRN (Reason: copd) Qty: 4 5RF Rx Instructions: SPACE EVENLY DURING WAKING HOURS Singulair 10 mg tablet 10 mg PO QAM Qty: 30 5RF diclofenac sodium [Arthritis Pain (diclofenac)] 1 % gel 4 g topical QID Rx Instructions: apply to single knee, ankle, foot; for foot includes sole/toes/top of foot tramadol 50 mg tablet 50 mg PO BID PRN (Reason: knee pain) 30 Days Qty: 60 1RF medroxyprogesterone 150 mg/mL suspension 150 mg IM .q 12 weeks Qty: 1 4RF lidocaine 4 % cream 1 applic topical TID Qty: 30 0RF Rx Instructions: large area trunk acyclovir 800 mg tablet 800 mg PO QID Qty: 28 0RF epinephrine [EpiPen 2-Luciano] 0.3 mg/0.3 mL auto-injector 0.3 mg IM Q4H PRN (Reason: anaphylaxis) Qty: 2 0RF fluticasone propion-salmeterol [Advair Diskus] 250-50 mcg/dose blister with device 1 inh inhalation BID Qty: 60 5RF lorazepam 2 mg tablet 2 mg PO BID 30 Days Qty: 60 3RF Rx Instructions: refill on or after 30 day intervals Preparation H Maximum Strength 0.25-1 % cream 1 applic MD BID Qty: 51 5RF bacitracin 500 unit/gram ointment 1 applic ophthalmic (eye) Q8H 7 Days Qty: 3.5 1RF clobetasol 0.05 % ointment 1 applic topical BID PRN (Reason: Rash) Qty: 45 2RF ondansetron 4 mg tablet,disintegrating 4 mg PO Q8H PRN (Reason: nausea and vomiting) Qty: 30 3RF gabapentin 300 mg capsule 300 mg PO BID Qty: 60 0RF Triple Antibiotic 3.5mg-400 unit- 5,000 unit/gram Ointment 1 applic TOPICAL BID PRN (Reason: unknown) Aspir-81 81 mg Tablet,Delayed Release (Dr/Ec) 81 mg PO QAM Discharge Orders: Discharge ED (Routine); Ordered 01/23/23 Ordered By: Kodi Dial Referrals: Alexi Medel MD [Primary Care Provider] - Discharge Diet: Usual diet Discharge Activity: Increase activity as tolerated Patient Instructions: Impetigo (ED) Activity Restrictions/Additional Instructions: Take antibiotic as directed. Bactrim DS 1 tablet 2 times a day for 7 days. Use antibiotic ointment mupirocin twice a day to each of the crusted lesions until cleared. Continue with acyclovir 800 mg 4 times a day for the course of 7 days. You may have shingles but I believe you have a secondary staphylococcal infection. You need to be treated for the bacterial infection with antibiotics. Do not share towels as you may spread it to your partner or other family member. Follow-up with primary care for further instructions. Return to ED for worsening symptoms such as high fever greater than 100.4, inability to hold fluids down, worsening rash, or new concerns. Coding Level of Care Code ED Director Clinical Applications for Ranjeet Lamb
[2023-01-23] MEDS: sulfamethoxazole-trimeth DS 160-800 mg Tablet 1 TAB PO (17:28)
[2023-01-23] MEDS: HYDROcodone-acetaminophen 7.5-325 mg Tablet 1 TAB PO (17:28)
== END 2023-01-23 17:49 | disposition home or self-care (01) ==
PROVIDERS: Emergency Provider Nurse Practitioner Family; PCP Family Medicine Adult Medicine
DX: L01.00 Impetigo, unspecified (principal); Z79.82 Long term (current) use of aspirin; Z87.891 Personal history of nicotine dependence; J44.9 Chronic obstructive pulmonary disease, unspecified
CPT/HCPCS: 99283

== ENCOUNTER → 2023-02-12 11:30 | Outpatient (BNVA) | payer MEDICARE, MEDICAID, SELFPAY | PROVIDERS: PCP Family Medicine Adult Medicine; Visit Provider Nurse Practitioner Family | DX: Z91.89 Other specified personal risk factors, not elsewhere classified (principal) | CPT/HCPCS: 86618; 86666; 86757 ==

== ENCOUNTER 2023-02-26 09:44 | Inpatient (IN) | payer MEDICARE, MEDICAID, SELFPAY ==
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
[2023-02-26 10:01] VITALS: BP 152/92; PULSE 101; RESP 18; TEMP 36.6; O2SAT 96; BMI 26.5
[2023-02-26 11:11] VITALS: O2SAT 100
[2023-02-26 11:14] LABS: Basophils # 0.1 10^3/uL (0.0-0.1); Basophils % 0.7 %; Eosinophils # 0.2 10^3/uL (0.0-0.8); Eosinophils % 1.2 %; Hematocrit 52.1 % (37.0-47.0); Hemoglobin 16.3 g/dL (11.5-15.3); Lymphocytes # 1.8 10^3/uL (0.8-4.8); Lymphocytes % 14.6 %; Mean Corpuscular HGB Conc 31.3 g/dL (30.0-36.0); Mean Corpuscular Hemoglobin 29.3 pg (28.0-34.0); Mean Corpuscular Volume 93.7 fl (81-99); Mean Platelet Volume 10.3 fL (7.4-10.4); Monocytes # 0.7 10^3/uL (0.2-0.9); Monocytes % 5.6 %; Neutrophils # 9.41 10^3/uL (1.8-7.7); Neutrophils % 77.7 %; Nucleated Red Blood Cells % 0 %; Platelet Count 294 10^3/cmm (130-400); Red Blood Count 5.56 10^6/uL (4.1-5.3); White Blood Count 12.1 10^3/uL (4.0-10.0)
[2023-02-26 11:34] LABS: Alanine Aminotransferase 29 U/L (0-33); Albumin Level 4.5 g/dL (3.5-5.2); Alkaline Phosphatase 75 U/L (35-105); Anion Gap 18.6 (5-19); Aspartate Amino Transferase 19 U/L (0-32); Blood Urea Nitrogen 11 mg/dL (6-20); Carbon Dioxide 16 mmol/L (22-29); Chloride 110 mmol/L (98-107); Creatinine Clr Calc Pharmacy 113.1021; Globulin 3.7 g/dL (1.3-4.6); Glomerular Filtration Rate 109.6 mL/min (90-130); Glucose 92 mg/dL (65-115); Osmolality Calculated 289 mOsm/kg (285-295); Potassium 4.6 mmol/L (3.5-5.1); Sodium 140 mmol/L (136-145); Total Bilirubin 0.5 mg/dL (0.15-1.2); Total Protein 8.2 g/dL (6.6-8.7)
[2023-02-26 11:36] LABS: Acetaminophen < 5.0 ug/mL (10-30); Alcohol Level < 10 mg/dL (0-10); Salicylate < 0.3 mg/dL (3-10)
[2023-02-26 11:39] LABS: HCG, Serum Qual Negative (Negative)
[2023-02-26 12:34] VITALS: RESP 18; O2SAT 98
[2023-02-26 12:48] LABS: Amphetamines Screen Urine Negative (Negative); Barbiturates Screen Urine Negative (Negative); Benzodiazepines Screen Urine Positive (Negative); Cocaine Screen Urine Negative (Negative); Opiate Screen Urine Positive (Negative); PCP Screen Urine Negative (Negative); THC Screen Urine Positive (Negative)
[2023-02-26] MEDS: LORazepam 1 mg Tablet PO ×2 (12:59→15:35)
[2023-02-26] MEDS: ondansetron 4 MG Tablet PO ×2 (14:09→20:23)
--- NOTE | 2023-02-26 16:20 | PC.NURSE ---
Patient is wanting to leave with . Nurse educated patient that she is on a 96 hour hold and can not leave. Patient became upset and started crying. patient is very anxious. Nurse told patient she can have 1 visitor between the hours 3-4 daily.
[2023-02-26 18:08] VITALS: BP 137/88; PULSE 99; RESP 18; TEMP 36.8; O2SAT 97
[2023-02-26] MEDS: LORazepam 2 mg Tablet PO (19:00)
[2023-02-26] MEDS: hyDROXYzine 25 mg Capsule 50 MG PO (20:23)
[2023-02-26 20:35] VITALS: BP 106/76; PULSE 98; RESP 18; TEMP 36.3; O2SAT 95
[2023-02-27 06:46] VITALS: BP 128/85; PULSE 97; RESP 20; TEMP 36.7; O2SAT 95
[2023-02-27] MEDS: LORazepam 2 mg Tablet PO ×2 (08:08→20:00)
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
[2023-02-27 14:00] VITALS: BP 111/73; PULSE 98; RESP 14; TEMP 36.8; O2SAT 97
[2023-02-27] MEDS: ondansetron 4 MG Tablet PO (18:11)
--- NOTE | 2023-02-27 18:12 | PC.NURSE ---
PRN ZOFRAN 4 MG GIVEN PO PER PT C/O STATED NAUSEA
[2023-02-27] MEDS: hyDROXYzine 25 mg Capsule 50 MG PO (20:22)
[2023-02-27] MEDS: trazodone 50 mg Tablet PO (21:48)
[2023-02-27 22:00] VITALS: BP 145/94; PULSE 94; RESP 18; TEMP 36.4; O2SAT 96
[2023-02-28 06:00] VITALS: BP 121/85; PULSE 86; RESP 18; TEMP 36.8; O2SAT 96
[2023-02-28] MEDS: LORazepam 2 mg Tablet PO ×2 (07:52→18:25)
[2023-02-28] MEDS: hyDROXYzine 25 mg Capsule 50 MG PO ×2 (11:41→20:12)
[2023-02-28] MEDS: hydrocortisone 2.5% cream 28 gm 1 APPLIC TOPICAL (12:24)
[2023-02-28 14:00] VITALS: BP 123/89; PULSE 98; RESP 16; TEMP 36.8; O2SAT 97
--- NOTE | 2023-02-28 18:22 | P.NPUPN_ITS ---
Subjective NPU Subjective: Patient presented today reporting that she is being treated by another patient that just came on the unit. We discussed her medications and she was reporting that her wanted to make sure that they did not cause any sexual dysfunction. We discussed the risks, benefits alternatives of initiating Abilify and she understood agreed proceed as is documented in this note. Mental Status Exam MSE Comments: This is an weight white female looking slightly older than her stated age with adequate grooming and eye contact.? No abnormal movements except for psychomotor agitation.? Cooperative with exam in mild to moderate distress.? Speech was mostly normal rate and volume.? Mood described as anxious and depressed, affect congruent, tearful and labile.? Thought process mostly organizedl.? Thought content: Patient endorsed suicidal but denied homicidal ideation, there were no delusions reported or noted, she denied any auditory or visual hallucination.? Attention concentration was intact and memory was worrying for lack of reliability with some of her stories, but none were formally tested.? She alert and oriented x3.? Insight, judgment and impulse control limited versus impaired. Vitals/I&O/Wt Last Vital Signs Temp 98.3 F 02/28/23 14:00 Pulse 98 02/28/23 14:00 Resp 16 02/28/23 14:00 BP 123/89 02/28/23 14:00 Pulse Ox 97 02/28/23 14:00 O2 Del Method Room Air 02/28/23 14:00 Data NPU 02/26/23 11:04 02/26/23 11:04 A&P Assessment and plan (1) Suicidal ideation: (2) Asthma-COPD overlap syndrome: (3) Post traumatic stress disorder (PTSD): (4) Major depressive disorder, recurrent: (5) Anxiety disorder due to general medical condition with panic attack: (6) Cluster B personality disorder: Plan This is a 42-year old white female with a long history of trauma and mental health issues with significant genetic loading for mental health and addiction issues who presents with some faint laceration and reports of suicidality. 1. Continue current medication. Start Wellbutrin XL 150 mg p.o. every m orning. Start Abilify 5 mg p.o. every morning. 2. Encourage individual, group and milieu therapy 3. Continue q-15 minute check for safety 4. Obtain collateral information. Involuntary Hold Information 96 Hour Hold: 96 Hour Involuntary Admission: Yes 96 Hour Hold Ending Date: 03/05/23 96 Hour Hold Ending Time: 00:01 Attestations NPU Medical Necessity Statement*: Inpatient hospitalization is medically necessary and the clinically appropriate intervention at this time. We will monitor medications and make changes as indicated. Likely length of stay is 4-6 days. Coding Level of Care Code Acute Code for [facility] Fwd Diagnoses Suicidal ideation R45.851 Asthma-COPD overlap syndrome J44.9 Post traumatic stress disorder (PTSD) F43.10 Major depressive disorder, recurrent F33.9 Anxiety disorder due to general medical condition with panic attack F06.4; F41.0 Cluster B personality disorder F60.89
[2023-02-28] MEDS: ARIPiprazole 2 mg Tablet 5 MG PO (18:42)
[2023-02-28] MEDS: ondansetron 4 MG Tablet PO (19:57)
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
[2023-02-28] MEDS: OLANZapine 5 mg ODT PO (20:12)
[2023-02-28] MEDS: trazodone 50 mg Tablet PO (20:12)
[2023-02-28 21:27] VITALS: BP 145/84; PULSE 101; RESP 18; TEMP 36.4; O2SAT 96
[2023-03-01 06:00] VITALS: BP 115/77; PULSE 91; RESP 16; TEMP 36.5; O2SAT 96
[2023-03-01] MEDS: buPROPion XL (24 HR) 150 mg Tablet PO (08:05)
[2023-03-01] MEDS: LORazepam 2 mg Tablet PO ×2 (08:06→18:02)
[2023-03-01] MEDS: ARIPiprazole 10 mg Tablet 5 MG PO (08:06)
[2023-03-01] MEDS: ondansetron 4 MG Tablet PO (12:24)
--- NOTE | 2023-03-01 12:39 | P.NPUPN_ITS ---
Subjective NPU Subjective: Patient presents today reporting that she is starting to feel little better. She feels like the Wellbutrin is counteracting the Ativan that she is prescribed. We discussed that it is an awfully high dose of Ativan and long- term eventually there needs to be a different solution but talked about holding the Wellbutrin momentarily to see if this is just in her mind or accurate. Mental Status Exam MSE Comments: This is an weight white female looking slightly older than her stated age with adequate grooming and eye contact.? No abnormal movements except for psychomotor agitation.? Cooperative with exam in mild distress.? Speech was mostly normal rate and volume.? Mood described as a little better, affect congruent.? Thought process mostly organized.? Thought content: Patient did not report homicidal ideation, there were no delusions reported or noted, she denied any auditory or visual hallucination.? Attention concentration was intact and memory was worrying for lack of reliability with some of her stories, but none were formally tested.? She alert and oriented x3.? Insight, and judgment improving and impulse control limited. Vitals/I&O/Wt Last Vital Signs Temp 97.7 F 03/01/23 06:00 Pulse 91 03/01/23 06:00 Resp 16 03/01/23 06:00 BP 115/77 03/01/23 06:00 Pulse Ox 96 03/01/23 06:00 O2 Del Method Room Air 03/01/23 06:00 Data NPU 02/26/23 11:04 02/26/23 11:04 A&P Assessment and plan (1) Suicidal ideation: (2) Asthma-COPD overlap syndrome: (3) Post traumatic stress disorder (PTSD): (4) Major depressive disorder, recurrent: (5) Anxiety disorder due to general medical condition with panic attack: (6) Cluster B personality disorder: Plan This is a 42-year old white female with a long history of trauma and mental health issues with significant genetic loading for mental health and addiction i ssues who presents with some faint laceration and reports of suicidality. 1. Continue current medication. Started Wellbutrin XL 150 mg p.o. every morning, but will hold. Started Abilify 5 mg p.o. every morning. 2. Encourage individual, group and milieu therapy 3. Continue q-15 minute check for safety 4. Obtain collateral information. Involuntary Hold Information 96 Hour Hold: 96 Hour Involuntary Admission: Yes 96 Hour Hold Ending Date: 03/05/23 96 Hour Hold Ending Time: 00:01 Attestations NPU Medical Necessity Statement*: Inpatient hospitalization is medically necessary and the clinically appropriate intervention at this time. We will monitor medications and make changes as indicated. Likely length of stay is 3-5 days. Coding Level of Care Code Acute Code for [facility] Fwd Diagnoses Suicidal ideation R45.851 Asthma-COPD overlap syndrome J44.9 Post traumatic stress disorder (PTSD) F43.10 Major depressive disorder, recurrent F33.9 Anxiety disorder due to general medical condition with panic attack F06.4; F41.0 Cluster B personality disorder F60.89
[2023-03-01 14:00] VITALS: BP 120/80; PULSE 94; RESP 16; TEMP 36.9; O2SAT 94
[2023-03-01] MEDS: trazodone 50 mg Tablet PO (20:51)
[2023-03-01 22:01] VITALS: BP 127/83; PULSE 100; RESP 14; TEMP 36.6; O2SAT 96
[2023-03-02 06:00] VITALS: RESP 14
[2023-03-02] MEDS: ARIPiprazole 10 mg Tablet 5 MG PO (08:13)
[2023-03-02] MEDS: buPROPion XL (24 HR) 150 mg Tablet PO (08:13)
[2023-03-02] MEDS: LORazepam 2 mg Tablet PO (08:15)
--- NOTE | 2023-03-02 09:10 | PC.NURSE ---
PT IN ROOM, REPORTS ANXIETY WHILE SHE IS ROCKING BACK AND FORTH IN BED. DENIES SI/HI AND AVH AT THIS TIME. REPORTS SHE SLEPT GOOD LAST NIGHT AFTER RECEIVING TRAZODONE PRN. PT INTERACTS WITH PEERS AND STAFF APPROPRIATELY.
--- NOTE | 2023-03-02 11:54 | DCPLANNER ---
IMM was completed on 03/02/23 @ [id number]. Pt was given a copy of rights and she stated she understood her rights.
[2023-03-02] MEDS: haloperidol 5 mg Tablet PO (12:02)
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
[2023-03-02 12:43] VITALS: RESP 14
[2023-03-02 13:56] VITALS: BP 135/86; PULSE 103; RESP 17; TEMP 37.1; O2SAT 95
== END 2023-03-02 15:00 | disposition home or self-care (01) | DRG 885 ==
LOC: ER 14:56 → NP 17:58
PROVIDERS: Admitting Provider Psychiatry & Neurology Psychiatry; Emergency Provider Physician Assistant; PCP Family Medicine Adult Medicine; Visit Provider Psychiatry & Neurology Psychiatry
DX: F33.9 Major depressive disorder, recurrent, unspecified (principal); R45.851 Suicidal ideations; F41.1 Generalized anxiety disorder; J44.9 Chronic obstructive pulmonary disease, unspecified; Z87.891 Personal history of nicotine dependence; K58.9 Irritable bowel syndrome, unspecified; F43.10 Post-traumatic stress disorder, unspecified; R32 Unspecified urinary incontinence; F60.89 Other specific personality disorders; Z81.8 Family history of other mental and behavioral disorders; Z81.3 Family history of other psychoactive substance abuse and dependence; Z91.52 Personal history of nonsuicidal self-harm; Z91.411 Personal history of adult psychological abuse
CPT/HCPCS: 36415; 80053; 80306; 80307; 84703; 85025; 97150; 97165; 99238; 99285; Q0162

== ENCOUNTER → 2023-04-17 09:18 | Outpatient (BNVA) | payer MEDICARE, MEDICAID, SELFPAY | PROVIDERS: PCP Family Medicine Adult Medicine; Visit Provider Family Medicine Adult Medicine | DX: F12.180 Cannabis abuse with cannabis-induced anxiety disorder (principal) | CPT/HCPCS: 80307 ==

== ENCOUNTER 2023-06-13 09:11 | Outpatient (CLI) | payer MEDICARE, MEDICAID, SELFPAY ==
--- NOTE | 2023-06-13 09:17 | MM_ITS ---
WS: [id number] BILATERAL SCREENING DIGITAL TOMOSYNTHESIS MAMMOGRAM WITH CAD HISTORY: Z12.39 - Encounter for other screening for malignant neop... COMPARISON: 06/06/2022 and 05/27/2021, 07/29/2020 Bilateral CC and MLO views with tomosynthesis and synthetic mammography submitted. Computer aided det ection analyzed. Breast composition: There are scattered areas of fibroglandular density. No suspicious masses, microc alcifications or architectural distortion. IMPRESSION: MM/[place] [id number] BI-RADS: 1-Negative FOLLOW UP: 1 Year Follow-up
== END 2023-06-13 09:12 | disposition home or self-care (01) ==
PROVIDERS: PCP Family Medicine Adult Medicine; Visit Provider Nurse Practitioner Women's Health
DX: Z12.31 Encounter for screening mammogram for malignant neoplasm of breast (principal)
CPT/HCPCS: 77063; 77067

== ENCOUNTER 2023-08-20 21:47 | Emergency (ER) | payer MEDICARE, MEDICAID, SELFPAY ==
[2023-08-20 21:55] VITALS: BP 118/82; PULSE 106; RESP 20; TEMP 37.2; O2SAT 96; BMI 33.6
--- NOTE | 2023-08-20 22:24 | ECG_ITS ---
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 [id number]
--- NOTE | 2023-08-20 22:29 | ED_ITS ---
HPI - SOB/Dyspnea General: Chief Complaint: Shortness of Breath/Dyspnea Stated Complaint: SOB CP Time Seen by Provider: 08/20/23 22:21 History of Present Illness: HPI Narrative: Patient arrived to the ER with complaints of shortness of breath and chest pain. These been going on for about 3 days. Patient feels like she is getting sick as far as chest cold or pneumonia. Patient states she only has chest pain when she takes a big deep breath or coughs. Then it feels like something stabbing right in her center of her chest. Patient is also complaining of sinus tenderness pain and pressure. Patient states she only has inhaler to use at home because she does not have the tubing for her nebulizer and is just not been working very good. Patient does report she is a long-term smoker however she quit in the summertime she also reports she has a history of COPD. 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 She was agitated, spoke loudly, was tearful then angry, and moved in her seat continuously for most of the assessment interview, though she became calmer as director experimental medicine provided supportive, empathic listening. Rekha was dressed in clean, casual clothing appropriate for today's situation and weather. Hemorrhoids Inflammatory bowel disease Initially thought Crohn's--followed GI, Dr. Espinoza in [place]. 2020 told not Crohn's disease, but severe IBS Lupus anticoagulant positive per history, repeat was negative, currently asymptomatic Major depressive disorder, recurrent Following information retrieved and edited from Behavior Assessment Report on 12/26/21: She presented with loose associations, tangential thinking, perseveration, and had difficulty participating in the assessment interview. She was agitated, spoke loudly, was tearful then angry, and moved in her seat continuously for most of the assessment interview, though she became calmer as director experimental medicine provided supportive, empathic listening. Rekha was dressed in clean, casual clothing appropriate for today's situation and weather. Patellar tendinitis, left knee Post traumatic stress disorder (PTSD) Primary stress urinary incontinence Seizures Reports having had seizures in the past the last was in 2018. She is not currently on any medication. Suicidal ideation TMJ (temporomandibular joint syndrome) Weight gain finding Surgical History S/P laparoscopic cholecystectomy 2006 Status post delivery X 2 ---> 2005, 2006 Status post tubal ligation 2006--laparoscopic tubal 2 months after her Family History Father Hyperlipidemia Hypertension Mother Hypertension Stroke Breast cancer diagnosed at age 70 Family/Other Ovarian cancer paternal aunt, age at diagnosis unknown Denies family history of Colon cancer Diabetes Heart disease Anesthesia complication Bleeding disorder Uterine cancer Thyroid disease Social History Smoking and tobacco/nicotine status: former use of tobacco/nicotine Alcohol intake: never Substance/Drug Use: current Substance/Drug use frequency: daily Other substance/drug use details: uses cbd and thc does not smoke it Lives independently: Yes Household members: other Marital status: Life Partner Current occupational status: unemployed Do you think of yourself as: Straight/Heterosexual Current gender identity: Female Female Reproductive History: Para: 2 Spontaneous abortions: Yes Physical Exam Const: COMMON NORMALS: no acute distress, average body habitus, patient or iented x3, no limitations, healthy appearing, alert and well nourished HENMT: COMMON NORMALS: normocephalic, atraumatic, hearing grossly normal bi laterally, external ears normal, Normal external nose present, moist oral mucous membranes and oropharynx normal HEAD & SCALP: normocephalic and atraumatic NOSE: Normal external nose present EXTERNAL EAR: Yes external ears normal Neck/C-Spine: COMMON NORMALS: no JVD Chest: COMMONS NORMALS: normal inspection of the chest; negative for normal palpation of entire chest wall (Tender to palpate mid sternum of the chest.) Resp: COMMON NORMALS: normal respiratory effort, No retractions and No use of accessory muscles; negative for clear to auscultation bilaterally (Diffuse wheezing throughout. Intermittent rhonchi) AUSCULTATION: not clear to auscultation bilaterally (Diffuse wheezing throughout. Intermittent rhonchi) Cardio: COMMON NORMALS: no JVD, regular rate, regular rhythm, S1 normal heart sound present, S2 normal heart sound present, No gallops present (Cardio), No clicks present (Cardio), No murmurs present (Cardio) and No rub (Cardio) RATE: regular rate RHYTHM: regular rhythm HEART SOUNDS: S1 normal heart sound present and S2 normal heart sound present GI: COMMON NORMALS: Normal to inspection, nondistended, normoactive bowel sounds present, Soft to palpation, non-tender, No hepatosplenomegaly present and no masses PALPATION: Yes Soft to palpation and Yes No hepatosplenomegaly present : COMMON NORMALS: Yes no CVA tenderness BLADDER/KIDNEY EXAM: Yes no CVA tenderness Back/Pelvis: COMMON NORMALS: no CVA tenderness Neuro: COMMON NORMALS: patient oriented x3 SENSORIUM/ORIENTATION: Yes alert Course Vital Signs: Vital signs: Vital Signs Temperature 98.9 F 08/20/23 21:55 Pulse Rate 99 08/21/23 00:34 Respiratory Rate 16 08/21/23 01:01 Blood Pressure 118/82 08/20/23 21:55 Pulse Oximetry 97 08/21/23 00:34 Oxygen Delivery Me thod Room Air 08/21/23 00:34 MDM - SOB/Dyspnea Medical Decision Making patient was worked up in a standard chest pain fashion with serial EKGs serial cardiac enzymes labs and chest x-ray all of which were essentially benign. Patient was giv DuoNeb breathing treatment, 125 mg Solu-Medrol, 30 mg Toradol, Zofran 4 mg, morphine 4 mg, patient's pain resolved and was pain-free. Patient was breathing easier. Patient be discharged home. Differential Diagnosis Likely acute exacerbation of chronic obstructive airways disease; Unlikely conge stive heart failure, community acquired pneumonia, asthma with exacerbation or pulmonary embolism Medical Records I reviewed the patient's medical records. Lab Data I reviewed the patient's lab results. 08/20/23 23:11 08/20/23 23:11 Labs/Radiology: Radiology Impressions Chest X-Ray 08/21/23 01:16 IMPRESSION: No acute findings. Laboratory Results WBC 11.02 10^3/uL (3.29-11.43) 08/20/23 23:11 RBC 4.97 10^6/uL (3.85-5.65) 08/20/23 23:11 Hgb 14.90 g/dL (11.27-16.99) 08/20/23 23:11 Hct 43.3 % (36-47) 08/20/23 23:11 MCV 87.1 fl (85-98) 08/20/23 23:11 MCH 30.0 pg (27-33) 08/20/23 23:11 MCHC 34.4 g/dL (30-55) 08/20/23 23:11 RDW 11.5 % (12.1-15.1) L 08/20/23 23:11 Plt Count 264 10^3/cmm (157-399) 08/20/23 23:11 MPV 10.2 fL (7.4-10.4) 08/20/23 23:11 Neut % (Auto) 60.4 % 08/20/23 23:11 Lymph % (Auto) 24.3 % 08/20/23 23:11 [place] % (Auto) 11.8 % 08/20/23 23:11 Eos % (Auto) 2.5 % 08/20/23 23:11 Baso % (Auto) 0.6 % 08/20/23 23:11 Neut # (Auto) 6.66 10^3/uL (1.8-7.7) 08/20/23 23:11 Lymph # (Auto) 2.7 10^3/uL (0.8-4.8) 08/20/23 23:11 [place] # (Auto) 1.3 10^3/uL (0.2-0.9) H 08/20/23 23:11 Eos # (Auto) 0.3 10^3/uL (0.0-0.8) 08/20/23 23:11 Baso # (Auto) 0.1 10^3/uL (0.0-0.1) 08/20/23 23:11 Nucleated RBC % (auto) 0 % 08/20/23 23:11 Nucleated RBCs # 0.0 /100WBC 08/20/23 23:11 Sodium 140 mmol/L (136-145) 08/20/23 23:11 Potassium 3.5 mmol/L (3.5-5.1) 08/20/23 23:11 Chloride 106 mmol/L (98-107) 08/20/23 23:11 Carbon Dioxide 20 mmol/L (22-29) L 08/20/23 23:11 Anion Gap 17.5 (5-19) 08/20/23 23:11 BUN 7 mg/dL (6-20) 08/20/23 23:11 Creatinine 0.7 mg/dL (0.5-0.9) 08/20/23 23:11 GFR Calculation 91.3 mL/min (90-130) 08/20/23 23:11 Glucose 108 mg/dL (65-115) 08/20/23 23:11 Calculated Osmolality 289 mOsm/kg (285-295) 08/20/23 23:11 Calcium 9.5 mg/dL (8.5-10.5) 08/20/23 23:11 Total Bilirubin 0.5 mg/dL (0.15-1.2) 08/20/23 23:11 AST 13 U/L (0-32) 08/20/23 23:11 ALT 15 U/L (0-33) 08/20/23 23:11 Alkaline Phosphatase 76 U/L (35-105) 08/20/23 23:11 Troponin T Baseline < 6 ng/L (0-10) 08/20/23 23:11 Troponin T 120 Minute < 6.0 ng/L (0-10) 08/21/23 00:16 Delta Troponin T 0 ABS# (0-10) 08/21/23 00:16 Total Protein 8.0 g/dL (6.6-8.7) 08/20/23 23:11 Albumin 4.1 g/dL (3.5-5.2) 08/20/23 23:11 Globulin 3.9 g/dL (1.3-4.6) 08/20/23 23:11 Influenza Type A Ag negative (Negative) 08/20/23 23:33 Influenza Type B Ag negative (Negative) 08/20/23 23:33 SARS-CoV-2 Ag (Rapid) negative (Negative) 08/20/23 23:33 All radiology interpretation(s) finalized by discharge EKG Data EKG 1: I personally reviewed and interpreted this EKG as follows: EKG Interpretation Date: 08/20/23 EKG interpretation time: 21:53 Prior EKG tracings: not available for review Interpretation: EKG showed ventricular rate 106 bpm, IA interval 134, QRS duration 88, QTc of 381, sinus tachycardia, nonspecific T wave abnormality EKG 2: I personally reviewed and interpreted this EKG as follows: EKG Interpretation Date: 08/21/23 EKG interpretation time: 00:04 Prior EKG tracings: available for review Interpretation: EKG showed ventricular rate 102 bpm, IA interval 147, QRS duration 86, QTc of 401, sinus tachycardia, nonspecific T wave abnormality Discharge Plan Discharge Patient Disposition: Home Clinical Impression: Chest pain, non-cardiac, Acute upper respiratory infection Condition: Stable Prescriptions: No Action ipratropium-albuterol 0.5 mg-3 mg(2.5 mg base)/3 mL solution for nebulization 3 ml inhalation QID PRN (Reason: wheezing) Qty: 180 3RF MSM powder PO doxepin 25 mg capsule 25 mg PO DAILY PRN (Reason: sleep) Qty: 30 5RF mirtazapine 7.5 mg tablet 7.5 mg PO .q hs Qty: 30 5RF bupropion HCl 150 mg tablet extended release 24 hr 150 mg PO DAILY Qty: 30 3RF epinephrine [EpiPen 2-Luciano] 0.3 mg/0.3 mL auto-injector 0.3 mg IM Q4H PRN (Reason: anaphylaxis) Qty: 2 0RF fluticasone propion-salmeterol [Advair Diskus] 250-50 mcg/dose blister with device 1 inh inhalation BID Qty: 60 5RF Preparation H Maximum Strength 0.25-1 % cream 1 applic IA BID Qty: 51 5RF clobetasol 0.05 % ointment 1 applic topical BID PRN (Reason: Rash) Qty: 45 2RF Combivent Respimat 20-100 mcg/actuation mist 1 puff inhalation Q4H PRN (Reason: copd) Qty: 4 5RF Rx Instructions: SPACE EVENLY DURING WAKING HOURS hydrocortisone 2.5 % cream 1 applic topical QID PRN (Reason: skin irritation) Qty: 454 0RF ondansetron 4 mg tablet,disintegrating 4 mg PO Q4H PRN (Reason: nausea and vomiting) Qty: 30 3RF lorazepam 2 mg tablet 2 mg PO TID 30 Days Qty: 90 3RF Rx Instructions: refill on or after 30 day intervals diclofenac sodium 25 mg tablet,delayed release (DR/EC) 25 mg PO TID PRN (Reason: pain) Qty: 90 0RF tramadol 50 mg tablet 50 mg PO Q12H PRN (Reason: pain) Qty: 10 0RF medroxyprogesterone 150 mg/mL suspension 150 mg IM Q90D aspirin 81 mg Tablet,Delayed Release (Dr/Ec) 81 mg PO QAM Discharge Orders: Discharge ED (Routine); Ordered 08/21/23 Ordered By: Goyo Perla Referrals: Alexi Medel MD [Primary Care Provider] - 1 week Patient Instructions: Chest Pain - Noncardiac, Upper Respiratory Infection - Adult Activity Restrictions/Additional Instructions: please use your nebulizer consistently that you have at home. You may take the tubing and mouthpiece home from the ER. Please follow-up with your family practice physician within the next 7 to 10 days for further Coding Level of Care Code ED Senior Business Intelligence Analyst for Ranjeet Lamb
[2023-08-20] MEDS: ipratropium-albuterol 3 mL Neb INHALATION (22:43)
[2023-08-20 22:44] VITALS: PULSE 97; RESP 16; O2SAT 97
[2023-08-20] MEDS: ketorolac 30 mg/mL INJ IVP (23:19)
[2023-08-20] MEDS: methylPREDNISolone sod succ 125 mg/2 mL INJ IVP (23:20)
[2023-08-20 23:32] LABS: Basophils # 0.1 10^3/uL (0.0-0.1); Basophils % 0.6 %; Eosinophils # 0.3 10^3/uL (0.0-0.8); Eosinophils % 2.5 %; Hematocrit 43.3 % (36-47); Lymphocytes # 2.7 10^3/uL (0.8-4.8); Lymphocytes % 24.3 %; Mean Corpuscular HGB Conc 34.4 g/dL (30-55); Mean Corpuscular Volume 87.1 fl (85-98); Mean Platelet Volume 10.2 fL (7.4-10.4); Monocytes # 1.3 10^3/uL (0.2-0.9); Monocytes % 11.8 %; Neutrophils # 6.66 10^3/uL (1.8-7.7); Neutrophils % 60.4 %; Nucleated Red Blood Cells % 0 %; Platelet Count 264 10^3/cmm (157-399); Red Blood Count 4.97 10^6/uL (3.85-5.65); Red Cell Distribution Width 11.5 % (12.1-15.1); White Blood Count 11.02 10^3/uL (3.29-11.43)
[2023-08-20 23:50] LABS: Troponin(5th) Baseline < 6 ng/L (0-10)
[2023-08-20 23:59] LABS: Influenza A by IFA negative (Negative); Influenza B by IFA negative (Negative); SARS Covid-2 Antigen negative (Negative)
[2023-08-21 00:07] LABS: Alanine Aminotransferase 15 U/L (0-33); Albumin Level 4.1 g/dL (3.5-5.2); Alkaline Phosphatase 76 U/L (35-105); Anion Gap 17.5 (5-19); Aspartate Amino Transferase 13 U/L (0-32); Blood Urea Nitrogen 7 mg/dL (6-20); Calcium 9.5 mg/dL (8.5-10.5); Carbon Dioxide 20 mmol/L (22-29); Chloride 106 mmol/L (98-107); Creatinine Clr Calc Pharmacy 107.8282; Globulin 3.9 g/dL (1.3-4.6); Glomerular Filtration Rate 91.3 mL/min (90-130); Glucose 108 mg/dL (65-115); Osmolality Calculated 289 mOsm/kg (285-295); Potassium 3.5 mmol/L (3.5-5.1); Sodium 140 mmol/L (136-145); Total Bilirubin 0.5 mg/dL (0.15-1.2)
--- NOTE | 2023-08-21 00:24 | ECG_ITS ---
[facility] Test Date: 2023-08-21 Pat Name: Rekha Gu Department: Room: Gender: Female Frameman: : 1980 Requested By: Goyo Perla Order Number: [id number] Anju MD: Anali Whitaker M.D. Measurements Intervals [place] Rate: 102 P: 52 IN: 147 QRS: 39 QRSD: 86 T: -8 QT: 342 QTc: 447 Interpretive Statements SINUS TACHYCARDIA NONSPECIFIC T-WAVE ABNORMALITY ABNORMAL RHYTHM ECG Compared to ECG 08/20/2023 21:53:41 No significant changes Electronically Signed On 08-21-2023 14:37:45 MONOTYPE MECHANIC by Anali Whitaker M.D. [id number]
[2023-08-21 00:34] VITALS: PULSE 99; O2SAT 97
[2023-08-21 00:44] LABS: Troponin 5 2HR < 6.0 ng/L (0-10); Troponin 5 2HR Delta 0 ABS# (0-10)
[2023-08-21 01:01] VITALS: RESP 16
[2023-08-21] MEDS: morphine 4 mg/mL SDV 1 mL IVP (01:01)
[2023-08-21] MEDS: ondansetron 2 mg/ML SDV 2 mL 4 MG IVP (01:02)
--- NOTE | 2023-08-21 01:16 | XRR_ITS ---
PROCEDURE INFORMATION: Exam: XR Chest Exam date and time: 08/21/2023 1:22 AM Age: 43 years old Clinical indication: Cough and dyspnea; Additional info: Cough dyspnea TECHNIQUE: Imaging protocol: Radiologic exam of the chest. Views: 1 view. COMPARISON: CR XR ribs BI 3V* [id number] 04/12/2021 1:52 PM FINDINGS: Lungs: No consolidation. Pleural spaces: No large pleural effusion. No pneumothorax. Heart/Mediastinum: Unremarkable cardiomediastinal silhouette. Bones/joints: No acute abnormality. XR/XR chest 1V portable [id number] IMPRESSION: No acute findings.
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
[2023-08-21 02:07] VITALS: BP 122/82; PULSE 95; RESP 18; O2SAT 98
== END 2023-08-21 02:48 | disposition home or self-care (01) ==
PROVIDERS: Emergency Provider Emergency Medicine; PCP Family Medicine Adult Medicine
DX: R07.89 Other chest pain (principal); J06.9 Acute upper respiratory infection, unspecified; Z79.82 Long term (current) use of aspirin; Z11.52 Encounter for screening for COVID-19; Z87.891 Personal history of nicotine dependence; J44.9 Chronic obstructive pulmonary disease, unspecified
CPT/HCPCS: 36415; 71045; 80053; 84484; 85025; 87426; 87804; 93005; 93010; 94640; 96374; 96375; 99285; J1885; J2270; J2405; J2930

== ENCOUNTER → 2023-10-16 14:25 | Outpatient (BNVA) | payer MEDICARE, MEDICAID, SELFPAY | PROVIDERS: PCP Family Medicine Adult Medicine; Visit Provider Family Medicine Adult Medicine | DX: R07.89 Other chest pain (principal); R10.12 Left upper quadrant pain; F45.1 Undifferentiated somatoform disorder; F06.4 Anxiety disorder due to known physiological condition; F41.0 Panic disorder [episodic paroxysmal anxiety]; F43.10 Post-traumatic stress disorder, unspecified; J44.9 Chronic obstructive pulmonary disease, unspecified; M26.609 Unspecified temporomandibular joint disorder, unspecified side; F12.180 Cannabis abuse with cannabis-induced anxiety disorder; R05.3 Chronic cough | CPT/HCPCS: 80053; 82150; 83690 ==

== ENCOUNTER → 2023-11-01 14:55 | Outpatient (BNVA) | payer MEDICARE, MEDICAID, SELFPAY | PROVIDERS: PCP Family Medicine Adult Medicine; Visit Provider Family Medicine Adult Medicine | DX: R05.3 Chronic cough (principal); R07.89 Other chest pain; G89.29 Other chronic pain | CPT/HCPCS: 71046 ==

== ENCOUNTER 2023-11-15 11:42 | Emergency (ER) | payer MEDICARE, MEDICAID, SELFPAY ==
[2023-11-15 12:09] VITALS: BP 115/80; PULSE 100; RESP 18; TEMP 36.4; O2SAT 96; BMI 34.2
[2023-11-15 12:09] LABS: Basophils # 0.1 10^3/uL (0.0-0.1); Basophils % 0.9 %; Eosinophils # 0.4 10^3/uL (0.0-0.8); Eosinophils % 3.7 %; Hematocrit 42.8 % (36-47); Lymphocytes # 2.9 10^3/uL (0.8-4.8); Lymphocytes % 26.3 %; Mean Corpuscular HGB Conc 34.1 g/dL (30-55); Mean Corpuscular Hemoglobin 30.1 pg (27-33); Mean Corpuscular Volume 88.2 fl (85-98); Mean Platelet Volume 10.4 fL (7.4-10.4); Monocytes # 0.6 10^3/uL (0.2-0.9); Monocytes % 5.5 %; Neutrophils # 6.89 10^3/uL (1.8-7.7); Neutrophils % 63.2 %; Nucleated Red Blood Cells % 0 %; Platelet Count 284 10^3/cmm (157-399); Red Blood Count 4.85 10^6/uL (3.85-5.65); Red Cell Distribution Width 11.7 % (12.1-15.1); White Blood Count 10.89 10^3/uL (3.29-11.43)
[2023-11-15 12:25] LABS: HCG, Serum Qual Negative (Negative)
[2023-11-15 12:28] LABS: Alanine Aminotransferase 18 U/L (0-33); Albumin Level 4.2 g/dL (3.5-5.2); Alkaline Phosphatase 68 U/L (35-105); Anion Gap 15.7 (5-19); Aspartate Amino Transferase 14 U/L (0-32); Blood Urea Nitrogen 11 mg/dL (6-20); Calcium 8.6 mg/dL (8.5-10.5); Carbon Dioxide 21 mmol/L (22-29); Chloride 101 mmol/L (98-107); Globulin 3.3 g/dL (1.3-4.6); Glomerular Filtration Rate 60.5 mL/min (90-130); Glucose 176 mg/dL (65-115); Lipase 214 U/L (13-60); Osmolality Calculated 282 mOsm/kg (285-295); Potassium 3.7 mmol/L (3.5-5.1); Sodium 134 mmol/L (136-145); Total Bilirubin 0.3 mg/dL (0.15-1.2); Total Protein 7.5 g/dL (6.6-8.7)
--- NOTE | 2023-11-15 12:41 | W.ED.ABDPA2 ---
HPI - Abdominal Pain General: Chief Complaint: Abdominal Pain Stated Complaint: abd pain Time Seen by Provider: 11/15/23 12:41 Source: patient Mode of arrival: ambulatory History of Present Illness: 43-year-old female presents emergency room with complaint of abdominal pain. [facility]. She has had intermittent nausea and vomiting with abdominal pain since August. She had diarrhea with that as well she denies dysuria urgency or frequency denies hematuria no hematochezia or melena. No fever sweats or chills. MD elicited complaint: abdominal pain Onset (ago): month(s) Location: Suprapubic Quality: cramping Radiation: none Exacerbating factors: nothing Relieving factors: nothing Associated Symptoms: Denies anorexia, belching, bloating, change in bowel habits, change in stool character, chills, coffee ground emesis, constipation, GI cramping, diarrhea, dyspepsia, dysuria, excessive flatus, fever(s), heartburn, hematochezia, hematuria, hematemesis, fecal incontinence, loose stools, melena, nausea, poor appetite, syncope and vomiting Review of Systems Const: Denies: fever(s), chills, fatigue or malaise Card: Denies: chest pain or syncope Resp: Denies: dyspnea GI: Denies: abdominal pain, nausea, vomiting, hematemesis, coffee ground emesis, heartburn, diarrhea, constipation, bloating, GI cramping, belching, excessive flatus, fecal incontinence, change in bowel habits, change in stool character, hematochezia or melena : Denies: dysuria, urinary frequency, urinary urgency or hematuria Musc: Denies: neck pain or back pain Skin/Breast: Denies: rash PFS ED PFSH: Medical History Chest wall pain, chronic Rash and nonspecific skin eruption TMJ (temporomandibular joint syndrome) Chronic cough Hemorrhoids Patellar tendinitis, left knee Asthma-COPD overlap syndrome Primary stress urinary incontinence Post traumatic stress disorder (PTSD) Major depressive disorder, recurrent Following information retrieved and edited from Behavior Assessment Report on 12/26/21: She presented with loose associations, tangential thinking, perseveration, and had difficulty participating in the assessment interview. She was agitated, spoke loudly, was tearful then angry, and moved in her seat continuously for most of the assessment interview, though she became calmer as multi township assessor provided supportive, empathic listening. Rekha was dressed in clean, casual clothing appropriate for today's situation and weather. Suicidal ideation Inflammatory bowel disease Initially thought Crohn's--followed GI, Dr. Espinoza in [place]. 2020 told not Crohn's disease, but severe IBS Lupus anticoagulant positive per history, repeat was negative, currently asymptomatic Generalized anxiety disorder Following information retrieved and edited from Behavior Assessment Report on 12/26/21: She presented with loose associations, tangential thinking, perseveration, and had difficulty participating in the assessment interview. She was agitated, spoke loudly, was tearful then angry, and moved in her seat continuously for most of the assessment interview, though she became calmer as multi [place] assessor provided supportive, empathic listening. Rekha was dressed in clean, casual clothing appropriate for today's situation and weather. Seizures Reports having had seizures in the past the last was in 2018. She is not currently on any medication. Surgical History Status post tubal ligation 2006--laparoscopic tubal 2 months after her S/P laparoscopic cholecystectomy 2006 Status post delivery X 2 ---> 2004, 2005 Family History Father Hyperlipidemia Hypertension Mother Hypertension Stroke Breast cancer diagnosed at age 70 Family/Other Ovarian cancer paternal aunt, age at diagnosis unknown Denies family history of Colon cancer Diabetes Heart disease Anesthesia complication Bleeding disorder Uterine cancer Thyroid disease Social History Smoking and tobacco/nicotine status: former use of tobacco/nicotine Alcohol intake: never Substance/Drug Use: current Substance/Drug use frequency: daily Other substance/drug use details: uses cbd and thc does not smoke it Lives independently: Yes Household members: other Marital status: Life Partner Current occupational status: unemployed Do you think of yourself as: Straight/Heterosexual Current gender identity: Female Female Reproductive History: Para: 2 Spontaneous abortions: Yes Physical Exam Const: COMMON NORMALS: no acute distress GENERAL APPEARANCE: cooperative and comfortable ORIENTATION/CONSCIOUSNESS: Yes awake, Yes oriented to person, Yes oriented to place and Yes oriented to time HENMT: COMMON NORMALS: normocephalic, atraumatic and hearing grossly normal bilaterally HEAD & SCALP: normocephalic and atraumatic Resp: COMMON NORMALS: normal respiratory effort, No retractions, No use of accessory muscles and clear to auscultation bilaterally AUSCULTATION: clear to auscultation bilaterally Cardio: COMMON NORMALS: regular rate, regular rhythm and No murmurs present (Cardio) RATE: regular rate RHYTHM: regular rhythm GI: COMMON NORMALS: Soft to palpation and No hepatosplenomegaly present AUSCULTATION: Yes normoactive bowel sounds PALPATION: Yes Soft to palpation, No Tenderness to palpation present (GI), No Guarding due to palpation present (GI) and Yes No hepatosplenomegaly present Extremity: COMMON NORMALS: normal to inspection, capillary refill normal, no clubbing, cyanosis or edema, no calf tenderness and no pedal edema Neuro: SENSORIUM/ORIENTATION: Yes oriented to person, Yes oriented to place and Yes oriented to time Skin: COMMON NORMALS: no rashes or lesions noted GENERAL SKIN EXAM: no rashes or lesions noted Course Vital Signs: Vital signs: Vital Signs Temperature 97.6 F 11/15/23 15:15 Pulse Rate 100 11/15/23 15:15 Respiratory Rate 18 11/15/23 15:15 Blood Pressure 112/78 11/15/23 15:15 Pulse Oximetry 96 11/15/23 15:15 Oxygen Delivery Me thod Room Air 11/15/23 12:09 MDM - Abdominal Pain Medical Decision Making CT shows changes in the small bowel which appear to be chronic inflammatory bowel. Will start her on steroids GlucoDock 24 hours and then for medics as needed. Follow-up with primary care may need further evaluation with GI or surgery for endoscopy. Differential Diagnosis Likely abdominal pain Medical Records I reviewed the patient's medical records. Lab Data 11/15/23 11:50 11/15/23 11:50 Labs/Radiology: Laboratory Results WBC 10.89 10^3/uL (3.29-11.43) 11/15/23 11:50 RBC 4.85 10^6/uL (3.85-5.65) 11/15/23 11:50 Hgb 14.60 g/dL (11.27-16.99) 11/15/23 11:50 Hct 42.8 % (36-47) 11/15/23 11:50 MCV 88.2 fl (85-98) 11/15/23 11:50 MCH 30.1 pg (27-33) 11/15/23 11:50 MCHC 34.1 g/dL (30-55) 11/15/23 11:50 RDW 11.7 % (12.1-15.1) L 11/15/23 11:50 Plt Count 284 10^3/cmm (157-399) 11/15/23 11:50 MPV 10.4 fL (7.4-10.4) 11/15/23 11:50 Neut % (Auto) 63.2 % 11/15/23 11:50 Lymph % (Auto) 26.3 % 11/15/23 11:50 [place] % (Auto) 5.5 % 11/15/23 11:50 Eos % (Auto) 3.7 % 11/15/23 11:50 Baso % (Auto) 0.9 % 11/15/23 11:50 Neut # (Auto) 6.89 10^3/uL (1.8-7.7) 11/15/23 11:50 Lymph # (Auto) 2.9 10^3/uL (0.8-4.8) 11/15/23 11:50 [place] # (Auto) 0.6 10^3/uL (0.2-0.9) 11/15/23 11:50 Eos # (Auto) 0.4 10^3/uL (0.0-0.8) 11/15/23 11:50 Baso # (Auto) 0.1 10^3/uL (0.0-0.1) 11/15/23 11:50 Nucleated RBC % (auto) 0 % 11/15/23 11:50 Nucleated RBCs # 0.0 /100WBC 11/15/23 11:50 Sodium 134 mmol/L (136-145) L 11/15/23 11:50 Potassium 3.7 mmol/L (3.5-5.1) 11/15/23 11:50 Chloride 101 mmol/L (98-107) 11/15/23 11:50 Carbon Dioxide 21 mmol/L (22-29) L 11/15/23 11:50 Anion Gap 15.7 (5-19) 11/15/23 11:50 BUN 11 mg/dL (6-20) 11/15/23 11:50 Creatinine 1.0 mg/dL (0.5-0.9) H 11/15/23 11:50 GFR Calculation 60.5 mL/min (90-130) L 11/15/23 11:50 Glucose 176 mg/dL (65-115) H 11/15/23 11:50 Calculated Osmolality 282 mOsm/kg (285-295) L 11/15/23 11:50 Calcium 8.6 mg/dL (8.5-10.5) 11/15/23 11:50 Total Bilirubin 0.3 mg/dL (0.15-1.2) 11/15/23 11:50 AST 14 U/L (0-32) 11/15/23 11:50 ALT 18 U/L (0-33) 11/15/23 11:50 Alkaline Phosphatase 68 U/L (35-105) 11/15/23 11:50 Total Protein 7.5 g/dL (6.6-8.7) 11/15/23 11:50 Albumin 4.2 g/dL (3.5-5.2) 11/15/23 11:50 Globulin 3.3 g/dL (1.3-4.6) 11/15/23 11:50 Lipase 214 U/L (13-60) H 11/15/23 11:50 HCG, Qual Negative (Negative) 11/15/23 11:50 Urine Color Yellow (Yellow) 11/15/23 12:43 Urine Appearance Clear (CLEAR) 11/15/23 12:43 Urine pH 5 (5-7) 11/15/23 12:43 Ur Specific [place] 1.030 (1.005-1.030) 11/15/23 12:43 Urine Protein Neg (Negative) 11/15/23 12:43 Urine Glucose (UA) Norm (Normal) 11/15/23 12:43 Urine Ketones Negative (Negative) 11/15/23 12:43 Urine Blood Neg (Negative) 11/15/23 12:43 Urine Nitrate Negative (Negative) 11/15/23 12:43 Urine Bilirubin Neg (Negative) 11/15/23 12:43 Urine Urobilinogen Norm mg/dL (Negative) 11/15/23 12:43 Ur Leukocyte Esterase Negative (Negative) 11/15/23 12:43 All radiology interpretation(s) finalized by discharge Discharge Plan Discharge Patient Disposition: Home Clinical Impression: Enteritis Condition: Stable Prescriptions: New prednisone 20 mg tablet 20 mg PO TID Qty: 15 0RF Rx Instructions: 1 p.o. 3 times daily x3 days, 1 p.o. twice daily x2 days, 1 p.o. daily x2 days promethazine 25 mg tablet 25 mg PO Q6H PRN (Reason: nausea and vomiting) Qty: 20 0RF No Action ipratropium-albuterol 0.5 mg-3 mg(2.5 mg base)/3 mL solution for nebulization 3 ml inhalation QID PRN (Reason: wheezing) Qty: 180 3RF lorazepam 2 mg tablet 2 mg PO TID 30 Days Qty: 90 3RF Combivent Respimat 20-100 mcg/actuation mist See Rx Instructions .ROUTE .COMPLEX Qty: 4 5RF Dose Instruction: INHALE 1 PUFF INTO LUNGS EVERY 4 HOURS NEEDED FOR COPD; SPACE EVENLY DURING WAKING HOURS Rx Instructions: INHALE 1 PUFF INTO LUNGS EVERY 4 HOURS NEEDED FOR COPD; SPACE EVENLY DURING WAKING HOURS ondansetron 4 mg tablet,disintegrating 4 mg PO Q4H PRN (Reason: nausea and vomiting) Qty: 30 3RF tramadol 50 mg tablet 50 mg PO Q12H PRN (Reason: pain) Qty: 10 0RF medroxyprogesterone 150 mg/mL suspension 150 mg IM Q90D Keto+Acv See Rx Instructions .ROUTE .COMPLEX Rx Instructions: TAKE 2 GUMMIES AFTER EVERY MEAL. Discharge Orders: Discharge ED (Routine); Ordered 11/15/23 Ordered By: Jasper Fisher Referrals: Alexi Medel MD [Primary Care Provider] - Discharge Diet: Usual diet Discharge Activity: Resume usual activity Patient Instructions: Opioid Safety, Pain Management Activity Restrictions/Additional Instructions: Thank you for choosing [facility] for your healthcare needs today. Please realize this is an emergency room and that we are providing you with a medical screening exam and this may not be complete and all inclusive of all the testing and or work up that you may need to determine your ailment or severity of your illness. It is very important that you follow up as instructed or that you return to the Emergency Department should you have concerns or if your condition changes or worsens in any way. You are seen today for abdominal pain CT showed inflammation in the small bowel consistent with chronic inflammatory bowel disease. Recommend a course of steroids clear liquid diet for the next 24 to 48 hours and advance as tolerated promethazine as needed. Coding Level of Care Code ED Safety And Security Manager for Ranjeet Lamb
[2023-11-15 12:50] LABS: Add Urine Microscopic? NO; Charge for UA Resulting for Rev
[2023-11-15 12:52] LABS: Bilirubin Urine Neg (Negative); Blood Urine Neg (Negative); Glucose Urine UA Norm (Normal); Ketones Urine Negative (Negative); Leukocyte Esterase Urine Negative (Negative); Nitrate Urine Negative (Negative); Protein Urine Neg (Negative); Urine Appearance Clear (CLEAR); Urine Color Yellow (Yellow); Urobilinogen Urine Norm (Negative); pH Urine 5 (5-7)
--- NOTE | 2023-11-15 13:34 | CT_ITS ---
WS: [id number] CT ABDOMEN AND PELVIS NONCONTRAST HISTORY: Abdominal pain TECHNIQUE: Imaging performed through the abdomen and pelvis. Coronal and sagittal reformats are submi tted. All CT scans at [facility] use at least one of these dose optimization techniques: auto mated exposure control; mA and/or kV adjustment per patient size (includes targeted exams where dose is matched to clinical indication); or iterative reconstruction. DLP: 760.51 mGy.cm COMPARISON: 10/23/2021 Lower thorax: Lung bases are clear. Visualized heart is normal. No hiatal hernia. Liver: Mildly enlarged liver with hepatic steatosis. No bile duct dilatation. Gallbladder: Prior cholecystectomy. Pancreas: Normal size and attenuation. Normal pancreatic duct. No pancreatitis or mass. Spleen: Normal. Adrenal glands: Normal. No mass. Right kidney: Normal size kidney with no mass or hydronephrosis. Left kidney: Normal size kidney with no mass or hydronephrosis. Aorta: Normal abdominal aorta, no aneurysm or atherosclerosis. No free fluid, intraperitoneal air or significant lymphadenopathy. GI tract: Mildly distended stomach with food products. No small bowel obstruction. There is no wall t hickening. There is mild fat attenuation in the terminal ileum which can be seen with chronic inflamm atory bowel disease. There is no obstructive pattern and no strictures. The appendix is not definitel y identified. Abdominal wall: Small umbilical hernia contains fat only. Pelvis: Uterus is midline. No pelvic mass or free fluid. No adenopathy. Osseous structures: Unremarkable. IMPRESSION: 1. No acute abdominal or pelvic abnormalities. 2. No renal obstruction or calcification. 3. Prior cholecystectomy. 4. No GI tract obstruction. There is mild fatty attenuation near the distal small bowel and the term inal ileum which can be seen with mild chronic inflammatory bowel disease. There is no obstruction at this time. 5. Small fat-containing umbilical hernia.
--- NOTE | 2023-11-15 14:05 | PC.PHAR ---
PT STATES TAKES ONLY THE FOLLOWING: COMBIVENT 20-100 INHALER, IPRATROPIUM/ALBUTEROL NEBULIZING BHARAT.0.5MG-3MG, LORAZEPAM 3 MG, ONDANSETRON 4MG ODT, TRAMADOL 50MG, CONTROL IM EVERY 90 DAYS, AND NEWEST MED KETO+ACV (OTC GUMMIES).
[2023-11-15 15:15] VITALS: BP 112/78; PULSE 100; RESP 18; TEMP 36.4; O2SAT 96
== END 2023-11-15 15:15 | disposition home or self-care (01) ==
PROVIDERS: Emergency Medicine; Emergency Provider Family Medicine; PCP Family Medicine Adult Medicine
DX: K52.9 Noninfective gastroenteritis and colitis, unspecified (principal); Z87.891 Personal history of nicotine dependence; J44.89 Other specified chronic obstructive pulmonary disease
CPT/HCPCS: 36415; 74176; 80053; 81000; 81003; 83690; 84703; 85025; 99284

== ENCOUNTER → 2023-11-26 09:01 | Outpatient (BNVA) | payer MEDICARE, MEDICAID, SELFPAY | PROVIDERS: PCP Family Medicine Adult Medicine; Visit Provider Nurse Practitioner Family | DX: Z30.42 Encounter for surveillance of injectable contraceptive (principal) | CPT/HCPCS: 81025 ==

== ENCOUNTER → 2023-11-28 10:22 | Outpatient (BNVA) | payer MEDICARE, MEDICAID, SELFPAY | PROVIDERS: PCP Family Medicine Adult Medicine; Referring Provider Family Medicine Adult Medicine; Visit Provider Surgery | DX: R19.7 Diarrhea, unspecified (principal); R10.9 Unspecified abdominal pain; G89.29 Other chronic pain; K52.9 Noninfective gastroenteritis and colitis, unspecified; K21.9 Gastro-esophageal reflux disease without esophagitis | CPT/HCPCS: 99204 ==

== ENCOUNTER → 2023-11-30 10:09 | Outpatient (BNVA) | payer MEDICARE, MEDICAID, SELFPAY | PROVIDERS: PCP Family Medicine Adult Medicine; Visit Provider Surgery | DX: R19.7 Diarrhea, unspecified (principal) | CPT/HCPCS: 82274; 83630; 83993 ==

== ENCOUNTER 2023-12-13 07:24 | Day surgery (SDC) | payer MEDICARE, MEDICAID, SELFPAY ==
--- NOTE | 2023-12-13 07:30 | P.HPUD_ITS ---
Surgery/Procedure H&P Update DATE OF PROCEDURE: December 13, 2023 DATE H&P PERFORMED: 11/23/20 H&P UPDATE INFORMATION: I have reviewed H&P completed within last 30 days, I have examined patient prior to procedure, No changes to prior documentation and H&P is in [facility] EMR on date indicated PLANNED PROCEDURE: Operation Date: 12/13/23 08:30 Proposed Procedures p [id number] egd G89.29(Not Applicable) - Santiago Hui MD
--- NOTE | 2023-12-13 07:30 | W.PM.OPSUD ---
Surgery/Procedure H&P Update DATE OF PROCEDURE: December 13, 2023 DATE H&P PERFORMED: 11/23/20 H&P UPDATE INFORMATION: I have reviewed H&P completed within last 30 days, I have examined patient prior to procedure, No changes to prior documentation and H&P is in [facility] EMR on date indicated PLANNED PROCEDURE: Operation Date: 12/13/23 08:30 Proposed Procedures p [id number] egd G89.29(Not Applicable) - Santiago Hui MD
[2023-12-13 07:41] VITALS: BP 121/92; PULSE 84; RESP 18; TEMP 36.2; O2SAT 97
[2023-12-13 07:53] LABS: OR HCG Qualitative Urine Negative (Negative)
--- NOTE | 2023-12-13 07:58 | P.ANESASSM_ITS ---
Pre-Anesthetic Assessment Height/Weight: Height 1.6 m Weight 87.543 kg Temp Pulse Resp BP Pulse Ox O2 Del Method 97.1 F L 84 18 121/92 97 Room Air 12/13/23 07:41 12/13/23 07:41 12/13/23 07:41 12/13/23 07:41 12/13/23 07:41 12/13/23 07:41 Operation Date: 12/13/23 08:30 Proposed Procedures p [id number] egd G89.29(Not Applicable) - Santiago Hui MD Familial anesthetic complications: None Was Beta [place] taken within 24 hours: N/A Was Clonidine taken within 24 hours: N/A Last intake: Intake Last Liquid Date 12/12/23 Last Liquid Time 21:00 Last Solid Date 12/12/23 Last Solid Time 15:00 Social No alcohol and No tobacco Exam alert, oriented x 3, clear to auscultation bilaterally and regular rate & rhythm Airway Mallampati: Class II Dentition: full Pulmonary Asthma and Chronic Obstructive Pulmonary Disease GI Gastroesophageal Reflux Disease Anesthetic Plan ASA status: 2 Anesthesia: MAC Risk of > 500 ml blood loss (7ml/kg in children): No Medications/Allergies Home Medications Medication Instructions Recorded Confirmed Last Taken Type ipratropium 0.5 mg-albuterol 3 mg 3 ml inhalation QID PRN wheezing 10/16/23 12/11/23 12/13/23 Rx (2.5 mg base)/3 mL nebulization #180 mL soln ipratropium 20 mcg-albuterol 100 See Rx Instructions .Route 10/16/23 12/11/23 12/13/23 Rx mcg/actuation mist for inhalation .COMPLEX #4 grams (Combivent Respimat) lorazepam 2 mg tablet 2 mg PO TID anxiety 30 days #90 10/16/23 12/11/23 12/13/23 Rx tabs promethazine 25 mg tablet 25 mg PO Q6H PRN nausea and 11/15/23 12/11/23 Unknown Rx vomiting #20 tabs dicyclomine 20 mg tablet 20 mg PO QID PRN abdominal pain 11/22/23 12/11/23 Unknown Rx #120 tabs ondansetron 4 mg disintegrating 4 mg PO Q4H PRN nausea and 11/22/23 12/11/23 12/10/23 Rx tablet vomiting #30 tabs tramadol 50 mg tablet 50 mg PO Q12H PRN pain 15 days #30 11/29/23 12/11/23 12/10/23 Rx tabs Allergies Allergy/AdvReac Type Severity Reaction Status Date / Time azithromycin Allergy Intermediate Turned red Verified 11/28/23 11:01 bacitracin Allergy rash Verified 11/28/23 11:01 [From Triple Antibiotic] neomycin Allergy rash Verified 11/28/23 11:01 [From Triple Antibiotic] pepper (genus Capsicum) Allergy ADR-Gastrointestinal Verified 11/28/23 11:01 Upset polymyxin B Allergy rash Verified 11/28/23 11:01 [From Triple Antibiotic] Pork/Porcine Containing Allergy ADR-Gastrointestinal Verified 11/28/23 11:01 Products Upset potato Allergy ADR-Gastrointestinal Verified 11/28/23 11:01 Upset tomato Allergy ADR-Gastrointestinal Verified 11/28/23 11:01 Upset metoclopramide [From Reglan] AdvReac Intermediate ADR-Itching Verified 11/28/23 11:01 ON LICENSE OF [facility] Anesthesia Medical History (Updated 11/28/23 @ 15:30 by Santiago Hui MD) Chest wall pain, chronic Rash and nonspecific skin eruption TMJ (temporomandibular joint syndrome) Chronic cough Hemorrhoids Patellar tendinitis, left knee Asthma-COPD overlap syndrome Primary stress urinary incontinence Post traumatic stress disorder (PTSD) Major depressive disorder, recurrent Following information retrieved and edited from Behavior Assessment Report on 12/26/21: She presented with loose associations, tangential thinking, perseveration, and had difficulty participating in the assessment interview. She was agitated, spoke loudly, was tearful then angry, and moved in her seat continuously for most of the assessment interview, though she became calmer as engineering officer provided supportive, empathic listening. Rekha was dressed in clean, casual clothing appropriate for today's situation and weather. Suicidal ideation Inflammatory bowel disease Initially thought Crohn's--followed GI, Dr. Espinoza in [place]. 2020 told not Crohn's disease, but severe IBS Lupus anticoagulant positive per history, repeat was negative, currently asymptomatic Generalized anxiety disorder Following information retrieved and edited from Behavior Assessment Report on 12/26/21: She presented with loose associations, tangential thinking, perseveration, and had difficulty participating in the assessment interview. She was agitated, spoke loudly, was tearful then angry, and moved in her seat continuously for most of the assessment interview, though she became calmer as engineering officer provided supportive, empathic listening. Rekha was dressed in clean, casual clothing appropriate for today's situation and weather. Seizures Reports having had seizures in the past the last was in 2018. She is not currently on any medication. Surgical History (Updated 11/28/23 @ 11:06 by GEOVANNA Plascencia) Status post tubal ligation 2005--laparoscopic tubal 2 months after her S/P laparoscopic cholecystectomy 2005 Status post delivery X 2 ---> 2005, 2005 Family History Father Hyperlipidemia Hypertension Mother Hypertension Stroke Breast cancer diagnosed at age 70 Family/Other Ovarian cancer paternal aunt, age at diagnosis unknown Denies family history of Colon cancer Diabetes Heart disease Anesthesia complication Bleeding disorder Uterine cancer Thyroid disease Social History Smoking and tobacco/nicotine status: former use of tobacco/nicotine Alcohol intake: never Substance/Drug Use: current Substance/Drug use frequency: daily Other substance/drug use details: uses cbd and thc does not smoke it Lives independently: Yes Household members: other Marital status: Life Partner Current occupational status: unemployed Do you think of yourself as: Straight/Heterosexual Current gender identity: Female Female Reproductive History Para: 2 Spontaneous abortions: Yes Data Anesthesia Cardiac Studies: No Data to Display
[2023-12-13] MEDS: sodium chloride 0.9% 1,000 ML 30 ML IV (08:07)
[2023-12-13] MEDS: midazolam 1 mg/mL INJ 2 mL 2 MG IVP (08:11)
[2023-12-13 08:36] VITALS: BP 98/46; PULSE 81; TEMP 36.3; O2SAT 97
[2023-12-13 08:50] VITALS: BP 93/64; PULSE 74; RESP 18; TEMP 36.3; O2SAT 98
[2023-12-13 08:54] VITALS: BP 109/76
--- NOTE | 2023-12-13 09:10 | ANE.PACU2 ---
Inpatient post-anesthesia follow up: Airway intact: Yes Vital signs: Temperature 97.3 F Pulse Rate 74 Respiratory Rate 18 Blood Pressure 109/76 Pulse Oximetry 98 Oxygen Delivery Me thod Room Air Oxygen Flow Rate Fraction of Inspir ed Oxygen Hydration adequate: Yes Nausea and vomiting: No Pain level: 1 Mental status: Baseline
== END 2023-12-13 09:10 | disposition home or self-care (01) ==
PROVIDERS: Anesthesiology; PCP Family Medicine Adult Medicine; Visit Provider Surgery
PROC: 0DJ08ZZ Inspection of Upper Intestinal Tract, Via Natural or Artificial Opening Endoscopic (ICD-10-PCS; CPT 43235; principal; 2023-12-13 08:30)
DX: G89.29 Other chronic pain (principal); R10.9 Unspecified abdominal pain; K29.50 Unspecified chronic gastritis without bleeding; J44.9 Chronic obstructive pulmonary disease, unspecified; Z87.891 Personal history of nicotine dependence
CPT/HCPCS: 43239; 81025; 84703; 88305; 88342; 96374; J2250; J2704; J7030

== ENCOUNTER → 2023-12-25 15:02 | Outpatient (BNVA) | payer MEDICARE, MEDICAID, SELFPAY | PROVIDERS: PCP Family Medicine Adult Medicine; Visit Provider Family Medicine Adult Medicine | DX: R39.9 Unspecified symptoms and signs involving the genitourinary system (principal) | CPT/HCPCS: 81000 ==

== ENCOUNTER → 2023-12-26 08:38 | Outpatient (BNVA) | payer MEDICARE, MEDICAID, SELFPAY | PROVIDERS: PCP Family Medicine Adult Medicine; Visit Provider Surgery | DX: K58.0 Irritable bowel syndrome with diarrhea (principal) | CPT/HCPCS: 99213 ==

== ENCOUNTER → 2024-02-05 13:57 | Outpatient (BNVA) | payer MEDICARE, MEDICAID, SELFPAY | PROVIDERS: PCP Family Medicine Adult Medicine; Visit Provider Family Medicine Adult Medicine | DX: N80.03 Adenomyosis of the uterus (principal); R10.2 Pelvic and perineal pain; G89.29 Other chronic pain; F06.4 Anxiety disorder due to known physiological condition; F41.0 Panic disorder [episodic paroxysmal anxiety]; R10.9 Unspecified abdominal pain; F60.89 Other specific personality disorders; R07.89 Other chest pain | CPT/HCPCS: 80053; 82672; 84144; 84443 ==

== ENCOUNTER → 2024-02-12 07:57 | Outpatient (BNVA) | payer MEDICARE, MEDICAID, SELFPAY | PROVIDERS: PCP Family Medicine Adult Medicine; Visit Provider Obstetrics & Gynecology | DX: R10.2 Pelvic and perineal pain (principal); D25.9 Leiomyoma of uterus, unspecified | CPT/HCPCS: 76830 ==

== ENCOUNTER 2024-02-17 16:35 | Emergency (ER) | payer MEDICARE, MEDICAID, SELFPAY ==
[2024-02-17 16:40] VITALS: BP 147/81; PULSE 104; RESP 18; TEMP 36.6; O2SAT 95
--- NOTE | 2024-02-17 16:55 | W.ED.ANIMALB ---
Documented by User: Jasper Fisher DO 02/18/24 05:48 HPI - Animal Bite General: Chief Complaint: Animal Bite Stated Complaint: spider bit on rear, feels like passing out Time Seen by Provider: 02/17/24 16:45 Source: patient Mode of arrival: ambulatory History of Present Illness: [age]-year-old female presents emergency room she is concerned that she has 2 brown recluse bites on her left hip and buttock. They have not been draining she states have been tender and she has been nauseous she has a history of endometriosis and is soon to be scheduled with Dr. Goncalves for hysterectomy. She denies any fever sweats or chills no rash. She does not recall a specific time when things happened she just noticed them 2 days ago. Associated symptoms: Deny bleeding, chills, cough, diaphoresis, erythema, fever(s), headache(s), numbness, rash, short of breath, syncope, weakness or wound drainage Review of Systems Const: Denies: fever(s), chills or diaphoresis Card: Denies: chest pain or syncope Resp: Denies: dyspnea GI: Reports: nausea; Denies: abdominal pain : Denies: dysuria, urinary frequency or urinary urgency Musc: Denies: neck pain or back pain Skin/Breast: Reports: sores (Left hip) Neuro: Denies: headache(s) PFS ED PFSH: Medical History Seasonal allergic rhinitis Cluster B personality disorder Somatic symptom disorder, severe, with predominant pain Adenomyosis of uterus Chest wall pain, chronic TMJ (temporomandibular joint syndrome) Chronic cough Hemorrhoids Patellar tendinitis, left knee Asthma-COPD overlap syndrome Primary stress urinary incontinence Post traumatic stress disorder (PTSD) Major depressive disorder, recurrent Following information retrieved and edited from Behavior Assessment Report on 12/26/21: She presented with loose associations, tangential thinking, perseveration, and had difficulty participating in the assessment interview. She was agitated, spoke loudly, was tearful then angry, and moved in her seat continuously for most of the assessment interview, though she became calmer as life educator provided supportive, empathic listening. Rekha was dressed in clean, casual clothing appropriate for today's situation and weather. Lupus anticoagulant positive per history, repeat was negative, currently asymptomatic Generalized anxiety disorder Following information retrieved and edited from Behavior Assessment Report on 12/26/21: She presented with loose associations, tangential thinking, perseveration, and had difficulty participating in the assessment interview. She was agitated, spoke loudly, was tearful then angry, and moved in her seat continuously for most of the assessment interview, though she became calmer as life educator provided supportive, empathic listening. Rekha was dressed in clean, casual clothing appropriate for today's situation and weather. Seizures Reports having had seizures in the past the last was in 2018. She is not currently on any medication. Surgical History Hx of colonoscopy 12/20/2020 normal, both Magali Claire and Dr Ortiz History of esophagogastroduodenoscopy (EGD) 12/13/2023 EGD with gastritis by Dr. Hui Status post tubal ligation 2006--laparoscopic tubal 2 months after her S/P laparoscopic cholecystectomy 2005 Status post delivery X 2 ---> 2004, 2005 Family History Father Hyperlipidemia Hypertension Mother Hypertension Stroke Breast cancer diagnosed at age 70 Family/Other Ovarian cancer paternal aunt, age at diagnosis unknown Denies family history of Colon cancer Diabetes Heart disease Anesthesia complication Bleeding disorder Uterine cancer Thyroid disease Social History Smoking and tobacco/nicotine status: former use of tobacco/nicotine Alcohol intake: never Substance/Drug Use: current Substance/Drug use frequency: daily Other substance/drug use details: uses cbd and thc does not smoke it Lives independently: Yes Household members: other Marital status: Life Partner Current occupational status: unemployed Do you think of yourself as: Straight/Heterosexual Current gender identity: Female Female Reproductive History: Para: 2 Spontaneous abortions: Yes Physical Exam Const: GENERAL APPEARANCE: cooperative and comfortable ORIENTATION/CONSCIOUSNESS: Yes awake, Yes oriented to person, Yes oriented to place and Yes oriented to time HENMT: COMMON NORMALS: normocephalic, atraumatic and hearing grossly normal bilaterally HEAD & SCALP: normocephalic and atraumatic Resp: COMMON NORMALS: normal respiratory effort, No retractions, No use of accessory muscles and clear to auscultation bilaterally AUSCULTATION: clear to auscultation bilaterally Cardio: COMMON NORMALS: regular rate, regular rhythm and No murmurs present (Cardio) RATE: regular rate RHYTHM: regular rhythm GI: COMMON NORMALS: Soft to palpation and No hepatosplenomegaly present AUSCULTATION: Yes normoactive bowel sounds PALPATION: Yes Soft to palpation, No Tenderness to palpation present (GI), No Guarding due to palpation present (GI) and Yes No hepatosplenomegaly present Extremity: COMMON NORMALS: normal to inspection, capillary refill normal, no clubbing, cyanosis or edema, no calf tenderness and no pedal edema Neuro: SENSORIUM/ORIENTATION: Yes oriented to person, Yes oriented to place and Yes oriented to time Skin: GENERAL SKIN EXAM: no erythema OTHER: 2 small locally reddened areas on the left hip no central necrosis no palpable abscesses Course Vital Signs: Vital signs: Vital Signs Temperature 97.8 F 02/17/24 16:40 Pulse Rate 90 02/17/24 18:52 Respiratory Rate 18 02/17/24 18:52 Blood Pressure 159/88 02/17/24 17:49 Pulse Oximetry 99 02/17/24 18:52 Oxygen Delivery Me thod Room Air 02/17/24 18:52 MDM - Animal Bite Medical Decision Making Care signed out to Dr. Marrero at change of shift. See final notes for diagnosis and disposition. Basic labs IV fluids and antiemetics pending Lab Data 02/17/24 17:32 02/17/24 17:32 Laboratory Results WBC 15.46 10^3/uL (3.29-11.43) H 02/17/24 17:32 RBC 5.04 10^6/uL (3.85-5.65) 02/17/24 17:32 Hgb 15.10 g/dL (11.27-16.99) 02/17/24 17:32 Hct 43.0 % (36-47) 02/17/24 17:32 MCV 85.3 fl (85-98) 02/17/24 17:32 MCH 30.0 pg (27-33) 02/17/24 17:32 MCHC 35.1 g/dL (30-55) 02/17/24 17:32 RDW 12.2 % (12.1-15.1) 02/17/24 17:32 Plt Count 346 10^3/cmm (157-399) 02/17/24 17:32 MPV 10.4 fL (7.4-10.4) 02/17/24 17:32 Neut % (Auto) 81.8 % 02/17/24 17:32 Lymph % (Auto) 12.5 % 02/17/24 17:32 [place] % (Auto) 4.3 % 02/17/24 17:32 Eos % (Auto) 0.3 % 02/17/24 17:32 Baso % (Auto) 0.6 % 02/17/24 17:32 Neut # (Auto) 12.64 10^3/uL (1.8-7.7) H 02/17/24 17:32 Lymph # (Auto) 1.9 10^3/uL (0.8-4.8) 02/17/24 17:32 [place] # (Auto) 0.7 10^3/uL (0.2-0.9) 02/17/24 17:32 Eos # (Auto) 0.1 10^3/uL (0.0-0.8) 02/17/24 17:32 Baso # (Auto) 0.1 10^3/uL (0.0-0.1) 02/17/24 17:32 Nucleated RBC % (auto) 0 % 02/17/24 17:32 Nucleated RBCs # 0.0 /100WBC 02/17/24 17:32 Sodium 137 mmol/L (136-145) 02/17/24 17:32 Potassium 3.9 mmol/L (3.5-5.1) 02/17/24 17:32 Chloride 105 mmol/L (98-107) 02/17/24 17:32 Carbon Dioxide 17 mmol/L (22-29) L 02/17/24 17:32 Anion Gap 18.9 (5-19) 02/17/24 17:32 BUN 10 mg/dL (6-20) 02/17/24 17:32 Creatinine 0.7 mg/dL (0.5-0.9) 02/17/24 17:32 GFR Calculation 91.3 mL/min (90-130) 02/17/24 17:32 Glucose 142 mg/dL (65-115) H 02/17/24 17:32 Calculated Osmolality 285 mOsm/kg (285-295) 02/17/24 17:32 Calcium 9.1 mg/dL (8.5-10.5) 02/17/24 17:32 Total Bilirubin 0.5 mg/dL (0.15-1.2) 02/17/24 17:32 AST 20 U/L (0-32) 02/17/24 17:32 ALT 22 U/L (0-33) 02/17/24 17:32 Alkaline Phosphatase 88 U/L (35-105) 02/17/24 17:32 Total Protein 8.4 g/dL (6.6-8.7) 02/17/24 17:32 Albumin 4.5 g/dL (3.5-5.2) 02/17/24 17:32 Globulin 3.9 g/dL (1.3-4.6) 02/17/24 17:32 Discharge Plan Discharge Patient Disposition: Home Clinical Impression: Cellulitis of abdominal wall Condition: Stable Prescriptions: New doxycycline hyclate 100 mg tablet 100 mg PO BID 14 Days Qty: 28 0RF No Action ipratropium-albuterol 0.5 mg-3 mg(2.5 mg base)/3 mL solution for nebulization 3 ml inhalation QID PRN (Reason: wheezing) Qty: 180 3RF Combivent Respimat 20-100 mcg/actuation mist See Rx Instructions .ROUTE .COMPLEX Qty: 4 5RF Dose Instruction: INHALE 1 PUFF INTO LUNGS EVERY 4 HOURS NEEDED FOR COPD; SPACE EVENLY DURING WAKING HOURS Rx Instructions: INHALE 1 PUFF INTO LUNGS EVERY 4 HOURS NEEDED FOR COPD; SPACE EVENLY DURING WAKING HOURS ibuprofen 800 mg tablet 800 mg PO TID Qty: 60 0RF loratadine 10 mg tablet 10 mg PO DAILY PRN (Reason: allergy symptoms) Qty: 90 0RF docusate sodium 100 mg tablet 100 mg PO BID Qty: 100 0RF pantoprazole 40 mg tablet,delayed release (DR/EC) 40 mg PO DAILY Qty: 90 1RF FiberCon 625 mg tablet 1,250 mg PO BID Qty: 120 5RF hydrocodone-acetaminophen 7.5-325 mg tablet 1 tab PO Q8H PRN (Reason: abd/pelvic pain) 30 Days Qty: 90 0RF ondansetron 4 mg tablet,disintegrating 4 mg PO Q4H PRN (Reason: nausea and vomiting) Qty: 30 3RF lorazepam 2 mg tablet 2 mg PO TID 30 Days Qty: 90 2RF medroxyprogesterone 150 mg/mL suspension See Rx Instructions .ROUTE .COMPLEX Qty: 1 4RF Dose Instruction: INJECT 150 MG INTRAMUSCULARLY EVERY 12 WEEKS Rx Instructions: INJECT 150 MG INTRAMUSCULARLY EVERY 12 WEEKS Discharge Orders: Discharge ED (Routine); Ordered 02/17/24 Ordered By: Matthew Marrero Referrals: Alexi Medel MD [Primary Care Provider] - 1-3 days Patient Instructions: Cellulitis (ED), Opioid Safety, Pain Management Activity Restrictions/Additional Instructions: Antibiotics as directed. Make sure you get plenty of fluids. Follow-up with your doctor this week. Return for fever despite 2-3 doses of antibiotics, vomiting liquids, other concerns. Coding Level of Care Code ED Practical Nursing Faculty for Chg Fwd Documented by User: Matthew Marrero DO 02/18/24 04:14 HPI - Animal Bite General: Chief Complaint: Animal Bite Stated Complaint: spider bit on rear, feels like passing out Time Seen by Provider: 02/17/24 16:45 PFSH ED PFSH: Medical History Seasonal allergic rhinitis Cluster B personality disorder Somatic symptom disorder, severe, with predominant pain Adenomyosis of uterus Chest wall pain, chronic TMJ (temporomandibular joint syndrome) Chronic cough Hemorrhoids Patellar tendinitis, left knee Asthma-COPD overlap syndrome Primary stress urinary incontinence Post traumatic stress disorder (PTSD) Major depressive disorder, recurrent Following information retrieved and edited from Behavior Assessment Report on 12/26/21: She presented with loose associations, tangential thinking, perseveration, and had difficulty participating in the assessment interview. She was agitated, spoke loudly, was tearful then angry, and moved in her seat continuously for most of the assessment interview, though she became calmer as life educator provided supportive, empathic listening. Rekha was dressed in clean, casual clothing appropriate for today's situation and weather. Lupus anticoagulant positive per history, repeat was negative, currently asymptomatic Generalized anxiety disorder Following information retrieved and edited from Behavior Assessment Report on 12/26/21: She presented with loose associations, tangential thinking, perseveration, and had difficulty participating in the assessment interview. She was agitated, spoke loudly, was tearful then angry, and moved in her seat continuously for most of the assessment interview, though she became calmer as life educator provided supportive, empathic listening. Rekha was dressed in clean, casual clothing appropriate for today's situation and weather. Seizures Reports having had seizures in the past the last was in 2018. She is not currently on any medication. Surgical History Hx of colonoscopy 12/20/2020 normal, both Magali Claire and Dr Ortiz History of esophagogastroduodenoscopy (EGD) 12/13/2023 EGD with gastritis by Dr. Hui Status post tubal ligation 2006--laparoscopic tubal 2 months after her S/P laparoscopic cholecystectomy 2006 Status post delivery X 2 ---> 2004, 2005 Family History Father Hyperlipidemia Hypertension Mother Hypertension Stroke Breast cancer diagnosed at age 70 Family/Other Ovarian cancer paternal aunt, age at diagnosis unknown Denies family history of Colon cancer Diabetes Heart disease Anesthesia complication Bleeding disorder Uterine cancer Thyroid disease Social History Smoking and tobacco/nicotine status: former use of tobacco/nicotine Alcohol intake: never Substance/Drug Use: current Substance/Drug use frequency: daily Other substance/drug use details: uses cbd and thc does not smoke it Lives independently: Yes Household members: other Marital status: Life Partner Current occupational status: unemployed Do you think of yourself as: Straight/Heterosexual Current gender identity: Female Course Vital Signs: Vital signs: Vital Signs Temperature 97.8 F 02/17/24 16:40 Pulse Rate 90 02/17/24 18:52 Respiratory Rate 18 02/17/24 18:52 Blood Pressure 159/88 02/17/24 17:49 Pulse Oximetry 99 02/17/24 18:52 Oxygen Delivery Me thod Room Air 02/17/24 18:52 MDM - Animal Bite Medical Decision Making Care signed out to Dr. Marrero at change of shift. See final notes for diagnosis and disposition. Basic labs IV fluids and antiemetics pending Case signed out by Dr. Fisher at shift change. 43-year-old female who is nauseated, following 2 red painful patches on her left buttock and flank. These are likely cellulitic areas. She has received IV fluids and clindamycin here. Her white blood cell count is 15 without a shift. Bicarb is 17. She is feeling better after fluids and Zofran. She will go home on antibiotics. She has pain medication and Zofran at home she says. Lab Data 02/17/24 17:32 02/17/24 17:32 Laboratory Results WBC 15.46 10^3/uL (3.29-11.43) H 02/17/24 17:32 RBC 5.04 10^6/uL (3.85-5.65) 02/17/24 17:32 Hgb 15.10 g/dL (11.27-16.99) 02/17/24 17:32 Hct 43.0 % (36-47) 02/17/24 17:32 MCV 85.3 fl (85-98) 02/17/24 17:32 MCH 30.0 pg (27-33) 02/17/24 17:32 MCHC 35.1 g/dL (30-55) 02/17/24 17:32 RDW 12.2 % (12.1-15.1) 02/17/24 17:32 Plt Count 346 10^3/cmm (157-399) 02/17/24 17:32 MPV 10.4 fL (7.4-10.4) 02/17/24 17:32 Neut % (Auto) 81.8 % 02/17/24 17:32 Lymph % (Auto) 12.5 % 02/17/24 17:32 [place] % (Auto) 4.3 % 02/17/24 17:32 Eos % (Auto) 0.3 % 02/17/24 17:32 Baso % (Auto) 0.6 % 02/17/24 17:32 Neut # (Auto) 12.64 10^3/uL (1.8-7.7) H 02/17/24 17:32 Lymph # (Auto) 1.9 10^3/uL (0.8-4.8) 02/17/24 17:32 [place] # (Auto) 0.7 10^3/uL (0.2-0.9) 02/17/24 17:32 Eos # (Auto) 0.1 10^3/uL (0.0-0.8) 02/17/24 17:32 Baso # (Auto) 0.1 10^3/uL (0.0-0.1) 02/17/24 17:32 Nucleated RBC % (auto) 0 % 02/17/24 17:32 Nucleated RBCs # 0.0 /100WBC 02/17/24 17:32 Sodium 137 mmol/L (136-145) 02/17/24 17:32 Potassium 3.9 mmol/L (3.5-5.1) 02/17/24 17:32 Chloride 105 mmol/L (98-107) 02/17/24 17:32 Carbon Dioxide 17 mmol/L (22-29) L 02/17/24 17:32 Anion Gap 18.9 (5-19) 02/17/24 17:32 BUN 10 mg/dL (6-20) 02/17/24 17:32 Creatinine 0.7 mg/dL (0.5-0.9) 02/17/24 17:32 GFR Calculation 91.3 mL/min (90-130) 02/17/24 17:32 Glucose 142 mg/dL (65-115) H 02/17/24 17:32 Calculated Osmolality 285 mOsm/kg (285-295) 02/17/24 17:32 Calcium 9.1 mg/dL (8.5-10.5) 02/17/24 17:32 Total Bilirubin 0.5 mg/dL (0.15-1.2) 02/17/24 17:32 AST 20 U/L (0-32) 02/17/24 17:32 ALT 22 U/L (0-33) 02/17/24 17:32 Alkaline Phosphatase 88 U/L (35-105) 02/17/24 17:32 Total Protein 8.4 g/dL (6.6-8.7) 02/17/24 17:32 Albumin 4.5 g/dL (3.5-5.2) 02/17/24 17:32 Globulin 3.9 g/dL (1.3-4.6) 02/17/24 17:32 No radiology studies performed this visit Discharge Plan Discharge Patient Disposition: Home Clinical Impression: Cellulitis of abdominal wall Condition: Stable Prescriptions: New doxycycline hyclate 100 mg tablet 100 mg PO BID 14 Days Qty: 28 0RF No Action ipratropium-albuterol 0.5 mg-3 mg(2.5 mg base)/3 mL solution for nebulization 3 ml inhalation QID PRN (Reason: wheezing) Qty: 180 3RF Combivent Respimat 20-100 mcg/actuation mist See Rx Instructions .ROUTE .COMPLEX Qty: 4 5RF Dose Instruction: INHALE 1 PUFF INTO LUNGS EVERY 4 HOURS NEEDED FOR COPD; SPACE EVENLY DURING WAKING HOURS Rx Instructions: INHALE 1 PUFF INTO LUNGS EVERY 4 HOURS NEEDED FOR COPD; SPACE EVENLY DURING WAKING HOURS ibuprofen 800 mg tablet 800 mg PO TID Qty: 60 0RF loratadine 10 mg tablet 10 mg PO DAILY PRN (Reason: allergy symptoms) Qty: 90 0RF docusate sodium 100 mg tablet 100 mg PO BID Qty: 100 0RF pantoprazole 40 mg tablet,delayed release (DR/EC) 40 mg PO DAILY Qty: 90 1RF FiberCon 625 mg tablet 1,250 mg PO BID Qty: 120 5RF hydrocodone-acetaminophen 7.5-325 mg tablet 1 tab PO Q8H PRN (Reason: abd/pelvic pain) 30 Days Qty: 90 0RF ondansetron 4 mg tablet,disintegrating 4 mg PO Q4H PRN (Reason: nausea and vomiting) Qty: 30 3RF lorazepam 2 mg tablet 2 mg PO TID 30 Days Qty: 90 2RF medroxyprogesterone 150 mg/mL suspension See Rx Instructions .ROUTE .COMPLEX Qty: 1 4RF Dose Instruction: INJECT 150 MG INTRAMUSCULARLY EVERY 12 WEEKS Rx Instructions: INJECT 150 MG INTRAMUSCULARLY EVERY 12 WEEKS Discharge Orders: Discharge ED (Routine); Ordered 02/17/24 Ordered By: Matthew Marrero Referrals: Alexi Medel MD [Primary Care Provider] - 1-3 days Patient Instructions: Cellulitis (ED), Opioid Safety, Pain Management Activity Restrictions/Additional Instructions: Antibiotics as directed. Make sure you get plenty of fluids. Follow-up with your doctor this week. Return for fever despite 2-3 doses of antibiotics, vomiting liquids, other concerns. Coding Level of Care Code ED Practical Nursing Faculty for Ranjeet Lamb
[2024-02-17 17:40] LABS: Basophils # 0.1 10^3/uL (0.0-0.1); Basophils % 0.6 %; Eosinophils # 0.1 10^3/uL (0.0-0.8); Eosinophils % 0.3 %; Lymphocytes # 1.9 10^3/uL (0.8-4.8); Lymphocytes % 12.5 %; Mean Corpuscular HGB Conc 35.1 g/dL (30-55); Mean Corpuscular Volume 85.3 fl (85-98); Mean Platelet Volume 10.4 fL (7.4-10.4); Monocytes # 0.7 10^3/uL (0.2-0.9); Monocytes % 4.3 %; Neutrophils # 12.64 10^3/uL (1.8-7.7); Neutrophils % 81.8 %; Nucleated Red Blood Cells % 0 %; Platelet Count 346 10^3/cmm (157-399); Red Blood Count 5.04 10^6/uL (3.85-5.65); Red Cell Distribution Width 12.2 % (12.1-15.1); White Blood Count 15.46 10^3/uL (3.29-11.43)
[2024-02-17 17:49] VITALS: BP 159/88; PULSE 87; RESP 18; O2SAT 97
[2024-02-17] MEDS: ondansetron 2 mg/ML SDV 2 mL 4 MG IVP (17:49)
[2024-02-17] MEDS: sodium chloride 0.9% 1,000 ML 999 ML IV (17:49)
[2024-02-17 18:03] LABS: Alanine Aminotransferase 22 U/L (0-33); Albumin Level 4.5 g/dL (3.5-5.2); Alkaline Phosphatase 88 U/L (35-105); Aspartate Amino Transferase 20 U/L (0-32); Blood Urea Nitrogen 10 mg/dL (6-20); Calcium 9.1 mg/dL (8.5-10.5); Carbon Dioxide 17 mmol/L (22-29); Chloride 105 mmol/L (98-107); Creatinine Clr Calc Pharmacy 107.8282; Globulin 3.9 g/dL (1.3-4.6); Glomerular Filtration Rate 91.3 mL/min (90-130); Glucose 142 mg/dL (65-115); Osmolality Calculated 285 mOsm/kg (285-295); Sodium 137 mmol/L (136-145); Total Bilirubin 0.5 mg/dL (0.15-1.2); Total Protein 8.4 g/dL (6.6-8.7)
[2024-02-17 18:05] LABS: Anion Gap 18.9 (5-19); Potassium 3.9 mmol/L (3.5-5.1)
[2024-02-17] MEDS: clindamycin 600 MG/50 ML PREMIX 100 MG IV (18:09)
[2024-02-17 18:52] VITALS: PULSE 90; RESP 18; O2SAT 99
== END 2024-02-17 19:01 | disposition home or self-care (01) ==
PROVIDERS: Emergency Provider Family Medicine; PCP Family Medicine Adult Medicine
DX: L03.311 Cellulitis of abdominal wall (principal); Z87.891 Personal history of nicotine dependence
CPT/HCPCS: 36415; 80053; 85025; 87040; 96374; 96375; 99284; J2405; J3490; J7030

== ENCOUNTER → 2024-03-18 13:27 | Outpatient (BNVA) | payer MEDICARE, MEDICAID, SELFPAY | PROVIDERS: PCP Family Medicine Adult Medicine; Visit Provider Family Medicine Adult Medicine | DX: N39.0 Urinary tract infection, site not specified (principal); Z00.00 Encounter for general adult medical examination without abnormal findings | CPT/HCPCS: 81000 ==

== ENCOUNTER → 2024-04-16 11:19 | Outpatient (BNVA) | payer MEDICARE, MEDICAID, SELFPAY | PROVIDERS: PCP Family Medicine Adult Medicine; Visit Provider Nurse Practitioner | DX: S69.92XA Unspecified injury of left wrist, hand and finger(s), initial encounter (principal); W19.XXXA Unspecified fall, initial encounter | CPT/HCPCS: 73110 ==

== ENCOUNTER 2024-05-20 15:20 | Emergency (ER) | payer MEDICARE, MEDICAID, SELFPAY ==
[2024-05-20 15:27] VITALS: BP 151/102; PULSE 106; RESP 16; TEMP 36.8; O2SAT 97; BMI 34.7
--- NOTE | 2024-05-20 15:39 | USR_ITS ---
PROCEDURE INFORMATION: Exam: US Left Breast Limited Exam date and time: 05/20/2024 3:48 PM Age: 44 years old Clinical indication: Palpable lumps at left axilla. TECHNIQUE: Imaging protocol: Limited ultrasound of left breast with image documentation, including axilla when performed. Exam focused on the search and evaluation for mass. COMPARISON: 1. US breast LT limited* [id number] 08/17/2020 8:50 AM 2. [place] [id number] 06/13/2023 9:26 AM 3. [place] [id number] 06/06/2022 2:50 PM FINDINGS: ULTRASOUND: Breast ultrasound findings: Limited ultrasound of left axilla at sites of palpable lumps demonstrate two, 1.9 x 0.7 x 1.8 cm and 1.6 x 0.6 x 1.6 cm, well-defined, heterogeneous, predominantly hypoechoic masses with mildly thick, echogenic rims, without significant internal color flow. Separate, 2.4 x 0.9 x 3.1 cm, oblong, well-defined, hypoechoic lesion with mildly thick echogenic rim, without internal color flow, at site of separate, palpable lump may reflect lipoma. US/US breast LT limited* [id number] IMPRESSION: 1. Two, 1.9 x 0.7 x 1.8 cm 1.6 x 0.6 x 1.6 cm, solid masses at left axilla at sites of palpable lumps. Although these may reflect nonenlarged lymph nodes, echogenic rims are somewhat atypical. Probably benign finding, BI-RADS 3. 2. 2.4 x 0.9 x 3.1 cm, solid mass at left axilla at site of palpable lump, possibly reflecting lipoma. Probably benign finding, BI-RADS 3. RECOMMENDATION: 1. Follow-up limited left axillary soft tissue ultrasound in 6 months. 2. Clinical correlation of palpable lumps. Any decision to biopsy should be based on clinical grounds.
--- NOTE | 2024-05-20 15:43 | ED_ITS ---
HPI - General Adult General: Chief complaint: General Medical Stated complaint: left side breast pain Time Seen by Provider: 05/20/24 15:35 Source: patient Mode of arrival: ambulatory Limitations: no limitations History of Present Illness: 44-year-old female states she been havin g left breast pain over the last week she is post get an ultrasound done outpatient states her doctor had emergently leave the office she has been having pain left breast and believes she has a cyst. Denies any chest pain states pain is worse to touch. States she is also out of her Ativan she takes 3 times a day and her physicians out for 2 months she had called the day to get the refill she has an appointment on with another physician but is scared she is going to go into withdrawals and she is quite anxious here. Associated symptoms: Deny chest pain, dyspnea, headache(s), nausea, rash or vomiting Related Data Previous Rx's Medication Instructions Recorded ipratropium 0.5 mg-albuterol 3 mg 3 ml inhalation QID PRN wheezing 10/16/23 (2.5 mg base)/3 mL nebulization #180 mL soln docusate sodium 100 mg tablet 100 mg PO BID on 01/16/24 opioid/constipation #100 tabs pantoprazole 40 mg tablet,delayed 40 mg PO DAILY gastritis/GERD #90 01/16/24 release tabs ibuprofen 800 mg tablet 800 mg PO TID Pelvic pain #60 tabs 01/24/24 calcium polycarbophil 625 mg 1,250 mg (2 x 625 mg) PO BID for 01/31/24 tablet (FiberCon) bowel consistency #120 tabs medroxyprogesterone 150 mg/mL See Rx Instructions .Route 02/14/24 intramuscular suspension .COMPLEX #1 mL clobetasol 0.05 % topical ointment 1 applic topical BID PRN Rash #45 02/22/24 grams ondansetron 4 mg disintegrating 4 mg PO Q4H PRN nausea and 03/04/24 tablet vomiting #30 tabs ipratropium 20 mcg-albuterol 100 See Rx Instructions .Route 03/07/24 mcg/actuation mist for inhalation .COMPLEX #4 grams (Combivent Respimat) loratadine 10 mg tablet 10 mg PO DAILY PRN allergy 04/01/24 symptoms #90 tabs lorazepam 2 mg tablet 2 mg PO TID anxiety 30 days #90 04/22/24 tabs hydrocodone 7.5 mg-acetaminophen 1 tab PO Q8H PRN abd/pelvic pain 04/25/24 325 mg tablet 30 days #90 tabs hydrocortisone 2.5 % topical cream 1 applic topical BID PRN skin 04/25/24 irritation #30 grams lorazepam 2 mg tablet (Ativan) 2 mg PO TID PRN anxiety #9 tabs 05/20/24 Allergies Allergy/AdvReac Type Severity Reaction Status Date / Time azithromycin Allergy Intermediate Turned red Verified 05/15/24 14:34 bacitracin Allergy rash Verified 05/15/24 14:34 [From Triple Antibiotic] neomycin Allergy rash Verified 05/15/24 14:34 [From Triple Antibiotic] pepper (genus Capsicum) Allergy ADR-Gastrointestinal Verified 05/15/24 14:34 Upset polymyxin B Allergy rash Verified 05/15/24 14:34 [From Triple Antibiotic] Pork/Porcine Containing Allergy ADR-Gastrointestinal Verified 05/15/24 14:34 Products Upset potato Allergy ADR-Gastrointestinal Verified 05/15/24 14:34 Upset tomato Allergy ADR-Gastrointestinal Verified 05/15/24 14:34 Upset metoclopramide [From Reglan] AdvReac Intermediate ADR-Itching Verified 05/15/24 14:34 metronidazole AdvReac Mild ADR-Gastrointestinal Verified 05/15/24 14:34 Upset Review of Systems Const: Denies: fever(s) or chills ENMT: Denies: throat pain or dental pain Card: Denies: chest pain Resp: Denies: dyspnea GI: Denies: abdominal pain, nausea, vomiting or diarrhea Musc: Denies: neck pain or back pain Skin/Breast: Denies: rash Neuro: Denies: headache(s) Psych: Reports: anxiety PFSH ED PFSH: Medical History Fall from bed Allergic pharyngitis Actinic keratosis due to exposure to sunlight Atypical mole Chest wall pain, chronic Seasonal allergic rhinitis Cluster B personality disorder Somatic symptom disorder, severe, with predominant pain TMJ (temporomandibular joint syndrome) Chronic cough Hemorrhoids Patellar tendinitis, left knee Asthma-COPD overlap syndrome Primary stress urinary incontinence Post traumatic stress disorder (PTSD) Major depressive disorder, recurrent Following information retrieved and edited from Behavior Assessment Report on 12/26/21: She presented with loose associations, tangential thinking, perseveration, and had difficulty participating in the assessment interview. She was agitated, spoke loudly, was tearful then angry, and moved in her seat continuously for most of the assessment interview, though she became calmer as gang knife fish chopper provided supportive, empathic listening. Rekha was dressed in clean, casual clothing appropriate for today's situation and weather. Lupus anticoagulant positive per history, repeat was negative, currently asymptomatic Generalized anxiety disorder Following information retrieved and edited from Behavior Assessment Report on 12/26/21: She presented with loose associations, tangential thinking, perseveration, and had difficulty participating in the assessment interview. She was agitated, spoke loudly, was tearful then angry, and moved in her seat continuously for most of the assessment interview, though she became calmer as gang knife fish chopper provided supportive, empathic listening. Rekha was dressed in clean, casual clothing appropriate for today's situation and weather. Seizures Reports having had seizures in the past the last was in 2018. She is not currently on any medication. Surgical History Hx of colonoscopy 12/20/2020 normal, both Mag[facility] and Dr Ortiz History of esophagogastroduodenoscopy (EGD) 12/13/2023 EGD with gastritis by Dr. Hui Status post tubal ligation 2006--laparoscopic tubal 2 months after her S/P laparoscopic cholecystectomy 2006 Status post delivery X 2 ---> 2004, 2005 Family History Father Hyperlipidemia Hypertension Mother Hypertension Stroke Breast cancer diagnosed at age 70 Family/Other Ovarian cancer paternal aunt, age at diagnosis unknown Denies family history of Colon cancer Diabetes Heart disease Anesthesia complication Bleeding disorder Uterine cancer Thyroid disease Social History Smoking and tobacco/nicotine status: former use of tobacco/nicotine Alcohol intake: never Substance/Drug Use: current Substance/Drug use frequency: daily Other substance/drug use details: uses cbd and thc does not smoke it Lives independently: Yes Household members: other Marital status: Life Partner Current occupational status: unemployed Do you think of yourself as: Straight/Heterosexual Current gender identity: Female Female Reproductive History: Para: 2 Spontaneous abortions: Yes Physical Exam Const: COMMON NORMALS: no acute distress, patient oriented x3 and healthy appearing GENERAL APPEARANCE: anxious HENMT: COMMON NORMALS: normocephalic and atraumatic HEAD & SCALP: normocephalic and atraumatic Eye: COMMON NORMALS: Equal, round and reactive pupils present and EOMs intact bilaterally PUPIL: Yes Equal, round and reactive pupils present Neck/C-Spine: COMMON NORMALS: full ROM and supple Chest: COMMONS NORMALS: normal inspection of the chest OTHER: Tenderness noted over left lateral breast no obvious mass palpated Resp: COMMON NORMALS: normal respiratory effort Cardio: COMMON NORMALS: regular rate RATE: regular rate Extremity: COMMON NORMALS: normal to inspection and full ROM Neuro: COMMON NORMALS: patient oriented x3, moves all extremities and no focal motor deficits Psych: COMMON NORMALS: mental status grossly normal, Normal thought process present and cooperative THOUGHT PROCESS: Normal thought process present Skin: COMMON NORMALS: no rashes or lesions noted and no wounds GENERAL SKIN EXAM: no rashes or lesions noted Course Vital Signs: Vital signs: Vital Signs Temperature 98.2 F 05/20/24 15:27 Pulse Rate 106 H 05/20/24 15:27 Respiratory Rate 16 05/20/24 15:27 Blood Pressure 151/102 05/20/24 15:27 Pulse Oximetry 97 05/20/24 15:27 Oxygen Delivery Me thod Room Air 05/20/24 15:27 MDM - General Adult Medical Decision Making Patient presents here with left breast pain ultrasound showed no acute finding she is to follow-up with PCP and likely get a mammogram we will give her 9 Ativan until she gets in she is return if worsening. Medical Records I reviewed the patient's medical records. Lab Data I reviewed the patient's lab results. All radiology interpretation(s) finalized by discharge Discharge Plan Discharge Patient Disposition: Home Clinical Impression: Breast pain, left, Anxiety Condition: Stable Prescriptions: New Ativan 2 mg tablet 2 mg PO TID PRN (Reason: anxiety) Qty: 9 0RF No Action ipratropium-albuterol 0.5 mg-3 mg(2.5 mg base)/3 mL solution for nebulization 3 ml inhalation QID PRN (Reason: wheezing) Qty: 180 3RF ibuprofen 800 mg tablet 800 mg PO TID Qty: 60 0RF docusate sodium 100 mg tablet 100 mg PO BID Qty: 100 0RF pantoprazole 40 mg tablet,delayed release (DR/EC) 40 mg PO DAILY Qty: 90 1RF FiberCon 625 mg tablet 1,250 mg PO BID Qty: 120 5RF loratadine 10 mg tablet 10 mg PO DAILY PRN (Reason: allergy symptoms) Qty: 90 3RF hydrocodone-acetaminophen 7.5-325 mg tablet 1 tab PO Q8H PRN (Reason: abd/pelvic pain) 30 Days Qty: 90 0RF Rx Instructions: Refill on or after every 30 days hydrocortisone 2.5 % cream 1 applic topical BID PRN (Reason: skin irritation) Qty: 30 0RF medroxyprogesterone 150 mg/mL suspension See Rx Instructions .ROUTE .COMPLEX Qty: 1 4RF Dose Instruction: INJECT 150 MG INTRAMUSCULARLY EVERY 12 WEEKS Rx Instructions: INJECT 150 MG INTRAMUSCULARLY EVERY 12 WEEKS clobetasol 0.05 % ointment 1 applic topical BID PRN (Reason: Rash) Qty: 45 2RF ondansetron 4 mg tablet,disintegrating 4 mg PO Q4H PRN (Reason: nausea and vomiting) Qty: 30 3RF Combivent Respimat 20-100 mcg/actuation mist See Rx Instructions .ROUTE .COMPLEX Qty: 4 5RF Dose Instruction: INHALE 1 PUFF INTO LUNGS EVERY 4 HOURS NEEDED FOR COPD; SPACE EVENLY DURING WAKING HOURS Rx Instructions: INHALE 1 PUFF INTO LUNGS EVERY 4 HOURS NEEDED FOR COPD; SPACE EVENLY DURING WAKING HOURS lorazepam 2 mg tablet 2 mg PO TID 30 Days Qty: 90 2RF Discharge Orders: Discharge ED (Routine); Ordered 05/20/24 Ordered By: Celina Mann Referrals: Alexi Medel MD [Primary Care Provider] - 4-7 days Discharge Diet: Advance as tolerated Discharge Activity: Resume usual activity Patient Instructions: Anxiety (ED) Coding Level of Care Code ED Truck Hopper for Ranjeet Lamb
[2024-05-20] MEDS: LORazepam 2 mg Tablet PO (16:11)
[2024-05-20 16:15] VITALS: BP 151/102; PULSE 106; RESP 16; TEMP 36.8; O2SAT 97
== END 2024-05-20 16:15 | disposition home or self-care (01) ==
PROVIDERS: Emergency Provider Emergency Medicine; PCP Family Medicine Adult Medicine
DX: N64.4 Mastodynia (principal); F41.9 Anxiety disorder, unspecified; Z87.891 Personal history of nicotine dependence; J44.9 Chronic obstructive pulmonary disease, unspecified
CPT/HCPCS: 76642; 99284

== ENCOUNTER → 2024-06-10 14:00 | Outpatient (BNVA) | payer MEDICARE, MEDICAID, SELFPAY | PROVIDERS: PCP Family Medicine Adult Medicine; Visit Provider Student in an Organized Health Care Education/Training Program | DX: N63.20 Unspecified lump in the left breast, unspecified quadrant (principal); Z80.3 Family history of malignant neoplasm of breast | CPT/HCPCS: 99204 ==

== ENCOUNTER 2024-06-17 07:55 | Outpatient (CLI) | payer MEDICARE, MEDICAID, SELFPAY ==
--- NOTE | 2024-06-17 08:00 | MM_ITS ---
WS: [id number] DIAGNOSTIC BILATERAL DIGITAL BREAST TOMOSYNTHESIS MAMMOGRAPHY WITH CAD Bilateral breast ultrasound, limited HISTORY: family hx of breast cancer, pain and palpable nodules., Bilateral COMPARISON: 06/13/2023, 06/06/2022 TECHNIQUE: Bilateral craniocaudad, mediolateral oblique, and mediolateral views are submitted with to mosynthesis and SM. Spot compression RIGHT MLO, LEFT MLO, LEFT CC. Computer aided detection utilized. Breast composition: There are scattered areas of fibroglandular density. There are no suspicious findings in the area of the pain marker or palpable nodule markers. These are as correspond to fatty breast tissue. The remaining breast demonstrate normal fibroglandular densitie s and a few scattered lymph nodes. Ultrasound will be performed in the areas of noncyclical pain and nodules. Bilateral breast ultrasound. RIGHT: RIGHT axilla is negative. Benign lymph nodes are identified. LEFT: No abnormality in the LEFT axilla other than benign appearing lymph nodes. There is also no abn ormality in the LEFT breast at 6:00 as indicated by the patient. MM/MM diag BI tomosynthesis [id number] IMPRESSION: BI-RADS: 2 - Benign. FOLLOW UP: 1 Year Follow-up
--- NOTE | 2024-06-17 08:30 | US_ITS ---
WS: [id number] DIAGNOSTIC BILATERAL DIGITAL BREAST TOMOSYNTHESIS MAMMOGRAPHY WITH CAD Bilateral breast ultrasound, limited HISTORY: family hx of breast cancer, pain and palpable nodules., Bilateral COMPARISON: 06/13/2023, 06/06/2022 TECHNIQUE: Bilateral craniocaudad, mediolateral oblique, and mediolateral views are submitted with to mosynthesis and SM. Spot compression RIGHT MLO, LEFT MLO, LEFT CC. Computer aided detection utilized. Breast composition: There are scattered areas of fibroglandular density. There are no suspicious findings in the area of the pain marker or palpable nodule markers. These are as correspond to fatty breast tissue. The remaining breast demonstrate normal fibroglandular densitie s and a few scattered lymph nodes. Ultrasound will be performed in the areas of noncyclical pain and nodules. Bilateral breast ultrasound. RIGHT: RIGHT axilla is negative. Benign lymph nodes are identified. LEFT: No abnormality in the LEFT axilla other than benign appearing lymph nodes. There is also no abn ormality in the LEFT breast at 6:00 as indicated by the patient. US/US breast BI limited* [id number] IMPRESSION: BI-RADS: 2 - Benign. FOLLOW UP: 1 Year Follow-up
== END 2024-06-17 07:56 | disposition home or self-care (01) ==
LOC: RAD 07:56
PROVIDERS: PCP Family Medicine Adult Medicine; Visit Provider Student in an Organized Health Care Education/Training Program
DX: N63.23 Unspecified lump in the left breast, lower outer quadrant; R92.323 Mammographic fibroglandular density, bilateral breasts; Z80.3 Family history of malignant neoplasm of breast
CPT/HCPCS: 76642; 77062; G0279

== ENCOUNTER 2024-06-17 09:54 | Emergency (ER) | payer MEDICARE, MEDICAID, SELFPAY ==
[2024-06-17 10:00] VITALS: BP 150/89; PULSE 115; RESP 18; TEMP 36.7; O2SAT 95; BMI 35.0
--- NOTE | 2024-06-17 10:11 | W.ED.GENADLT ---
HPI - General Adult General: Chief complaint: General Medical Stated complaint: Breast pain (just finished mammo) Time Seen by Provider: 06/17/24 09:55 Source: patient Mode of arrival: ambulatory Limitations: no limitations History of Present Illness: Patient is a 44-year-old female who is well-known to our emergency department here for complaints of pain everywhere . She is sobbing during my examination. She states she just finished a breast ultrasound and mammogram and is having worsening breast pain following this. She does have plans to follow-up with general surgery to go over mammogram results as they have indicated she might require biopsy. She states she is also scheduled for an upcoming hysterectomy by [facility]. She is extremely anxious regarding all of this. She states she sees her PCP, Dr. Medel, who has been managing her chronic pain but he is out of office until August and states she cannot get their office to call her back. She states she feels very victimized by them. She has no new complaints upon arrival to ED today. Associated symptoms: Deny chest pain, dyspnea, headache(s), nausea, palpitations, syncope or vomiting Related Data Previous Rx's Medication Instructions Recorded ipratropium 0.5 mg-albuterol 3 mg 3 ml inhalation QID PRN wheezing 10/16/23 (2.5 mg base)/3 mL nebulization #180 mL soln docusate sodium 100 mg tablet 100 mg PO BID on 01/16/24 opioid/constipation #100 tabs pantoprazole 40 mg tablet,delayed 40 mg PO DAILY gastritis/GERD #90 01/16/24 release tabs ibuprofen 800 mg tablet 800 mg PO TID Pelvic pain #60 tabs 01/24/24 calcium polycarbophil 625 mg 1,250 mg (2 x 625 mg) PO BID for 01/31/24 tablet (FiberCon) bowel consistency #120 tabs clobetasol 0.05 % topical ointment 1 applic topical BID PRN Rash #45 02/22/24 grams ondansetron 4 mg disintegrating 4 mg PO Q4H PRN nausea and 03/04/24 tablet vomiting #30 tabs ipratropium 20 mcg-albuterol 100 See Rx Instructions .Route 03/07/24 mcg/actuation mist for inhalation .COMPLEX #4 grams (Combivent Respimat) loratadine 10 mg tablet 10 mg PO DAILY PRN allergy 04/01/24 symptoms #90 tabs hydrocortisone 2.5 % topical cream 1 applic topical BID PRN skin 04/25/24 irritation #30 grams hydrocodone 7.5 mg-acetaminophen 1 tab PO Q8H PRN abd/pelvic pain 05/20/24 325 mg tablet 30 days #90 tabs lorazepam 2 mg tablet 2 mg PO TID anxiety 30 days #90 05/20/24 tabs Allergies Allergy/AdvReac Type Severity Reaction Status Date / Time azithromycin Allergy Intermediate Turned red Verified 06/16/24 09:11 bacitracin Allergy rash Verified 06/16/24 09:11 [From Triple Antibiotic] neomycin Allergy rash Verified 06/16/24 09:11 [From Triple Antibiotic] pepper (genus Capsicum) Allergy ADR-Gastrointestinal Verified 06/16/24 09:11 Upset polymyxin B Allergy rash Verified 06/16/24 09:11 [From Triple Antibiotic] Pork/Porcine Containing Allergy ADR-Gastrointestinal Verified 06/16/24 09:11 Products Upset potato Allergy ADR-Gastrointestinal Verified 06/16/24 09:11 Upset tomato Allergy ADR-Gastrointestinal Verified 06/16/24 09:11 Upset metoclopramide [From Reglan] AdvReac Intermediate ADR-Itching Verified 06/16/24 09:11 metronidazole AdvReac Mild ADR-Gastrointestinal Verified 06/16/24 09:11 Upset Review of Systems Const: Denies: fever(s) Card: Denies: chest pain, palpitations, irregular heart rhythm, edema, swelling of feet/ankles, lightheadedness, syncope or pre-syncope Resp: Denies: dyspnea GI: Denies: abdominal pain, nausea, vomiting or diarrhea : Reports: pelvic pain (reports chronic pain from adenomyosis); Denies: flank pain or dysuria Musc: Denies: neck pain, back pain, extremity pain, extremity swelling, joint pain or joint swelling Skin/Breast: Reports: breast tenderness and breast pain Neuro: Denies: headache(s), numbness in extremities, weakness in extremities, sensory changes or dizziness PFSH ED PFSH: Medical History Family planning, Depo-Provera contraception monitoring/administration Encounter for female control Nodule of left anterior chest wall Less than 1 cm tender enlarged lymph node in the left axilla only under the pectoralis major Fall from bed Allergic pharyngitis Actinic keratosis due to exposure to sunlight Atypical mole Chest wall pain, chronic Seasonal allergic rhinitis Cluster B personality disorder Somatic symptom disorder, severe, with predominant pain TMJ (temporomandibular joint syndrome) Chronic cough Hemorrhoids Patellar tendinitis, left knee Asthma-COPD overlap syndrome Primary stress urinary incontinence Post traumatic stress disorder (PTSD) Major depressive disorder, recurrent Following information retrieved and edited from Behavior Assessment Report on 12/26/21: She presented with loose associations, tangential thinking, perseveration, and had difficulty participating in the assessment interview. 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 Rekha was dressed in clean, casual clothing appropriate for today's situation and weather. Lupus anticoagulant positive per history, repeat was negative, currently asymptomatic Generalized anxiety disorder Following information retrieved and edited from Behavior Assessment Report on 12/26/21: She presented with loose associations, tangential thinking, perseveration, and had difficulty participating in the assessment interview. 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 Rekha was dressed in clean, casual clothing appropriate for today's situation and weather. Seizures Reports having had seizures in the past the last was in 2018. She is not currently on any medication. Surgical History [facility] History of esophagogastroduodenoscopy (EGD) 12/13/2023 EGD with gastritis by Dr. Hui Status post tubal ligation 2005--laparoscopic tubal 2 months after her S/P laparoscopic cholecystectomy 2005 Status post delivery X 2 ---> 2005, 2006 Family History Father Hyperlipidemia Hypertension Mother Hypertension Stroke Breast cancer diagnosed at age 70 Family/Other Ovarian cancer paternal aunt, age at diagnosis unknown Denies family history of Colon cancer Diabetes Heart disease Anesthesia complication Bleeding disorder Uterine cancer Thyroid disease Social History Smoking and tobacco/nicotine status: never used tobacco/nicotine Female Reproductive History: Para: 2 Spontaneous abortions: Yes Physical Exam Const: COMMON NORMALS: average body habitus, patient oriented x3, no limitations, alert and well nourished GENERAL APPEARANCE: cooperative and anxious ORIENTATION/CONSCIOUSNESS: Yes awake, Yes oriented to person, Yes oriented to place and Yes oriented to time Chest: COMMONS NORMALS: normal inspection of the chest Resp: COMMON NORMALS: normal respiratory effort Cardio: COMMON NORMALS: regular rate and regular rhythm RATE: regular rate RHYTHM: regular rhythm Extremity: GENERAL: Yes normal exam except as noted Neuro: COMMON NORMALS: patient oriented x3 SENSORIUM/ORIENTATION: Yes alert, Yes oriented to person, Yes oriented to place and Yes oriented to time Skin: COMMON NORMALS: no rashes or lesions noted GENERAL SKIN EXAM: no rashes or lesions noted Course Vital Signs: Vital signs: Vital Signs Temperature 98.1 F 06/17/24 10:00 Pulse Rate 104 H 06/17/24 10:25 Respiratory Rate 22 H 06/17/24 10:47 Blood Pressure 135/89 06/17/24 10:25 Pulse Oximetry 94 06/17/24 10:47 Oxygen Delivery Me thod Room Air 06/17/24 10:25 [facility] - General Adult Medical Decision Making Patient is a 44-year-old female well-known to the emergency department here for anxiety and pain. Reporting worsening breast pain following a mammogram earlier this morning. Patient has plans for mammogram follow-up and potential biopsy depending on results. She has upcoming appointment with [facility] for hysterectomy. She can also continue to follow-up with her primary care provider office for further treatment of her chronic pain. She has no new complaints today apart from the worsening breast pain following her mammogram. She was provided pain medications and feels better at time of discharge. Medical Records I reviewed the patient's medical records. No radiology studies performed this visit Discharge Plan Discharge Patient Disposition: Home Clinical Impression: Breast pain Condition: Stable Prescriptions: No Action ipratropium-albuterol 0.5 mg-3 mg(2.5 mg base)/3 mL solution for nebulization 3 ml inhalation QID PRN (Reason: wheezing) Qty: 180 3RF ibuprofen 800 mg tablet 800 mg PO TID Qty: 60 0RF docusate sodium 100 mg tablet 100 mg PO BID Qty: 100 0RF pantoprazole 40 mg tablet,delayed release (DR/EC) 40 mg PO DAILY Qty: 90 1RF FiberCon 625 mg tablet 1,250 mg PO BID Qty: 120 5RF loratadine 10 mg tablet 10 mg PO DAILY PRN (Reason: allergy symptoms) Qty: 90 3RF hydrocortisone 2.5 % cream 1 applic topical BID PRN (Reason: skin irritation) Qty: 30 0RF clobetasol 0.05 % ointment 1 applic topical BID PRN (Reason: Rash) Qty: 45 2RF ondansetron 4 mg tablet,disintegrating 4 mg PO Q4H PRN (Reason: nausea and vomiting) Qty: 30 3RF Combivent Respimat 20-100 mcg/actuation mist See Rx Instructions .ROUTE .COMPLEX Qty: 4 5RF Dose Instruction: INHALE 1 PUFF INTO LUNGS EVERY 4 HOURS NEEDED FOR COPD; SPACE EVENLY DURING WAKING HOURS Rx Instructions: INHALE 1 PUFF INTO LUNGS EVERY 4 HOURS NEEDED FOR COPD; SPACE EVENLY DURING WAKING HOURS hydrocodone-acetaminophen 7.5-325 mg tablet 1 tab PO Q8H PRN (Reason: abd/pelvic pain) 30 Days Qty: 90 0RF Rx Instructions: Refill on or after every 30 days lorazepam 2 mg tablet 2 mg PO TID 30 Days Qty: 90 2RF Discharge Orders: Discharge ED (Routine); Ordered 06/17/24 Ordered By: Florinda Monsivais Referrals: Alexi Medel MD [Primary Care Provider] - Activity Restrictions/Additional Instructions: Please continue to follow-up with primary care and/or general surgery to go over mammogram results and for further treatment of chronic pain. Coding Level of Care Code ED Peer Educator for Ranjeet Lamb
[2024-06-17 10:25] VITALS: BP 135/89; PULSE 104; RESP 16; O2SAT 95
[2024-06-17 10:47] VITALS: RESP 22; O2SAT 94
[2024-06-17] MEDS: morphine 4 mg/mL SDV 1 mL IM (10:47)
--- NOTE | 2024-06-17 10:48 | PC.NURSE ---
pt refused zofran stated she would take her oral tabs at home if needed
[2024-06-17 11:38] VITALS: BP 132/91; PULSE 103; RESP 16; O2SAT 98
== END 2024-06-17 11:38 | disposition home or self-care (01) ==
PROVIDERS: Emergency Provider Physician Assistant; PCP Family Medicine Adult Medicine
DX: N64.4 Mastodynia (principal); J44.9 Chronic obstructive pulmonary disease, unspecified
CPT/HCPCS: 96372; 99284; J2270

== ENCOUNTER → 2024-06-18 14:23 | Outpatient (BNVA) | payer MEDICARE, MEDICAID, SELFPAY | PROVIDERS: PCP Family Medicine Adult Medicine; Visit Provider Student in an Organized Health Care Education/Training Program | DX: Z09 Encounter for follow-up examination after completed treatment for conditions other than malignant neoplasm (principal) | CPT/HCPCS: 99203; 99213 ==

== ENCOUNTER 2024-07-08 17:02 | Observation (INO) | payer MEDICARE, MEDICAID, SELFPAY ==
--- NOTE | 2024-06-16 12:33 | P.ANESASSM_ITS ---
Pre-Anesthetic Assessment Height/Weight: Height 5 ft 3 in Operation Date: 07/08/24 11:05 Proposed Procedures p Laparoscopic Assist Vaginal Hysterectomy 06553, D25.1, R10.2, G89.29(Not Applicable) - Willy Goncalves MD Social No alcohol and No tobacco Quit smoking marijuana 1 year ago Exam alert, oriented x 3, clear to auscultation bilaterally and regular rate & rhythm Airway Submandibular: within normal limits Cervical ROM: within normal limits Mallampati: Class III Dentition: other (Few missing teeth) Anesthetic Plan ASA status: 3 Anesthesia: General Other: Patient has no prior issues with anesthesia Plan for n.p.o. after midnight Currently being worked up for potential breast cancer. Patient has a asthma?COPD, improved since she stopped smoking marijuana 1 year ago GERD, controlled on meds History of MDD and PTSD EKG showing sinus tachycardia Patient reports METs greater than 4 Plan for GETA Medications/Allergies Home Medications Medication Instructions Recorded Confirmed Last Taken Type ipratropium 0.5 mg-albuterol 3 mg 3 ml inhalation QID PRN wheezing 10/16/23 06/16/24 06/16/24 Rx (2.5 mg base)/3 mL nebulization #180 mL soln docusate sodium 100 mg tablet 100 mg PO BID on 01/16/24 06/16/24 Unknown Rx opioid/constipation #100 tabs pantoprazole 40 mg tablet,delayed 40 mg PO DAILY gastritis/GERD #90 01/16/24 06/16/24 06/16/24 Rx release tabs ibuprofen 800 mg tablet 800 mg PO TID Pelvic pain #60 tabs 01/24/24 06/16/24 Unknown Rx calcium polycarbophil 625 mg 1,250 mg (2 x 625 mg) PO BID for 01/31/24 06/16/24 Unknown Rx tablet (FiberCon) bowel consistency #120 tabs clobetasol 0.05 % topical ointment 1 applic topical BID PRN Rash #45 02/22/24 06/16/24 Unknown Rx grams ondansetron 4 mg disintegrating 4 mg PO Q4H PRN nausea and 03/04/24 06/16/24 06/16/24 Rx tablet vomiting #30 tabs ipratropium 20 mcg-albuterol 100 See Rx Instructions .Route 03/07/24 06/16/24 06/16/24 Rx mcg/actuation mist for inhalation .COMPLEX #4 grams (Combivent Respimat) loratadine 10 mg tablet 10 mg PO DAILY PRN allergy 04/01/24 06/16/24 Unknown Rx symptoms #90 tabs hydrocortisone 2.5 % topical cream 1 applic topical BID PRN skin 04/25/24 06/16/24 Unknown Rx irritation #30 grams hydrocodone 7.5 mg-acetaminophen 1 tab PO Q8H PRN abd/pelvic pain 05/20/24 06/16/24 06/16/24 Rx 325 mg tablet 30 days #90 tabs lorazepam 2 mg tablet 2 mg PO TID anxiety 30 days #90 05/20/24 06/16/24 06/16/24 Rx tabs Allergies Allergy/AdvReac Type Severity Reaction Status Date / Time azithromycin Allergy Intermediate Turned red Verified 06/16/24 09:11 bacitracin Allergy rash Verified 06/16/24 09:11 [From Triple Antibiotic] neomycin Allergy rash Verified 06/16/24 09:11 [From Triple Antibiotic] pepper (genus Capsicum) Allergy ADR-Gastrointestinal Verified 06/16/24 09:11 Upset polymyxin B Allergy rash Verified 06/16/24 09:11 [From Triple Antibiotic] Pork/Porcine Containing Allergy ADR-Gastrointestinal Verified 06/16/24 09:11 Products Upset potato Allergy ADR-Gastrointestinal Verified 06/16/24 09:11 Upset tomato Allergy ADR-Gastrointestinal Verified 06/16/24 09:11 Upset metoclopramide [From Reglan] AdvReac Intermediate ADR-Itching Verified 06/16/24 09:11 metronidazole AdvReac Mild ADR-Gastrointestinal Verified 06/16/24 09:11 Upset PFSH Anesthesia Medical History Family planning, Depo-Provera contraception monitoring/administration Encounter for female control Nodule of left anterior chest wall Less than 1 cm tender enlarged lymph node in the left axilla only under the pectoralis major Fall from bed Allergic pharyngitis Actinic keratosis due to exposure to sunlight Atypical mole Chest wall pain, chronic Seasonal allergic rhinitis Cluster B personality disorder Somatic symptom disorder, severe, with predominant pain TMJ (temporomandibular joint syndrome) Chronic cough Hemorrhoids Patellar tendinitis, left knee Asthma-COPD overlap syndrome Primary stress urinary incontinence Post traumatic stress disorder (PTSD) Major depressive disorder, recurrent Following information retrieved and edited from Behavior Assessment Report on 12/26/21: She presented with loose associations, tangential thinking, perseveration, and had difficulty participating in the assessment interview. She was agitated, spoke loudly, was tearful then angry, and moved in her seat continuously for most of the assessment interview, though she became calmer as time cycle operator provided supportive, empathic listening. Rekha was dressed in clean, casual clothing appropriate for today's situation and weather. Lupus anticoagulant positive per history, repeat was negative, currently asymptomatic Generalized anxiety disorder Following information retrieved and edited from Behavior Assessment Report on 12/26/21: She presented with loose associations, tangential thinking, perseveration, and had difficulty participating in the assessment interview. She was ag itated, spoke loudly, was tearful then angry, and moved in her seat continuously for most of the assessment interview, though she became calmer as time cycle operator provided supportive, empathic listening. Rekha was dressed in clean, casual clothing appropriate for today's situation and weather. Seizures Reports having had seizures in the past the last was in 2018. She is not currently on any medication. Surgical History Hx of colonoscopy 12/20/2020 normal, both Mag[facility] [place] and Dr Ortiz History of esophagogastroduodenoscopy (EGD) 12/13/2023 EGD with gastritis by Dr. Hui Status post tubal ligation 2006--laparoscopic tubal 2 months after her S/P laparoscopic cholecystectomy 2005 Status post delivery X 2 ---> 2004, 2005 Family History Father Hyperlipidemia Hypertension Mother Hypertension Stroke Breast cancer diagnosed at age 70 Family/Other Ovarian cancer paternal aunt, age at diagnosis unknown Denies family history of Colon cancer Diabetes Heart disease Anesthesia complication Bleeding disorder Uterine cancer Thyroid disease Social History Smoking and tobacco/nicotine status: never used tobacco/nicotine Female Reproductive History Para: 2 Spontaneous abortions: Yes Data Anesthesia Cardiac Studies: No Data to Display
[2024-07-08] VITALS (13 sets, daily range): BP systolic 111–158; BP diastolic 65–123; PULSE 86–104; RESP 12–18; TEMP 36.1–36.8; O2SAT 93–98; BMI 35.4
[2024-07-08 12:35] LABS: OR HCG Qualitative Urine Negative (Negative)
--- NOTE | 2024-07-08 12:48 | W.PM.OPSUD ---
Surgery/Procedure H&P Update DATE OF PROCEDURE: July 08, 2024 DATE H&P PERFORMED: 06/16/24 H&P UPDATE INFORMATION: I have reviewed H&P completed within last 30 days, I have examined patient prior to procedure and No changes to prior documentation PLANNED PROCEDURE: Operation Date: 07/08/24 14:00 Proposed Procedures p Laparoscopic Assist Vaginal Hysterectomy 58786, D25.1, R10.2, G89.29(Not Applicable) - Willy Goncalves MD
[2024-07-08 13:24] LABS: Bilirubin Urine Negative (Negative); Blood Urine Negative (Negative); Glucose Urine UA Negative (Normal); Ketones Urine Negative (Negative); Leukocyte Esterase Urine Trace (Negative); Nitrate Urine Negative (Negative); Protein Urine Negative (Negative); Specific Gravity, Urine 1.022 (1.005-1.030); Urine Appearance Clear (CLEAR); Urine Color Yellow (Yellow); Urobilinogen Urine 0.2 mg/dL (Negative); pH Urine 5.5 (5-7)
[2024-07-08 13:27] LABS: OR HCG Qualitative Urine Negative (Negative)
[2024-07-08 13:28] LABS: Add Urine Microscopic? YES; Bacteria Urine None Seen /hpf; RBC Urine 0-2 /hpf (0-2); Squamous Epithelial Cell Urine 0-5 /hpf (0-5); WBC Urine 0-5 /hpf (0-5)
[2024-07-08] MEDS: sodium chloride 0.9% 1,000 ML 30 ML IV (13:28)
[2024-07-08 13:32] LABS: Basophils # 0.1 10^3/uL (0.0-0.1); Basophils % 0.7 %; Eosinophils # 0.5 10^3/uL (0.0-0.8); Eosinophils % 3.8 %; Hematocrit 41.6 % (36-47); Lymphocytes # 2.3 10^3/uL (0.8-4.8); Lymphocytes % 17.4 %; Mean Corpuscular HGB Conc 34.1 g/dL (30-55); Mean Corpuscular Hemoglobin 29.5 pg (27-33); Mean Corpuscular Volume 86.3 fl (85-98); Mean Platelet Volume 10.2 fL (7.4-10.4); Monocytes # 0.9 10^3/uL (0.2-0.9); Monocytes % 6.6 %; Neutrophils # 9.49 10^3/uL (1.8-7.7); Nucleated Red Blood Cells % 0 %; Platelet Count 309 10^3/cmm (157-399); Red Blood Count 4.82 10^6/uL (3.85-5.65); Red Cell Distribution Width 11.9 % (12.1-15.1); White Blood Count 13.36 10^3/uL (3.29-11.43)
[2024-07-08] MEDS: sodium chloride 0.9% 500 ML IV (13:35)
[2024-07-08] MEDS: scopolamine 1.5 Patch 1 PATCH TRANSDERMA (13:35)
--- NOTE | 2024-07-08 13:44 | P.ANESUD_ITS ---
Pre-Anesthetic Update Pre-Anesthetic Assessment: Date of Surgery/Procedure: 07/08/24 Preop Meena gnosis: Chronic pelvic pain, fibroid uterus Proposed Procedure: Operation Date: 07/08/24 14:00 Proposed Procedures p Laparoscopic Assist Vaginal Hysterectomy 48588, D25.1, R10.2, G89.29(Not Applicable) - Willy Goncalves MD Any changes to Pre-Anesthetic Assessment?: No Last Intake: Intake Last Liquid Date 07/07/24 Last Liquid Time 20:00 Last Solid Date 07/07/24 Last Solid Time 20:00 Labs Last 48hrs: Short CBC 07/08/24 Range/Units 13:15 WBC 13.36 H (3.29-11.43) 10^ 3/uL Hgb 14.20 (11.27-16.99) g/ dL Hct 41.6 (36-47) % MCV 86.3 (85-98) fl Plt Count 309 (157-399) 10^3/c mm Neut % (Auto) 71.0 % Neut # (Auto) 9.49 H (1.8-7.7) 10^3/u L Vitals: Temperature 97.6 F 07/08/24 12:44 Temperature Source Temporal Artery S can 07/08/24 12:44 Pulse Rate 101 H 07/08/24 12:44 Pulse Rhythm Regular 07/08/24 13:04 Pulse Strength 3+ Normal 07/08/24 13:04 Respiratory Rate 18 07/08/24 12:44 Blood Pressure 119/97 07/08/24 12:44 Blood Pressure Lillian n 104 07/08/24 12:44 Pulse Oximetry 98 07/08/24 12:44 Oxygen Delivery Me thod Room Air 07/08/24 13:04 Exam: Pre-Anes Outpt Exam: alert, oriented x 3, clear to auscultation bilaterally and regular rate & rhythm Cardiac Studies: No Data to Display
[2024-07-08 13:54] LABS: Alanine Aminotransferase 22 U/L (0-33); Albumin Level 4.2 g/dL (3.5-5.2); Alkaline Phosphatase 91 U/L (35-105); Anion Gap 15.9 (5-19); Aspartate Amino Transferase 18 U/L (0-32); Blood Urea Nitrogen 9 mg/dL (6-20); Calcium 8.7 mg/dL (8.5-10.5); Carbon Dioxide 20 mmol/L (22-29); Chloride 104 mmol/L (98-107); Creatinine Clr Calc Pharmacy 109.6536; Globulin 3.4 g/dL (1.3-4.6); Glomerular Filtration Rate 90.9 mL/min (90-130); Glucose 112 mg/dL (65-115); Osmolality Calculated 281 mOsm/kg (285-295); Potassium 3.9 mmol/L (3.5-5.1); Sodium 136 mmol/L (136-145); Total Bilirubin 0.4 mg/dL (0.15-1.2); Total Protein 7.6 g/dL (6.6-8.7)
[2024-07-08] MEDS: midazolam 1 mg/mL INJ 2 mL 2 MG IVP (14:15)
[2024-07-08] MEDS: vancomycin 1,000 MG in sodium chloride 0.9% 250 ML 250 MG IV (14:27)
[2024-07-08] MEDS: ceFOXitin 2,000 mg SDV 2000 MG IVP (15:32)
[2024-07-08] MEDS: BUPivacaine 0.5% INJ 10 mL INJECTION (15:51)
[2024-07-08] MEDS: lidocaine-epi 2% PF 1:200,000 20 mL SDV INJECTION (15:51)
--- NOTE | 2024-07-08 17:03 | P.BOP_ITS ---
Date of Procedure: 07/08/24 Surgeon: Willy Goncalves MD Vallez Filter Operator(s): Procedure(s) performed: Laparoscopic assisted vaginal hysterectomy Findings of the procedure(s): Enlarged uterus Estimated blood loss: 100 Specimen(s) removed: Uterus Post-operative diagnosis: Postop
--- NOTE | 2024-07-08 17:03 | PM.OP ---
Operative Report Date of procedure: July 08, 2024 Pre-op diagnosis: Chronic pelvic pain Fibroid uterus Post-op diagnosis: same Post-op findings: Enlarged uterus Procedure done: Laparoscopic-assisted vaginal hysterectomy Specimens removed/disposition: Uterus Surgeon: Willy Goncalves MD Estimated blood loss (mL): 100 IV fluids (mL): 900 Urine output (mL): 100 Procedure: After informed consent, the patient was taken to the operating room where general anesthesia was administered. Pre-Procedure Time-Out verifying the correct patient identity, correct procedure verified with consent, correct site and side, correct patient position, availability of correct implants and any special equipment or requirements was performed and acknowledge by the OR team. She was placed in the dorsal lithotomy position and prepped and draped in sterile fashion. The patient was examined under anesthesia and found to have a normal uterus with normal adnexa. A Louis catheter was placed in the bladder. A weighted speculum was placed in the vagina, and the anterior lip of cervix was grasped with the single toothed tenaculum. A uterine manipulator was advanced into the endocervical. Tenaculum was removed after uterine manipulator was secured. The speculum was removed from the vagina. The attention was brought to abdomen after changing gloves. The base of the umbilicus was grasped with an Allis clamp and with 2 towel clamp bilaterally tenting up the umbilicus an intraumbilical incision was made with a scalpel. While tenting up on the abdomen, a Verres needle with sleeve was admitted into the intra-abdominal cavity. A saline drop test was performed and noted to be within normal limits. Pneumoperitoneum was attained with 4 liters of carbon dioxide. The Verres needle was removed. Then a 5 mm Optiview trocar and cannula were inserted under direct visualization without complications. Trocars were removed and the laparoscope was inserted and connected to the video camera light source. A 5 mm trocar and cannula were placed in the right lower quadrant under direct visualization after infiltration of 0.5% Marcaine with epinephrine. A 5 mm trocar and cannula were placed in the left lower quadrant under direct visualization after infiltration of 0.5% Marcaine with epinephrine. The pelvic contents were visualized and noted a small uterus, deep cul-de-sac, normal bilateral fallopian tubes and ovaries, normal appendix, and both ureters were identified crossing the pelvic brim and pelvic sidewall. The left round ligament was coagulated and transected using LigaSure device. The left broad ligament was opened down to the level of the uterine artery and vein. The left infundibulopelvic ligament was coagulated using LigaSure and then transected. The right round ligament was coagulated and transected using LigaSure, and the right broad ligament was opened down to the level of the right uterine artery and vein. The right infundibulopelvic ligament was coagulated and transected using LigaSure. Peritoneum of the lower uterine segment was entered using LIGASURE, and the bladder was dissected off the lower uterine segment using blunt dissection. Careful inspection revealed complete hemostasis. A weighted speculum was placed in the posterior vaginal wall and the right-angle retractor used to visualize the cervix. The cervix was grasped across the anterior lip with a single-toothed tenaculum and circumferentially infiltrated with 1% Xylocaine with epinephrine at this time. The cervix was circumferentially excised with the scalpel. The vaginal mucosa was dissected superiorly with sharp dissection. The anterior peritoneal reflection was identified, and it was entered with Metzenbaum scissors. A posterior colpotomy was made through the cul-de-sac space. The posterior peritoneum was identified in similar fashion and Metzenbaum scissors were used to enter the cul-de-sac. At this time, a weighted speculum was placed, advanced posteriorly into the cul-de-sac. At this time, the left and right uterosacral ligaments were isolated and ligated with 0 Vicryl. The LigaSure device was then used in a serial fashion up through the cardinal ligaments bilaterally. Finally, the uterine arteries were cross-clamped, cut, and ligated with the LigaSure device. LigaSure device was then used up through the broad ligaments superiorly and finally the uterus was rotated posteriorly. The left and right tubes were then cross-clamped and ligated with LigaSure device. The uterus was excised and submitted for pathologic evaluation. At this time, Mosinee clamps were used to grasp the left and right ovaries, and they were removed per the patient's request. Curved Zeppelin clamps were placed across the infundibulopelvic ligaments bilaterally and curved scissors were used to excise the specimen from the Zeppelin clamp. The pedicles were doubly ligated bilaterally with 0 Vicryl and hemostasis noted to be achieved. No other abnormalities were noted in the pelvic cavity. At this time, instruments were removed from the patient's abdominopelvic cavity. Vaginal cuff closure and peritoneum were incorporated into one layer with 0 Vicryl suture in a continuous running interlocking fashion. Hemostasis was noted to be achieved. Louis catheter was then placed yielding clear david urine. A vaginal packing was placed to provide support during the healing process. The patient tolerated the procedure well and was taken to the recovery room in a stable condition. Sponge and needle counts were correct x3.
[2024-07-08] MEDS: ondansetron 2 mg/ML SDV 2 mL 4 MG IVP (17:29)
[2024-07-08] MEDS: dextrose 5%-lactated ringers 1,000 ML 125 ML IV (18:36)
[2024-07-08] MEDS: ketorolac 30 mg/mL INJ IVP ×2 (18:39→23:58)
[2024-07-08] MEDS: HYDROcodone-acetaminophen 5-325 mg Tablet PO ×2 (18:40→21:51)
--- NOTE | 2024-07-08 19:45 | ANE.PACU2 ---
Inpatient post-anesthesia follow up: Airway intact: Yes Vital signs: Temperature 98.4 F Pulse Rate 86 Respiratory Rate 15 Blood Pressure 120/74 Pulse Oximetry 97 Oxygen Delivery Me thod Room Air Oxygen Flow Rate Fraction of Inspir ed Oxygen Hydration adequate: Yes Nausea and vomiting: No Pain level: 1 Mental status: Baseline
[2024-07-08] MEDS: LORazepam 0.5 mg Tablet 2 MG PO (20:33)
[2024-07-08] MEDS: simethicone 80 mg Chew PO (20:33)
[2024-07-08] MEDS: diphenhydrAMINE 25 mg Capsule PO (21:52)
[2024-07-09] MEDS: HYDROcodone-acetaminophen 5-325 mg Tablet PO ×3 (02:21→09:49)
[2024-07-09 04:00] VITALS: BP 102/64; PULSE 86; RESP 18; TEMP 36.4; O2SAT 98
[2024-07-09 05:11] LABS: Hematocrit 35.7 % (36-47); Mean Corpuscular HGB Conc 33.9 g/dL (30-55); Mean Corpuscular Volume 88.4 fl (85-98); Mean Platelet Volume 10.9 fL (7.4-10.4); Platelet Count 338 10^3/cmm (157-399); Red Blood Count 4.04 10^6/uL (3.85-5.65); Red Cell Distribution Width 12.1 % (12.1-15.1); White Blood Count 17.31 10^3/uL (3.29-11.43)
[2024-07-09] MEDS: ketorolac 30 mg/mL INJ IVP ×2 (06:26→11:04)
--- NOTE | 2024-07-09 06:42 | PC.NURSE ---
Vaginal packing removed. Patient tolerated the procedure well. Scant bleeding noted.
[2024-07-09 08:40] VITALS: BP 120/74; PULSE 86; RESP 15; TEMP 36.9; O2SAT 97
[2024-07-09] MEDS: docusate sodium 100 mg Capsule PO (08:51)
[2024-07-09] MEDS: LORazepam 0.5 mg Tablet 2 MG PO (09:46)
--- NOTE | 2024-07-09 12:25 | PM.OBGYDC ---
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 The patient has a history of chronic pelvic pain, which has been persistent and significant enough to warrant surgical intervention. Her chronic pelvic pain is associated with the presence of uterine fibroids, confirmed in past evaluations. The fibroids have resulted in considerable discomfort and a decrease in the quality of life, impacting daily activities. Conservative management options had been considered before electing surgical intervention, but the severity of symptoms persisted, leading to the decision for a hysterectomy. The total abdominal hysterectomy was planned as a definitive treatment to alleviate the symptoms caused by the uterine fibroids and chronic pelvic pain. The procedure was performed without complications, indicating a successful surgical outcome. Postoperatively, the patient reported stable hemoglobin levels and was able to tolerate a diet well. She was ambulatory without difficulty and was educated regarding postoperative restrictions to ensure optimal recovery. Pelvic rest for 6 weeks (no sex, no tampons, no vaginal douches). Return to the emergency room if any fever, increased bleeding or pain. Physical Exam Narrative: GA: Alert and oriented ?3. HEENT: WNL. Heart: Regular rate and rhythm. Lungs: Clear to auscultation bilaterally. Abdomen: Bowel sounds present, nontender. CONTACT LENS POLISHER: spotting bleeding. Extremities: No edema, no cyanosis, no calves pain. Urinary Catheter Management: Louis: Cath Placed During This Visit: yes, but has since been removed by the nurse Reason for Continuing Indwelling Catheter: Decision to DC Catheter Urinary Catheter Date of Insertion: 07/08/24 Urinary Catheter Time of Insertion: 15:32 Date Urinary Catheter Removed: 07/09/24 Time Urinary Catheter Discontinued: 00:45 History History History 10 Term 1 1 Miscarriages/Ectopic 8 Living Children 2 Discharge Data Studies Completed and Pending Pending at discharge Category Date Time Status Pathology: Surgical [PTH] Routine Pth 07/08/24 16:43 Received Laboratory Results WBC 17.31 10^3/uL (3.29-11.43) H 07/09/24 05:05 RBC 4.04 10^6/uL (3.85-5.65) 07/09/24 05:05 Hgb 12.10 g/dL (11.27-16.99) 07/09/24 05:05 Hct 35.7 % (36-47) L 07/09/24 05:05 MCV 88.4 fl (85-98) 07/09/24 05:05 MCH 30.0 pg (27-33) 07/09/24 05:05 MCHC 33.9 g/dL (30-55) 07/09/24 05:05 RDW 12.1 % (12.1-15.1) 07/09/24 05:05 Plt Count 338 10^3/cmm (157-399) 07/09/24 05:05 MPV 10.9 fL (7.4-10.4) H 07/09/24 05:05 Neut % (Auto) 71.0 % 07/08/24 13:15 Lymph % (Auto) 17.4 % 07/08/24 13:15 [place] % (Auto) 6.6 % 07/08/24 13:15 Eos % (Auto) 3.8 % 07/08/24 13:15 Baso % (Auto) 0.7 % 07/08/24 13:15 Neut # (Auto) 9.49 10^3/uL (1.8-7.7) H 07/08/24 13:15 Lymph # (Auto) 2.3 10^3/uL (0.8-4.8) 07/08/24 13:15 [place] # (Auto) 0.9 10^3/uL (0.2-0.9) 07/08/24 13:15 Eos # (Auto) 0.5 10^3/uL (0.0-0.8) 07/08/24 13:15 Baso # (Auto) 0.1 10^3/uL (0.0-0.1) 07/08/24 13:15 Nucleated RBC % (auto) 0 % 07/08/24 13:15 Nucleated RBCs # 0.0 /100WBC 07/08/24 13:15 Sodium 136 mmol/L (136-145) 07/08/24 13:15 Potassium 3.9 mmol/L (3.5-5.1) 07/08/24 13:15 Chloride 104 mmol/L (98-107) 07/08/24 13:15 Carbon Dioxide 20 mmol/L (22-29) L 07/08/24 13:15 Anion Gap 15.9 (5-19) 07/08/24 13:15 BUN 9 mg/dL (6-20) 07/08/24 13:15 Creatinine 0.7 mg/dL (0.5-0.9) 07/08/24 13:15 GFR Calculation 90.9 mL/min (90-130) 07/08/24 13:15 Glucose 112 mg/dL (65-115) 07/08/24 13:15 Calculated Osmolality 281 mOsm/kg (285-295) L 07/08/24 13:15 Calcium 8.7 mg/dL (8.5-10.5) 07/08/24 13:15 Total Bilirubin 0.4 mg/dL (0.15-1.2) 07/08/24 13:15 AST 18 U/L (0-32) 07/08/24 13:15 ALT 22 U/L (0-33) 07/08/24 13:15 Alkaline Phosphatase 91 U/L (35-105) 07/08/24 13:15 Total Protein 7.6 g/dL (6.6-8.7) 07/08/24 13:15 Albumin 4.2 g/dL (3.5-5.2) 07/08/24 13:15 Globulin 3.4 g/dL (1.3-4.6) 07/08/24 13:15 Urine Color Yellow (Yellow) 07/08/24 12:30 Urine Appearance Clear (CLEAR) 07/08/24 12:30 Urine pH 5.5 (5-7) 07/08/24 12:30 Ur Specific [place] 1.022 (1.005-1.030) 07/08/24 12:30 Urine Protein Negative (Negative) 07/08/24 12:30 Urine Glucose (UA) Negative (Normal) 07/08/24 12:30 Urine Ketones Negative (Negative) 07/08/24 12:30 Urine Blood Negative (Negative) 07/08/24 12:30 Urine Nitrate Negative (Negative) 07/08/24 12:30 Urine Bilirubin Negative (Negative) 07/08/24 12:30 Urine Urobilinogen 0.2 mg/dL (Negative) 07/08/24 12:30 Ur Leukocyte Esterase Trace (Negative) A 07/08/24 12:30 Urine RBC 0-2 /hpf (0-2) 07/08/24 12:30 Urine WBC 0-5 /hpf (0-5) 07/08/24 12:30 Ur Squamous Epith Cells 0-5 /hpf (0-5) 07/08/24 12:30 Amorphous Sediment Not Reportable 07/08/24 12:30 Urine Bacteria None seen /hpf (NONE) 07/08/24 12:30 Hyaline Casts 0.40 /lpf 07/08/24 12:30 Urine HCG, Qual Negative (Negative) 07/08/24 12:30 Blood Type O Positive 07/08/24 13:15 Rho(D) Type Rh positive 07/08/24 13:15 Antibody Screen Negative 07/08/24 13:15 Vitals Last Vital Signs Temp 98.4 F 07/09/24 08:40 Pulse 86 07/09/24 08:40 Resp 15 07/09/24 08:40 BP 120/74 07/09/24 08:40 Pulse Ox 97 07/09/24 08:40 O2 Del Method Room Air 07/09/24 08:40 Results Labs OB ([facility]): Blood Type O Positive 07/08/24 Antibody Screen Negative 07/08/24 Hct 35.7 % (36-47) L 07/09/24 Hgb 12.10 g/dL (11.27-16.99) 07/09/24 Rho(D) Type Rh positive 07/08/24 Plt Count 338 10^3/cmm (157-399) 07/09/24 TSH 0.37 uIU/mL (0.27-4.20) 02/05/24 Progesterone 0.050 ng/mL 02/05/24 HCG, Qual Negative (Negative) 11/26/23 Urine Opiates Screen Negative ng/mL (Negative) 04/17/23 Ur Barbiturates Screen Negative ng/mL (Negative) 04/17/23 Ur Phencyclidine Scrn Negative ng/mL (Negative) 04/17/23 Ur Amphetamines Screen Negative ng/mL (Negative) 04/17/23 U Benzodiazepines Scrn Positive ng/mL (Negative) H 04/17/23 Urine Cocaine Screen Negative ng/mL (Negative) 04/17/23 U Marijuana (THC) Screen Positive ng/mL (Negative) H 04/17/23 Discharge Plan Discharge Patient Disposition: Home Condition: Stable Prescriptions: New hydrocodone-acetaminophen 10-300 mg tablet 1 tab PO Q6H PRN (Reason: postoperative pain) Qty: 30 0RF metronidazole 500 mg tablet 500 mg PO BID 14 Days Qty: 28 0RF ibuprofen 800 mg tablet 800 mg PO TID PRN (Reason: pain) Qty: 60 0RF Continued ipratropium-albuterol 0.5 mg-3 mg(2.5 mg base)/3 mL solution for nebulization 3 ml inhalation QID PRN (Reason: wheezing) Qty: 180 3RF ibuprofen 800 mg tablet 800 mg PO TID Qty: 60 0RF docusate sodium 100 mg tablet 100 mg PO BID Qty: 100 0RF pantoprazole 40 mg tablet,delayed release (DR/EC) 40 mg PO DAILY Qty: 90 1RF FiberCon 625 mg tablet 1,250 mg PO BID Qty: 120 5RF loratadine 10 mg tablet 10 mg PO DAILY PRN (Reason: allergy symptoms) Qty: 90 3RF hydrocortisone 2.5 % cream 1 applic topical BID PRN (Reason: skin irritation) Qty: 30 0RF clobetasol 0.05 % ointment 1 applic topical BID PRN (Reason: Rash) Qty: 45 2RF ondansetron 4 mg tablet,disintegrating 4 mg PO Q4H PRN (Reason: nausea and vomiting) Qty: 30 3RF Combivent Respimat 20-100 mcg/actuation mist See Rx Instructions .ROUTE .COMPLEX Qty: 4 5RF Dose Instruction: INHALE 1 PUFF INTO LUNGS EVERY 4 HOURS NEEDED FOR COPD; SPACE EVENLY DURING WAKING HOURS Rx Instructions: INHALE 1 PUFF INTO LUNGS EVERY 4 HOURS NEEDED FOR COPD; SPACE EVENLY DURING WAKING HOURS lorazepam 2 mg tablet 2 mg PO TID 30 Days Qty: 90 2RF Held hydrocodone-acetaminophen 7.5-325 mg tablet 1 tab PO Q8H PRN (Reason: abd/pelvic pain) 30 Days Qty: 90 0RF Rx Instructions: Refill on or after every 30 days Discharge Orders: Discharge Order (Routine); Ordered 07/09/24 Ordered By: Willy Goncalves Referrals: Willy Goncalevs MD [Physician] - 08/21/24 1:45 pm (* Your 6 week post op appointment is with Dr. Goncalves on 08/21/2024 at 1:45pm) Elise Murillo APN, WHGILBERT [Nurse Practitioner] - 07/23/24 1:30 pm (* Your 2 week post op appointment is with Elise Murillo on 07/23/2024 at 1:30pm) Discharge Diet: Soft Mechanical Patient Instructions: Acute Wound Care (DC), Laparoscopic Hysterectomy (DC), Vaginal Hysterectomy (DC), Opioid Safety, Post Anesthesia Care Activity Restrictions/Additional Instructions: 1. Please call [facility] clinic on next working day to make your post-operative appointment in 2 weeks. 2. Please stay home until you come back to the clinic on first post-hospatilization check up. 3. Please follow instructions on your medications CAREFULLY. 4. If you have abdominal incision, do not cover it unless dressing is necessary because of drainage. OK to shower, but avoid bath. Leave steri-strips until they fall off. If they are still on one week after surgery, you may remove them. 5. If you had vaginal surgery or vaginal repair, Dr. Goncalves may instruct you to take SITZ bath. 6. Yellow, blood tinged odorous vaginal discharge is usually normal after hysterectomy or vaginal surgeries. 7. No SEXUAL INTERCOURSE, tampons, or douches until you are completely released from the post-operative care. 8. Avoid constipation by eating right and maybe using some Metamucil or Milk of Magnesia. 9. All prescription refills are given during the working hours. Please do no wait till it runs out. Call the clinic at [phone] before your medication runs out. The clinic will get in touch with your doctor to prescribe medications if necessary. 10. Please remain within 40 mile radius from our hospital because emergencies do happen now and then during the post-operative period. 11. If you have stairs at home, take one step at a time slowly and minimize the number of trips. It helps to stay in one floor for the next few days. No lifting except what you can lift by one hand until you are released from the post-operative care. 12. Driving is discouraged until you are well healed. It may be 3-4 weeks before you feel strong enough to drive. You should be able to turn and look through the rear window without pain and you should be able to push the brake pedal very hard without pain before you drive. No fast rules, but SAFETY should be your primary concern. DO NOT drive if you are on sedating medications such as narcotics. 13. Call the clinic (during working hours) to make urgent appointment or go to the Emergency room, if any of the following occurs: i. Vaginal bleeding becomes heavy, more than a period. ii. Incision becomes red and sore, or drains pus. iii. Your TEMPERATURE is over 100.4F or you have chill. iv. IV site becomes red and swollen (a little ``knot?? is usually OK) v. Persistent nausea and vomiting vi. Persistent constipation or diarrhea vii. Rash or allergic reaction to medications. Discharge Attestations FUR BLOWING MACHINE ATTENDANT Time Spent in Discharge Care*: greater than 30 min Coding Level of Care Code Acute Code for Chg Fwd
[2024-07-09 13:40] VITALS: BP 110/74; PULSE 96; RESP 15; TEMP 36.6; O2SAT 97
== END 2024-07-09 13:40 | disposition home or self-care (01) ==
LOC: OBGYN 17:02
PROVIDERS: Anesthesiology; Admitting Provider Obstetrics & Gynecology; PCP Family Medicine Adult Medicine; Visit Provider Obstetrics & Gynecology
PROC: 0UT9FZZ Resection of Uterus, Via Natural or Artificial Opening With Percutaneous Endoscopic Assistance (ICD-10-PCS; CPT 58550; principal; 2024-07-08 13:50)
DX: R10.2 Pelvic and perineal pain (principal); D25.9 Leiomyoma of uterus, unspecified; J44.9 Chronic obstructive pulmonary disease, unspecified; K21.9 Gastro-esophageal reflux disease without esophagitis
CPT/HCPCS: 58550; 36415; 80053; 81001; 81025; 85025; 85027; 86850; 86900; 88307; G0378; J0694; J1100; J1171; J1200; J1885; J2250; J2405; J2704; J2710; J3010; J3370; J3490; J7030; J7040; J7050; J7121

== ENCOUNTER → 2024-07-15 13:21 | Outpatient (BNVA) | payer MEDICARE, MEDICAID, SELFPAY | PROVIDERS: PCP Family Medicine Adult Medicine; Visit Provider Obstetrics & Gynecology | DX: R30.0 Dysuria (principal) | CPT/HCPCS: 81000; 87086 ==

== ENCOUNTER 2024-07-31 10:09 | Outpatient (CLI) | payer MEDICARE, MEDICAID, SELFPAY ==
--- NOTE | 2024-07-31 10:17 | XR_ITS ---
WS: [id number] Chest 2 views, 07/31/2024 Clinical Data: cough and wheezing Comparison: Two-view chest, 11/01/2023 Findings: No nodules, masses or effusions are seen. The heart is normal. The pulmonary vascularity is not increased. No pneumonia or pneumothorax is seen. XR/XR chest 2V* [id number] Impression: Negative chest.
== END 2024-07-31 10:10 | disposition home or self-care (01) ==
LOC: RAD 10:10
PROVIDERS: PCP Family Medicine Adult Medicine; Visit Provider Family Medicine
DX: J40 Bronchitis, not specified as acute or chronic (principal)
CPT/HCPCS: 71046

== ENCOUNTER → 2024-09-17 10:50 | Outpatient (BNVA) | payer MEDICARE, MEDICAID, SELFPAY | PROVIDERS: PCP Family Medicine Adult Medicine; Visit Provider Clinical Nurse Specialist Adult Health | DX: R30.0 Dysuria (principal) | CPT/HCPCS: 81000; 85025; 85651; 86140 ==

== ENCOUNTER 2024-10-27 10:02 | Emergency (ER) | payer MEDICARE, MEDICAID, SELFPAY ==
[2024-10-27 10:10] VITALS: BP 167/106; PULSE 106; RESP 18; TEMP 36.7; O2SAT 98; BMI 32.2
[2024-10-27 10:50] VITALS: BP 136/95; PULSE 107; O2SAT 97
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
--- NOTE | 2024-10-27 11:17 | CT_ITS ---
WS: [id number] CT ABDOMEN PELVIS TECHNIQUE: Contrast-enhanced CT of the abdomen and pelvis with coronal and sagittal reformatted image s. CLINICAL INFORMATION: abd pain COMPARISON: CT 11/15/2023 DLP: 648.[address] scans at [facility] use at least one of these dose optimization techniques: automated e xposure control; mA and/or kV adjustment per patient size (includes targeted exams where dose is matc hed to clinical indication); or iterative reconstruction. FINDINGS: Hepatomegaly. Diffuse fatty infiltration of the liver. Normal portal vein and splenic vein. Tiny esophageal hiatal hernia. Lung bases are well aerated. Adrenal glands are normal. Normal renal parenchymal enhancement. No hydronephrosis. Celiac and SMA are patent. A few sigmoid diverticuli. No evidence of acute diverticulitis. Normal caliber abdominal aorta. Tiny RIGHT renal cyst. Fat-containing umbilical hernia. Mural fat deposition involving the distal ileum and ileocecal valve can be seen with inflammatory bow el disease similar to previous. Mild diffuse submucosal enhancement involving the colon more prominent in the transverse colon and he patic flexure suspicious for colitis. Recommend correlation with clinical symptoms. Sigmoid colon has a more normal appearance. Prior cholecystectomy. Tubal ligation. CT/CT abdomen pelvis w con* [id number] IMPRESSION: 1. Findings suspicious for colitis more prominent involving the transverse col on. 2. Mural fat stratification in the distal ileum and ileocecal valve can be see n with inflammatory bowel disease in the appropriate clinical setting similar t o the prior studies. 3. Hepatomegaly with diffuse fatty infiltration of the liver. 4. Fat-containing umbilical hernia. 5. No other acute findings. Notified Jasper Fisher DO at 10/27/2024 12:16 PM.
[2024-10-27 11:36] LABS: Basophils # 0.1 10^3/uL (0.0-0.1); Basophils % 0.4 %; Eosinophils # 0.1 10^3/uL (0.0-0.8); Eosinophils % 0.4 %; Hematocrit 49.2 % (36-47); Lymphocytes % 12.4 %; Mean Corpuscular HGB Conc 35.2 g/dL (30-55); Mean Corpuscular Hemoglobin 29.7 pg (27-33); Mean Corpuscular Volume 84.5 fl (85-98); Mean Platelet Volume 10.4 fL (7.4-10.4); Monocytes # 1.3 10^3/uL (0.2-0.9); Monocytes % 7.8 %; Neutrophils # 12.53 10^3/uL (1.8-7.7); Neutrophils % 78.6 %; Nucleated Red Blood Cells % 0 %; Platelet Count 411 10^3/cmm (157-399); Red Blood Count 5.82 10^6/uL (3.85-5.65); Red Cell Distribution Width 11.9 % (12.1-15.1); White Blood Count 15.96 10^3/uL (3.29-11.43)
[2024-10-27] MEDS: iohexol 350 mg/mL 500 mL Btl (per mL) IV (11:47)
[2024-10-27 11:54] LABS: Alanine Aminotransferase 47 U/L (0-33); Albumin Level 4.5 g/dL (3.5-5.2); Alkaline Phosphatase 106 U/L (35-105); Anion Gap 26.6 (5-19); Aspartate Amino Transferase 28 U/L (0-32); Blood Urea Nitrogen 12 mg/dL (6-20); Calcium 9.8 mg/dL (8.5-10.5); Carbon Dioxide 17 mmol/L (22-29); Chloride 94 mmol/L (98-107); Creatinine Clr Calc Pharmacy 91.3206; Globulin 3.7 g/dL (1.3-4.6); Glomerular Filtration Rate 77.9 mL/min (90-130); Glucose 154 mg/dL (65-115); Lipase 18 U/L (13-60); Osmolality Calculated 281 mOsm/kg (285-295); Potassium 3.6 mmol/L (3.5-5.1); Salicylate 1.1 mg/dL (3-10); Sodium 134 mmol/L (136-145); Total Bilirubin 0.7 mg/dL (0.15-1.2); Total Protein 8.2 g/dL (6.6-8.7)
[2024-10-27 12:05] LABS: Acetaminophen < 5.0 ug/mL (10-30); Alcohol Level < 10 mg/dL (0-10)
[2024-10-27] MEDS: prochlorperazine 10 mg/2 mL Inj IVP (12:10)
[2024-10-27 12:41] VITALS: BP 144/93; PULSE 94; RESP 16; O2SAT 95
[2024-10-27] MEDS: sodium chloride 0.9% 1,000 ML 999 ML IV (13:21)
[2024-10-27 13:28] LABS: Bilirubin Urine Negative (Negative); Blood Urine Negative (Negative); Glucose Urine UA Negative (Normal); Ketones Urine 3+ (Negative); Leukocyte Esterase Urine Negative (Negative); Nitrate Urine Negative (Negative); Protein Urine 1+ (Negative); Urine Appearance Clear (CLEAR); Urine Color Yellow (Yellow)
[2024-10-27 13:34] LABS: Add Urine Microscopic? YES; Bacteria Urine None Seen /hpf; Hyaline Casts Urine 0-4 /lpf; RBC Urine 21-50 /hpf (0-2); Squamous Epithelial Cell Urine 0-5 /hpf (0-5); WBC Urine 0-5 /hpf (0-5)
[2024-10-27 13:35] LABS: Amphetamines Screen Urine Negative (Negative); Barbiturates Screen Urine Negative (Negative); Benzodiazepines Screen Urine Negative (Negative); Cocaine Screen Urine Negative (Negative); Opiate Screen Urine Negative (Negative); PCP Screen Urine Negative (Negative); THC Screen Urine Positive (Negative)
[2024-10-27 14:00] VITALS: BP 142/98; PULSE 88; RESP 16; O2SAT 98
[2024-10-27 14:00] LABS: Specific Gravity, Urine >= 1.099 (1.005-1.030)
[2024-10-27 14:02] LABS: Add Urine Culture? No; UA Slide Review UA Slide Review Perf
[2024-10-27 15:26] VITALS: BP 107/80; PULSE 93; O2SAT 99
== END 2024-10-27 15:32 | disposition home or self-care (01) ==
PROVIDERS: Emergency Provider Family Medicine; PCP Family Medicine Adult Medicine
DX: K52.9 Noninfective gastroenteritis and colitis, unspecified (principal); Z87.891 Personal history of nicotine dependence; J44.89 Other specified chronic obstructive pulmonary disease
CPT/HCPCS: 36415; 74177; 80053; 80306; 80307; 81001; 83690; 85025; 96361; 96374; 99205; 99285; J0780; J7030

== ENCOUNTER 2024-11-07 13:19 | Outpatient (CLI) | payer MEDICARE, MEDICAID, SELFPAY ==
--- NOTE | 2024-11-07 13:30 | US_ITS ---
WS: [id number] ULTRASOUND SOFT TISSUES axilla. HISTORY: D17.20 - Benign lipomatous neoplasm of skin and subcutane... COMPARISON: 06/17/2024 TECHNIQUE: 2-D and color Doppler imaging is submitted. Only the LEFT axilla has been imaged. Benign-appearing lymph nodes with fatty shell in the LEFT axilla. Ultrasound directed to this location by the patient. Hyperechoic fatty shell. Largest lymph node measures 1.7 x 1.2 x 1.2 cm. There is an additional lymph node with a less fatty hilum measuring 1.9 x 2.8 x 1.3 cm but still appears benign. No cortical thickening. No increased vascularity. US/US soft tissue/extremity [id number] IMPRESSION: 1. Benign-appearing LEFT axillary lymph nodes.
== END 2024-11-07 13:20 | disposition home or self-care (01) ==
LOC: RAD 13:19
PROVIDERS: PCP Family Medicine Adult Medicine; Visit Provider Clinical Nurse Specialist Adult Health
DX: D17.22 Benign lipomatous neoplasm of skin and subcutaneous tissue of left arm (principal); R59.0 Localized enlarged lymph nodes
CPT/HCPCS: 76882

== ENCOUNTER → 2024-11-24 12:07 | Outpatient (BNVA) | payer MEDICARE, MEDICAID, SELFPAY | PROVIDERS: PCP Family Medicine Adult Medicine; Visit Provider Clinical Nurse Specialist Adult Health | DX: E55.9 Vitamin D deficiency, unspecified (principal) | CPT/HCPCS: 82306 ==

== ENCOUNTER → 2025-01-07 14:08 | Outpatient (BNVA) | payer MEDICARE, MEDICAID, SELFPAY | PROVIDERS: Visit Provider Nurse Practitioner Family | DX: L71.0 Perioral dermatitis (principal); L82.1 Other seborrheic keratosis; D22.39 Melanocytic nevi of other parts of face; L81.4 Other melanin hyperpigmentation; L91.8 Other hypertrophic disorders of the skin; Z78.9 Other specified health status; R20.8 Other disturbances of skin sensation; D48.5 Neoplasm of uncertain behavior of skin; L57.0 Actinic keratosis | CPT/HCPCS: 11102; 17000; 17110; 99203 ==

== ENCOUNTER → 2025-07-09 10:19 | Outpatient (BNVA) | payer MEDICARE, MEDICAID, SELFPAY | PROVIDERS: Visit Provider Nurse Practitioner Family | DX: D48.5 Neoplasm of uncertain behavior of skin (principal); L82.1 Other seborrheic keratosis; D22.39 Melanocytic nevi of other parts of face; L81.4 Other melanin hyperpigmentation | CPT/HCPCS: 99213 ==

== ENCOUNTER → 2025-09-03 14:39 | Outpatient (BNVA) | payer MEDICARE, MEDICAID, SELFPAY | PROVIDERS: Referring Provider Registered Nurse; Visit Provider Internal Medicine | DX: R00.2 Palpitations (principal); R06.09 Other forms of dyspnea; Z87.891 Personal history of nicotine dependence; R06.02 Shortness of breath; R07.9 Chest pain, unspecified | CPT/HCPCS: 93005; 99204 ==

== ENCOUNTER 2025-09-16 07:17 | Outpatient (CLI) | payer MEDICARE, MEDICAID, SELFPAY ==
--- NOTE | 2025-09-16 07:00 | USCV_ITS ---
Rekha Gu Age: 45 Gender: F : 1980 Exam Date: 09/16/2025 07:41 Ordering Phys: Julio Dumont M.D ([email or web address]) Technologist: [place] [facility] [place]: cp sob BP: 130 / 70 HR: 73 Rhythm: Sinus Technical Quality: Adequate MEASUREMENTS (Male / Female) Normal Values 2D ECHO LV Diastolic Diameter PLAX 4.1 cm 4.2 - 5.9 / 3.9 - 5.3 cm IVS Diastolic Thickness 1.3 cm 0.6 - 1.0 / 0.6 - 0.9 cm IVS Systolic Thickness 1.6 cm LVPW Diastolic Thickness 1.0 cm 0.6 - 1.0 / 0.6 - 0.9 cm LVPW Systolic Thickness 1.9 cm LVOT Diameter 2.1 cm LV Ejection Fraction 2D Teich 63.8 % LV Ejection Fraction MOD 4C 59.4 % LV Ejection Fraction MOD 2C 61.1 % LV Ejection Fraction 2C AL 60.6 % LA Diameter 2.6 cm RA Systolic Volume 4C AL 38.5 ml RA Systolic Volume 4C MOD 37.3 ml Aorta at Sinotubular Diameter 2.2 cm IVC Diameter 1.6 cm M-MODE LA Ao Ratio MM 1.2 AV Cusp Separation MM 1.9 cm DOPPLER AV Peak Velocity 109.7 cm/s LVOT Peak Velocity 83.0 cm/s AV Area Cont Eq vti 3.3 cm squared AV Area Cont Eq pk 2.7 cm squared MV Peak Velocity 79.0 cm/s MV Area PHT 4.0 cm squared Mitral E to A Ratio 1.4 TV Peak Velocity 171.0 cm/s TR Peak Velocity 186.0 cm/s TR Peak Gradient 13.8 mmHg TV Peak E Velocity 75.0 cm/s PV Peak Velocity 72.0 cm/s FINDINGS Left Ventricle Normal left ventricular size, systolic function and wall thickness, with no regional wall motion abnormalities. Left ventricular ejection fraction is estimated at 55 %. Normal diastolic function. Right Ventricle Normal right ventricular size and systolic function. Right Atrium Normal right atrial size. Left Atrium Normal left atrial size. IA Septum Normal appearance of the interatrial septum. Mitral Valve Mildly thickened mitral valve. No mitral valve stenosis. Mild mitral valve regurgitation. Aortic Valve Normal aortic valve structure. No aortic valve stenosis or regurgitation. Tricuspid Valve Trace tricuspid valve regurgitation. Pulmonic Valve Normal pulmonic valve structure. No pulmonic valve stenosis or regurgitation. Pericardium No pericardial effusion. Aorta Normal diameter of the aortic root and ascending thoracic aorta. IVC Normal IVC diameter. CONCLUSIONS Normal left ventricular size, systolic function and wall thickness, with no regional wall motion abnormalities. Left ventricular ejection fraction is estimated at 55 %. Normal diastolic function. There is no pericardial effusion. No significant valvular abnormalities. Right atrial pressure is around 5 mm of mercury. Kimberlee Ross MD (Electronically Signed) Final Date: 26 September 2025 16:59 S
== END 2025-09-16 07:18 | disposition home or self-care (01) ==
LOC: RAD 07:18
PROVIDERS: PCP Family Medicine; Visit Provider Internal Medicine
DX: R07.9 Chest pain, unspecified (principal); R06.02 Shortness of breath; I34.0 Nonrheumatic mitral (valve) insufficiency
CPT/HCPCS: 93306